=== PATIENT | female | born 1960 | race Caucasian/White ===

== ENCOUNTER 2020-06-23 12:49 | Outpatient (REF) | payer OTHER, SELFPAY ==
--- NOTE | 2020-06-23 12:51 | MR_ITS ---
EXAMINATION: MRI OF THE LEFT ANKLE WITHOUT CONTRAST CLINICAL INFORMATION: Sprain of ligament. COMPARISON: X-rays of the left foot and left ankle March 2020. CT scan of the left foot and left ankle March 2020. TECHNIQUE: MRI of the left ankle was performed without contrast. FINDINGS: Subcutaneous Soft Tissues: Mild generalized edema circumferentially about the ankle and visualized foot. Muscles and Tendons: Normal. Os perineum embedded within the peroneal longus tendon as noted on CT. Plantar Fascia: Normal. Yjjsh-ob-zkzeahzv-sized plantar calcaneal spur. Ligaments: Intact. Neurovascular Structures/Tarsal Tunnel: Normal. Articular Cartilage/Marrow: Slight heterogeneity of the marrow signal in the cuboid. This could reflect residual red marrow or mild bone marrow edema pattern. I do not see a fracture line or discrete bone lesion. The remaining bone and joints are unremarkable. MR/MR ankle LT wo con IMPRESSION: Mild scattered subcutaneous edema. Questionable abnormal marrow in the cuboid. This could reflect normal variation related to residual red marrow versus a mild bone marrow edema pattern which raises the question of a bone contusion or stress reaction.
== END 2020-06-23 12:50 | disposition home or self-care (01) ==
LOC: HO.MRI 12:49
PROVIDERS: PCP Internal Medicine; Visit Provider Physician Assistant
DX: S93.492A Sprain of other ligament of left ankle, initial encounter (principal)
CPT/HCPCS: 73721

== ENCOUNTER 2020-06-27 08:52 | Outpatient (REF) | payer OTHER, SELFPAY ==
[2020-06-27 09:50] LABS: Estimated Average Glucose 103 mg/dL; Hemoglobin A1c % 5.2 %
[2020-06-27 10:11] LABS: Alanine Aminotransferase 12 U/L (0-31); Alkaline Phosphatase 81 U/L (39-117); Anion Gap 12 (12-20); Aspartate Amino Transferase 18 U/L (5-31); Bilirubin Total 0.6 mg/dL (0.0-1.0); Blood Urea Nitrogen 20 mg/dL (9-16); Calcium 8.5 mg/dL (8.4-10.2); Carbon Dioxide 20 mmol/L (22-29); Chloride 110 mmol/L (96-108); Cholesterol 238 mg/dL; Estimated Glomerular Filt Rate > 60; Glucose Fasting 99 mg/dL (60-99); HDL Cholesterol 39 mg/dL; LDL Cholesterol Calculated 150 mg/dl; Potassium 4.4 mmol/l (3.3-5.1); Sodium 138 mmol/L (135-145); Total Protein 6.3 g/dL (6.5-8.0); Triglycerides 246 mg/dL
== END 2020-06-27 08:53 | disposition home or self-care (01) ==
LOC: HO.LAB 08:52
PROVIDERS: PCP Internal Medicine; Visit Provider Internal Medicine
DX: E78.00 Pure hypercholesterolemia, unspecified (principal)
CPT/HCPCS: 80053; 80061; 83036

== ENCOUNTER → 2020-08-23 14:03 | Outpatient (BNVA) | payer OTHER, SELFPAY | PROVIDERS: PCP Internal Medicine; Referring Provider Internal Medicine; Visit Provider Obstetrics & Gynecology | DX: Z76.89 Persons encountering health services in other specified circumstances (principal) ==

== ENCOUNTER 2020-08-30 14:16 | Outpatient (REF) | payer OTHER, SELFPAY ==
--- NOTE | 2020-08-30 14:22 | US_ITS ---
EXAMINATION: PELVIC ULTRASOUND CLINICAL INFORMATION: Ovarian cyst COMPARISON: Previous ultrasound exams most recent April 2019 and pelvic MRI February 2019 TECHNIQUE: Transabdominal and transvaginal pelvic ultrasound was performed. Transvaginal exam was performed for better visualization of the ovaries. FINDINGS: The uterus has been removed. The right ovary measures 3.3 x 2.2 x 1.9 cm. There is a 2.1 x 1.8 x 1.8 cm simple right ovarian cyst. This is increased in size from 1.5 x 1.2 x 1.3 cm on most recent ultrasound April 2019. The left ovary is normal-appearing and measures 2.4 x 1.7 x 1.6 cm. There is no fluid in the pelvis. US/US pelvic complete IMPRESSION: Slight interval increase in size in the simple right ovarian cyst from previous exams.
--- NOTE | 2020-08-30 14:22 | US_ITS ---
EXAMINATION: PELVIC ULTRASOUND CLINICAL INFORMATION: Ovarian cyst COMPARISON: Previous ultrasound exams most recent April 2019 and pelvic MRI February 2019 TECHNIQUE: Transabdominal and transvaginal pelvic ultrasound was performed. Transvaginal exam was performed for better visualization of the ovaries. FINDINGS: The uterus has been removed. The right ovary measures 3.3 x 2.2 x 1.9 cm. There is a 2.1 x 1.8 x 1.8 cm simple right ovarian cyst. This is increased in size from 1.5 x 1.2 x 1.3 cm on most recent ultrasound April 2019. The left ovary is normal-appearing and measures 2.4 x 1.7 x 1.6 cm. There is no fluid in the pelvis. US/US transvaginal IMPRESSION: Slight interval increase in size in the simple right ovarian cyst from previous exams.
== END 2020-08-30 14:17 | disposition home or self-care (01) ==
LOC: HO.US 14:16
PROVIDERS: Visit Provider Obstetrics & Gynecology
DX: N94.9 Unspecified condition associated with female genital organs and menstrual cycle (principal)
CPT/HCPCS: 76830; 76856

== ENCOUNTER → 2020-09-06 12:03 | Outpatient (BNVA) | payer OTHER, SELFPAY | PROVIDERS: Visit Provider Obstetrics & Gynecology | DX: Z13.89 Encounter for screening for other disorder (principal) | CPT/HCPCS: Q3014 ==

== ENCOUNTER 2020-09-25 13:32 | Outpatient (REF) | payer OTHER, SELFPAY ==
--- NOTE | ~2020-09-25 | XR_ITS ---
EXAMINATION: XR LUMBOSACRAL SPINE CLINICAL INFORMATION: Degenerative disc disease COMPARISON: Previous x-ray most recent January 2020 TECHNIQUE: Three views of the lumbosacral spine. FINDINGS: There is mild curvature of the mid lumbar spine to the left. There is grade 1 anterior subluxation of L5 with respect to S1 measuring 8 mm. This is similar to previous exam. There is postsurgical change at L5-S1 with posterior fusion hardware and interpedicular screws and disc interspacer. This is unchanged. No fracture or dislocation is seen. Disc spaces are normal. Paraspinal soft tissues are normal. XR/XR lumbar spine 2-3V IMPRESSION: Stable postsurgical change at L5-S1.
== END 2020-09-25 13:33 | disposition home or self-care (01) ==
LOC: HO.XRAY 13:32
PROVIDERS: Visit Provider Internal Medicine
DX: M51.36 Other intervertebral disc degeneration, lumbar region (principal)
CPT/HCPCS: 72100

== ENCOUNTER → 2020-11-17 10:35 | Outpatient (BNVA) | payer OTHER, SELFPAY | PROVIDERS: PCP Internal Medicine; Visit Provider Student in an Organized Health Care Education/Training Program | DX: M51.36 Other intervertebral disc degeneration, lumbar region (principal); M70.62 Trochanteric bursitis, left hip | CPT/HCPCS: 99212 ==

== ENCOUNTER 2020-11-23 11:22 | Outpatient (REF) | payer OTHER, SELFPAY ==
--- NOTE | ~2020-11-23 | XR_ITS ---
EXAMINATION: XR HIP, LEFT CLINICAL INFORMATION: Left hip pain. COMPARISON: None TECHNIQUE: Two views of the left hip. FINDINGS: There is normal left hip joint alignment. No bony erosive changes, loose bodies or spurring seen. No acute fracture or dislocation seen. The soft tissues are normal. XR/XR hip LT min 2V IMPRESSION: Unremarkable left hip exam.
[2020-11-23 13:48] LABS: Glucose Urine UA NEG (NEG); Leukocyte Esterase Urine 3+ (NEG); Nitrite Urine POS (NEG); PH 7.5 (5.0-8.0); Specific Gravity - Urine 1.015 (1.005-1.025); UACC Culture Trigger YES; Urine Blood TRACE (NEG); Urine Ketones NEG (NEG); Urine Protein NEG (NEG-TRACE)
[2020-11-23 14:00] LABS: Appearance Urine HAZY; Color Urine YELLOW
[2020-11-23 14:19] LABS: Bacteria Urine 1+ /LPF; RBC Urine 0-2 /HPF (0); Squamous Epithelial Cell Urine TRACE /LPF; WBC Urine 30-49 /HPF (0-4)
== END 2020-11-23 11:23 | disposition home or self-care (01) ==
LOC: HO.XRAY 11:22
PROVIDERS: PCP Internal Medicine; Visit Provider Internal Medicine
DX: M70.62 Trochanteric bursitis, left hip (principal)
CPT/HCPCS: 73502; 81001; 81003; 87086

== ENCOUNTER 2020-11-29 06:33 | Outpatient (REF) | payer OTHER, SELFPAY ==
[2020-11-29 08:30] LABS: Alanine Aminotransferase 16 U/L (0-31); Albumin Level 4.3 g/dL (3.5-5.0); Alkaline Phosphatase 94 U/L (39-117); Anion Gap 12 (12-20); Aspartate Amino Transferase 21 U/L (5-31); Bilirubin Total 0.8 mg/dL (0.0-1.0); Blood Urea Nitrogen 20 mg/dL (9-16); Calcium 9.4 mg/dL (8.4-10.2); Carbon Dioxide 24 mmol/L (22-29); Chloride 106 mmol/L (96-108); Cholesterol 213 mg/dL; Estimated Glomerular Filt Rate > 60; Glucose Random 98 mg/dL (60-115); HDL Cholesterol 48 mg/dL; LDL Cholesterol Calculated 96 mg/dl; Potassium 4.2 mmol/L (3.3-5.1); Sodium 138 mmol/L (135-145); Triglycerides 345 mg/dL
== END 2020-11-29 06:34 | disposition home or self-care (01) ==
LOC: HO.LAB 06:33
PROVIDERS: PCP Internal Medicine; Visit Provider Internal Medicine
DX: E78.00 Pure hypercholesterolemia, unspecified (principal)
CPT/HCPCS: 36415; 80053; 80061

== ENCOUNTER 2021-07-11 10:48 | Outpatient (REF) | payer OTHER, SELFPAY ==
[2021-07-11 12:52] LABS: Appearance Urine HAZY; Color Urine YELLOW; Glucose Urine UA 100 MG/DL (NEG); Leukocyte Esterase Urine 3+ (NEG); Nitrite Urine POS (NEG); PH 6.5 (5.0-8.0); Specific Gravity - Urine <= 1.005 (1.005-1.025); UACC Culture Trigger YES; Urine Blood TRACE (NEG); Urine Ketones NEG (NEG); Urine Protein TRACE MG/DL (NEG-TRACE)
[2021-07-11 13:00] LABS: Bacteria Urine 2+ /LPF; Mucus Urine 2+ /LPF; RBC Urine 0-2 /HPF (0)
== END 2021-07-11 10:49 | disposition home or self-care (01) ==
LOC: HO.LAB 10:48
PROVIDERS: PCP Internal Medicine; Visit Provider Internal Medicine
DX: R82.90 Unspecified abnormal findings in urine (principal)
CPT/HCPCS: 36415; 81001; 87086

== ENCOUNTER 2021-08-20 10:25 | Outpatient (REF) | payer OTHER, SELFPAY ==
[2021-08-20 11:33] LABS: Alanine Aminotransferase 17 U/L (0-31); Albumin Level 4.5 g/dL (3.5-5.0); Alkaline Phosphatase 82 U/L (39-117); Anion Gap 8 (12-20); Aspartate Amino Transferase 22 U/L (5-31); Bilirubin Total 1.2 mg/dL (0.0-1.0); Blood Urea Nitrogen 12 mg/dL (9-16); Calcium 9.9 mg/dL (8.4-10.2); Carbon Dioxide 26 mmol/L (22-29); Chloride 108 mmol/L (96-108); Cholesterol 211 mg/dL; Estimated Glomerular Filt Rate > 60; Glucose Random 100 mg/dL (60-115); HDL Cholesterol 35 mg/dL; LDL Cholesterol Calculated 98 mg/dl; Potassium 4.1 mmol/L (3.3-5.1); Sodium 138 mmol/L (135-145); Total Protein 7.3 g/dL (6.5-8.0); Triglycerides 393 mg/dL
== END 2021-08-20 10:26 | disposition home or self-care (01) ==
LOC: HO.LAB 10:25
PROVIDERS: PCP Internal Medicine; Visit Provider Internal Medicine
DX: E78.00 Pure hypercholesterolemia, unspecified (principal)
CPT/HCPCS: 36415; 80053; 80061

== ENCOUNTER 2021-09-26 12:34 | Outpatient (REF) | payer OTHER, SELFPAY ==
--- NOTE | ~2021-09-26 | CT_ITS ---
EXAMINATION: CT CHEST SCREENING CLINICAL INFORMATION: Nicotine dependence. Current smoker with 1 pack per day history for 46 years. COMPARISON: 02/08/2020 and 11/06/2018. TECHNIQUE: Multidetector volumetric CT imaging of the chest was performed without contrast using low-dose technique. Additional 2D coronal and sagittal reformatted images and axial 3D maximum intensity projection (MIP) images were generated on the CT workstation. This CT examination was performed using dose optimization techniques as appropriate, variously including the following: *Automated exposure control *Adjustment of mA and/or kV according to patient size (this includes techniques or standardized protocols for targeted exams where dose is matched to indication/reason for exam; i.e. extremities or head) *Use of iterative reconstruction technique DLP: 57 mGy-cm FINDINGS: LUNGS: Central airways are patent. There is a region of chronic scarring/atelectasis medial aspect of the right middle lobe. No significant bronchial wall thickening is evident. No bronchiectasis is seen. No significant changes of emphysema are appreciated. No confluent pneumonitis. There are a few scattered 1 to 2 mm densities present bilaterally with no nodule 4 mm or greater in size. MEDIASTINUM: Heart normal size. No evidence of pericardial effusion. No thoracic aortic aneurysm. No mediastinal or hilar lymphadenopathy. PLEURA: There is no pleural effusion. No pleural mass or thickening. AXILLAE: No lymphadenopathy. Status post cervical spine surgery. UPPER ABDOMEN: Status post cholecystectomy. No adrenal gland mass. OSSEOUS STRUCTURES: Status post right shoulder surgery. Status post cervical spine surgery. No suspicious destructive bony lesions identified. CT/CT lung screening IMPRESSION: No significant abnormality identified. ASSESSMENT: Lung-RADS category 2: Benign. RECOMMENDATION: Routine annual low-dose CT screening in 12 months.
== END 2021-09-26 12:35 | disposition home or self-care (01) ==
LOC: HO.CT 12:34
PROVIDERS: PCP Internal Medicine; Visit Provider Physician Assistant Medical
DX: Z12.2 Encounter for screening for malignant neoplasm of respiratory organs (principal); Z87.891 Personal history of nicotine dependence
CPT/HCPCS: 71271

== ENCOUNTER → 2022-02-04 11:44 | Outpatient (BNVA) | payer OTHER, SELFPAY | PROVIDERS: PCP Internal Medicine; Referring Provider Internal Medicine; Visit Provider Physician Assistant | DX: Z12.11 Encounter for screening for malignant neoplasm of colon (principal); K21.9 Gastro-esophageal reflux disease without esophagitis | CPT/HCPCS: 99202 ==

== ENCOUNTER 2022-02-05 13:12 | Outpatient (REF) | payer OTHER, SELFPAY ==
[2022-02-06 16:03] LABS: H Pylori Breath Test Negative (Negative)
== END 2022-02-05 13:13 | disposition home or self-care (01) ==
LOC: HO.LNP 13:12
PROVIDERS: Visit Provider Physician Assistant
DX: A04.8 Other specified bacterial intestinal infections (principal)
CPT/HCPCS: 83013

== ENCOUNTER 2022-02-12 08:43 | Day surgery (SDC) | payer OTHER, SELFPAY ==
--- NOTE | 2022-02-08 09:30 | HO.ANESPROP2 ---
Documented by User: Amanda Melara NP 02/08/22 09:32 HPI - Anesthesia Eval Consult details Narrative: 62yo F for Colonoscopy PMFSH Active Problems Active Problems: All Active Problems (Updated 02/04/22 @ 12:13 by Brigitte Weston PA-C) Encounter for screening colonoscopy (Acute) Colonoscopy refused (Acute) Cloudy urine (Acute) Trochanteric bursitis, left hip (Acute) Ovarian cyst (Acute) Ventral hernia (Acute) Obesity (BMI 30-39.9) (Acute) Lumbar degenerative disc disease (Acute) Anxiety and depression (Acute) Hypercholesterolemia (Acute) Osteopenia (Acute) Restless leg syndrome (Acute) Insomnia (Acute) Tobacco abuse (Acute) GERD (gastroesophageal reflux disease) (Acute) Impaired glucose tolerance (Acute) Hypertension (Acute) Past Medical History Medical History Anxiety and depression Cervical radiculopathy due to degenerative joint disease of spine Cholelithiasis Fibromyalgia GERD (gastroesophageal reflux disease) H. pylori duodenitis HLA B27 (HLA B27 positive) Hypercholesterolemia Hypertension Impaired glucose tolerance Insomnia Lumbar degenerative disc disease Obesity (BMI 30-39.9) Osteopenia Restless leg syndrome Tobacco abuse Family History Family History Father Hypertension Past heart attack CVD (cardiovascular disease) Mother Hyperlipidemia Paternal Grandmother Lung cancer Son Substance abuse Brother Bipolar 1 disorder Surgical History Surgical History H/O basal cell carcinoma excision H/O nasal septoplasty H/O right wrist surgery H/O thumb surgery History of cervical discectomy History of cholecystectomy History of hemorrhoidectomy History of hernia repair History of lumbar fusion History of partial hysterectomy History of shoulder surgery History of tonsillectomy Social History Social History Housing: House Alcohol intake: current Alcohol intake frequency: a few times a week Alcohol type: beer Patient Tobacco Use Status: Current everyday Tobacco user Tobacco use type: Cigarette Cigarette Packs Per Day: 0.5 Cigarettes Per Day: 10 e-Cigarette/Vaping Use: Never Used Second Hand Smoke Exposure: Yes Use of substances other than those prescribed or required for medical reasons: No Advance Directives: No Advance Directives Information Provided: Yes Recently lost weight without trying: No Nutrition Risks: No Nutritional Risk service: No Current occupational status: disabled Meds Allergies Allergy/AdvReac Type Severity Reaction Status Date / Time adhesive tape [ADHESIVE TAPE] Allergy Intermediate RASH/BLISTE Verified 02/04/22 11:55 RS Sulfa (Sulfonamide Allergy Intermediate ITCHY RASH Verified 02/04/22 11:55 Antibiotics) [SULFA (SULFONAMIDE ANTIBIOTICS)] bacitracin [From NEOSPORIN] Allergy Mild RASH Verified 02/04/22 11:55 gramicidin D [From NEOSPORIN] Allergy Mild RASH Verified 02/04/22 11:55 polymyxin B [From NEOSPORIN] Allergy Mild RASH Verified 02/04/22 11:55 cefazolin [CEFAZOLIN] AdvReac Intermediate GI UPSET Verified 02/04/22 11:55 Home Medications Medication Instructions Recorded Confirmed Last Taken Type clonazepam 1 mg tablet 1 mg PO TID 08/21/21 08/21/21 Unknown History quetiapine 50 mg tablet 100 mg PO TID 08/21/21 08/21/21 Unknown History sertraline 100 mg tablet 0 mg PO 02/04/22 02/12/22 History 0 mg Exam Exam Date and Time: February 08, 2022 0930 Pertinent Lab Results Pertinent Lab Results: Laboratory Tests 08/20/21 10:49 Sodium 138 Potassium 4.1 Chloride 108 Carbon Dioxide 26 BUN 12 Creatinine 0.93 Narrative Narrative: CT lung screening 09/2021 IMPRESSION: No significant abnormality identified.? Assessment and Plan Assessment Anesthesia Assessment: Chart Reviewed Documented by User: Sky Gil MD 02/12/22 09:19 [facility] Past Medical History Medical History Anxiety and depression Cervical radiculopathy due to degenerative joint disease of spine Cholelithiasis Fibromyalgia GERD (gastroesophageal reflux disease) H. pylori duodenitis HLA B27 (HLA B27 positive) Hypercholesterolemia Hypertension Impaired glucose tolerance Insomnia Lumbar degenerative disc disease Obesity (BMI 30-39.9) Osteopenia Restless leg syndrome Tobacco abuse Patient : No Family History Family History Father Hypertension Past heart attack CVD (cardiovascular disease) Mother Hyperlipidemia Paternal Grandmother Lung cancer Son Substance abuse Brother Bipolar 1 disorder Family history of problems with anesthesia: No Surgical History Surgical History H/O basal cell carcinoma excision H/O nasal septoplasty H/O right wrist surgery H/O thumb surgery History of cervical discectomy History of cholecystectomy History of hemorrhoidectomy History of hernia repair History of lumbar fusion History of partial hysterectomy History of shoulder surgery History of tonsillectomy History of Problems with Anesthesia: No Social History Social History Housing: House Alcohol intake: current Alcohol intake frequency: a few times a week Alcohol type: beer Patient Tobacco Use Status: Current everyday Tobacco user Tobacco use type: Cigarette Cigarette Packs Per Day: 0.5 Cigarettes Per Day: 10 e-Cigarette/Vaping Use: Never Used Second Hand Smoke Exposure: Yes Use of substances other than those prescribed or required for medical reasons: No Advance Directives: No Advance Directives Information Provided: Yes Recently lost weight without trying: No Nutrition Risks: No Nutritional Risk service: No Current occupational status: disabled Meds Allergies Allergy/AdvReac Type Severity Reaction Status Date / Time adhesive tape [ADHESIVE TAPE] Allergy Intermediate RASH/BLISTE Verified 02/04/22 11:55 RS Sulfa (Sulfonamide Allergy Intermediate ITCHY RASH Verified 02/04/22 11:55 Antibiotics) [SULFA (SULFONAMIDE ANTIBIOTICS)] bacitracin [From NEOSPORIN] Allergy Mild RASH Verified 02/04/22 11:55 gramicidin D [From NEOSPORIN] Allergy Mild RASH Verified 02/04/22 11:55 polymyxin B [From NEOSPORIN] Allergy Mild RASH Verified 02/04/22 11:55 cefazolin [CEFAZOLIN] AdvReac Intermediate GI UPSET Verified 02/04/22 11:55 Home Medications Medication Instructions Recorded Confirmed Last Taken Type clonazepam 1 mg tablet 1 mg PO TID 08/21/21 08/21/21 Unknown History quetiapine 50 mg tablet 100 mg PO TID 08/21/21 08/21/21 Unknown History sertraline 100 mg tablet 0 mg PO 02/04/22 02/12/22 History 0 mg Exam Airway Mallampati Class: III TM Dist: >3cm Neck ROM: Full Partial: Lower Loose/Missing/Broken Teeth: Yes Heart: rrr Lungs: clear Assessment and Plan Final Anesthetic Review Family History of Problems with Anesthesia: No History of Problems with Anesthesia: No NPO: Yes ASA Class: III Final Preanesthetic Review: No Changes in Pt Med Stat, Meds/Allgs Chart Reviewed, Consent Obtained/Reviewed and Anes Risks/Benef Reviewed Patient Risk: Intermediate Procedure Risk: Low Anesthetic Plan Disposition: Standard PACU
[2022-02-12 08:53] VITALS: BP 140/93; PULSE 94; RESP 16; TEMP 36.1; O2SAT 95; BMI 34.3
[2022-02-12] MEDS: Lactated Ringers 1,000 ML 100 ML IVCONT (09:10)
--- NOTE | 2022-02-12 09:15 | P.BOP_ITS ---
Brief Operative Note Date of Service: 02/12/22 Pre-op diagnosis: Colon cancer screening Post-op diagnosis: other (Colon polyps, diverticulosis) Procedure: COLONOSCOPY TILL CECUM WITH SNARE POLYPECTOMY Consent: Indications for the procedure and potential complications of bleeding, perforation, reaction to medications and missed diagnosis were discussed with the patient and informed consent was obtained. Instrument: Olympus PCF H 190 L variable stiffness pediatric colonoscope Monitoring: Vital signs and clinical assessment, intermittent blood pressure monitoring, continuous EKG monitoring, Pulse oximetry and Carbon Dioxide monitoring were done throughout the procedure. Colon withdrawl time was 26 minutes. Procedure: The patient was placed in the left lateral decubitis position and pre-procedure medications were administered. After a digital rectal examination of the ano-rectum, the video colonoscope was inserted into the rectum and advanced through the colon to the cecum. The colonoscope was slowly withdrawn in a retrograde panoramic fashion and the colon mucosa was carefully examined including a retroflexed view of the rectum. Findings and interventions are described below. Procedure Difficulty: Without difficulty Findings: Terminal Ileum: Not evaluated Cecum: Normal Ascending Colon: Scattered moderate diverticulosis throughout the colon Transverse Colon: Scattered moderate diverticulosis throughout the colon Descending Colon: Scattered moderate diverticulosis throughout the colon Sigmoid Colon: Two 9-10 mm sessile polyps removed with a cold snare. Severe diverticulosis with luminal narrowing Rectum: Normal Ano-rectum: Tessie-anal skin tags Colon preparation: Excellent Impression and Post Procedure Diagnosis: Colonoscopy Findings: Two medium sized polyps removed Moderate to severe diverticulosis seen in the entire colon Plan: Await pathology results Patient has an appointment on 03/05/22 in the GI Clinic with MOSHE Ghotra. Repeat Colonoscopy interval based on path results - in 3-5 years if polyps are adenomatous and 10 years if polyps are hyperplastic. Above findings were reviewed with the patient and colon polyps and diverticulosis handouts were given in the discharge area Surgeon: Cordell Goldberg MD Anesthesia: MAC (Dr Gil) Was an Physical Aerodynamicist used for this Procedure?: Yes Physical Aerodynamicist: Fior Fnues Estimated blood loss (mL): 0 Pathology: other (A. sigmoid polyps (2)) Condition: stable Disposition: PACU
--- NOTE | 2022-02-12 09:15 | MHC.SHP ---
Pre-Procedural Eval Section A Date of Service: 02/12/22 The patient is an INPATIENT: No Changes since office visit: Yes Patient answered all questions; No Cold of Flu in the past 2 weeks, No New Medical Problems and No Changes in Medication The History & Physical has been completed within 30 days and I have reviewed it.: Yes Section B Chief Complaint: screening Allergies: Allergies Allergy/AdvReac Type Severity Reaction Status Date / Time adhesive tape [ADHESIVE TAPE] Allergy Intermediate RASH/BLISTE Verified 02/04/22 11:55 RS Sulfa (Sulfonamide Allergy Intermediate ITCHY RASH Verified 02/04/22 11:55 Antibiotics) [SULFA (SULFONAMIDE ANTIBIOTICS)] bacitracin [From NEOSPORIN] Allergy Mild RASH Verified 02/04/22 11:55 gramicidin D [From NEOSPORIN] Allergy Mild RASH Verified 02/04/22 11:55 polymyxin B [From NEOSPORIN] Allergy Mild RASH Verified 02/04/22 11:55 cefazolin [CEFAZOLIN] AdvReac Intermediate GI UPSET Verified 02/04/22 11:55 Plan I have reviewed the history and physical and performed a pertinent physical examination on my patient. No changes have occurred unless specified.
--- NOTE | 2022-02-12 09:21 | PC.NURSE ---
Right BBB noted on monitor , Dr Gil notified
--- NOTE | 2022-02-12 09:23 | W.PM.OPN ---
Operative Note Operative Note Date of Service: 02/12/22 Narrative: Pre-op diagnosis: Colon cancer screening Post-op diagnosis:?other (Colon polyps, diverticulosis) Procedure: COLONOSCOPY TILL CECUM WITH SNARE POLYPECTOMY Consent: Indications for the procedure and potential complications of bleeding, perforation, reaction to medications and missed diagnosis were discussed with the patient and informed consent was obtained. Instrument: Olympus PCF H 190 L variable stiffness pediatric colonoscope Monitoring: Vital signs and clinical assessment, intermittent blood pressure monitoring, continuous EKG monitoring, Pulse oximetry and Carbon Dioxide monitoring were done throughout the procedure. Colon withdrawl time was 26 minutes. Procedure: The patient was placed in the left lateral decubitis position and pre-procedure medications were administered. After a digital rectal examination of the ano-rectum, the video colonoscope was inserted into the rectum and advanced through the colon to the cecum. The colonoscope was slowly withdrawn in a retrograde panoramic fashion and the colon mucosa was carefully examined including a retroflexed view of the rectum. Findings and interventions are described below. Procedure Difficulty: Without difficulty Findings: Terminal Ileum: Not evaluated Cecum:? Normal Ascending Colon:? Scattered moderate diverticulosis throughout the colon Transverse Colon:? Scattered moderate diverticulosis throughout the colon Descending Colon:? Scattered moderate diverticulosis throughout the colon Sigmoid Colon:? Two 9-10 mm sessile polyps removed with a cold snare. Severe diverticulosis with luminal narrowing Rectum:? Normal Ano-rectum:? Tessie-anal skin tags Colon preparation: Excellent ? Impression and Post Procedure Diagnosis: Colonoscopy Findings: Two medium sized polyps removed Moderate to severe diverticulosis seen in the entire colon Plan: Await pathology results Patient has an appointment on 03/05/22 in the GI Clinic with MOSHE Ghotra. Repeat Colonoscopy interval based on path results - in 3-5 years if polyps are adenomatous and 10 years if polyps are hyperplastic. Above findings were reviewed with the patient and colon polyps and diverticulosis handouts were given in the discharge area Surgeon: Cordell Goldberg MD Anesthesia:?MAC (Dr Gil) Was an Community Services Officer used for this Procedure?:?Yes Community Services Officer:?Fior Funes Estimated blood loss (mL):?0 Pathology:?other (A. sigmoid polyps (2)) Condition:?stable Disposition:?PACU
[2022-02-12 10:13] VITALS: BP 134/81; PULSE 66; RESP 16; TEMP 36.6; O2SAT 97
[2022-02-12 10:28] VITALS: BP 144/74; PULSE 68; RESP 16; TEMP 36.9; O2SAT 98
== END 2022-02-12 10:51 | disposition home or self-care (01) ==
PROVIDERS: PCP Internal Medicine; Visit Provider Internal Medicine Gastroenterology
PROC: 0DJD8ZZ Inspection of Lower Intestinal Tract, Via Natural or Artificial Opening Endoscopic (ICD-10-PCS; CPT 45378; principal; 2022-02-12 09:50)
DX: Z12.11 Encounter for screening for malignant neoplasm of colon (principal); D12.5 Benign neoplasm of sigmoid colon; K57.30 Diverticulosis of large intestine without perforation or abscess without bleeding; K64.4 Residual hemorrhoidal skin tags; K21.9 Gastro-esophageal reflux disease without esophagitis; I10 Essential (primary) hypertension; M79.7 Fibromyalgia; Z87.19 Personal history of other diseases of the digestive system; A04.8 Other specified bacterial intestinal infections; Z79.899 Other long term (current) drug therapy; Z88.2 Allergy status to sulfonamides; Z88.1 Allergy status to other antibiotic agents; Z90.49 Acquired absence of other specified parts of digestive tract; F17.210 Nicotine dependence, cigarettes, uncomplicated
CPT/HCPCS: 45385; 88305

== ENCOUNTER 2022-02-18 13:24 | Outpatient (REF) | payer OTHER, SELFPAY ==
[2022-02-18 13:40] LABS: MANUAL DIFF FLAG NO
[2022-02-18 14:00] LABS: Basophils Absolute Auto 0.1 X10*3/uL (0.0-0.2); Basophils Percent Auto 0.9 % (0-2); Eosinophils Absolute Auto 0.2 X10*3/uL (0.0-0.4); Eosinophils Percent Auto 2.9 % (0-4); Hematocrit 41.9 % (37.0-47.0); Hemoglobin 14.6 g/dl (12.0-16.0); Imm Gran Abs Auto 0.05 X10*3/uL (0.00-0.03); Imm Gran Pct Auto 0.6 % (0.0-0.4); Lymphocytes Absolute Auto 2.9 X10*3/uL (1.2-4.9); Lymphocytes Percent Auto 35.5 % (20-40); Mean Corpuscular HGB Conc 34.8 g/dl (31.0-35.0); Mean Corpuscular Hemoglobin 31.4 pg (27.0-33.0); Mean Corpuscular Volume 90.1 fL (80.0-98.0); Mean Platelet Volume 9.6 fL (9.4-12.3); Monocytes Absolute Auto 0.6 X10*3/uL (0.1-1.2); Monocytes Percent Auto 7.1 % (2-11); Neutrophils Absolute Auto 4.3 x10*3/uL (2.0-8.3); Platelet Count 389 X10*3/uL (160-400); Red Blood Count 4.65 X10*6/uL (4.20-5.50); Red Cell Distribution Width 12.2 % (11.0-16.0)
[2022-02-18 14:07] LABS: Estimated Average Glucose 105 mg/dL; Hemoglobin A1c % 5.3 %
[2022-02-18 14:33] LABS: Alanine Aminotransferase 32 U/L (0-31); Albumin Level 4.7 g/dL (3.5-5.0); Alkaline Phosphatase 54 U/L (39-117); Anion Gap 13 (12-20); Aspartate Amino Transferase 44 U/L (5-31); Bilirubin Direct 0.2 mg/dL (0.0-0.5); Bilirubin Total 0.5 mg/dL (0.0-1.0); Blood Urea Nitrogen 14 mg/dL (9-16); Calcium 10.1 mg/dL (8.4-10.2); Carbon Dioxide 23 mmol/L (22-29); Chloride 106 mmol/L (96-108); Estimated Glomerular Filt Rate 58; Glucose Random 105 mg/dL (60-115); Potassium 4.4 mmol/L (3.3-5.1); Sodium 138 mmol/L (135-145); Total Protein 7.7 g/dL (6.5-8.0)
[2022-02-18 14:50] LABS: Thyroid Stimulating Hormone 0.98 uIU/mL (0.32-4.0)
[2022-02-18 15:04] LABS: Folate 10.5 ng/mL (> or = 4.0); Vitamin B12 577 pg/mL (200-900)
== END 2022-02-18 13:25 | disposition home or self-care (01) ==
LOC: HO.LAB 13:24
PROVIDERS: Absent Provider Psychiatry & Neurology Psychiatry; PCP Internal Medicine; Visit Provider Internal Medicine
DX: Z01.818 Encounter for other preprocedural examination (principal); E78.00 Pure hypercholesterolemia, unspecified; R79.89 Other specified abnormal findings of blood chemistry; F33.2 Major depressive disorder, recurrent severe without psychotic features
CPT/HCPCS: 36415; 80053; 82248; 82607; 82746; 83036; 84443; 85025

== ENCOUNTER → 2022-02-25 10:51 | Outpatient (REF) | payer OTHER, SELFPAY ==
--- NOTE | 2022-02-25 11:04 | ECG_ITS ---
Test Reason : preop Blood Pressure : / mmHG Vent. Rate : 083 BPM Atrial Rate : 083 BPM P-R Int : 140 ms QRS Dur : 082 ms QT Int : 370 ms P-R-T Axes : 019 058 086 degrees QTc Int : 434 ms Normal sinus rhythm Possible Inferior infarct , age undetermined Abnormal ECG When compared with ECG of 01-APR-2020 21:30, No significant change was found Referred By: Maxi Diaz Electronically Signed By:Anthony Ray
[2022-02-25 13:13] LABS: Appearance Urine CLEAR; Color Urine YELLOW; Glucose Urine UA NEG (NEG); Leukocyte Esterase Urine NEG (NEG); Nitrite Urine NEG (NEG); Urine Blood NEG (NEG); Urine Ketones NEG (NEG); Urine Protein NEG (NEG-TRACE)
== END ==
LOC: HO.CARD 10:51
PROVIDERS: PCP Internal Medicine; Visit Provider Internal Medicine
DX: Z01.818 Encounter for other preprocedural examination (principal); F33.2 Major depressive disorder, recurrent severe without psychotic features; R82.90 Unspecified abnormal findings in urine
CPT/HCPCS: 81003; 93005

== ENCOUNTER → 2022-03-01 13:31 | Outpatient (BNVA) | payer OTHER, SELFPAY | PROVIDERS: PCP Internal Medicine; Visit Provider Nurse Practitioner Family | DX: M51.36 Other intervertebral disc degeneration, lumbar region (principal); M70.62 Trochanteric bursitis, left hip; R79.89 Other specified abnormal findings of blood chemistry | CPT/HCPCS: Q3014 ==

== ENCOUNTER 2022-03-04 05:51 | Day surgery (SDC) | payer OTHER, SELFPAY ==
[2022-03-04] VITALS (7 sets, daily range): BP systolic 145–158; BP diastolic 61–86; PULSE 66–76; RESP 12–20; TEMP 36.3–37; O2SAT 93–98; BMI 34.3
--- NOTE | 2022-03-04 06:37 | HO.ANESPROP2 ---
[facility] Active Problems Active Problems: All Active Problems (Updated 02/26/22 @ 15:00 by Kenya Almaraz MD) LFT elevation (Acute) Abnormal EKG (Acute) Generalized anxiety disorder (Acute) Encounter for screening colonoscopy (Acute) Colonoscopy refused (Acute) Cloudy urine (Acute) Trochanteric bursitis, left hip (Acute) Ovarian cyst (Acute) Ventral hernia (Acute) Obesity (BMI 30-39.9) (Acute) Lumbar degenerative disc disease (Acute) Anxiety and depression (Acute) Hypercholesterolemia (Acute) Osteopenia (Acute) Restless leg syndrome (Acute) Insomnia (Acute) Tobacco abuse (Acute) GERD (gastroesophageal reflux disease) (Acute) Impaired glucose tolerance (Acute) Hypertension (Acute) Past Medical History Medical History Anxiety and depression Cervical radiculopathy due to degenerative joint disease of spine Cholelithiasis Fibromyalgia GERD (gastroesophageal reflux disease) H. pylori duodenitis HLA B27 (HLA B27 positive) Hypercholesterolemia Hypertension Impaired glucose tolerance Insomnia Lumbar degenerative disc disease Obesity (BMI 30-39.9) Osteopenia Restless leg syndrome Tobacco abuse Family History Family History Father Hypertension Past heart attack CVD (cardiovascular disease) Mother Hyperlipidemia Paternal Grandmother Lung cancer Son Substance abuse Brother Bipolar 1 disorder Family history of problems with anesthesia: No Surgical History Surgical History H/O basal cell carcinoma excision H/O nasal septoplasty H/O right wrist surgery H/O thumb surgery History of cervical discectomy History of cholecystectomy History of hemorrhoidectomy History of hernia repair History of lumbar fusion History of partial hysterectomy History of shoulder surgery History of tonsillectomy Hx of colonoscopy History of Problems with Anesthesia: No Social History Social History Housing: House Alcohol intake: current Alcohol intake frequency: a few times a week Alcohol type: beer Patient Tobacco Use Status: Current everyday Tobacco user Tobacco use type: Cigarette Cigarette Packs Per Day: 0.5 Cigarettes Per Day: 10 e-Cigarette/Vaping Use: Never Used Second Hand Smoke Exposure: Yes Advance Directives: No Advance Directives Information Provided: Yes service: No Current occupational status: disabled Cognitive needs: No Hearing needs: No Vision needs: Yes (reading glasses) Meds Allergies Allergy/AdvReac Type Severity Reaction Status Date / Time adhesive tape [ADHESIVE TAPE] Allergy Intermediate RASH/BLISTE Verified 03/01/22 13:35 RS Sulfa (Sulfonamide Allergy Intermediate ITCHY RASH Verified 03/01/22 13:35 Antibiotics) [SULFA (SULFONAMIDE ANTIBIOTICS)] bacitracin [From NEOSPORIN] Allergy Mild RASH Verified 03/01/22 13:35 gramicidin D [From NEOSPORIN] Allergy Mild RASH Verified 03/01/22 13:35 polymyxin B [From NEOSPORIN] Allergy Mild RASH Verified 03/01/22 13:35 cefazolin [CEFAZOLIN] AdvReac Intermediate GI UPSET Verified 03/01/22 13:35 Active Medications: Current Medications Lactated Ringer's (Lr) 1,000 mls @ 50 mls/hr IVCONT .Q20H [facility] Home Medications Medication Instructions Recorded Confirmed Last Taken Type clonazepam 1 mg tablet 1 mg PO TID 08/21/21 03/01/22 Unknown History quetiapine 50 mg tablet 100 mg PO TID 08/21/21 03/01/22 Unknown History sertraline 100 mg tablet 0 mg PO 02/04/22 03/01/22 02/12/22 History 0 mg Exam Exam Date and Time: March 04, 2022 0637 Height,Weight and Vital Signs: Height 4 ft 11 in Weight 77.111 kg Last Vital Signs Temp 97.3 F 03/04/22 06:26 Pulse 67 03/04/22 06:26 Resp 20 03/04/22 06:26 BP 145/86 H 03/04/22 06:26 Pulse Ox 97 03/04/22 06:26 O2 Del Method 03/04/22 06:26 Airway Mallampati Class: II TM Dist: >3cm Neck ROM: Full Partial: Upper (Permanent upper bridge) and Lower Heart: rrr Lungs: cta Assessment and Plan Assessment Anesthesia Assessment: Anesthesia Plan Discussed and Chart Reviewed Final Anesthetic Review Family History of Problems with Anesthesia: No History of Problems with Anesthesia: No NPO: Yes ASA Class: III Final Preanesthetic Review: No Changes in Pt Med Stat, Meds/Allgs Chart Reviewed and Consent Obtained/Reviewed Patient Risk: Intermediate Procedure Risk: Intermediate Anesthetic Plan Anesthetic Plan: GA Disposition: Standard PACU
[2022-03-04 06:38] LABS: COVID-19 Test Negative (Negative); IDNOW Serial# 16C4AD1C
--- NOTE | 2022-03-04 07:04 | P.HPSUR_ITS ---
Pre-Procedural Eval Section A Date of Service: 03/04/22 The patient is an INPATIENT: No Changes since office visit: No Cold of Flu in the past 2 weeks, No New Medical Problems, No Changes in Medication and No Patient answered all questions The History & Physical has been completed within 30 days and I have reviewed it.: Yes Section B Chief Complaint: depression Details of Present Illness: hx of depression, ECT to be started Relevant Family History (Specify if Yes): Yes Relevant Social History: None Present Medications: see Short Stay Collaborative assessment Medical History: No relevant PMH History of Previous Operations: No relevant previous surgery Allergies: Allergies Allergy/AdvReac Type Severity Reaction Status Date / Time adhesive tape [ADHESIVE TAPE] Allergy Intermediate RASH/BLISTE Verified 03/01/22 13:35 RS Sulfa (Sulfonamide Allergy Intermediate ITCHY RASH Verified 03/01/22 13:35 Antibiotics) [SULFA (SULFONAMIDE ANTIBIOTICS)] bacitracin [From NEOSPORIN] Allergy Mild RASH Verified 03/01/22 13:35 gramicidin D [From NEOSPORIN] Allergy Mild RASH Verified 03/01/22 13:35 polymyxin B [From NEOSPORIN] Allergy Mild RASH Verified 03/01/22 13:35 cefazolin [CEFAZOLIN] AdvReac Intermediate GI UPSET Verified 03/01/22 13:35 Review of Systems Sugical H&P ROS: Negative: Constitution, Cardiovascular, Respiratory, Neur ological, Psychiatric, Hem-Onc, Allergic/Immunologic, Gastrointestinal, Genitourinary, Musculoskeletal, Integumentary, Endocrine and Eyes/Ears/Nose/Throat Exam Surgical H&P Exam: Normal: HEENT, Normal: Heart, Normal: Lungs, Normal: Extremities, Normal: Abdomen, Normal: Skin and Normal: Neurological Plan Diagnosis/Plan: Unchanged I have reviewed the history and physical and performed a pertinent physical examination on my patient. No changes have occurred unless specified.
--- NOTE | 2022-03-04 07:07 | HO.ECTPROC ---
ECT Procedure Note Diagnosis/Treatment Date of Service: 03/04/22 Diagnosis: Major Depressive Disorder Current Treatment Number: 1 Treatment: Series Interval Clinical Notes: The patient has never had ECT, doing good but very anxious as soon as Flumazenil was pushed. Dysphoric and she has failed to several courses of medications. ECT Settings Device: THYMATRON DGx Electrode Placement: Right Unilateral Program/Pulse Width: 0.25 Energy Percent: 100 Seizure Duration By EEG (in seconds): 63 By Motor Observation (in seconds): 25 Medications Administration General Anesthetic: Etomidate (14) Muscle Relaxant: Succinylcholine (100) Ancillary Medications Analgesics: Torodol - Pre ECT Anti-emetics: Zofran - Pre ECT Miscillaneous Medications: Flumazenil Airway Management Airway Management: Bag Mask Ventilation Treatment Recommendations Electrode Placement: Right Unilateral Program/Pulse Width: 0.25 Energy Percent: 90 Pt Tolerated Procedure w/o Issue: Yes
[2022-03-04] MEDS: LORazepam 1 MG TABLET PO (07:50)
[2022-03-04] MEDS: Ondansetron ODT 4 MG TAB.RAPDIS TRANSLINGU (08:37)
== END 2022-03-04 08:56 | disposition home or self-care (01) ==
PROVIDERS: PCP Internal Medicine; Visit Provider Psychiatry & Neurology Psychiatry
PROC: (CPT 90870; principal; 2022-03-04 08:00)
DX: F32.9 Major depressive disorder, single episode, unspecified (principal); I10 Essential (primary) hypertension; M79.7 Fibromyalgia; R73.02 Impaired glucose tolerance (oral); Z88.2 Allergy status to sulfonamides; Z88.8 Allergy status to other drugs, medicaments and biological substances; F17.210 Nicotine dependence, cigarettes, uncomplicated; Z20.822 Contact with and (suspected) exposure to COVID-19; Z79.899 Other long term (current) drug therapy
CPT/HCPCS: 87635; 90870; J0330; J1885; J2405

== ENCOUNTER → 2022-03-05 10:14 | Outpatient (BNVA) | payer OTHER, SELFPAY | PROVIDERS: PCP Internal Medicine; Visit Provider Physician Assistant | DX: K57.30 Diverticulosis of large intestine without perforation or abscess without bleeding (principal); D12.6 Benign neoplasm of colon, unspecified | CPT/HCPCS: Q3014 ==

== ENCOUNTER 2022-03-06 06:07 | Day surgery (SDC) | payer OTHER, SELFPAY ==
[2022-03-06] VITALS (8 sets, daily range): BP systolic 115–168; BP diastolic 63–80; PULSE 67–81; RESP 16–18; TEMP 36.6–36.8; O2SAT 93–98; BMI 35.3
--- NOTE | 2022-03-06 06:50 | P.CONAN_ITS ---
[facility] Active Problems Active Problems: All Active Problems (Updated 03/05/22 @ 10:35 by Brigitte Weston PA-C) Tubular adenoma of colon (Acute) Diverticulosis of colon (Acute) LFT elevation (Acute) Abnormal EKG (Acute) Generalized anxiety disorder (Acute) Encounter for screening colonoscopy (Acute) Colonoscopy refused (Acute) Cloudy urine (Acute) Trochanteric bursitis, left hip (Acute) Ovarian cyst (Acute) Ventral hernia (Acute) Obesity (BMI 30-39.9) (Acute) Lumbar degenerative disc disease (Acute) Anxiety and depression (Acute) Hypercholesterolemia (Acute) Osteopenia (Acute) Restless leg syndrome (Acute) Insomnia (Acute) Tobacco abuse (Acute) GERD (gastroesophageal reflux disease) (Acute) Impaired glucose tolerance (Acute) Hypertension (Acute) Past Medical History Medical History Anxiety and depression Cervical radiculopathy due to degenerative joint disease of spine Cholelithiasis Fibromyalgia GERD (gastroesophageal reflux disease) H. pylori duodenitis HLA B27 (HLA B27 positive) Hypercholesterolemia Hypertension Impaired glucose tolerance Insomnia Lumbar degenerative disc disease Obesity (BMI 30-39.9) Osteopenia Restless leg syndrome Tobacco abuse Family History Family History Father Hypertension Past heart attack CVD (cardiovascular disease) Mother Hyperlipidemia Paternal Grandmother Lung cancer Son Substance abuse Brother Bipolar 1 disorder Family history of problems with anesthesia: No Surgical History Surgical History H/O basal cell carcinoma excision H/O nasal septoplasty H/O right wrist surgery H/O thumb surgery History of cervical discectomy History of cholecystectomy History of hemorrhoidectomy History of hernia repair History of lumbar fusion History of partial hysterectomy History of shoulder surgery History of tonsillectomy Hx of colonoscopy History of Problems with Anesthesia: No Social History Social History Housing: House Alcohol intake: current Alcohol intake frequency: a few times a week Alcohol type: beer Patient Tobacco Use Status: Current everyday Tobacco user Tobacco use type: Cigarette Cigarette Packs Per Day: 0.5 Cigarettes Per Day: 10 e-Cigarette/Vaping Use: Never Used Second Hand Smoke Exposure: Yes Advance Directives: No Advance Directives Information Provided: No service: No Current occupational status: disabled Cognitive needs: No Hearing needs: No Vision needs: Yes (reading glasses) Meds Allergies Allergy/AdvReac Type Severity Reaction Status Date / Time adhesive tape [ADHESIVE TAPE] Allergy Intermediate RASH/BLISTE Verified 03/01/22 13:35 RS Sulfa (Sulfonamide Allergy Intermediate ITCHY RASH Verified 03/01/22 13:35 Antibiotics) [SULFA (SULFONAMIDE ANTIBIOTICS)] bacitracin [From NEOSPORIN] Allergy Mild RASH Verified 03/01/22 13:35 gramicidin D [From NEOSPORIN] Allergy Mild RASH Verified 03/01/22 13:35 polymyxin B [From NEOSPORIN] Allergy Mild RASH Verified 03/01/22 13:35 cefazolin [CEFAZOLIN] AdvReac Intermediate GI UPSET Verified 03/01/22 13:35 Active Medications: Current Medications Lactated Ringer's (Lr) 1,000 mls @ 50 mls/hr IVCONT .Q20H [facility] Home Medications Medication Instructions Recorded Confirmed Last Taken Type clonazepam 1 mg tablet 1 mg PO TID 08/21/21 03/01/22 Unknown History quetiapine 50 mg tablet 100 mg PO TID 08/21/21 03/01/22 Unknown History sertraline 100 mg tablet 0 mg PO 02/04/22 03/01/22 02/12/22 History 0 mg Exam Exam Date and Time: March 06, 2022 0650 Airway Mallampati Class: II TM Dist: >3cm Neck ROM: Full Partial: Upper and Lower Heart: rrr Lungs: cta Assessment and Plan Assessment Anesthesia Assessment: Anesthesia Plan Discussed and Chart Reviewed Final Anesthetic Review Family History of Problems with Anesthesia: No History of Problems with Anesthesia: No NPO: Yes ASA Class: III Final Preanesthetic Review: No Changes in Pt Med Stat, Meds/Allgs Chart Reviewed and Consent Obtained/Reviewed Patient Risk: Intermediate Procedure Risk: Intermediate Anesthetic Plan Anesthetic Plan: GA Disposition: Standard PACU
[2022-03-06 07:10] LABS: COVID-19 Test Negative (Negative)
--- NOTE | 2022-03-06 07:28 | MHC.SHP ---
Pre-Procedural Eval Section A Date of Service: 03/06/22 The patient is an INPATIENT: No Changes since office visit: Yes Patient answered all questions; No Cold of Flu in the past 2 weeks, No New Medical Problems and No Changes in Medication The History & Physical has been completed within 30 days and I have reviewed it.: Yes Section B Chief Complaint: depression Allergies: Allergies Allergy/AdvReac Type Severity Reaction Status Date / Time adhesive tape [ADHESIVE TAPE] Allergy Intermediate RASH/BLISTE Verified 03/01/22 13:35 RS Sulfa (Sulfonamide Allergy Intermediate ITCHY RASH Verified 03/01/22 13:35 Antibiotics) [SULFA (SULFONAMIDE ANTIBIOTICS)] bacitracin [From NEOSPORIN] Allergy Mild RASH Verified 03/01/22 13:35 gramicidin D [From NEOSPORIN] Allergy Mild RASH Verified 03/01/22 13:35 polymyxin B [From NEOSPORIN] Allergy Mild RASH Verified 03/01/22 13:35 cefazolin [CEFAZOLIN] AdvReac Intermediate GI UPSET Verified 03/01/22 13:35 Plan I have reviewed the history and physical and performed a pertinent physical examination on my patient. No changes have occurred unless specified.
--- NOTE | 2022-03-06 07:28 | HO.ECTPROC ---
ECT Procedure Note Diagnosis/Treatment Date of Service: 03/06/22 Diagnosis: Major Depressive Disorder Previous ECT Date: 03/04/22 Current Treatment Number: 2 Treatment: Series Interval Clinical Notes: pt had some anxiety with anesthesia last tx felt better mood harrison ECT Settings Device: THYMATRON DGx Electrode Placement: Right Unilateral Program/Pulse Width: 0.25 Energy Percent: 90 Seizure Duration By EEG (in seconds): 56 Medications Administration General Anesthetic: Etomidate (14) Muscle Relaxant: Succinylcholine (100) Ancillary Medications Analgesics: Torodol - Pre ECT Anti-emetics: Zofran - Pre ECT Miscillaneous Medications: Flumazenil (500 then give etom immediately) Airway Management Airway Management: Bag Mask Ventilation Treatment Recommendations No Changes Recommended: No change Notes: continue tx series Pt Tolerated Procedure w/o Issue: Yes
[2022-03-06] MEDS: LORazepam 1 MG TABLET PO (08:07)
[2022-03-06] MEDS: ondansetron HCL 4 MG/2 ML VIAL IVPUSH (08:07)
== END 2022-03-06 08:59 | disposition home or self-care (01) ==
PROVIDERS: PCP Internal Medicine; Visit Provider Psychiatry & Neurology Psychiatry
PROC: (CPT 90870; principal; 2022-03-06 07:30)
DX: F33.3 Major depressive disorder, recurrent, severe with psychotic symptoms (principal); F41.1 Generalized anxiety disorder; I10 Essential (primary) hypertension; E78.00 Pure hypercholesterolemia, unspecified; R73.02 Impaired glucose tolerance (oral); K21.9 Gastro-esophageal reflux disease without esophagitis; M79.7 Fibromyalgia; E66.9 Obesity, unspecified; Z68.36 Body mass index [BMI] 36.0-36.9, adult; R42 Dizziness and giddiness; M85.80 Other specified disorders of bone density and structure, unspecified site; R94.31 Abnormal electrocardiogram [ECG] [EKG]; R79.89 Other specified abnormal findings of blood chemistry; Z79.899 Other long term (current) drug therapy; Z88.2 Allergy status to sulfonamides; Z88.1 Allergy status to other antibiotic agents; F17.210 Nicotine dependence, cigarettes, uncomplicated; Z98.890 Other specified postprocedural states; Z85.828 Personal history of other malignant neoplasm of skin
CPT/HCPCS: 87635; 90870; J0330; J1885; J2405

== ENCOUNTER 2022-03-08 06:02 | Day surgery (SDC) | payer OTHER, SELFPAY ==
[2022-03-08] VITALS (9 sets, daily range): BP systolic 120–154; BP diastolic 64–97; PULSE 58–95; RESP 12–23; TEMP 36.5–36.6; O2SAT 96–99; BMI 35.1
[2022-03-08 06:38] LABS: COVID-19 Test Negative (Negative)
--- NOTE | 2022-03-08 07:06 | MHC.SHP ---
Pre-Procedural Eval Section A Date of Service: 03/08/22 The patient is an INPATIENT: No Changes since office visit: Yes Patient answered all questions; No Cold of Flu in the past 2 weeks, No New Medical Problems and No Changes in Medication The History & Physical has been completed within 30 days and I have reviewed it.: Yes Section B Chief Complaint: depression Allergies: Allergies Allergy/AdvReac Type Severity Reaction Status Date / Time adhesive tape [ADHESIVE TAPE] Allergy Intermediate RASH/BLISTE Verified 03/01/22 13:35 RS Sulfa (Sulfonamide Allergy Intermediate ITCHY RASH Verified 03/01/22 13:35 Antibiotics) [SULFA (SULFONAMIDE ANTIBIOTICS)] bacitracin [From NEOSPORIN] Allergy Mild RASH Verified 03/01/22 13:35 gramicidin D [From NEOSPORIN] Allergy Mild RASH Verified 03/01/22 13:35 polymyxin B [From NEOSPORIN] Allergy Mild RASH Verified 03/01/22 13:35 cefazolin [CEFAZOLIN] AdvReac Intermediate GI UPSET Verified 03/01/22 13:35 Plan I have reviewed the history and physical and performed a pertinent physical examination on my patient. No changes have occurred unless specified.
--- NOTE | 2022-03-08 07:06 | HO.ECTPROC ---
ECT Procedure Note Diagnosis/Treatment Date of Service: 03/08/22 Diagnosis: Major Depressive Disorder Previous ECT Date: 03/04/22 Current Treatment Number: 3 Treatment: Series Interval Clinical Notes: pt feeling better some post op nausea ECT Settings Device: THYMATRON DGx Electrode Placement: Right Unilateral Program/Pulse Width: 0.25 Energy Percent: 100 Seizure Duration By EEG (in seconds): 33 Medications Administration General Anesthetic: Etomidate (14) Muscle Relaxant: Succinylcholine (100) Ancillary Medications Analgesics: Torodol - Pre ECT Anti-emetics: Zofran - Pre ECT Miscillaneous Medications: Flumazenil (500 then give etom immediately) Airway Management Airway Management: Bag Mask Ventilation Treatment Recommendations No Changes Recommended: No change Program/Pulse Width: 0.50 Notes: continue tx series had bradycardia hold b gosia in am of procedure hold jeffry night prior has nausea post op
[2022-03-08] MEDS: Scopolamine 1.5 MG PATCH.TD.3 EAR-BEHIND (07:30)
--- NOTE | 2022-03-08 08:21 | P.CONAN_ITS ---
HPI - Anesthesia Eval Consult details Narrative: 62 yo female patient for ECT PMFSH Active Problems Active Problems: All Active Problems (Updated 03/05/22 @ 10:35 by Brigitte Weston PA-C) Tubular adenoma of colon (Acute) Diverticulosis of colon (Acute) LFT elevation (Acute) Abnormal EKG (Acute) Generalized anxiety disorder (Acute) Encounter for screening colonoscopy (Acute) Colonoscopy refused (Acute) Cloudy urine (Acute) Trochanteric bursitis, left hip (Acute) Ovarian cyst (Acute) Ventral hernia (Acute) Obesity (BMI 30-39.9) (Acute) Lumbar degenerative disc disease (Acute) Anxiety and depression (Acute) Hypercholesterolemia (Acute) Osteopenia (Acute) Restless leg syndrome (Acute) Insomnia (Acute) Tobacco abuse (Acute) GERD (gastroesophageal reflux disease) (Acute) Impaired glucose tolerance (Acute) Hypertension (Acute) Past Medical History Medical History Anxiety and depression Cervical radiculopathy due to degenerative joint disease of spine Cholelithiasis Fibromyalgia GERD (gastroesophageal reflux disease) H. pylori duodenitis HLA B27 (HLA B27 positive) Hypercholesterolemia Hypertension Impaired glucose tolerance Insomnia Lumbar degenerative disc disease Obesity (BMI 30-39.9) Osteopenia Restless leg syndrome Tobacco abuse Family History Family History Father Hypertension Past heart attack CVD (cardiovascular disease) Mother Hyperlipidemia Paternal Grandmother Lung cancer Son Substance abuse Brother Bipolar 1 disorder Family history of problems with anesthesia: No Surgical History Surgical History H/O basal cell carcinoma excision H/O nasal septoplasty H/O right wrist surgery H/O thumb surgery History of cervical discectomy History of cholecystectomy History of hemorrhoidectomy History of hernia repair History of lumbar fusion History of partial hysterectomy History of shoulder surgery History of tonsillectomy Hx of colonoscopy History of Problems with Anesthesia: No Social History Social History Housing: House Alcohol intake: current Alcohol intake frequency: a few times a week Alcohol type: beer Patient Tobacco Use Status: Current everyday Tobacco user Tobacco use type: Cigarette Cigarette Packs Per Day: 0.5 Cigarettes Per Day: 10 e-Cigarette/Vaping Use: Never Used Second Hand Smoke Exposure: Yes Advance Directives: No Advance Directives Information Provided: Yes service: No Current occupational status: disabled Cognitive needs: No Hearing needs: No Vision needs: Yes (reading glasses) Meds Allergies Allergy/AdvReac Type Severity Reaction Status Date / Time adhesive tape [ADHESIVE TAPE] Allergy Intermediate RASH/BLISTE Verified 03/01/22 13:35 RS Sulfa (Sulfonamide Allergy Intermediate ITCHY RASH Verified 03/01/22 13:35 Antibiotics) [SULFA (SULFONAMIDE ANTIBIOTICS)] bacitracin [From NEOSPORIN] Allergy Mild RASH Verified 03/01/22 13:35 gramicidin D [From NEOSPORIN] Allergy Mild RASH Verified 03/01/22 13:35 polymyxin B [From NEOSPORIN] Allergy Mild RASH Verified 03/01/22 13:35 cefazolin [CEFAZOLIN] AdvReac Intermediate GI UPSET Verified 03/01/22 13:35 Active Medications: Current Medications Lactated Ringer's (Lr) 1,000 mls @ 100 mls/hr IVCONT .Q10H [facility] Home Medications Medication Instructions Recorded Confirmed Last Taken Type clonazepam 1 mg tablet 1 mg PO TID 08/21/21 03/01/22 Unknown History quetiapine 50 mg tablet 100 mg PO TID 08/21/21 03/01/22 Unknown History sertraline 100 mg tablet 0 mg PO 02/04/22 03/01/22 02/12/22 History 0 mg Exam Exam Date and Time: March 08, 2022820 Height,Weight and Vital Signs: Height 4 ft 11 in Weight 78.925 kg Vital Signs Temp Pulse Resp BP Pulse Ox O2 Del Method 97.9 F 70 16 149/87 H 96 03/08/22 06:25 03/08/22 06:25 03/08/22 06:25 03/08/22 06:25 03/08/22 06:25 03/08/22 06:25 Last Vital Signs Temp 97.7 F 03/08/22 07:27 Pulse 58 03/08/22 08:12 Resp 12 03/08/22 08:12 BP 143/73 H 03/08/22 08:12 Pulse Ox 97 03/08/22 08:12 O2 Del Method 07/29/22 08:12 O2 Flow Rate 2 03/08/22 08:12 Pertinent Lab Results Pertinent Lab Results: Laboratory Tests 03/08/22 06:13 COVID-19 (EMILY) Negative COVID-19 Clin Com See Note Airway Mallampati Class: I TM Dist: >3cm Neck ROM: Full Partial: Upper and Lower Loose/Missing/Broken Teeth: No (No loose per patient) Heart: RRR Lungs: CTAB Assessment and Plan Assessment Anesthesia Assessment: Anesthesia Plan Discussed and Chart Reviewed Final Anesthetic Review Family History of Problems with Anesthesia: No History of Problems with Anesthesia: No NPO: Yes ASA Class: III Final Preanesthetic Review: No Changes in Pt Med Stat, Meds/Allgs Chart Reviewed, Consent Obtained/Reviewed and Anes Risks/Benef Reviewed Patient Risk: Intermediate Procedure Risk: Intermediate Anesthetic Plan Anesthetic Plan: GA Disposition: Standard PACU
[2022-03-08] MEDS: Acetaminophen 325 MG TABLET 650 MG PO (08:38)
== END 2022-03-08 09:11 | disposition home or self-care (01) ==
PROVIDERS: PCP Internal Medicine; Visit Provider Psychiatry & Neurology Psychiatry
PROC: (CPT 90870; principal; 2022-03-08 07:30)
DX: F33.3 Major depressive disorder, recurrent, severe with psychotic symptoms (principal); T81.89XA Other complications of procedures, not elsewhere classified, initial encounter; R11.0 Nausea; I10 Essential (primary) hypertension; R73.02 Impaired glucose tolerance (oral); Z79.899 Other long term (current) drug therapy; Z88.2 Allergy status to sulfonamides; Z88.1 Allergy status to other antibiotic agents; Z20.822 Contact with and (suspected) exposure to COVID-19; F17.210 Nicotine dependence, cigarettes, uncomplicated
CPT/HCPCS: 87635; 90870; J0330; J0461; J1885; J2405; J2550

== ENCOUNTER 2022-03-11 05:51 | Day surgery (SDC) | payer OTHER, SELFPAY ==
[2022-03-11] VITALS (8 sets, daily range): BP systolic 128–150; BP diastolic 61–83; PULSE 62–75; RESP 12–18; TEMP 36.2–37.1; O2SAT 95–98; BMI 49.4
--- NOTE | 2022-03-11 06:40 | HO.ANESPROP2 ---
[facility] Active Problems Active Problems: All Active Problems (Updated 03/05/22 @ 10:35 by Brigitte Weston PA-C) Tubular adenoma of colon (Acute) Diverticulosis of colon (Acute) LFT elevation (Acute) Abnormal EKG (Acute) Generalized anxiety disorder (Acute) Encounter for screening colonoscopy (Acute) Colonoscopy refused (Acute) Cloudy urine (Acute) Trochanteric bursitis, left hip (Acute) Ovarian cyst (Acute) Ventral hernia (Acute) Obesity (BMI 30-39.9) (Acute) Lumbar degenerative disc disease (Acute) Anxiety and depression (Acute) Hypercholesterolemia (Acute) Osteopenia (Acute) Restless leg syndrome (Acute) Insomnia (Acute) Tobacco abuse (Acute) GERD (gastroesophageal reflux disease) (Acute) Impaired glucose tolerance (Acute) Hypertension (Acute) Past Medical History Medical History Anxiety and depression Cervical radiculopathy due to degenerative joint disease of spine Cholelithiasis Fibromyalgia GERD (gastroesophageal reflux disease) H. pylori duodenitis HLA B27 (HLA B27 positive) Hypercholesterolemia Hypertension Impaired glucose tolerance Insomnia Lumbar degenerative disc disease Obesity (BMI 30-39.9) Osteopenia Restless leg syndrome Tobacco abuse Family History Family History Father Hypertension Past heart attack CVD (cardiovascular disease) Mother Hyperlipidemia Paternal Grandmother Lung cancer Son Substance abuse Brother Bipolar 1 disorder Family history of problems with anesthesia: No Surgical History Surgical History H/O basal cell carcinoma excision H/O nasal septoplasty H/O right wrist surgery H/O thumb surgery History of cervical discectomy History of cholecystectomy History of hemorrhoidectomy History of hernia repair History of lumbar fusion History of partial hysterectomy History of shoulder surgery History of tonsillectomy Hx of colonoscopy History of Problems with Anesthesia: No Social History Social History Housing: House Alcohol intake: current Alcohol intake frequency: a few times a week Alcohol type: beer Patient Tobacco Use Status: Current everyday Tobacco user Tobacco use type: Cigarette Cigarette Packs Per Day: 0.5 Cigarettes Per Day: 10 e-Cigarette/Vaping Use: Never Used Second Hand Smoke Exposure: Yes Advance Directives: No Advance Directives Information Provided: Yes service: No Current occupational status: disabled Cognitive needs: No Hearing needs: No Vision needs: Yes (reading glasses) Meds Allergies Allergy/AdvReac Type Severity Reaction Status Date / Time adhesive tape [ADHESIVE TAPE] Allergy Intermediate RASH/BLISTE Verified 03/01/22 13:35 RS Sulfa (Sulfonamide Allergy Intermediate ITCHY RASH Verified 03/01/22 13:35 Antibiotics) [SULFA (SULFONAMIDE ANTIBIOTICS)] bacitracin [From NEOSPORIN] Allergy Mild RASH Verified 03/01/22 13:35 gramicidin D [From NEOSPORIN] Allergy Mild RASH Verified 03/01/22 13:35 polymyxin B [From NEOSPORIN] Allergy Mild RASH Verified 03/01/22 13:35 cefazolin [CEFAZOLIN] AdvReac Intermediate GI UPSET Verified 03/01/22 13:35 Active Medications: Current Medications Lactated Ringer's (Lr) 1,000 mls @ 50 mls/hr IVCONT .Q20H [facility] Home Medications Medication Instructions Recorded Confirmed Last Taken Type clonazepam 1 mg tablet 1 mg PO TID 08/21/21 03/01/22 Unknown History quetiapine 50 mg tablet 100 mg PO TID 08/21/21 03/01/22 Unknown History sertraline 100 mg tablet 0 mg PO 02/04/22 03/01/22 02/12/22 History 0 mg Exam Exam Date and Time: March 11, 2022 0640 Height,Weight and Vital Signs: Height 4 ft 11 in Weight 111.13 kg Last Vital Signs Temp 97.2 F 03/11/22 06:28 Pulse 73 03/11/22 06:28 Resp 18 03/11/22 06:28 BP 137/71 03/11/22 06:28 Pulse Ox 97 03/11/22 06:28 O2 Del Method 03/11/22 06:28 Airway Mallampati Class: II TM Dist: >3cm Neck ROM: Full Partial: Lower Heart: rrr Lungs: cta Assessment and Plan Assessment Anesthesia Assessment: Anesthesia Plan Discussed and Chart Reviewed Final Anesthetic Review Family History of Problems with Anesthesia: No History of Problems with Anesthesia: No NPO: Yes ASA Class: III Final Preanesthetic Review: No Changes in Pt Med Stat, Meds/Allgs Chart Reviewed and Consent Obtained/Reviewed Patient Risk: Intermediate Procedure Risk: Intermediate Anesthetic Plan Anesthetic Plan: GA Disposition: Standard PACU
[2022-03-11 06:43] LABS: COVID-19 Test Negative (Negative); IDNOW Serial# 9DB6401D
--- NOTE | 2022-03-11 07:07 | MHC.SHP ---
Pre-Procedural Eval Section A Date of Service: 03/11/22 The patient is an INPATIENT: No Changes since office visit: No Cold of Flu in the past 2 weeks, No New Medical Problems, No Changes in Medication and No Patient answered all questions The History & Physical has been completed within 30 days and I have reviewed it.: Yes Section B Chief Complaint: depression Allergies: Allergies Allergy/AdvReac Type Severity Reaction Status Date / Time adhesive tape [ADHESIVE TAPE] Allergy Intermediate RASH/BLISTE Verified 03/01/22 13:35 RS Sulfa (Sulfonamide Allergy Intermediate ITCHY RASH Verified 03/01/22 13:35 Antibiotics) [SULFA (SULFONAMIDE ANTIBIOTICS)] bacitracin [From NEOSPORIN] Allergy Mild RASH Verified 03/01/22 13:35 gramicidin D [From NEOSPORIN] Allergy Mild RASH Verified 03/01/22 13:35 polymyxin B [From NEOSPORIN] Allergy Mild RASH Verified 03/01/22 13:35 cefazolin [CEFAZOLIN] AdvReac Intermediate GI UPSET Verified 03/01/22 13:35 Plan I have reviewed the history and physical and performed a pertinent physical examination on my patient. No changes have occurred unless specified.
--- NOTE | 2022-03-11 07:22 | HO.ECTPROC ---
ECT Procedure Note Diagnosis/Treatment Date of Service: 03/11/22 Diagnosis: Major Depressive Disorder Previous ECT Date: 03/08/22 Current Treatment Number: 4 Interval Clinical Notes: The patient reported some nausea after the procedure. In general, her mood is much better. ECT Settings Device: THYMATRON DGx Electrode Placement: Right Unilateral Program/Pulse Width: 0.50 Energy Percent: 100 Seizure Duration By EEG (in seconds): 21 By Motor Observation (in seconds): 51 Medications Administration General Anesthetic: Etomidate (14) Muscle Relaxant: Succinylcholine (100) Ancillary Medications Analgesics: Torodol - Pre ECT Anti-emetics: Zofran - Pre ECT Cardiovascular Medications: Glycopyrrolate Airway Management Airway Management: Bag Mask Ventilation Treatment Recommendations No Changes Recommended: No change Pt Tolerated Procedure w/o Issue: Yes
[2022-03-11] MEDS: Acetaminophen 325 MG TABLET 650 MG PO (08:26)
== END 2022-03-11 09:05 | disposition home or self-care (01) ==
PROVIDERS: PCP Internal Medicine; Visit Provider Psychiatry & Neurology Psychiatry
PROC: (CPT 90870; principal; 2022-03-11 07:30)
DX: F33.9 Major depressive disorder, recurrent, unspecified (principal); F41.1 Generalized anxiety disorder; I10 Essential (primary) hypertension; E78.00 Pure hypercholesterolemia, unspecified; K21.9 Gastro-esophageal reflux disease without esophagitis; M79.7 Fibromyalgia; R73.02 Impaired glucose tolerance (oral); R42 Dizziness and giddiness; R94.31 Abnormal electrocardiogram [ECG] [EKG]; R79.89 Other specified abnormal findings of blood chemistry; E66.9 Obesity, unspecified; Z68.36 Body mass index [BMI] 36.0-36.9, adult; Z85.828 Personal history of other malignant neoplasm of skin; Z79.899 Other long term (current) drug therapy; Z88.1 Allergy status to other antibiotic agents; Z88.2 Allergy status to sulfonamides; F17.210 Nicotine dependence, cigarettes, uncomplicated; Z20.822 Contact with and (suspected) exposure to COVID-19
CPT/HCPCS: 87635; 90870; J0330; J1885; J2405; J2550

== ENCOUNTER 2022-03-13 06:02 | Day surgery (SDC) | payer OTHER, SELFPAY ==
[2022-03-13] VITALS (7 sets, daily range): BP systolic 126–157; BP diastolic 52–95; PULSE 70–78; RESP 14–19; TEMP 36.2–36.9; O2SAT 95–98; BMI 39.4
[2022-03-13 06:40] LABS: COVID-19 Test Negative (Negative)
--- NOTE | 2022-03-13 06:41 | HO.ANESPROP2 ---
[facility] Active Problems Active Problems: All Active Problems (Updated 03/05/22 @ 10:35 by Brigitte Weston PA-C) Tubular adenoma of colon (Acute) Diverticulosis of colon (Acute) LFT elevation (Acute) Abnormal EKG (Acute) Generalized anxiety disorder (Acute) Encounter for screening colonoscopy (Acute) Colonoscopy refused (Acute) Cloudy urine (Acute) Trochanteric bursitis, left hip (Acute) Ovarian cyst (Acute) Ventral hernia (Acute) Obesity (BMI 30-39.9) (Acute) Lumbar degenerative disc disease (Acute) Anxiety and depression (Acute) Hypercholesterolemia (Acute) Osteopenia (Acute) Restless leg syndrome (Acute) Insomnia (Acute) Tobacco abuse (Acute) GERD (gastroesophageal reflux disease) (Acute) Impaired glucose tolerance (Acute) Hypertension (Acute) Past Medical History Medical History Anxiety and depression Cervical radiculopathy due to degenerative joint disease of spine Cholelithiasis Fibromyalgia GERD (gastroesophageal reflux disease) H. pylori duodenitis HLA B27 (HLA B27 positive) Hypercholesterolemia Hypertension Impaired glucose tolerance Insomnia Lumbar degenerative disc disease Obesity (BMI 30-39.9) Osteopenia Restless leg syndrome Tobacco abuse Family History Family History Father Hypertension Past heart attack CVD (cardiovascular disease) Mother Hyperlipidemia Paternal Grandmother Lung cancer Son Substance abuse Brother Bipolar 1 disorder Family history of problems with anesthesia: No Surgical History Surgical History H/O basal cell carcinoma excision H/O nasal septoplasty H/O right wrist surgery H/O thumb surgery History of cervical discectomy History of cholecystectomy History of hemorrhoidectomy History of hernia repair History of lumbar fusion History of partial hysterectomy History of shoulder surgery History of tonsillectomy Hx of colonoscopy History of Problems with Anesthesia: No Social History Social History Housing: House Alcohol intake: current Alcohol intake frequency: a few times a week Alcohol type: beer Patient Tobacco Use Status: Current everyday Tobacco user Tobacco use type: Cigarette Cigarette Packs Per Day: 0.5 Cigarettes Per Day: 10 e-Cigarette/Vaping Use: Never Used Second Hand Smoke Exposure: Yes Advance Directives: No Advance Directives Information Provided: Yes service: No Current occupational status: disabled Cognitive needs: No Hearing needs: No Vision needs: Yes (reading glasses) Meds Allergies Allergy/AdvReac Type Severity Reaction Status Date / Time adhesive tape [ADHESIVE TAPE] Allergy Intermediate RASH/BLISTE Verified 03/01/22 13:35 RS Sulfa (Sulfonamide Allergy Intermediate ITCHY RASH Verified 03/01/22 13:35 Antibiotics) [SULFA (SULFONAMIDE ANTIBIOTICS)] bacitracin [From NEOSPORIN] Allergy Mild RASH Verified 03/01/22 13:35 gramicidin D [From NEOSPORIN] Allergy Mild RASH Verified 03/01/22 13:35 polymyxin B [From NEOSPORIN] Allergy Mild RASH Verified 03/01/22 13:35 cefazolin [CEFAZOLIN] AdvReac Intermediate GI UPSET Verified 03/01/22 13:35 Active Medications: Current Medications Lactated Ringer's (Lr) 1,000 mls @ 50 mls/hr IVCONT .Q20H [facility] Home Medications Medication Instructions Recorded Confirmed Last Taken Type clonazepam 1 mg tablet 1 mg PO TID 08/21/21 03/01/22 Unknown History quetiapine 50 mg tablet 100 mg PO TID 08/21/21 03/01/22 Unknown History sertraline 100 mg tablet 0 mg PO 02/04/22 03/01/22 02/12/22 History 0 mg Exam Exam Date and Time: March 13, 2022 0641 Height,Weight and Vital Signs: Height 4 ft 11 in Weight 88.451 kg Last Vital Signs Temp 97.2 F 03/13/22 06:39 Pulse 75 03/13/22 06:39 Resp 18 03/13/22 06:39 BP 142/85 H 03/13/22 06:39 Pulse Ox 98 03/13/22 06:39 O2 Del Method 03/13/22 06:39 Pertinent Lab Results Pertinent Lab Results: Laboratory Tests 03/13/22 06:12 COVID-19 (EMILY) Negative COVID-19 Clin Com See Note Airway Mallampati Class: II TM Dist: >3cm Neck ROM: Full Heart: rrr Lungs: cta Assessment and Plan Assessment Anesthesia Assessment: Anesthesia Plan Discussed and Chart Reviewed Final Anesthetic Review Family History of Problems with Anesthesia: No History of Problems with Anesthesia: No NPO: Yes ASA Class: III Final Preanesthetic Review: No Changes in Pt Med Stat, Meds/Allgs Chart Reviewed and Consent Obtained/Reviewed Patient Risk: Intermediate Procedure Risk: Intermediate Anesthetic Plan Anesthetic Plan: GA Disposition: Standard PACU
--- NOTE | 2022-03-13 07:30 | MHC.SHP ---
Pre-Procedural Eval Section A Date of Service: 03/13/22 Changes since office visit: Yes Patient answered all questions; No Cold of Flu in the past 2 weeks, No New Medical Problems and No Changes in Medication The History & Physical has been completed within 30 days and I have reviewed it.: Yes Section B Chief Complaint: depression Allergies: Allergies Allergy/AdvReac Type Severity Reaction Status Date / Time adhesive tape [ADHESIVE TAPE] Allergy Intermediate RASH/BLISTE Verified 03/01/22 13:35 RS Sulfa (Sulfonamide Allergy Intermediate ITCHY RASH Verified 03/01/22 13:35 Antibiotics) [SULFA (SULFONAMIDE ANTIBIOTICS)] bacitracin [From NEOSPORIN] Allergy Mild RASH Verified 03/01/22 13:35 gramicidin D [From NEOSPORIN] Allergy Mild RASH Verified 03/01/22 13:35 polymyxin B [From NEOSPORIN] Allergy Mild RASH Verified 03/01/22 13:35 cefazolin [CEFAZOLIN] AdvReac Intermediate GI UPSET Verified 03/01/22 13:35 Plan I have reviewed the history and physical and performed a pertinent physical examination on my patient. No changes have occurred unless specified.
--- NOTE | 2022-03-13 07:44 | HO.ECTPROC ---
ECT Procedure Note Diagnosis/Treatment Date of Service: 03/13/22 Diagnosis: Major Depressive Disorder Previous ECT Date: 03/11/22 Current Treatment Number: 5 Treatment: Series Interval Clinical Notes: pt feeling better no c/o side effects ECT Settings Device: THYMATRON DGx Electrode Placement: Right Unilateral Program/Pulse Width: 0.50 Energy Percent: 100 Seizure Duration By EEG (in seconds): 36 Medications Administration General Anesthetic: Etomidate Muscle Relaxant: Succinylcholine Ancillary Medications Cardiovascular Medications: Glycopyrrolate (pre tx ) Miscillaneous Medications: Propofol (30 mg post ) and Flumazenil Airway Management Airway Management: Bag Mask Ventilation Treatment Recommendations No Changes Recommended: No change Notes: cont to ect number 6 then try and move toward maintenance Pt Tolerated Procedure w/o Issue: Yes
[2022-03-13] MEDS: LORazepam 1 MG TABLET PO (08:20)
== END 2022-03-13 09:05 | disposition home or self-care (01) ==
PROVIDERS: PCP Internal Medicine; Visit Provider Psychiatry & Neurology Psychiatry
PROC: (CPT 90870; principal; 2022-03-13 07:30)
DX: F33.9 Major depressive disorder, recurrent, unspecified (principal); I10 Essential (primary) hypertension; M79.7 Fibromyalgia; M85.80 Other specified disorders of bone density and structure, unspecified site; R73.02 Impaired glucose tolerance (oral); Z79.899 Other long term (current) drug therapy; Z88.1 Allergy status to other antibiotic agents; Z88.2 Allergy status to sulfonamides; Z20.822 Contact with and (suspected) exposure to COVID-19; F17.210 Nicotine dependence, cigarettes, uncomplicated
CPT/HCPCS: 87635; 90870; J0330; J1885; J2405

== ENCOUNTER 2022-04-05 06:56 | Day surgery (SDC) | payer OTHER, SELFPAY ==
[2022-04-05 06:56] VITALS: BMI 36.1
[2022-04-05 07:12] VITALS: BP 150/78; PULSE 57; RESP 18; TEMP 36.1; O2SAT 98
--- NOTE | 2022-04-05 07:12 | MHC.SHP ---
Pre-Procedural Eval Section A Date of Service: 04/05/22 Changes since office visit: Yes Patient answered all questions; No Cold of Flu in the past 2 weeks, No New Medical Problems and No Changes in Medication The History & Physical has been completed within 30 days and I have reviewed it.: No Section B Chief Complaint: depression Details of Present Illness: recurrent depression Present Medications: see Short Stay Collaborative assessment Medical History: Significant History (diabetes back pain see problem list) History of Previous Operations: Relevant previous surgery/procedure and date(s) (ect) Allergies: Allergies Allergy/AdvReac Type Severity Reaction Status Date / Time adhesive tape [ADHESIVE TAPE] Allergy Intermediate RASH/BLISTE Verified 03/01/22 13:35 RS Sulfa (Sulfonamide Allergy Intermediate ITCHY RASH Verified 03/01/22 13:35 Antibiotics) [SULFA (SULFONAMIDE ANTIBIOTICS)] bacitracin [From NEOSPORIN] Allergy Mild RASH Verified 03/01/22 13:35 gramicidin D [From NEOSPORIN] Allergy Mild RASH Verified 03/01/22 13:35 polymyxin B [From NEOSPORIN] Allergy Mild RASH Verified 03/01/22 13:35 cefazolin [CEFAZOLIN] AdvReac Intermediate GI UPSET Verified 03/01/22 13:35 Review of Systems Sugical H&P ROS: Negative: Cardiovascular and Respiratory and Yes, Specify: Psychiatric (internittant dep sx but imoroved ) Exam Surgical H&P Exam: Normal: Heart and Normal: Lungs Plan Diagnosis/Plan: Unchanged I have reviewed the history and physical and performed a pertinent physical examination on my patient. No changes have occurred unless specified.
[2022-04-05 07:22] LABS: COVID-19 Test Negative (Negative); IDNOW Serial# 16C4AD1C
[2022-04-05 07:55] VITALS: BP 148/71; PULSE 63; RESP 16; TEMP 36.2; O2SAT 98
[2022-04-05 08:00] VITALS: BP 141/80; PULSE 62; RESP 16; O2SAT 97
--- NOTE | 2022-04-05 08:01 | HO.ANESPROP2 ---
HPI - Anesthesia Eval Consult details Narrative: 62 yo female patient for ECT PMFSH Active Problems Active Problems: All Active Problems (Updated 03/05/22 @ 10:35 by Brigitte Weston PA-C) Tubular adenoma of colon (Acute) Diverticulosis of colon (Acute) LFT elevation (Acute) Abnormal EKG (Acute) Generalized anxiety disorder (Acute) Encounter for screening colonoscopy (Acute) Colonoscopy refused (Acute) Cloudy urine (Acute) Trochanteric bursitis, left hip (Acute) Ovarian cyst (Acute) Ventral hernia (Acute) Obesity (BMI 30-39.9) (Acute) Lumbar degenerative disc disease (Acute) Anxiety and depression (Acute) Hypercholesterolemia (Acute) Osteopenia (Acute) Restless leg syndrome (Acute) Insomnia (Acute) Tobacco abuse (Acute) GERD (gastroesophageal reflux disease) (Acute) Impaired glucose tolerance (Acute) Hypertension (Acute) Past Medical History Medical History Anxiety and depression Cervical radiculopathy due to degenerative joint disease of spine Cholelithiasis Fibromyalgia GERD (gastroesophageal reflux disease) H. pylori duodenitis HLA B27 (HLA B27 positive) Hypercholesterolemia Hypertension Impaired glucose tolerance Insomnia Lumbar degenerative disc disease Obesity (BMI 30-39.9) Osteopenia Restless leg syndrome Tobacco abuse Family History Family History Father Hypertension Past heart attack CVD (cardiovascular disease) Mother Hyperlipidemia Paternal Grandmother Lung cancer Son Substance abuse Brother Bipolar 1 disorder Family history of problems with anesthesia: No Surgical History Surgical History H/O basal cell carcinoma excision H/O nasal septoplasty H/O right wrist surgery H/O thumb surgery History of cervical discectomy History of cholecystectomy History of hemorrhoidectomy History of hernia repair History of lumbar fusion History of partial hysterectomy History of shoulder surgery History of tonsillectomy Hx of colonoscopy History of Problems with Anesthesia: No Social History Social History Housing: House Alcohol intake: current Alcohol intake frequency: a few times a week Alcohol type: beer Patient Tobacco Use Status: Current everyday Tobacco user Tobacco use type: Cigarette Cigarette Packs Per Day: 0.5 Cigarettes Per Day: 10 e-Cigarette/Vaping Use: Never Used Second Hand Smoke Exposure: Yes Advance Directives: No Advance Directives Information Provided: Yes service: No Current occupational status: disabled Cognitive needs: No Hearing needs: No Vision needs: Yes (reading glasses) Meds Allergies Allergy/AdvReac Type Severity Reaction Status Date / Time adhesive tape [ADHESIVE TAPE] Allergy Intermediate RASH/BLISTE Verified 03/01/22 13:35 RS Sulfa (Sulfonamide Allergy Intermediate ITCHY RASH Verified 03/01/22 13:35 Antibiotics) [SULFA (SULFONAMIDE ANTIBIOTICS)] bacitracin [From NEOSPORIN] Allergy Mild RASH Verified 03/01/22 13:35 gramicidin D [From NEOSPORIN] Allergy Mild RASH Verified 03/01/22 13:35 polymyxin B [From NEOSPORIN] Allergy Mild RASH Verified 03/01/22 13:35 cefazolin [CEFAZOLIN] AdvReac Intermediate GI UPSET Verified 03/01/22 13:35 Active Medications: Current Medications Acetaminophen (Acetaminophen 325 Mg Tablet) 650 mg PO ONCE PRN PRN Reason: Pain, Mild (Pain Scale 1-3) Lactated Ringer's (Lr) 1,000 mls @ 50 mls/hr IVCONT .Q20H SHANA Ondansetron HCl (Ondansetron Hcl 4 Mg/2 Ml Vial) 4 mg IVPUSH ONCE PRN PRN Reason: Nausea and Vomiting Home Medications Medication Instructions Recorded Confirmed Last Taken Type clonazepam 1 mg tablet 1 mg PO TID 08/21/21 03/01/22 Unknown History quetiapine 50 mg tablet 100 mg PO TID 08/21/21 03/01/22 Unknown History sertraline 100 mg tablet 0 mg PO 02/04/22 03/01/22 02/12/22 History 0 mg Exam Exam Date and Time: April 05, 2022 08 Height,Weight and Vital Signs: Height 4 ft 11 in Weight 81.193 kg Last Vital Signs Temp 97 F 04/05/22 07:12 Pulse 57 04/05/22 07:12 Resp 18 04/05/22 07:12 BP 150/78 H 04/05/22 07:12 Pulse Ox 98 04/05/22 07:12 O2 Del Method 04/05/22 07:12 Pertinent Lab Results Pertinent Lab Results: Laboratory Tests 04/05/22 07:01 COVID-19 (EMILY) Negative COVID-19 Clin Com See Note Airway Mallampati Class: II TM Dist: >3cm Neck ROM: Full Partial: Upper and Lower Loose/Missing/Broken Teeth: No (No looseor broken per patient) Heart: RRR Lungs: CTAB Assessment and Plan Assessment Anesthesia Assessment: Anesthesia Plan Discussed and Chart Reviewed Final Anesthetic Review Family History of Problems with Anesthesia: No History of Problems with Anesthesia: No NPO: Yes ASA Class: III Final Preanesthetic Review: No Changes in Pt Med Stat, Meds/Allgs Chart Reviewed, Consent Obtained/Reviewed and Anes Risks/Benef Reviewed Patient Risk: Intermediate Procedure Risk: Intermediate Assessment/Block/Sedation in SS: Assess/Block/Sedation-SS Anesthetic Plan Anesthetic Plan: GA Disposition: Standard PACU
[2022-04-05 08:05] VITALS: BP 146/82; PULSE 64; RESP 18; O2SAT 98
[2022-04-05 08:10] VITALS: BP 153/83; PULSE 63; RESP 17; TEMP 36.4; O2SAT 98
--- NOTE | 2022-04-05 08:16 | HO.ECTPROC ---
ECT Procedure Note Diagnosis/Treatment Date of Service: 04/05/22 Diagnosis: Major Depressive Disorder Previous ECT Date: 03/11/22 Current Treatment Number: 6 Treatment: Series Interval Clinical Notes: pt feeling better ANXIETY REGARDING ECT ECT Settings Device: THYMATRON DGx Electrode Placement: Right Unilateral Program/Pulse Width: 0.25 Energy Percent: 100 Seizure Duration By EEG (in seconds): 41 Medications Administration General Anesthetic: Etomidate Muscle Relaxant: Succinylcholine Ancillary Medications Cardiovascular Medications: Glycopyrrolate (pre tx ) Miscillaneous Medications: Propofol (30 mg post ) and Flumazenil Airway Management Airway Management: Bag Mask Ventilation Treatment Recommendations No Changes Recommended: No change Notes: ENCOURAGE MAINTENANCE [place] Pt Tolerated Procedure w/o Issue: Yes
[2022-04-05 08:25] VITALS: BP 161/86; PULSE 57; RESP 20; TEMP 36.1; O2SAT 97
== END 2022-04-05 08:45 | disposition home or self-care (01) ==
PROVIDERS: PCP Psychiatry & Neurology Psychiatry; Visit Provider Psychiatry & Neurology Psychiatry
PROC: (CPT 90870; principal; 2022-04-05 07:30)
DX: F33.9 Major depressive disorder, recurrent, unspecified (principal); F41.1 Generalized anxiety disorder; I10 Essential (primary) hypertension; E78.00 Pure hypercholesterolemia, unspecified; R73.02 Impaired glucose tolerance (oral); M79.7 Fibromyalgia; R79.89 Other specified abnormal findings of blood chemistry; R94.31 Abnormal electrocardiogram [ECG] [EKG]; E66.9 Obesity, unspecified; Z68.36 Body mass index [BMI] 36.0-36.9, adult; K21.9 Gastro-esophageal reflux disease without esophagitis; Z20.822 Contact with and (suspected) exposure to COVID-19; Z79.899 Other long term (current) drug therapy; Z88.1 Allergy status to other antibiotic agents; Z88.2 Allergy status to sulfonamides; Z88.8 Allergy status to other drugs, medicaments and biological substances; F17.210 Nicotine dependence, cigarettes, uncomplicated
CPT/HCPCS: 87635; 90870; J0330; J1885; J2405

== ENCOUNTER 2022-04-19 05:56 | Day surgery (SDC) | payer OTHER, SELFPAY ==
[2022-04-19 06:49] LABS: COVID-19 Test Negative (Negative)
[2022-04-19 06:50] VITALS: BP 131/80; PULSE 78; RESP 18; TEMP 36.2; O2SAT 96; BMI 34.3
--- NOTE | 2022-04-19 07:47 | MHC.SHP ---
Pre-Procedural Eval Section A Date of Service: 04/19/22 Changes since office visit: Yes Patient answered all questions; No Cold of Flu in the past 2 weeks, No New Medical Problems and No Changes in Medication The History & Physical has been completed within 30 days and I have reviewed it.: No Section B Chief Complaint: depression Details of Present Illness: recurrent depression Present Medications: see Short Stay Collaborative assessment Medical History: Significant History (diabetes back pain see problem list) History of Previous Operations: Relevant previous surgery/procedure and date(s) (ect) Allergies: Allergies Allergy/AdvReac Type Severity Reaction Status Date / Time adhesive tape [ADHESIVE TAPE] Allergy Intermediate RASH/BLISTE Verified 03/01/22 13:35 RS Sulfa (Sulfonamide Allergy Intermediate ITCHY RASH Verified 03/01/22 13:35 Antibiotics) [SULFA (SULFONAMIDE ANTIBIOTICS)] bacitracin [From NEOSPORIN] Allergy Mild RASH Verified 03/01/22 13:35 gramicidin D [From NEOSPORIN] Allergy Mild RASH Verified 03/01/22 13:35 polymyxin B [From NEOSPORIN] Allergy Mild RASH Verified 03/01/22 13:35 cefazolin [CEFAZOLIN] AdvReac Intermediate GI UPSET Verified 03/01/22 13:35 Review of Systems Sugical H&P ROS: Negative: Cardiovascular and Respiratory and Yes, Specify: Psychiatric (internittant dep sx but imoroved ) and Musculoskeletal (back pain) Exam Surgical H&P Exam: Normal: Heart, Normal: Lungs and Normal: Neurological Plan Diagnosis/Plan: Unchanged I have reviewed the history and physical and performed a pertinent physical examination on my patient. No changes have occurred unless specified.
--- NOTE | 2022-04-19 07:48 | HO.ECTPROC ---
ECT Procedure Note Diagnosis/Treatment Date of Service: 04/19/22 Diagnosis: Major Depressive Disorder Previous ECT Date: 04/05/22 Current Treatment Number: 7 Treatment: Maintenance Interval Clinical Notes: Patient has had some depressive periods feels ECT has been helpful ECT Settings Device: THYMATRON DGx Electrode Placement: Right Unilateral Program/Pulse Width: 0.50 Energy Percent: 100 Seizure Duration By EEG (in seconds): 42 Medications Administration General Anesthetic: Etomidate Muscle Relaxant: Succinylcholine Ancillary Medications Cardiovascular Medications: Glycopyrrolate (pre tx ) Miscillaneous Medications: Propofol (30 mg post ) and Flumazenil Airway Management Airway Management: Bag Mask Ventilation Treatment Recommendations No Changes Recommended: No change Notes: ENCOURAGE ONGOING MAINTENANCE [place] FOLLOW-UP TREATMENT SCHEDULED FOR Pt Tolerated Procedure w/o Issue: Yes
[2022-04-19 08:05] VITALS: BP 140/70; PULSE 73; RESP 10; TEMP 36.6; O2SAT 95
[2022-04-19 08:10] VITALS: BP 132/75; PULSE 76; RESP 20; O2SAT 95
[2022-04-19 08:15] VITALS: BP 139/80; PULSE 79; RESP 20; O2SAT 94
[2022-04-19 08:30] VITALS: BP 143/97; PULSE 77; RESP 20; O2SAT 95
[2022-04-19 08:45] VITALS: BP 142/93; PULSE 75; RESP 18; TEMP 36.6; O2SAT 95
== END 2022-04-19 09:10 | disposition home or self-care (01) ==
PROVIDERS: PCP Internal Medicine; Visit Provider Psychiatry & Neurology Psychiatry
PROC: (CPT 90870; principal; 2022-04-19 07:30)
DX: F33.3 Major depressive disorder, recurrent, severe with psychotic symptoms (principal); F41.1 Generalized anxiety disorder; I10 Essential (primary) hypertension; E78.00 Pure hypercholesterolemia, unspecified; R73.02 Impaired glucose tolerance (oral); M79.7 Fibromyalgia; M50.30 Other cervical disc degeneration, unspecified cervical region; K21.9 Gastro-esophageal reflux disease without esophagitis; E66.9 Obesity, unspecified; Z68.36 Body mass index [BMI] 36.0-36.9, adult; R94.31 Abnormal electrocardiogram [ECG] [EKG]; R79.89 Other specified abnormal findings of blood chemistry; Z79.899 Other long term (current) drug therapy; Z88.1 Allergy status to other antibiotic agents; Z88.2 Allergy status to sulfonamides; F17.210 Nicotine dependence, cigarettes, uncomplicated; Z98.890 Other specified postprocedural states; Z20.822 Contact with and (suspected) exposure to COVID-19
CPT/HCPCS: 87635; 90870; J0330; J1885; J2405

== ENCOUNTER 2022-05-30 14:09 | Outpatient (REF) | payer OTHER, SELFPAY ==
--- NOTE | ~2022-05-30 | XR_ITS ---
EXAMINATION: XR SHOULDER, LEFT CLINICAL INFORMATION: Left shoulder pain. COMPARISON: None TECHNIQUE: Three views of the left shoulder. FINDINGS: The bones and soft tissues are normal. No fracture. Glenohumeral and acromioclavicular alignment is anatomic with normal joint space. No abnormal soft tissue calcifications. XR/XR shoulder LT min 2V IMPRESSION: Unremarkable left shoulder.
== END 2022-05-30 14:10 | disposition home or self-care (01) ==
LOC: HO.HMGCX 14:09
PROVIDERS: PCP Internal Medicine
DX: M25.512 Pain in left shoulder (principal)
CPT/HCPCS: 73030

== ENCOUNTER 2022-06-15 14:50 | Emergency (ER) | payer OTHER, SELFPAY ==
[2022-06-15 15:12] VITALS: BP 151/84; PULSE 86; RESP 18; TEMP 36.1; O2SAT 97; BMI 32.9
--- NOTE | 2022-06-15 15:24 | ED_ITS ---
HPI - Medical Clearance General Chief complaint: Body Fluid Exposure Stated complaint: stuck by used needle Time Seen by Provider: 06/15/22 15:24 History of Present Illness HPI Narrative: Patient complains of a needlestick sustained today when she was lifting something from a shelf in her shed and was stuck by a needle Her son is an IV drug user of the unknown HIV status who periodically goes into the shed she is not sure how old the needle could be She does know her son does have hepatitis C and is immunized to hepatitis-B She believes the last time her son was in that she had was 3 days ago, but is not certain Related Information Home Medications Medication Instructions Recorded Confirmed clonazepam 1 mg tablet 1 mg PO TID 08/21/21 05/30/22 quetiapine 50 mg tablet 100 mg PO TID 08/21/21 05/30/22 sertraline 100 mg tablet 0 mg PO 02/04/22 05/30/22 emtricitabine 100 mg-tenofovir tab PO 06/17/22 disoproxil fumarate 150 mg tablet (Truvada) raltegravir 400 mg tablet 400 mg PO BID 06/17/22 (Isentre) meloxicam 7.5 mg tablet 7.5 mg PO DAILY 06/18/22 Previous Rx's Medication Instructions Recorded pravastatin 40 mg tablet 40 mg PO DAILY #90 tabs 09/27/21 metoprolol succinate 50 mg 50 mg PO DAILY #90 tabs 01/17/22 tablet,extended release 24 hr omeprazole 20 mg capsule,delayed 20 mg PO DAILY #30 caps 02/04/22 release tizanidine 4 mg tablet 4 mg PO TID PRN muscle spasticity 04/09/22 #270 tabs fenofibrate 160 mg tablet 160 mg PO DAILY 90 days #90 tabs 06/07/22 acetaminophen 650 mg 650 mg PO Q8H #90 tabs 06/14/22 tablet,extended release (Mapap Arthritis Pain) Allergies Allergy/AdvReac Type Severity Reaction Status Date / Time adhesive tape [ADHESIVE TAPE] Allergy Intermediate RASH/BLISTE Verified 06/18/22 14:05 RS Sulfa (Sulfonamide Allergy Intermediate ITCHY RASH Verified 06/18/22 14:05 Antibiotics) [SULFA (SULFONAMIDE ANTIBIOTICS)] bacitracin [From NEOSPORIN] Allergy Mild RASH Verified 06/18/22 14:05 gramicidin D [From NEOSPORIN] Allergy Mild RASH Verified 06/18/22 14:05 polymyxin B [From NEOSPORIN] Allergy Mild RASH Verified 06/18/22 14:05 cefazolin [CEFAZOLIN] AdvReac Intermediate GI UPSET Verified 06/18/22 14:05 Review of Systems Review of Systems: Positive for needlestick Negatives are no dizziness no fainting no feeling faint no laceration no numbness weakness or tingling no extremity swelling or pain Yes all other systems are reviewed and are negative [facility] Past Medical History Source: nursing notes reviewed Medical History Anxiety and depression Cervical radiculopathy due to degenerative joint disease of spine Cholelithiasis Fatigue Fibromyalgia GERD (gastroesophageal reflux disease) H. pylori duodenitis HLA B27 (HLA B27 positive) Hypercholesterolemia Hypertension Impaired glucose tolerance Insomnia Left shoulder pain Lumbar degenerative disc disease Obesity (BMI 30-39.9) Osteopenia Restless leg syndrome Tobacco abuse Surgical History H/O basal cell carcinoma excision H/O nasal septoplasty H/O right wrist surgery H/O thumb surgery History of cervical discectomy History of cholecystectomy History of hemorrhoidectomy History of hernia repair History of lumbar fusion History of partial hysterectomy History of shoulder surgery History of tonsillectomy Hx of colonoscopy Family History Family History Father Hypertension Past heart attack CVD (cardiovascular disease) Mother Hyperlipidemia Paternal Grandmother Lung cancer Son Substance abuse Brother Bipolar 1 disorder Social History Social History Housing: House Alcohol intake: current Alcohol intake frequency: a few times a week Alcohol type: beer Patient Tobacco Use Status: Current everyday Tobacco user Tobacco use type: Cigarette Cigarette Packs Per Day: 0.5 Cigarettes Per Day: 10 e-Cigarette/Vaping Use: Never Used Second Hand Smoke Exposure: Yes service: No Current occupational status: disabled Cognitive needs: No Hearing needs: No Vision needs: Yes (reading glasses) Physical Exam Vital Signs: Vital Signs: Last Vital Signs Temp 97.0 F 06/15/22 15:12 Pulse 86 06/15/22 15:12 Resp 18 06/15/22 15:12 BP 151/84 H 06/15/22 15:12 Pulse Ox 97 06/15/22 15:12 O2 Del Method 06/15/22 15:12 BMI result Body Mass Index 32.9 General appearance comfortable cooperative no acute distress Head normocephalic atraumatic Neck is supple Respiratory no distress Extremities for range of motion x4 Neuro gait and balance are normal and interaction both expression and comprehension are normal Course Course Course Narrative: No visible wound on the hand, patient did wash it herself at home, she is up-to-date on her tetanus shot Prophylaxis was discussed with the patient for HIV and she wanted to take it as her son is now living on the streets and is an IV drug user She believes she could contact her son and was told that if she could bring him in for testing to our facility or any facility that she can stop taking the medicine if he is still HIV negative, he could also be tested for hepatitis-B as well but she believes he is immunized Discharge Plan Discharge Clinical Impression: Needlestick injury accident Patient Disposition: Home, Self-Care Additional Instructions: We started HIV prophylaxis as the risk is low but because it is not clear when this needle was used and your family member is a frequent IV drug user we cannot be sure if there is some risk of HIV If her family member is tested and is negative for HIV you can stop the medica tion If your family member cannot be contacted for HIV testing and hepatitis B testing then you need to see your doctor on Friday or Friday for prescription for the rest of the medication for 30 days and any necessary repeat blood testing IF YOU CAN GET YOUR SON TO COME INTO THE ER TOMORROW FOR HIV AND HEPATITIS B TESTING AND IF BOTH TESTS ARE NEGATIVE YOU WILL NOT NEED TO TAKE THE HIV PROPHYL AXIS IF YOUR SON COMES IN TOMORROW MAKE SURE THAT HE GIVES APPROVAL FOR YOU COULD TO GET THE TEST RESULTS AND MAKE SURE THAT IS WRITTEN ON HER DISCHARGE PAPER AND CLEARLY DOCUMENTED IN HER PAPERWORK THAT YOUR SON JAD ZARATE APPROVES YOU RECEIVING ANY HIV OR HEPATITIS TEST RESULTS WITH OUT CLEAR DOCUMENTATION OF HIS APPROVAL THERE MAY BE PROBLEMS WITH PRIVACY FOR YOUR RECEIVING HIS RESULTS Prescriptions: No Action pravastatin 40 mg tablet 40 mg PO DAILY Qty: 90 2RF metoprolol succinate 50 mg tablet extended release 24 hr 50 mg PO DAILY Qty: 90 2RF tizanidine 4 mg tablet 4 mg PO TID PRN (Reason: muscle spasticity) Qty: 270 1RF fenofibrate 160 mg tablet 160 mg PO DAILY 90 Days Qty: 90 1RF acetaminophen [Mapap Arthritis Pain] 650 mg tablet extended release 650 mg PO Q8H Qty: 90 2RF quetiapine 50 mg tablet 100 mg PO TID Rx Instructions: 25 mg in the AM and 50 mg in the PM clonazepam 1 mg tablet 1 mg PO TID sertraline 100 mg tablet 0 mg PO omeprazole 20 mg capsule,delayed release(DR/EC) 20 mg PO DAILY Qty: 30 5RF emtricitabine-tenofovir (TDF) [Truvada] 100-150 mg tablet PO Isentress 400 mg tablet 400 mg PO BID meloxicam 7.5 mg tablet 7.5 mg PO DAILY Interventions: ED Discharge Assessment Last Done: 06/15/22 16:34 Discharge Date/Time: 06/15/22 16:35
[2022-06-15] MEDS: Post Exposure Medication Kit 1 KIT PO (16:03)
== END 2022-06-15 16:35 | disposition home or self-care (01) ==
PROVIDERS: Emergency Provider Emergency Medicine; PCP Internal Medicine
DX: Z77.21 Contact with and (suspected) exposure to potentially hazardous body fluids (principal); F17.210 Nicotine dependence, cigarettes, uncomplicated
CPT/HCPCS: 99283

== ENCOUNTER → 2022-06-17 11:12 | Outpatient (BNVA) | payer OTHER, SELFPAY | PROVIDERS: PCP Internal Medicine; Visit Provider Physician Assistant | DX: M75.82 Other shoulder lesions, left shoulder (principal) | CPT/HCPCS: 99202 ==

== ENCOUNTER 2022-06-18 10:16 | Outpatient (REF) | payer OTHER, SELFPAY ==
[2022-06-18 12:00] LABS: HBS Num1 2.21 mIU/mL (0-7.99); HBc Num1 0.07 S/CO (0.00-0.79); HBsAGNum1 0.21 S/CO (0.00-0.99); HIV AB/AG Nonreactive (Nonreactive); HIV Num 1 0.07 S/CO (0.00-0.99); Hepatitis B Core Antibody Nonreactive (Nonreactive); Hepatitis B Surface Antigen Negative (Negative); ~HepC Num1 0.03 S/CO (0.00-0.79); ~Hepatitis B Surface Antibody NONREACTIVE (Nonreactive); ~Hepatitis C Antibody Nonreactive (Nonreactive)
== END 2022-06-18 10:17 | disposition home or self-care (01) ==
LOC: HO.LAB 10:16
PROVIDERS: PCP Internal Medicine; Visit Provider Internal Medicine
DX: Z11.4 Encounter for screening for human immunodeficiency virus [HIV] (principal); R79.89 Other specified abnormal findings of blood chemistry; R53.83 Other fatigue; T14.8XXD Other injury of unspecified body region, subsequent encounter
CPT/HCPCS: 36415; 86704; 86706; 86803; 87340; 87389; 99202; 99212

== ENCOUNTER → 2022-08-26 13:04 | Outpatient (BNVA) | payer OTHER, SELFPAY | PROVIDERS: PCP Internal Medicine; Visit Provider Nurse Practitioner Family | DX: M51.36 Other intervertebral disc degeneration, lumbar region (principal); M70.62 Trochanteric bursitis, left hip; M79.7 Fibromyalgia; R53.83 Other fatigue; R79.89 Other specified abnormal findings of blood chemistry; F41.8 Other specified anxiety disorders; F17.210 Nicotine dependence, cigarettes, uncomplicated | CPT/HCPCS: 99212 ==

== ENCOUNTER 2022-08-27 09:13 | Outpatient (REF) | payer OTHER, MEDICAID, SELFPAY ==
[2022-08-27 09:30] LABS: MANUAL DIFF FLAG NO
[2022-08-27 09:40] LABS: Basophils Absolute Auto 0.1 X10*3/uL (0.0-0.2); Eosinophils Absolute Auto 0.2 X10*3/uL (0.0-0.4); Eosinophils Percent Auto 2.8 % (0-4); Hematocrit 41.8 % (37.0-47.0); Hemoglobin 14.4 g/dl (12.0-16.0); Imm Gran Abs Auto 0.02 X10*3/uL (0.00-0.03); Imm Gran Pct Auto 0.3 % (0.0-0.4); Lymphocytes Absolute Auto 2.8 X10*3/uL (1.2-4.9); Lymphocytes Percent Auto 46.2 % (20-40); Mean Corpuscular HGB Conc 34.4 g/dl (31.0-35.0); Mean Corpuscular Hemoglobin 31.6 pg (27.0-33.0); Mean Corpuscular Volume 91.9 fL (80.0-98.0); Mean Platelet Volume 9.5 fL (9.4-12.3); Monocytes Absolute Auto 0.5 X10*3/uL (0.1-1.2); Monocytes Percent Auto 7.4 % (2-11); Neutrophils Absolute Auto 2.6 x10*3/uL (2.0-8.3); Neutrophils Percent Auto 42.3 % (45-73); Platelet Count 453 X10*3/uL (160-400); Red Blood Count 4.55 X10*6/uL (4.20-5.50); Red Cell Distribution Width 12.3 % (11.0-16.0); White Blood Count 6.1 X10*3/uL (4.8-10.8)
[2022-08-27 10:33] LABS: Erythrocyte Sedimentation Rate 7 MM/HR (0-20)
[2022-08-27 10:54] LABS: Alanine Aminotransferase 19 U/L (0-31); Albumin Level 4.6 g/dL (3.5-5.0); Alkaline Phosphatase 41 U/L (39-117); Anion Gap 11 (12-20); Aspartate Amino Transferase 37 U/L (5-31); Bilirubin Total 0.5 mg/dL (0.0-1.0); Blood Urea Nitrogen 14 mg/dL (9-16); Calcium 9.9 mg/dL (8.4-10.2); Carbon Dioxide 25 mmol/L (22-29); Chloride 108 mmol/L (96-108); Cholesterol 219 mg/dL; Estimated Glomerular Filt Rate 48; Glucose Random 103 mg/dL (60-115); HDL Cholesterol 38 mg/dL; LDL Cholesterol Calculated 145 mg/dl; Sodium 140 mmol/L (135-145); Total Protein 7.3 g/dL (6.5-8.0); Triglycerides 181 mg/dL
[2022-08-27 11:11] LABS: Vitamin D 25-OH Total 9.4 ng/mL (>30)
[2022-08-27 11:32] LABS: Reflex LDLD? No
[2022-08-28 05:08] LABS: ~Hepatitis C Antibody Nonreactive (Nonreactive)
== END 2022-08-27 09:14 | disposition home or self-care (01) ==
LOC: HO.LAB 09:13
PROVIDERS: Internal Medicine; Absent Provider Internal Medicine; PCP Internal Medicine; Visit Provider Nurse Practitioner Family
DX: R53.83 Other fatigue (principal); R79.89 Other specified abnormal findings of blood chemistry; M25.50 Pain in unspecified joint
CPT/HCPCS: 36415; 80053; 80061; 82306; 85025; 85652; 86140; 86803

== ENCOUNTER → 2022-08-28 09:54 | Outpatient (BNVA) | payer OTHER, SELFPAY | PROVIDERS: PCP Internal Medicine; Visit Provider Urology | DX: N39.490 Overflow incontinence (principal); N95.2 Postmenopausal atrophic vaginitis; N39.8 Other specified disorders of urinary system | CPT/HCPCS: 51798; 99202 ==

== ENCOUNTER 2022-09-03 19:31 | Emergency (ER) | payer OTHER, SELFPAY ==
--- NOTE | ~2022-09-03 | CT_ITS ---
EXAMINATION: CT HEAD WITHOUT CONTRAST CT CERVICAL SPINE WITHOUT CONTRAST CLINICAL INFORMATION: Dizziness. Neck pain. COMPARISON: CT head 07/01/2016 TECHNIQUE: Imaging was performed from the skull base to vertex without intravenous administration of contrast. In addition, helical noncontrast CT imaging was acquired through the cervical spine and source images were reviewed along with axial reconstructions and sagittal and coronal MPRs. [This CT examination was performed using dose optimization techniques as appropriate, variously including the following: *Automated exposure control *Adjustment of mA and/or kV according to patient size (this includes techniques or standardized protocols for targeted exams where dose is matched to indication/reason for exam; i.e. extremities or head) *Use of iterative reconstruction technique] DLP: 938 mGy-cm FINDINGS: HEAD: No intracranial mass, hemorrhage, or midline shift is visualized. The ventricles and sulci are proportional. No extra-axial collections are identified. The paranasal sinuses and mastoid air cells are well aerated. CERVICAL SPINE: There is no evidence of acute cervical spine fracture. Vertebral bodies remain normal in height. Cervical vertebrae have normal alignment. Status post fusion the CORD, C5-C7. Moderate cervical disc height narrowing at C2-C3, C3-C4 and C4-C5. Anterior vertebral endplate spurs most pronounced at C4-C5. Mild bilateral facet joint arthrosis. No pre- or paravertebral soft tissue abnormality is identified. Limited assessment of the lung apices is unremarkable. CT/CT head/brain wo IV con IMPRESSION: 1. No acute intracranial pathology. 2. No CT evidence of acute cervical spine fracture or traumatic subluxation
--- NOTE | ~2022-09-03 | CT_ITS ---
EXAMINATION: CT HEAD WITHOUT CONTRAST CT CERVICAL SPINE WITHOUT CONTRAST CLINICAL INFORMATION: Dizziness. Neck pain. COMPARISON: CT head 07/01/2016 TECHNIQUE: Imaging was performed from the skull base to vertex without intravenous administration of contrast. In addition, helical noncontrast CT imaging was acquired through the cervical spine and source images were reviewed along with axial reconstructions and sagittal and coronal MPRs. [This CT examination was performed using dose optimization techniques as appropriate, variously including the following: *Automated exposure control *Adjustment of mA and/or kV according to patient size (this includes techniques or standardized protocols for targeted exams where dose is matched to indication/reason for exam; i.e. extremities or head) *Use of iterative reconstruction technique] DLP: 938 mGy-cm FINDINGS: HEAD: No intracranial mass, hemorrhage, or midline shift is visualized. The ventricles and sulci are proportional. No extra-axial collections are identified. The paranasal sinuses and mastoid air cells are well aerated. CERVICAL SPINE: There is no evidence of acute cervical spine fracture. Vertebral bodies remain normal in height. Cervical vertebrae have normal alignment. Status post fusion the CORD, C5-C7. Moderate cervical disc height narrowing at C2-C3, C3-C4 and C4-C5. Anterior vertebral endplate spurs most pronounced at C4-C5. Mild bilateral facet joint arthrosis. No pre- or paravertebral soft tissue abnormality is identified. Limited assessment of the lung apices is unremarkable. CT/CT cervical spine wo IV con IMPRESSION: 1. No acute intracranial pathology. 2. No CT evidence of acute cervical spine fracture or traumatic subluxation
--- NOTE | 2022-09-03 20:01 | ED.DIZZY ---
HPI - Dizziness General Chief Complaint: Back Pain/Injury <MOSHE Fields - Last Filed: 09/03/22 20:09> Stated Complaint: Dizziness/Neck and back pain <MOSHE Fields - Last Filed: 09/03/22 20:09> Time Seen by Provider: 09/04/22 01:49 <MOSHE Fields - Last Filed: 09/03/22 20:09> Source: patient <Sanju Soares MD - Last Filed: 09/04/22 02:35> Mode of arrival: ambulatory <Sanju Soares MD - Last Filed: 09/04/22 02:35> Limitations: no limitations <Sanju Soares MD - Last Filed: 09/04/22 02:35> History of Present Illness HPI Narrative: Patient with chronic neck and back pain been followed by pain clinic had fusion surgery comes with dizziness similar to the past she had the pain in the past nonspecific dizziness stress slightly of balance no nausea no vomiting nor ringing in the ear no focal deficit patient had labs done prior to my evaluation which were stable already had CT head and C-spine which was also negative for acute no fever no chills no nausea no vomiting <Sanju Soares MD - Last Filed: 09/04/22 02:35> Related Data Home Medications: Home Medications Medication Instructions Recorded Confirmed clonazepam 1 mg tablet 1 mg PO TID 08/21/21 08/26/22 quetiapine 50 mg tablet See Rx Instructions PO TID 08/26/22 08/26/22 sertraline 100 mg tablet 100 mg PO DAILY 08/26/22 08/26/22 Previous Rx's Medication Instructions Recorded metoprolol succinate 50 mg 50 mg PO DAILY #90 tabs 01/17/22 tablet,extended release 24 hr tizanidine 4 mg tablet 4 mg PO TID PRN muscle spasticity 04/09/22 #270 tabs fenofibrate 160 mg tablet 160 mg PO DAILY 90 days #90 tabs 06/07/22 acetaminophen 650 mg 650 mg PO Q8H #90 tabs 06/14/22 tablet,extended release (Mapap Arthritis Pain) pravastatin 40 mg tablet 40 mg PO DAILY #90 tabs 06/26/22 ergocalciferol (vitamin D2) 1,250 1,250 mcg PO QWEEK #8 caps 08/27/22 mcg (50,000 unit) capsule estradiol 10 mcg vaginal tablet 10 mcg vaginal 2XW #24 tabs 08/28/22 (Vagifem) tamsulosin 0.4 mg capsule (Flomax) 0.4 mg PO BID #60 caps 08/28/22 lidocaine 5 % topical patch 1 patch topical DAILY #30 ea 08/30/22 (Lidoderm) lidocaine 4 % topical patch 1 patch topical DAILY PRN pain #30 09/04/22 ea oxycodone 5 mg tablet 5 mg PO Q6H PRN pain #20 tabs 09/04/22 <MOSHE Fields - Last Filed: 09/03/22 20:09> Allergies/Adverse Reactions: Allergies Allergy/AdvReac Type Severity Reaction Status Date / Time adhesive tape [ADHESIVE TAPE] Allergy Intermediate RASH/BLISTE Verified 08/28/22 10:12 RS Sulfa (Sulfonamide Allergy Intermediate ITCHY RASH Verified 08/28/22 10:12 Antibiotics) [SULFA (SULFONAMIDE ANTIBIOTICS)] bacitracin [From NEOSPORIN] Allergy Mild RASH Verified 08/28/22 10:12 gramicidin D [From NEOSPORIN] Allergy Mild RASH Verified 08/28/22 10:12 polymyxin B [From NEOSPORIN] Allergy Mild RASH Verified 08/28/22 10:12 cefazolin [CEFAZOLIN] AdvReac Intermediate GI UPSET Verified 08/28/22 10:12 <MOSHE Fields - Last Filed: 09/03/22 20:09> Review of Systems Review of Systems: Yes all other systems are reviewed and are negative <Sanju Soares MD - Last Filed: 09/04/22 02:35> [facility] Past Medical History Medical History: Medical History Anxiety and depression Cervical radiculopathy due to degenerative joint disease of spine Cholelithiasis Fatigue Fibromyalgia GERD (gastroesophageal reflux disease) H. pylori duodenitis HLA B27 (HLA B27 positive) Hypercholesterolemia Hypertension Impaired glucose tolerance Insomnia Left shoulder pain Lumbar degenerative disc disease Obesity (BMI 30-39.9) Osteopenia Restless leg syndrome Tobacco abuse Vitamin D deficiency <MOSHE Fields - Last Filed: 09/03/22 20:09> Surgical History: Surgical History H/O basal cell carcinoma excision H/O nasal septoplasty H/O right wrist surgery H/O thumb surgery History of cervical discectomy History of cholecystectomy History of hemorrhoidectomy History of hernia repair History of lumbar fusion History of partial hysterectomy History of shoulder surgery History of tonsillectomy Hx of colonoscopy <MOSHE Fields - Last Filed: 09/03/22 20:09> Family History Family History: Family History Father Hypertension Past heart attack CVD (cardiovascular disease) Mother Hyperlipidemia Paternal Grandmother Lung cancer Son Substance abuse Brother Bipolar 1 disorder <MOSHE Fields - Last Filed: 09/03/22 20:09> Social History Social History: Social History Housing: House Alcohol intake: current Alcohol intake frequency: a few times a week Alcohol type: beer Patient Tobacco Use Status: Current everyday Tobacco user Tobacco use type: Cigarette Cigarette Packs Per Day: 0.5 Cigarettes Per Day: 10 e-Cigarette/Vaping Use: Never Used Second Hand Smoke Exposure: Yes Advance Directives: No Advance Directives Information Provided: Yes service: No Current occupational status: disabled Cognitive needs: No Hearing needs: No Vision needs: Yes (reading glasses) <MOSHE Fields - Last Filed: 09/03/22 20:09> Physical Exam Vital Signs: Vital Signs: Last Vital Signs Temp 97.4 F 09/04/22 02:11 Pulse 55 09/04/22 02:11 Resp 16 09/04/22 02:11 BP 177/77 H 09/04/22 02:11 Pulse Ox 97 09/04/22 02:11 O2 Del Method 09/04/22 02:11 BMI result Body Mass Index 32.3 <MOSHE Fields - Last Filed: 09/03/22 20:09> Vital Signs: Last Vital Signs Temp 97.4 F 09/04/22 02:11 Pulse 55 09/04/22 02:11 Resp 16 09/04/22 02:11 BP 177/77 H 09/04/22 02:11 Pulse Ox 97 09/04/22 02:11 O2 Del Method 09/04/22 02:11 BMI result Body Mass Index 32.3 <Sanju Soares MD - Last Filed: 09/04/22 02:35> Appearance: Alert. Oriented X3. No acute distress. Eyes: PERRLA, No Nystagmus ENT: Pharynx normal. Oral Mucosa moist Neck: Normal inspection. Neck supple. Diffuse tenderness cervical spine no focal tenderness CVS: Normal heart rate and rhythm. Pulses normal. Respiratory: No respiratory distress. Equal air entry bilateral, no wheezing/rales/rhonchi Abdomen: Soft and nontender. Bowel sounds are present, no mass palpable, no CVA tenderness Skin: Skin warm and dry. Normal skin color. Normal skin turgor. Extremities: No lower extremity edema. No calf tenderness Neuro: Oriented X 3. No motor deficit. No sensory deficit.No cerebellar signs , cranial nerves II-XII intact normal gait <Sanju Soares MD - Last Filed: 09/04/22 02:35> Course Course Course Narrative: RME - 62 yo female with history of fibromyalgia, history of cervical fusion, lumbar fusion, chronic back pain, obesity, depression who presents to the ER with dizziness when she moves her head and neck that started 4 or 5 days ago. Wants a MRI of her entire spine from neck, thoracic spine and lumbar spine today. She was seen in the Rheum office and reported I have pain everywhere. Will get CT head/cervical spine, labs and EKG. <MOSHE Fields - Last Filed: 09/03/22 20:09> Medications Administered Discontinued Medications Generic Name Dose Route Start Last Admin Trade Name Freq PRN Reason Stop Dose Admin Lidocaine 1 patch 09/04/22 02:23 09/04/22 02:31 Lidocaine 4 % Patch Adh..Patch TRANSDERMA 09/04/22 02:24 1 patch ONCE ONE Administration Protocol Oxycodone HCl 5 mg 09/04/22 02:23 09/04/22 02:30 Oxycodone Hcl Immed Release 5 Mg Tablet PO 09/04/22 02:24 5 mg ONCE ONE Administration <MOSHE Fields - Last Filed: 09/03/22 20:09> Medications Administered Discontinued Medications Generic Name Dose Route Start Last Admin Trade Name Chloe PRN Reason Stop Dose Admin Lidocaine 1 patch 09/04/22 02:23 09/04/22 02:31 Lidocaine 4 % Patch Adh..Patch TRANSDERMA 09/04/22 02:24 1 patch ONCE ONE Administration Protocol Oxycodone HCl 5 mg 09/04/22 02:23 09/04/22 02:30 Oxycodone Hcl Immed Release 5 Mg Tablet PO 09/04/22 02:24 5 mg ONCE ONE Administration <Sanju Soares MD - Last Filed: 09/04/22 02:35> Medical Decision Making Medical Decision Making [facility] Narrative: Patient's CT cervical spine, CT scan of the head negative for acute pathology labs are stable patient ambulate in the ER will discharge patient home on oxycodone and lidocaine patch. <Sanju Soares MD - Last Filed: 09/04/22 02:35> Lab Data [facility] Lab Attestation statement: I reviewed the patient's lab results. <Sanju Soares MD - Last Filed: 09/04/22 02:35> Result Diagrams: 09/03/22 21:28 09/03/22 21:28 <MOSHE Fields - Last Filed: 09/03/22 20:09> Labs: Lab Results 09/03/22 09/03/22 09/03/22 Range/Units 21:28 21:28 21:28 WBC 7.8 (4.8-10.8) X10*3/uL RBC 4.25 (4.20-5.50) X10*6/uL Hgb 13.4 (12.0-16.0) g/dl Hct 38.3 (37.0-47.0) % MCV 90.1 (80.0-98.0) fL MCH 31.5 (27.0-33.0) pg MCHC 35.0 (31.0-35.0) g/dl RDW 12.1 (11.0-16.0) % Plt Count 393 (160-400) X10*3/uL MPV 9.7 (9.4-12.3) fL Immature Gran % (Auto) 0.4 (0.0-0.4) % Neut % (Auto) 41.9 L (45-73) % Lymph % (Auto) 47.2 H (20-40) % [place] % (Auto) 8.4 (2-11) % Eos % (Auto) 1.5 (0-4) % Baso % (Auto) 0.6 (0-2) % Lymph # (Auto) 3.7 (1.2-4.9) X10*3/uL [place] # (Auto) 0.7 (0.1-1.2) X10*3/uL Eos # (Auto) 0.1 (0.0-0.4) X10*3/uL Baso # (Auto) 0.1 (0.0-0.2) X10*3/uL Abs Immat Gran (auto) 0.03 (0.00-0.03) X10*3/uL Absolute Neuts (auto) 3.3 (2.0-8.3) x10*3/uL Absolute Nucleated RBC 0.000 (0.0-0.012) X10*3/uL Nucleated RBC % (auto) 0.0 (0.0-0.2) /100WBC Sodium 140 (135-145) mmol/L Potassium 4.1 (3.3-5.1) mmol/L Chloride 104 (96-108) mmol/L Carbon Dioxide 26 (22-29) mmol/L Anion Gap 14 (12-20) BUN 13 (9-16) mg/dL Creatinine 0.99 (0.5-1.4) mg/dL Estim Creat Clear Calc 51.8 Estimated GFR 57 Random Glucose 90 (60-115) mg/dL Calcium 9.9 (8.4-10.2) mg/dL Magnesium 2.3 (1.6-2.6) mg/dL Total Bilirubin 0.5 (0.0-1.0) mg/dL Direct Bilirubin 0.2 (0.0-0.5) mg/dL AST 29 (5-31) U/L ALT 21 (0-31) U/L Alkaline Phosphatase 41 (39-117) U/L Total Protein 7.1 (6.5-8.0) g/dL Albumin 4.6 (3.5-5.0) g/dL Ethyl Alcohol < 10 mg/dL <MOSHE Fields - Last Filed: 09/03/22 20:09> Lab Results 09/03/22 09/03/22 09/03/22 Range/Units 21:28 21:28 21:28 WBC 7.8 (4.8-10.8) X10*3/uL RBC 4.25 (4.20-5.50) X10*6/uL Hgb 13.4 (12.0-16.0) g/dl Hct 38.3 (37.0-47.0) % MCV 90.1 (80.0-98.0) fL MCH 31.5 (27.0-33.0) pg MCHC 35.0 (31.0-35.0) g/dl RDW 12.1 (11.0-16.0) % Plt Count 393 (160-400) X10*3/uL MPV 9.7 (9.4-12.3) fL Immature Gran % (Auto) 0.4 (0.0-0.4) % Neut % (Auto) 41.9 L (45-73) % Lymph % (Auto) 47.2 H (20-40) % [place] % (Auto) 8.4 (2-11) % Eos % (Auto) 1.5 (0-4) % Baso % (Auto) 0.6 (0-2) % Lymph # (Auto) 3.7 (1.2-4.9) X10*3/uL [place] # (Auto) 0.7 (0.1-1.2) X10*3/uL Eos # (Auto) 0.1 (0.0-0.4) X10*3/uL Baso # (Auto) 0.1 (0.0-0.2) X10*3/uL Abs Immat Gran (auto) 0.03 (0.00-0.03) X10*3/uL Absolute Neuts (auto) 3.3 (2.0-8.3) x10*3/uL Absolute Nucleated RBC 0.000 (0.0-0.012) X10*3/uL Nucleated RBC % (auto) 0.0 (0.0-0.2) /100WBC Sodium 140 (135-145) mmol/L Potassium 4.1 (3.3-5.1) mmol/L Chloride 104 (96-108) mmol/L Carbon Dioxide 26 (22-29) mmol/L Anion Gap 14 (12-20) BUN 13 (9-16) mg/dL Creatinine 0.99 (0.5-1.4) mg/dL Estim Creat Clear Calc 51.8 Estimated GFR 57 Random Glucose 90 (60-115) mg/dL Calcium 9.9 (8.4-10.2) mg/dL Magnesium 2.3 (1.6-2.6) mg/dL Total Bilirubin 0.5 (0.0-1.0) mg/dL Direct Bilirubin 0.2 (0.0-0.5) mg/dL AST 29 (5-31) U/L ALT 21 (0-31) U/L Alkaline Phosphatase 41 (39-117) U/L Total Protein 7.1 (6.5-8.0) g/dL Albumin 4.6 (3.5-5.0) g/dL Ethyl Alcohol < 10 mg/dL <Sanju Soares MD - Last Filed: 09/04/22 02:35> Discharge Plan Discharge Clinical Impression: Chronic pain disorder <MOSHE Fields - Last Filed: 09/03/22 20:09> Patient Disposition: Home, Self-Care <MOSHE Fields - Last Filed: 09/03/22 20:09> Instructions: Chronic Neck Pain (DC) <MOSHE Fields - Last Filed: 09/03/22 20:09> Additional Instructions: Take pain medication as prescribed Lidoderm patch on painful area daily Follow with pain clinic <MOSHE Fields - Last Filed: 09/03/22 20:09> Prescriptions: New oxycodone 5 mg tablet 5 mg PO Q6H PRN (Reason: pain) Qty: 20 0RF Rx Instructions: Partial Fill upon patient request. lidocaine 4 % adhesive patch,medicated 1 patch topical DAILY PRN (Reason: pain) Qty: 30 0RF No Action metoprolol succinate 50 mg tablet extended release 24 hr 50 mg PO DAILY Qty: 90 2RF tizanidine 4 mg tablet 4 mg PO TID PRN (Reason: muscle spasticity) Qty: 270 1RF fenofibrate 160 mg tablet 160 mg PO DAILY 90 Days Qty: 90 1RF acetaminophen [Mapap Arthritis Pain] 650 mg tablet extended release 650 mg PO Q8H Qty: 90 2RF pravastatin 40 mg tablet 40 mg PO DAILY Qty: 90 2RF ergocalciferol (vitamin D2) 1,250 mcg (50,000 unit) capsule 1,250 mcg PO QWEEK Qty: 8 0RF lidocaine [Lidoderm] 5 % adhesive patch,medicated 1 patch topical DAILY Qty: 30 5RF Rx Instructions: leave on most painful area for up to 12 hrs quetiapine 50 mg tablet See Rx Instructions PO TID Rx Instructions: 100mg bid, 200mg qpm orally 3 times a day; 25 mg in the AM and 50 mg in the PM clonazepam 1 mg tablet 1 mg PO TID sertraline 100 mg tablet 100 mg PO DAILY tamsulosin [Flomax] 0.4 mg capsule 0.4 mg PO BID Qty: 60 2RF estradiol [Vagifem] 10 mcg tablet 10 mcg vaginal 2XW Qty: 24 1RF Rx Instructions: Use vaginally 2 times a week: Fri/ at bedtime <MOSHE Fields - Last Filed: 09/03/22 20:09>
[2022-09-03 20:03] VITALS: BP 138/77; PULSE 68; RESP 16; TEMP 36.3; O2SAT 96; BMI 32.3
--- NOTE | 2022-09-03 20:06 | ECG_ITS ---
Test Reason : DIZZINESS Blood Pressure : / mmHG Vent. Rate : 057 BPM Atrial Rate : 057 BPM P-R Int : 162 ms QRS Dur : 084 ms QT Int : 430 ms P-R-T Axes : 022 044 057 degrees QTc Int : 418 ms Sinus bradycardia Cannot rule out Inferior infarct , age undetermined T wave abnormality, consider anterior ischemia Abnormal ECG When compared to the previous EKG of 25 february 2022, anterior T inversions more prominent Referred By: Fior Mitchell Electronically Signed By:LYNNE PRATT
[2022-09-03 21:43] LABS: MANUAL DIFF FLAG NO
[2022-09-03 21:44] LABS: Basophils Absolute Auto 0.1 X10*3/uL (0.0-0.2); Basophils Percent Auto 0.6 % (0-2); Eosinophils Absolute Auto 0.1 X10*3/uL (0.0-0.4); Eosinophils Percent Auto 1.5 % (0-4); Hematocrit 38.3 % (37.0-47.0); Hemoglobin 13.4 g/dl (12.0-16.0); Imm Gran Abs Auto 0.03 X10*3/uL (0.00-0.03); Imm Gran Pct Auto 0.4 % (0.0-0.4); Lymphocytes Absolute Auto 3.7 X10*3/uL (1.2-4.9); Lymphocytes Percent Auto 47.2 % (20-40); Mean Corpuscular Hemoglobin 31.5 pg (27.0-33.0); Mean Corpuscular Volume 90.1 fL (80.0-98.0); Mean Platelet Volume 9.7 fL (9.4-12.3); Monocytes Absolute Auto 0.7 X10*3/uL (0.1-1.2); Monocytes Percent Auto 8.4 % (2-11); Neutrophils Absolute Auto 3.3 x10*3/uL (2.0-8.3); Neutrophils Percent Auto 41.9 % (45-73); Platelet Count 393 X10*3/uL (160-400); Red Blood Count 4.25 X10*6/uL (4.20-5.50); Red Cell Distribution Width 12.1 % (11.0-16.0); White Blood Count 7.8 X10*3/uL (4.8-10.8)
[2022-09-03 22:00] LABS: Alanine Aminotransferase 21 U/L (0-31); Albumin Level 4.6 g/dL (3.5-5.0); Alkaline Phosphatase 41 U/L (39-117); Anion Gap 14 (12-20); Aspartate Amino Transferase 29 U/L (5-31); Bilirubin Direct 0.2 mg/dL (0.0-0.5); Bilirubin Total 0.5 mg/dL (0.0-1.0); Blood Urea Nitrogen 13 mg/dL (9-16); Calcium 9.9 mg/dL (8.4-10.2); Carbon Dioxide 26 mmol/L (22-29); Chloride 104 mmol/L (96-108); Creatinine Clr Calc Pharmacy 51.8; Estimated Glomerular Filt Rate 57; Glucose Random 90 mg/dL (60-115); Magnesium 2.3 mg/dL (1.6-2.6); Potassium 4.1 mmol/L (3.3-5.1); Sodium 140 mmol/L (135-145); Total Protein 7.1 g/dL (6.5-8.0)
[2022-09-03 22:02] LABS: Ethanol < 10 mg/dL
[2022-09-04 02:11] VITALS: BP 177/77; PULSE 55; RESP 16; TEMP 36.3; O2SAT 97
[2022-09-04] MEDS: oxyCODONE HCl Immed Release 5 MG TABLET PO (02:30)
[2022-09-04] MEDS: Lidocaine 4 % Patch ADH..PATCH 1 PATCH TRANSDERMA (02:31)
== END 2022-09-04 02:41 | disposition home or self-care (01) ==
PROVIDERS: Physician Assistant; Emergency Provider Internal Medicine; PCP Internal Medicine
DX: M54.50 Low back pain, unspecified (principal); G89.29 Other chronic pain; R42 Dizziness and giddiness; M54.2 Cervicalgia; R51.9 Headache, unspecified; F17.210 Nicotine dependence, cigarettes, uncomplicated; Z71.6 Tobacco abuse counseling; Z79.899 Other long term (current) drug therapy
CPT/HCPCS: 36415; 70450; 72125; 80048; 80076; 82077; 83735; 85025; 93005; 99284

== ENCOUNTER 2022-09-05 14:07 | Emergency (ER) | payer OTHER, SELFPAY ==
--- NOTE | 2022-09-05 | ECG_ITS ---
Test Reason : Dizziness Blood Pressure : / mmHG Vent. Rate : 073 BPM Atrial Rate : 073 BPM P-R Int : 144 ms QRS Dur : 086 ms QT Int : 394 ms P-R-T Axes : 015 028 047 degrees QTc Int : 434 ms Normal sinus rhythm Possible Inferior infarct (cited on or before 25-FEB-2022) Nonspecific ST and T wave abnormality Abnormal ECG When compared with ECG of 03-SEP-2022 21:34, No significant change was found Referred By: Generic ED Physician Electronically Signed By:LYNNE PRATT
[2022-09-05 14:31] LABS: MANUAL DIFF FLAG NO
[2022-09-05 14:32] VITALS: BP 170/110; PULSE 70; PULSE 76; RESP 18; TEMP 37.1; O2SAT 97; O2SAT 98; BMI 32.3
[2022-09-05 14:33] LABS: Basophils Percent Auto 0.5 % (0-2); Eosinophils Absolute Auto 0.1 X10*3/uL (0.0-0.4); Eosinophils Percent Auto 0.9 % (0-4); Hemoglobin 13.7 g/dl (12.0-16.0); Imm Gran Abs Auto 0.02 X10*3/uL (0.00-0.03); Imm Gran Pct Auto 0.3 % (0.0-0.4); Lymphocytes Absolute Auto 2.5 X10*3/uL (1.2-4.9); Mean Corpuscular HGB Conc 35.1 g/dl (31.0-35.0); Mean Corpuscular Hemoglobin 31.4 pg (27.0-33.0); Mean Corpuscular Volume 89.4 fL (80.0-98.0); Mean Platelet Volume 9.7 fL (9.4-12.3); Monocytes Absolute Auto 0.5 X10*3/uL (0.1-1.2); Monocytes Percent Auto 6.6 % (2-11); Neutrophils Absolute Auto 4.6 x10*3/uL (2.0-8.3); Neutrophils Percent Auto 59.7 % (45-73); Platelet Count 383 X10*3/uL (160-400); Red Blood Count 4.36 X10*6/uL (4.20-5.50); Red Cell Distribution Width 11.9 % (11.0-16.0); White Blood Count 7.8 X10*3/uL (4.8-10.8)
[2022-09-05 14:52] LABS: Alanine Aminotransferase 22 U/L (0-31); Albumin Level 4.6 g/dL (3.5-5.0); Alkaline Phosphatase 41 U/L (39-117); Anion Gap 14 (12-20); Aspartate Amino Transferase 36 U/L (5-31); Bilirubin Total 0.5 mg/dL (0.0-1.0); Blood Urea Nitrogen 14 mg/dL (9-16); Calcium 9.9 mg/dL (8.4-10.2); Carbon Dioxide 23 mmol/L (22-29); Chloride 102 mmol/L (96-108); Creatinine Clr Calc Pharmacy 50.2; Estimated Glomerular Filt Rate 55; Glucose Random 93 mg/dL (60-115); Potassium 4.3 mmol/L (3.3-5.1); Sodium 135 mmol/L (135-145); Total Protein 7.2 g/dL (6.5-8.0)
--- NOTE | 2022-09-05 16:21 | ED.DIZZY ---
HPI - Dizziness General Chief Complaint: Dizziness Stated Complaint: DIZZY Time Seen by Provider: 09/05/22 16:13 Source: patient Mode of arrival: ambulatory Limitations: no limitations History of Present Illness HPI Narrative: This is a 62-year-old female history of depression, anxiety, obesity, GERD, hypertension, fibromyalgia, chronic back pain, remote history of cervical fusion C5/C6 and C6 and C7 by Dr. Fowler and Dr. Serrano in 2014, patient presents to the emergency department with complaints of cervical neck pain and thoracic back pain times months, she tells me she is here today to get an MRI. She reports she was recently seen here and got sent home with pain medicine which she thought would fix this problem however she tells me she continues to have pain. She tells me sometimes her neck pain at times makes her dizzy which she describes as lightheaded. She denies any trauma to her back or neck. Patient denies vision changes, weakness, nausea, vomiting, abdominal pain, chest pain, shortness of breath, fevers, chills, recent illness, upper respiratory symptoms, changes in speech, urinary/bowel incontinence/retention, saddle paresthesias. Related Data Home Medications Medication Instructions Recorded Confirmed clonazepam 1 mg tablet 1 mg PO TID 08/21/21 08/26/22 quetiapine 50 mg tablet See Rx Instructions PO TID 08/26/22 08/26/22 sertraline 100 mg tablet 100 mg PO DAILY 08/26/22 08/26/22 Previous Rx's Medication Instructions Recorded metoprolol succinate 50 mg 50 mg PO DAILY #90 tabs 01/17/22 tablet,extended release 24 hr tizanidine 4 mg tablet 4 mg PO TID PRN muscle spasticity 04/09/22 #270 tabs fenofibrate 160 mg tablet 160 mg PO DAILY 90 days #90 tabs 06/07/22 acetaminophen 650 mg 650 mg PO Q8H #90 tabs 06/14/22 tablet,extended release (Mapap Arthritis Pain) pravastatin 40 mg tablet 40 mg PO DAILY #90 tabs 06/26/22 ergocalciferol (vitamin D2) 1,250 1,250 mcg PO QWEEK #8 caps 08/27/22 mcg (50,000 unit) capsule estradiol 10 mcg vaginal tablet 10 mcg vaginal 2XW #24 tabs 08/28/22 (Vagifem) lidocaine 5 % topical patch 1 patch topical DAILY #30 ea 08/30/22 (Lidoderm) alfuzosin 10 mg tablet,extended 10 mg PO DAILY 30 days #30 tabs 09/04/22 release 24 hr lidocaine 4 % topical patch 1 patch topical DAILY PRN pain #30 09/04/22 ea oxycodone 5 mg tablet 5 mg PO Q6H PRN pain #20 tabs 09/04/22 Allergies Allergy/AdvReac Type Severity Reaction Status Date / Time adhesive tape [ADHESIVE TAPE] Allergy Intermediate RASH/BLISTE Verified 08/28/22 10:12 RS Sulfa (Sulfonamide Allergy Intermediate ITCHY RASH Verified 08/28/22 10:12 Antibiotics) [SULFA (SULFONAMIDE ANTIBIOTICS)] bacitracin [From NEOSPORIN] Allergy Mild RASH Verified 08/28/22 10:12 gramicidin D [From NEOSPORIN] Allergy Mild RASH Verified 08/28/22 10:12 polymyxin B [From NEOSPORIN] Allergy Mild RASH Verified 08/28/22 10:12 cefazolin [CEFAZOLIN] AdvReac Intermediate GI UPSET Verified 08/28/22 10:12 Review of Systems Review of Systems: Constitutional : No Weight loss, No Fever, No Chills, ENT/Mouth : No Hearing loss, No Ear Pain, No Nasal Congestion, No Sinus Pain, No Hoarseness, No sore throat, No Rhinorrhea, No Swallowing Difficulty Cardiovascular : No Chest Pain, No SOB Respiratory : No Cough, No Dyspnea Gastrointestinal : No Nausea, No Vomiting, No Diarrhea, No abdominal Pain, No Hematochezia, No Melena Genitourinary : No Dysuria, No Urinary Frequency, No Hematuria, No Urinary Incontinence, Musculoskeletal : positive back pain, + neck pain Skin : No Skin Lesions, No rash Neuro : No Weakness, No Numbness, No Paresthesias, no loss of bowel or bladder incontinence, no saddle anesthesia Yes all other systems are reviewed and are negative PMFSH Past Medical History Attestation statement: The following information was validated with the patient. Source: old records reviewed and nursing notes reviewed Medical History Anxiety and depression Cervical radiculopathy due to degenerative joint disease of spine Cholelithiasis Fatigue Fibromyalgia GERD (gastroesophageal reflux disease) H. pylori duodenitis HLA B27 (HLA B27 positive) Hypercholesterolemia Hypertension Impaired glucose tolerance Insomnia Left shoulder pain Lumbar degenerative disc disease Obesity (BMI 30-39.9) Osteopenia Restless leg syndrome Tobacco abuse Vitamin D deficiency Surgical History H/O basal cell carcinoma excision H/O nasal septoplasty H/O right wrist surgery H/O thumb surgery History of cervical discectomy History of cholecystectomy History of hemorrhoidectomy History of hernia repair History of lumbar fusion History of partial hysterectomy History of shoulder surgery History of tonsillectomy Hx of colonoscopy Family History Family History Father Hypertension Past heart attack CVD (cardiovascular disease) Mother Hyperlipidemia Paternal Grandmother Lung cancer Son Substance abuse Brother Bipolar 1 disorder Social History Social History Housing: House Alcohol intake: current Alcohol intake frequency: a few times a week Alcohol type: beer Patient Tobacco Use Status: Current everyday Tobacco user Tobacco use type: Cigarette Cigarette Packs Per Day: 0.5 Cigarettes Per Day: 10 Smoked in Last 30 Days: No e-Cigarette/Vaping Use: Never Used Second Hand Smoke Exposure: Yes Advance Directives: No Advance Directives Information Provided: Yes service: No Current occupational status: disabled Cognitive needs: No Hearing needs: No Vision needs: Yes (reading glasses) Physical Exam Vital Signs: Vital Signs: Last Vital Signs Temp 98.7 F 09/05/22 14:32 Pulse 76 09/05/22 14:32 Resp 18 09/05/22 14:32 Pulse Ox 97 09/05/22 14:32 O2 Del Method 09/05/22 14:32 BMI result Body Mass Index 32.3 vss Appearance: Alert.? Oriented X3.? No acute distress.? Normal fluid speech. Head: Normocephalic, atraumatic, no step-offs or deformities. Facial symmetry noted. Eyes: Pupils equal, round and reactive to light.? ENT: Pharynx normal.? Neck: Normal inspection.? Neck supple.? CVS: Normal heart rate and rhythm.? Pulses normal.? Respiratory: No respiratory distress.? Breath sounds normal.? Abdomen: Soft and nontender.? Skin: Skin warm and dry.? Normal skin color.? Normal skin turgor.? Extremities: No lower extremity edema.? No calf ttp. 5/5 strength to bilateral upper and lower extremities. 2+ DTRs equal bilateral. Back: No midline tenderness, no C-spine tenderness, full range of motion, no CVA tenderness bilaterally + midline tenderness from C4-C7. And from T 1 to T4. No step-offs or deformities. Also has associated thoracic and cervical paraspinous tenderness bilaterally in the stated regions. Neuro: Oriented X 3.? No motor deficit.? No sensory deficit. CN 2-12 intact. Normal [id number], [id number], steady tandem gait. No saddle paresthesias NIH stroke scale 0. Course Reevaluation(s) Reevaluation #1: CBC with no acute findings, chemistry with no acute electrolyte abnormalities requiring intervention. CT of the cervical spine and head from September 03 with no acute intracranial pathology, no evidence of acute cervical spine fracture or traumatic subluxations. Patient's neuro remains nonfocal, cerebellar intact. NIH stroke scale 0. At this time patient will be discharged home advised to follow-up with PCP in regards to obtaining an MRI of her asked sick and cervical spine. Will give her follow-up with [facility] Educated patient on diagnosis and treatment plan, answered all question, patient verbalizes understanding. At this time patient will be discharged home, advised to return with new or worsening symptoms. Educated on worrisome signs and symptoms and when to return. At this time I feel comfortable discharge home. I will not send patient home with pain medicine, patient recently had a prescription filled for oxycodone on 09/03/2022 Time: 16:55 Medical Decision Making Medical Decision Making [facility] Narrative: 1622 62-year-old female presents with thoracic and cervical back pain times months. Requesting an MRI. Denies trauma. According to chart review patient was seen here on September 03 for a similar presentation, patient had a CT of the head and cervical spine done as well as labs, EKG, unremarkable workup. Patient has also been seen by Rheumatology were she reports ?I have pain everywhere ?. Physical examination significant for midline tenderness from C4-C7. And from T 1 to T4. No step-offs or deformities. Also has associated thoracic and cervical paraspinous tenderness bilaterally in the stated regions. Likely chronic back pain, osteoarthritis. I do not suspect cauda equina, epidural abscess, cord compression, meningitis, intracranial hemorrhage, stroke, posterior stroke, acute fracture dislocation, BPPV. I do not see a need for further imaging, patient will likely require an outpatient MRI of cervical and thoracic spine however there is no need for an emergent MRI at this time. Differential Diagnosis Differential Diagnoses: The differential diagnosis associated with the presentation includes Likely chronic back pain, osteoarthritis. I do not suspect cauda equina, epidural abscess, cord compression, meningitis, intracranial hemorrhage, stroke, posterior stroke, acute fracture dislocation, BPPV. Admission/Observation Consideration of admission/observation: Escalation of care including admission/observation considered Lab Data MDM Lab Attestation statement: I reviewed the patient's lab results. 09/05/22 14:26 09/05/22 14:26 Labs: Lab Results 09/05/22 09/05/22 Range/Units 14:26 14:26 WBC 7.8 (4.8-10.8) X10*3/uL RBC 4.36 (4.20-5.50) X10*6/uL Hgb 13.7 (12.0-16.0) g/dl Hct 39.0 (37.0-47.0) % MCV 89.4 (80.0-98.0) fL MCH 31.4 (27.0-33.0) pg MCHC 35.1 H (31.0-35.0) g/dl RDW 11.9 (11.0-16.0) % Plt Count 383 (160-400) X10*3/uL MPV 9.7 (9.4-12.3) fL Immature Gran % (Auto) 0.3 (0.0-0.4) % Neut % (Auto) 59.7 (45-73) % Lymph % (Auto) 32.0 (20-40) % [place]orne % (Auto) 6.6 (2-11) % Eos % (Auto) 0.9 (0-4) % Baso % (Auto) 0.5 (0-2) % Lymph # (Auto) 2.5 (1.2-4.9) X10*3/uL [place] # (Auto) 0.5 (0.1-1.2) X10*3/uL Eos # (Auto) 0.1 (0.0-0.4) X10*3/uL Baso # (Auto) 0.0 (0.0-0.2) X10*3/uL Abs Immat Gran (auto) 0.02 (0.00-0.03) X10*3/uL Absolute Neuts (auto) 4.6 (2.0-8.3) x10*3/uL Absolute Nucleated RBC 0.000 (0.0-0.012) X10*3/uL Nucleated RBC % (auto) 0.0 (0.0-0.2) /100WBC Sodium 135 (135-145) mmol/L Potassium 4.3 (3.3-5.1) mmol/L Chloride 102 (96-108) mmol/L Carbon Dioxide 23 (22-29) mmol/L Anion Gap 14 (12-20) BUN 14 (9-16) mg/dL Creatinine 1.02 (0.5-1.4) mg/dL Estim Creat Clear Calc 50.2 Estimated GFR 55 Random Glucose 93 (60-115) mg/dL Calcium 9.9 (8.4-10.2) mg/dL Total Bilirubin 0.5 (0.0-1.0) mg/dL AST 36 H (5-31) U/L ALT 22 (0-31) U/L Alkaline Phosphatase 41 (39-117) U/L Total Protein 7.2 (6.5-8.0) g/dL Albumin 4.6 (3.5-5.0) g/dL Core Measures AMI core measures followed: Yes Measure exclusions: not indicated Critical Care Time Critical Care Time Critical Care Time: No Discharge Plan Discharge Clinical Impression: Chronic pain, Neck pain, Thoracic back pain Patient Disposition: Home, Self-Care Instructions: Chronic Pain (ED), Acute Neck Pain (ED), Thoracic Pain (ED), Neck Pain (ED) Additional Instructions: Take your medications as prescribed. If you were prescribed antibiotics today, it is important that you take your medication to their entirety, do not skip any doses, do not finish them early. Follow-up with your primary care provider this week. Return to the emergency department with new or worsening symptoms. Such as fevers, chills, chest pain, shortness of breath, nausea, vomiting, dizziness, headache, vision changes, lethargy In case of emergency call 911 Your laboratory studies were unremarkable, I do not feel like you need imaging of the head and cervical spine again you just had imaging done a few days ago. You would likely benefit from an MRI of the thoracic and cervical spine, you should reach out to your PCP in regards to this. Will also give you a phone number to [facility]. Prescriptions: No Action metoprolol succinate 50 mg tablet extended release 24 hr 50 mg PO DAILY Qty: 90 2RF tizanidine 4 mg tablet 4 mg PO TID PRN (Reason: muscle spasticity) Qty: 270 1RF fenofibrate 160 mg tablet 160 mg PO DAILY 90 Days Qty: 90 1RF acetaminophen [Mapap Arthritis Pain] 650 mg tablet extended release 650 mg PO Q8H Qty: 90 2RF pravastatin 40 mg tablet 40 mg PO DAILY Qty: 90 2RF ergocalciferol (vitamin D2) 1,250 mcg (50,000 unit) capsule 1,250 mcg PO QWEEK Qty: 8 0RF lidocaine [Lidoderm] 5 % adhesive patch,medicated 1 patch topical DAILY Qty: 30 5RF Rx Instructions: leave on most painful area for up to 12 hrs alfuzosin 10 mg tablet extended release 24 hr 10 mg PO DAILY 30 Days Qty: 30 2RF Rx Instructions: administer after the same meal each day oxycodone 5 mg tablet 5 mg PO Q6H PRN (Reason: pain) Qty: 20 0RF Rx Instructions: Partial Fill upon patient request. lidocaine 4 % adhesive patch,medicated 1 patch topical DAILY PRN (Reason: pain) Qty: 30 0RF quetiapine 50 mg tablet See Rx Instructions PO TID Rx Instructions: 100mg bid, 200mg qpm orally 3 times a day; 25 mg in the AM and 50 mg in the PM clonazepam 1 mg tablet 1 mg PO TID sertraline 100 mg tablet 100 mg PO DAILY estradiol [Vagifem] 10 mcg tablet 10 mcg vaginal 2XW Qty: 24 1RF Rx Instructions: Use vaginally 2 times a week: Mon/thurs at bedtime Referrals: [facility] [Provider Group] - 1 day Po,Kenya Collazo MD [Primary Care Provider] - 1 day
[2022-09-05 17:09] LABS: C Reactive Protein 0.49 mg/dL (< or = 0.50)
[2022-09-05 17:11] VITALS: BP 152/77; PULSE 66; RESP 18; O2SAT 97
[2022-09-05] MEDS: Morphine Sulfate 2 MG/ML CARTRIDGE IVPUSH (17:11)
[2022-09-05 17:47] LABS: Erythrocyte Sedimentation Rate 6 MM/HR (0-20)
== END 2022-09-05 17:17 | disposition home or self-care (01) ==
PROVIDERS: Physician Assistant; Emergency Provider Emergency Medicine; PCP Internal Medicine
DX: R42 Dizziness and giddiness (principal); M54.2 Cervicalgia; M54.6 Pain in thoracic spine; G89.29 Other chronic pain; I10 Essential (primary) hypertension; F17.210 Nicotine dependence, cigarettes, uncomplicated; Z79.899 Other long term (current) drug therapy; Z71.6 Tobacco abuse counseling
CPT/HCPCS: 36415; 80053; 85025; 85652; 86140; 93005; 96374; 99284; J2270

== ENCOUNTER → 2022-09-06 10:00 | Outpatient (BNVA) | payer OTHER, SELFPAY | PROVIDERS: PCP Internal Medicine; Visit Provider Surgery | DX: K42.9 Umbilical hernia without obstruction or gangrene (principal) | CPT/HCPCS: 99202 ==

== ENCOUNTER 2022-09-12 14:03 | Outpatient (REF) | payer OTHER, SELFPAY ==
--- NOTE | ~2022-09-12 | XR_ITS ---
EXAMINATION: XR THORACOLUMBAR SPINE CLINICAL INFORMATION: Thoracic spine pain COMPARISON: 02/05/2020 TECHNIQUE: 2 views, 4 images of the thoracic spine. FINDINGS: Cervical fusion hardware noted. There is no acute fracture or subluxation. Vertebral body height and alignment maintained. Mild disc space narrowing at the upper thoracic spine. Small endplate osteophytes throughout. The paravertebral soft tissues are unremarkable. The visualized lungs are clear. XR/XR thoracic spine 2V IMPRESSION: Mild degenerative changes throughout the thoracic spine.
== END 2022-09-12 14:04 | disposition home or self-care (01) ==
LOC: HO.XRAY 14:03
PROVIDERS: PCP Internal Medicine; Visit Provider Internal Medicine
DX: M54.6 Pain in thoracic spine (principal)
CPT/HCPCS: 72070

== ENCOUNTER 2022-09-17 18:37 | Outpatient (REF) | payer OTHER, SELFPAY ==
--- NOTE | ~2022-09-17 | MR_ITS ---
EXAMINATION: MR LUMBAR SPINE WITHOUT CONTRAST CLINICAL INFORMATION: Overflow continence COMPARISON: MRI lumbar spine 03/09/2019 TECHNIQUE: MRI of the lumbar spine was obtained using routine sequences without contrast. FINDINGS: Postsurgical changes from posterior decompression and instrumented posterior spinal fusion at L5-S1 with interbody device in place. Stable appearance of a diverticulum wide necked dural defect of the dorsal thecal sac at L5-S1. Stable grade 1 anterolisthesis of L5 on S1.. Mild lumbar levocurvature. No suspicious marrow signal or focal osseous lesion. Small T11 vertebral body hemangioma. Small endplate Schmorl's nodes at T10-T11. New endplate marrow edema at L3-L4 The vertebral body heights are maintained. Progressive degenerative disc desiccation and height loss as well as degenerative endplate contour changes at L3-L4. The remaining intervertebral disc spaces are preserved.. The conus medullaris terminates at the level of L1. The distal spinal cord is normal in appearance. The cauda equina nerve roots appear normal. No significant abnormalities of the paraspinal musculature.. Distention of the urinary bladder. The abdominal aorta is of normal contour and caliber. SPINAL LEVELS: T12-L1: No significant spinal canal or neural foraminal narrowing L1-L2: No significant spinal canal or neuroforaminal narrowing. L2-L3: No significant spinal canal or neuroforaminal narrowing. L3-L4: Worsening right eccentric disc bulge and endplate spurring. Mild facet arthropathy. There is new right greater than left subarticular zone narrowing with mass effect on the traversing right L4 nerve root. A new mild left and moderate right neural foraminal narrowing. L4-L5: No significant spinal canal or neuroforaminal narrowing. Facet arthropathy. L5-S1: Postsurgical changes. The neural foramina are suboptimally evaluated due to hardware-related susceptibility artifact without evidence of high-grade or progressive stenosis. No significant neural foraminal narrowing. MR/MR lumbar spine wo con IMPRESSION: 1. Stable postsurgical changes from L5-S1 posterior decompression and instrumented posterior spinal fusion with unchanged grade 1 anterolisthesis of L5 on S1. 2. Compared to MRI from 03/09/2019, there has been progression of degenerative disc disease at L3-L4 with new endplate marrow edema, right greater than left subarticular zone narrowing with mass effect on the traversing right L4 nerve root, and new mild left and moderate right neural foraminal narrowing. 3. Otherwise stable appearance of the lumbar spine. No significant central spinal canal stenosis. 4. Distention of the urinary bladder.
== END 2022-09-17 18:38 | disposition home or self-care (01) ==
LOC: HO.MRI 18:37
PROVIDERS: Visit Provider Internal Medicine
DX: N39.490 Overflow incontinence (principal)
CPT/HCPCS: 72148

== ENCOUNTER 2022-09-25 12:52 | Outpatient (REF) | payer OTHER, SELFPAY ==
--- NOTE | ~2022-09-25 | US_ITS ---
EXAMINATION: US RETROPERITONEAL LIMITED (RENAL ONLY) CLINICAL INFORMATION: Overflow incontinence. COMPARISON: Ultrasound abdomen complete 06/23/2019. TECHNIQUE: Real-time imaging of the kidneys. FINDINGS: RIGHT KIDNEY: 9.5 x 4.5 x 5.8 cm (SAG x AP x TRV). The kidney is normal in size, contour, and echogenicity. Renal cortical thickness is normal. No calculi or focal parenchymal lesions. Mild hydronephrosis. LEFT KIDNEY: 9.3 x 4.8 x 5.0 cm (SAG x AP x TRV). The kidney is normal in size, contour, and echogenicity. Renal cortical thickness is normal. No calculi or focal parenchymal lesions. Mild hydronephrosis. US/US renal BI IMPRESSION: Mild bilateral hydronephrosis which is new when compared to prior ultrasound in 2019.
[2022-09-25 15:14] LABS: Vitamin D 25-OH Total 19.1 ng/mL (>30)
[2022-09-27 08:44] LABS: HIV AB/AG Nonreactive (Nonreactive); HIV Num 1 0.07 S/CO (0.00-0.99); ~HepC Num1 0.15 S/CO (0.00-0.79); ~Hepatitis C Antibody Nonreactive (Nonreactive)
== END 2022-09-25 12:53 | disposition home or self-care (01) ==
LOC: HO.US 12:52
PROVIDERS: Nurse Practitioner Family; Absent Provider Internal Medicine; PCP Internal Medicine; Visit Provider Urology
DX: Z11.4 Encounter for screening for human immunodeficiency virus [HIV] (principal); N39.490 Overflow incontinence; E55.9 Vitamin D deficiency, unspecified; Z77.21 Contact with and (suspected) exposure to potentially hazardous body fluids
CPT/HCPCS: 36415; 76775; 82306; 86803; 87389

== ENCOUNTER 2022-10-02 06:48 | Day surgery (SDC) | payer OTHER, SELFPAY ==
[2022-09-25 12:17] VITALS: BMI 32.3
[2022-10-02] VITALS (8 sets, daily range): BP systolic 121–147; BP diastolic 49–85; PULSE 58–69; RESP 12–17; TEMP 36.1–36.3; O2SAT 93–99
[2022-10-02] MEDS: Lactated Ringers 1,000 ML 100 ML IVCONT (07:36)
[2022-10-02] MEDS: Midazolam HCl/PF 2 MG/2 ML VIAL IVPUSH (07:36)
--- NOTE | 2022-10-02 07:36 | MHC.SHP ---
Pre-Procedural Eval Section A Date of Service: 10/02/22 The patient is an INPATIENT: No Changes since office visit: Yes Patient answered all questions; No Cold of Flu in the past 2 weeks, No New Medical Problems and No Changes in Medication The History & Physical has been completed within 30 days and I have reviewed it.: Yes Section B Chief Complaint: Incisional hernia without obstruction or gangrene Allergies: Allergies Allergy/AdvReac Type Severity Reaction Status Date / Time bacitracin [From NEOSPORIN] Allergy Severe RASH Verified 10/02/22 07:03 gramicidin D [From NEOSPORIN] Allergy Severe RASH Verified 10/02/22 07:03 polymyxin B [From NEOSPORIN] Allergy Severe RASH Verified 10/02/22 07:03 adhesive tape [ADHESIVE TAPE] Allergy Intermediate RASH/BLISTE Verified 10/02/22 07:03 RS polyester fibers Allergy Intermediate Itching Verified 10/02/22 07:03 Sulfa (Sulfonamide Allergy Intermediate ITCHY RASH Verified 10/02/22 07:03 Antibiotics) [SULFA (SULFONAMIDE ANTIBIOTICS)] cefazolin [CEFAZOLIN] AdvReac Intermediate GI UPSET Verified 10/02/22 07:03 Plan Diagnosis/Plan: Unchanged I have reviewed the history and physical and performed a pertinent physical examination on my patient. No changes have occurred unless specified. Time Spent With Patient Time: Total time managing care of this patient today ____ minutes.
[2022-10-02] MEDS: vancomycin HCL 1,000 MG in 0.9 % Sodium Chloride 250 ML 270 MG IV (07:44)
--- NOTE | 2022-10-02 10:02 | P.OP_ITS ---
Operative Note Operative Note Date of Service: 10/02/22 Narrative: Preoperative diagnosis: Incisional hernia Postoperative diagnosis: incisional hernia Procedure: repair of incisional hernia with mesh Surgeon: De Wilhelm MD Outer Diameter Grinder Tool: Blank Taylor PA-C Anesthesia: general LMA Indications for procedure: 62-year-old female patient with a prior surgery adjacent to the umbilicus found to have a palpable lump just above the umbilicus which increases in size with Valsalva but reduces with light pressure. Patient reports pain associated with this hernia. Operative findings: Incisional hernia located above the umbilicus measuring 3.5 cm in diameter, reducible Specimen: none Estimated blood loss: 2 mL Complications: none Procedure details: patient was brought to the OR placed in a supine position. After administering general anesthesia the patient's abdomen was prepped with ChloraPrep and draped in a sterile fashion. A surgical time-out was called the consent confirmed. Patient received preoperative antibiotics and Venodyne boots were in place. Local anesthesia consisting of 0.5% Sensorcaine with epinephrine was then infiltrated in the midline just above the umbilicus. Incision was then made with a scalpel carried out through subcutaneous tissue down to the hernia sac. The hernia sac was then dissected circumferentially a defect measuring 3.5 cm was identified. Preperitoneal space was then created using electrocautery and blunt dissection. A 6.4 cm round Ventralex mesh was then obtained. This was deployed within the preperitoneal space and secured in 4 quadrants using a 1 Tycron suture. The fascia was then closed over the mesh using [id number] 1 Tycron sutures incorporating the mesh in the repair. Wounds were then irrigated with saline solution and suctioned dry. Additional local was placed into the muscle in the surrounding subcutaneous tissue. Deep subcutaneous tissue and dermis were then reapproximated using interrupted 3-0 Polysorb sutures. Skin was closed using a running subcuticular 4-0 Polysorb suture. Steri-Strips, 2 x 2 gauze and Tegaderm were then applied. The patient tolerated the procedure well. Sponge, instrument, and needle counts were reported as correct. She was transferred to PACU in stable condition.
[2022-10-02] MEDS: oxyCODONE HCl Immed Release 5 MG TABLET PO (10:42)
[2022-10-02] MEDS: fentaNYL citrate/PF 100 MCG/2 ML VIAL 50 MCG IVPUSH (10:43)
== END 2022-10-02 12:01 | disposition home or self-care (01) ==
PROVIDERS: PCP Internal Medicine; Visit Provider Surgery
PROC: (CPT 49593; principal; 2022-10-02 08:40)
DX: K43.2 Incisional hernia without obstruction or gangrene (principal); M51.36 Other intervertebral disc degeneration, lumbar region; I10 Essential (primary) hypertension; E78.00 Pure hypercholesterolemia, unspecified; R73.02 Impaired glucose tolerance (oral); M85.80 Other specified disorders of bone density and structure, unspecified site; E55.9 Vitamin D deficiency, unspecified; Z79.899 Other long term (current) drug therapy; Z88.2 Allergy status to sulfonamides; Z88.1 Allergy status to other antibiotic agents; Z90.710 Acquired absence of both cervix and uterus; Z98.890 Other specified postprocedural states; F17.210 Nicotine dependence, cigarettes, uncomplicated
CPT/HCPCS: 49593; C1781; J2250; J2405; J3010; J3370

== ENCOUNTER → 2022-10-08 14:37 | Outpatient (BNVA) | payer OTHER, SELFPAY | PROVIDERS: PCP Internal Medicine; Visit Provider Urology | DX: Q76.0 Spina bifida occulta (principal); R33.9 Retention of urine, unspecified | CPT/HCPCS: 52000; 99212 ==

== ENCOUNTER → 2022-10-10 15:30 | Outpatient (BNVA) | payer OTHER, SELFPAY | PROVIDERS: PCP Internal Medicine; Visit Provider Surgery | DX: Z13.89 Encounter for screening for other disorder (principal) ==

== ENCOUNTER 2022-11-04 12:58 | Outpatient (REF) | payer OTHER, SELFPAY ==
[2022-11-04 15:36] LABS: MANUAL DIFF FLAG NO
[2022-11-04 16:16] LABS: Basophils Absolute Auto 0.1 X10*3/uL (0.0-0.2); Basophils Percent Auto 0.8 % (0-2); Eosinophils Absolute Auto 0.1 X10*3/uL (0.0-0.4); Eosinophils Percent Auto 1.8 % (0-4); Hemoglobin 12.7 g/dl (12.0-16.0); Imm Gran Abs Auto 0.03 X10*3/uL (0.00-0.03); Imm Gran Pct Auto 0.4 % (0.0-0.4); Lymphocytes Absolute Auto 3.3 X10*3/uL (1.2-4.9); Lymphocytes Percent Auto 42.8 % (20-40); Mean Corpuscular HGB Conc 34.3 g/dl (31.0-35.0); Mean Corpuscular Volume 90.2 fL (80.0-98.0); Mean Platelet Volume 9.7 fL (9.4-12.3); Monocytes Absolute Auto 0.5 X10*3/uL (0.1-1.2); Monocytes Percent Auto 6.2 % (2-11); Neutrophils Absolute Auto 3.7 x10*3/uL (2.0-8.3); Platelet Count 437 X10*3/uL (160-400); Red Cell Distribution Width 11.8 % (11.0-16.0); White Blood Count 7.6 X10*3/uL (4.8-10.8)
[2022-11-04 16:49] LABS: Alanine Aminotransferase 12 U/L (0-31); Albumin Level 4.6 g/dL (3.5-5.0); Alkaline Phosphatase 39 U/L (39-117); Anion Gap 14 (12-20); Aspartate Amino Transferase 20 U/L (5-31); Bilirubin Total 0.5 mg/dL (0.0-1.0); Blood Urea Nitrogen 13 mg/dL (9-16); Calcium 10.2 mg/dL (8.4-10.2); Carbon Dioxide 25 mmol/L (22-29); Chloride 102 mmol/L (96-108); Estimated Glomerular Filt Rate 53; Glucose Random 95 mg/dL (60-115); Potassium 4.1 mmol/L (3.3-5.1); Sodium 137 mmol/L (135-145); Total Protein 7.1 g/dL (6.5-8.0)
== END 2022-11-04 12:59 | disposition home or self-care (01) ==
LOC: HO.LAB 12:58
PROVIDERS: Absent Provider Physician Assistant; PCP Internal Medicine; Visit Provider Urology
DX: K52.9 Noninfective gastroenteritis and colitis, unspecified (principal); K21.9 Gastro-esophageal reflux disease without esophagitis; N31.9 Neuromuscular dysfunction of bladder, unspecified; R33.9 Retention of urine, unspecified
CPT/HCPCS: 36415; 51798; 80053; 85025; 99212

== ENCOUNTER 2022-11-05 11:51 | Outpatient (REF) | payer OTHER, SELFPAY | END 2022-11-05 11:52 | disposition home or self-care (01) | LOC: HO.LNP 11:51 | PROVIDERS: Visit Provider Physician Assistant | DX: Z11.0 Encounter for screening for intestinal infectious diseases (principal) | CPT/HCPCS: 87338 ==

== ENCOUNTER → 2022-11-06 13:52 | Outpatient (BNVA) | payer OTHER, SELFPAY | PROVIDERS: PCP Internal Medicine; Visit Provider Internal Medicine | DX: Z77.21 Contact with and (suspected) exposure to potentially hazardous body fluids (principal) | CPT/HCPCS: 99212 ==

== ENCOUNTER 2022-11-06 14:21 | Emergency (ER) | payer OTHER, SELFPAY ==
--- NOTE | ~2022-11-06 | CT_ITS ---
EXAMINATION: CT ABDOMEN AND PELVIS WITHOUT CONTRAST CLINICAL INFORMATION: Lower abdominal pain. Diarrhea. COMPARISON: None available. TECHNIQUE: Multidetector volumetric imaging was performed from the superior aspect of the liver through the pubic symphysis. Sagittal and coronal reformatted images were obtained on the technologist's workstation. This CT examination was performed using dose optimization techniques as appropriate, variously including the following: *Automated exposure control *Adjustment of mA and/or kV according to patient size (this includes techniques or standardized protocols for targeted exams where dose is matched to indication/reason for exam; i.e. extremities or head) *Use of iterative reconstruction technique DLP: 539 mGy-cm FINDINGS: LUNG BASES: The lung bases appear clear, with no evidence of inflammation or nodules. LIVER, GALLBLADDER, AND BILIARY TREE: Suspect mild fatty infiltration of liver. No focal hepatic lesion or biliary ductal dilatation is appreciated. Status post cholecystectomy. PANCREAS: Unremarkable SPLEEN: Unremarkable ADRENAL GLANDS: Unremarkable KIDNEYS AND URETERS: The kidneys appear unremarkable in size, shape, and attenuation. No hydronephrosis, hydroureter, or calculi seen. BLADDER: Distended. GASTROINTESTINAL TRACT: Colonic diverticulosis. Induration of fat surrounding the distal sigmoid diverticula (image 62, series 3). Additional evaluation of fat in the region of a proximal transverse colonic diverticulum (image 34, series 3). Unremarkable appearance of the stomach and small bowel. Normal-appearing distal ileum and vermiform appendix. ABDOMINAL WALL: Induration of periumbilical subcutaneous fat, possibly iatrogenic. No significant hernia is appreciated. LYMPH NODES: No evidence of adenopathy by size criteria. VASCULAR: Unremarkable PELVIC VISCERA: Uterus not clearly visualized, possibly secondary to prior surgical removal. OSSEOUS STRUCTURES: Bilateral transpedicular screws, rods, disc spacing device, and laminectomy at L5-S1, with grade 1 anterolisthesis at this level. Moderate to severe disc degenerative change at L3-L4. CT/CT abdomen pelvis wo IV con IMPRESSION: Colonic diverticulosis. Induration of fat surrounding the distal sigmoid diverticula. Additional evaluation of fat in the region of a proximal transverse colonic diverticulum. These findings are suspicious for acute diverticulitis. Distended urinary bladder. Induration of periumbilical subcutaneous fat, possibly iatrogenic. Additional findings, as above.
[2022-11-06 14:28] VITALS: BP 150/86; PULSE 77; RESP 19; TEMP 36.6; O2SAT 98; BMI 30.9
--- NOTE | 2022-11-06 14:33 | ED.ABDPAIN ---
HPI - Abdominal Pain General Chief Complaint: Abdominal Pain <MOSHE Fields - Last Filed: 11/06/22 14:36> Stated Complaint: GI issues since hernia surgery <MOSHE Fields - Last Filed: 11/06/22 14:36> Time Seen by Provider: 11/06/22 17:40 <MOSHE Fields - Last Filed: 11/06/22 14:36> Source: patient, RN notes reviewed and old records reviewed <Eitan Jennings - Last Filed: 11/06/22 18:53> Mode of arrival: ambulatory <Eitan Jennings - Last Filed: 11/06/22 18:53> Limitations: no limitations <Eitan Michaela - Last Filed: 11/06/22 18:53> History of Present Illness HPI narrative: 62-year-old female past medical history significant for neurogenic bladder, chronic back pain, fibromyalgia, obesity, anxiety and depression, hyperlipidemia, GERD, hypertension, restless leg syndrome presents for evaluation of abdominal pain and diarrhea. Patient reports that she had diarrhea for the last month. She had an umbilical hernia repair on 10/02/[address] Romano. She states that within a couple of days she has abdominal bloating and diarrhea. She reports diarrhea daily ever sense. She also reports that she is currently following with GI and was tested for H pylori a couple of days ago but does not know the results. Patient has some left lower abdominal pain which she rates as mild, 410. Denies any black or bloody stool She states that she has been taking probiotics Patient has not had any recent antibiotics except for prophylactic antibiotics for preop procedure on 10/02/2022 <Eitan Jennings - Last Filed: 11/06/22 18:53> Related Data Home Medications: Home Medications Medication Instructions Recorded Confirmed clonazepam 1 mg tablet 1 mg PO TID 08/21/21 10/08/22 sertraline 100 mg tablet 100 mg PO DAILY 08/26/22 10/08/22 acetaminophen 650 mg 650 mg PO Q8H PRN Pain 09/25/22 10/08/22 tablet,extended release (Mapap Arthritis Pain) Lactobacil rhamnosus GG 10 billion 1 cap PO DAILY 10/08/22 10/08/22 cell-inulin 200 mg sprinkle capsule ([employer]) quetiapine 100 mg tablet 0 mg PO BID 10/08/22 10/08/22 acetaminophen 650 mg 650 mg PO Q8H 10/10/22 tablet,extended release (Tylenol Arthritis Pain) omeprazole 20 mg tablet,delayed 20 mg PO DAILY 11/06/22 release tizanidine 4 mg capsule 4 mg PO BEDTIME PRN 11/06/22 Previous Rx's Medication Instructions Recorded estradiol 10 mcg vaginal tablet 10 mcg vaginal 2XW #24 tabs 08/28/22 (Vagifem) fenofibrate 160 mg tablet 160 mg PO DAILY 90 days #90 tabs 09/06/22 lidocaine 4 % topical patch 1 patch topical BID PRN pain #60 ea 09/09/22 (Salonpas (lidocaine)) cholecalciferol (vitamin D3) 50 50 mcg PO DAILY #30 caps 09/25/22 mcg (2,000 unit) capsule Lactobacillus acidophilus 10 10,000 mmu cells PO DAILY #20 caps 10/02/22 billion cell capsule (Probiotic) bethanechol chloride 50 mg tablet 50 mg PO BID 30 days #60 tabs 10/08/22 metoprolol succinate 50 mg 50 mg PO DAILY #90 tabs 10/09/22 tablet,extended release 24 hr pravastatin 40 mg tablet 40 mg PO DAILY #90 tabs 10/09/22 omeprazole 20 mg capsule,delayed 20 mg PO DAILY #30 caps 11/04/22 release Lactobacillus rhamnosus GG 10 1 cap PO DAILY #14 caps 11/06/22 billion cell-inulin 200 mg capsule ([facility] PROTEGO [facility]) amoxicillin 875 mg-potassium 1 tab PO TID #30 tabs 11/06/22 clavulanate 125 mg tablet <MOSHE Fields - Last Filed: 11/06/22 14:36> Allergies/Adverse Reactions: Allergies Allergy/AdvReac Type Severity Reaction Status Date / Time bacitracin [From NEOSPORIN] Allergy Severe RASH Verified 11/06/22 14:32 gramicidin D [From NEOSPORIN] Allergy Severe RASH Verified 11/06/22 14:32 polymyxin B [From NEOSPORIN] Allergy Severe RASH Verified 11/06/22 14:32 adhesive tape [ADHESIVE TAPE] Allergy Intermediate RASH/BLISTE Verified 11/06/22 14:32 RS polyester fibers Allergy Intermediate Itching Verified 11/06/22 14:32 Sulfa (Sulfonamide Allergy Intermediate ITCHY RASH Verified 11/06/22 14:32 Antibiotics) [SULFA (SULFONAMIDE ANTIBIOTICS)] chlorhexidine Allergy Mild Rash Verified 11/06/22 14:32 [From ChloraPrep Clear] isopropyl alcohol Allergy Mild Rash Verified 11/06/22 14:32 [From ChloraPrep Clear] cefazolin [CEFAZOLIN] AdvReac Intermediate GI UPSET Verified 11/06/22 14:32 <MOSHE Fields - Last Filed: 11/06/22 14:36> Review of Systems Constitutional: Reports as per HPI, Denies chills, Denies fever(s) and Denies headache(s) <Eitan Jennings - Last Filed: 11/06/22 18:53> Denies headache(s) <Eitan Jennings - Last Filed: 11/06/22 18:53> Cardiovascular: Denies chest pain and Denies dyspnea <Eitan Jennings - Last Filed: 11/06/22 18:53> Respiratory: Denies cough and Denies dyspnea <Eitan Jennings - Last Filed: 11/06/22 18:53> Gastrointestinal: Reports abdominal pain, Denies melena, Denies hematochezia, Denies constipation, Reports diarrhea and Denies vomiting <Eitan Jennings - Last Filed: 11/06/22 18:53> Genitourinary: Denies dysuria <Eitan Jennings - Last Filed: 11/06/22 18:53> Denies headache(s) and Denies focal weakness <Eitan Jennings - Last Filed: 11/06/22 18:53> [facility] Past Medical History Medical History: Medical History Anxiety and depression Cervical radiculopathy due to degenerative joint disease of spine Cholelithiasis Exposure to bloodborne pathogen Fatigue Fibromyalgia GERD (gastroesophageal reflux disease) H. pylori duodenitis History of cardiac murmur HLA B27 (HLA B27 positive) Hypercholesterolemia Hypertension Impaired glucose tolerance Incontinence of urine Insomnia Left shoulder pain Lumbar degenerative disc disease Needle stick, hypodermic, accidental Obesity (BMI 30-39.9) Osteopenia Restless leg syndrome S/P ECT (electroconvulsive therapy) Spina bifida occulta Tobacco abuse Tooth missing Vitamin D deficiency <MOSHE Fields - Last Filed: 11/06/22 14:36> Surgical History: Surgical History H/O basal cell carcinoma excision H/O nasal septoplasty H/O right wrist surgery H/O thumb surgery History of cervical discectomy History of cholecystectomy History of hemorrhoidectomy History of hernia repair History of incisional hernia repair (10/02/22) History of lumbar fusion History of partial hysterectomy History of shoulder surgery History of tonsillectomy Hx of colonoscopy <MOSHE Fields - Last Filed: 11/06/22 14:36> Family History Family History: Family History Father Hypertension Past heart attack CVD (cardiovascular disease) Mother Hyperlipidemia Paternal Grandmother Lung cancer Son Substance abuse Brother Bipolar 1 disorder <MOSHE Fields - Last Filed: 11/06/22 14:36> Social History Social History: Social History Housing: House Are you a primary acute care certified nursing assistant to a significant other at home: No Do you presently have visiting nurse or other home services: Yes ([employer] 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) Alcohol intake: current Alcohol intake frequency: holidays/special occasions only Alcohol type: beer Patient Tobacco Use Status: Never used Tobacco Tobacco use type: Cigarette Cigarette Packs Per Day: 0.5 Cigarettes Per Day: 10 Years Smoked: 46 Smoked in Last 30 Days: Yes e-Cigarette/Vaping Use: Never Used Second Hand Smoke Exposure: Yes Use of substances other than those prescribed or required for medical reasons: No Advance Directives: No Advance Directives Information Provided: No Patient : No service: No Current occupational status: disabled Cognitive needs: No Hearing needs: No Vision needs: Yes (reading glasses) <MOSHE Fields - Last Filed: 11/06/22 14:36> Physical Exam ED Vital Signs: Vital Signs - 24 hr 11/06/22 14:28 11/06/22 18:01 Temperature 98 F 98.3 F Pulse Rate 77 62 Respiratory Rate 19 16 Blood Pressure 150/86 H 137/69 Pulse Oximetry 98 99 Oxygen Delivery Method Room Air Room Air BMI result Body Mass Index 30.9 <MOSHE Fields - Last Filed: 11/06/22 14:36> Vital Signs - 24 hr 11/06/22 14:28 11/06/22 18:01 Temperature 98 F 98.3 F Pulse Rate 77 62 Respiratory Rate 19 16 Blood Pressure 150/86 H 137/69 Pulse Oximetry 98 99 Oxygen Delivery Method Room Air Room Air BMI result Body Mass Index 30.9 <Eitan - Last Filed: 11/06/22 18:53> Const General: healthy appearing, comfortable, no acute distress, alert and awake < - Last Filed: 11/06/22 18:53> Nutritional Appearance: well nourished < - Last Filed: 11/06/22 18:53> Orientation/consciousness: patient oriented x3 < - Last Filed: 11/06/22 18:53> HENMT Head: Yes normocephalic and Yes atraumatic < - Last Filed: 11/06/22 18:53> Throat: Yes posterior oropharynx normal < Last Filed: 11/06/22 18:53> Eyes Eyelids: Yes eyelids normal < - Last Filed: 11/06/22 18:53> Conjunctivae: conjunctivae normal < - Last Filed: 11/06/22 18:53> Sclerae: sclerae normal < Last Filed: 11/06/22 18:53> Corneas: corneas normal < Last Filed: 11/06/22 18:53> Pupils: Equal, round and reactive pupils present < Last Filed: 11/06/22 18:53> EOM: EOMs intact bilaterally < Last Filed: 11/06/22 18:53> Neck Neck: Yes full ROM < Last Filed: 11/06/22 18:53> Resp Effort & Inspection: normal respiratory effort, able to speak in complete sentences, no audible wheezes and not labored <Eitan OWoods - Last Filed: 11/06/22 18:53> Auscultation: clear to auscultation bilaterally <Eitan OWoods - Last Filed: 11/06/22 18:53> Cardio Rate: regular rate <Eitan OWoods - Last Filed: 11/06/22 18:53> Rhythm: regular rhythm <Eitan OWoods - Last Filed: 11/06/22 18:53> GI Inspection: No distended <Eitan ZayMello - Last Filed: 11/06/22 18:53> Palpation (GI): Soft to palpation, not firm, Tenderness to palpation present (GI) in the LLQ (Without guarding), no guarding and not rigid <Eitan OWoods - Last Filed: 11/06/22 18:53> Auscultation: normoactive bowel sounds <Eitan OWoods - Last Filed: 11/06/22 18:53> Skin General skin exam: no rashes or lesions noted and elasticity normal <Eitan OWoods - Last Filed: 11/06/22 18:53> Neuro General: patient oriented x3 <Eitan OWoods - Last Filed: 11/06/22 18:53> Cranial nerves: Yes Equal, round and reactive pupils present and Yes Bilaterally intact EOM present <Eitan OMello - Last Filed: 11/06/22 18:53> Cognition (Neuro): normal cognition <Eitan OWoods - Last Filed: 11/06/22 18:53> Extrem Other: Moving all extremities well without any obvious deformities <Eitan OWoods - Last Filed: 11/06/22 18:53> Course Course Course Narrative: RME - 62 yo female with history of H. pyolri & duodenitis, GERD, fibromyalgia, anxiety/depression, s/p incisional hernia repair by Dr. Wilhelm 10/02 who presents to the ER for evaluation of abdominal pains, cramps, distention and diarrhea. Saw GI and had an H. pylori test done yesterday, no results yet. Plan: Labs, stool studies, CT scan <MOSHE Fields - Last Filed: 11/06/22 14:36> Reevaluation(s) Reevaluation #1: Patient has thus far been unable to provide a stool sample. She is requesting discharge at this time. I do feel that C diff is less likely. Will treat her for simple diverticulitis. She was instructed to follow-up with her PCP if her symptoms worsen or do not improve <Eitan Jennings - Last Filed: 11/06/22 18:53> Time: 18:49 <Eitan Jennings - Last Filed: 11/06/22 18:53> Medical Decision Making Medical Decision Making MDM Narrative: 62-year-old female presents for evaluation of abdominal pain, bloating and diarrhea. The patient's laboratory values are without significant abnormality, she has no leukocytosis, electrolytes are within normal limits common kidney function within normal limits. Patient's CT scan does show findings consistent with acute diverticulitis. This is likely cause of patient's abdominal pain and diarrhea. I feel that her symptoms have been present for 1 month this does warrant treatment. However we will attempt to get a stool sample to rule out C diff prior to treating the patient. I feel that C diff is less likely as the CT scan does not show pancolitis <Eitan Jennings - Last Filed: 11/06/22 18:53> Differential Diagnosis Acute diverticulitis Dehydration Electrolyte abnormality Colitis C diff colitis <Eitan Jennings - Last Filed: 11/06/22 18:53> Lab Data Result Diagrams: 11/06/22 14:41 11/06/22 14:41 <MOSHE Fields - Last Filed: 11/06/22 14:36> Labs: Lab Results 11/06/22 11/06/22 Range/Units 14:41 14:41 WBC 10.6 (4.8-10.8) X10*3/uL RBC 4.13 L (4.20-5.50) X10*6/uL Hgb 12.7 (12.0-16.0) g/dl Hct 37.2 (37.0-47.0) % MCV 90.1 (80.0-98.0) fL MCH 30.8 (27.0-33.0) pg MCHC 34.1 (31.0-35.0) g/dl RDW 11.9 (11.0-16.0) % Plt Count 440 H (160-400) X10*3/uL MPV 9.2 L (9.4-12.3) fL Immature Gran % (Auto) 0.4 (0.0-0.4) % Neut % (Auto) 66.1 (45-73) % Lymph % (Auto) 25.4 (20-40) % [place] % (Auto) 6.6 (2-11) % Eos % (Auto) 1.0 (0-4) % Baso % (Auto) 0.5 (0-2) % Lymph # (Auto) 2.7 (1.2-4.9) X10*3/uL [place] # (Auto) 0.7 (0.1-1.2) X10*3/uL Eos # (Auto) 0.1 (0.0-0.4) X10*3/uL Baso # (Auto) 0.1 (0.0-0.2) X10*3/uL Abs Immat Gran (auto) 0.04 H (0.00-0.03) X10*3/uL Absolute Neuts (auto) 7.0 (2.0-8.3) x10*3/uL Absolute Nucleated RBC 0.000 (0.0-0.012) X10*3/uL Nucleated RBC % (auto) 0.0 (0.0-0.2) /100WBC Sodium 139 (135-145) mmol/L Potassium 4.4 (3.3-5.1) mmol/L Chloride 106 (96-108) mmol/L Carbon Dioxide 24 (22-29) mmol/L Anion Gap 13 (12-20) BUN 14 (9-16) mg/dL Creatinine 1.06 (0.5-1.4) mg/dL Estim Creat Clear Calc 47.2 Estimated GFR 53 Random Glucose 98 (60-115) mg/dL Calcium 10.2 (8.4-10.2) mg/dL Magnesium 2.0 (1.6-2.6) mg/dL Total Bilirubin 0.5 (0.0-1.0) mg/dL Direct Bilirubin < 0.2 (0.0-0.5) mg/dL AST 20 (5-31) U/L ALT 11 (0-31) U/L Alkaline Phosphatase 41 (39-117) U/L Total Protein 7.1 (6.5-8.0) g/dL Albumin 4.5 (3.5-5.0) g/dL Lipase 13 (8-78) U/L <MOSHE Fields - Last Filed: 11/06/22 14:36> Lab Results 11/06/22 11/06/22 Range/Units 14:41 14:41 WBC 10.6 (4.8-10.8) X10*3/uL RBC 4.13 L (4.20-5.50) X10*6/uL Hgb 12.7 (12.0-16.0) g/dl Hct 37.2 (37.0-47.0) % MCV 90.1 (80.0-98.0) fL MCH 30.8 (27.0-33.0) pg MCHC 34.1 (31.0-35.0) g/dl RDW 11.9 (11.0-16.0) % Plt Count 440 H (160-400) X10*3/uL MPV 9.2 L (9.4-12.3) fL Immature Gran % (Auto) 0.4 (0.0-0.4) % Neut % (Auto) 66.1 (45-73) % Lymph % (Auto) 25.4 (20-40) % [place] % (Auto) 6.6 (2-11) % Eos % (Auto) 1.0 (0-4) % Baso % (Auto) 0.5 (0-2) % Lymph # (Auto) 2.7 (1.2-4.9) X10*3/uL [place] # (Auto) 0.7 (0.1-1.2) X10*3/uL Eos # (Auto) 0.1 (0.0-0.4) X10*3/uL Baso # (Auto) 0.1 (0.0-0.2) X10*3/uL Abs Immat Gran (auto) 0.04 H (0.00-0.03) X10*3/uL Absolute Neuts (auto) 7.0 (2.0-8.3) x10*3/uL Absolute Nucleated RBC 0.000 (0.0-0.012) X10*3/uL Nucleated RBC % (auto) 0.0 (0.0-0.2) /100WBC Sodium 139 (135-145) mmol/L Potassium 4.4 (3.3-5.1) mmol/L Chloride 106 (96-108) mmol/L Carbon Dioxide 24 (22-29) mmol/L Anion Gap 13 (12-20) BUN 14 (9-16) mg/dL Creatinine 1.06 (0.5-1.4) mg/dL Estim Creat Clear Calc 47.2 Estimated GFR 53 Random Glucose 98 (60-115) mg/dL Calcium 10.2 (8.4-10.2) mg/dL Magnesium 2.0 (1.6-2.6) mg/dL Total Bilirubin 0.5 (0.0-1.0) mg/dL Direct Bilirubin < 0.2 (0.0-0.5) mg/dL AST 20 (5-31) U/L ALT 11 (0-31) U/L Alkaline Phosphatase 41 (39-117) U/L Total Protein 7.1 (6.5-8.0) g/dL Albumin 4.5 (3.5-5.0) g/dL Lipase 13 (8-78) U/L <Eitan Jennings - Last Filed: 11/06/22 18:53> Discharge Plan Discharge Clinical Impression: Acute diverticulitis <MOSHE Fields - Last Filed: 11/06/22 14:36> Patient Disposition: Home, Self-Care <MOSHE Fields - Last Filed: 11/06/22 14:36> Instructions: Diverticulitis (ED) <MOSHE Fields - Last Filed: 11/06/22 14:36> Additional Instructions: Your blood work was reassuring. Your CT scan showed acute diverticulitis Take the Augmentin as directed for 10 days to treat this. Given your persistent diarrhea, I do feel that you should have C diff test via stool sample. If your symptoms do not improve or worsen, you may ask your primary doctor or GI doctor to order a C diff stool sample <MOSHE Fields - Last Filed: 11/06/22 14:36> Prescriptions: [facility] 10 billion cell -200 mg capsule 1 cap PO DAILY Qty: 14 0RF amoxicillin-pot clavulanate 875-125 mg tablet 1 tab PO TID Qty: 30 0RF No Action fenofibrate 160 mg tablet 160 mg PO DAILY 90 Days Qty: 90 1RF lidocaine [Salonpas (lidocaine)] 4 % adhesive patch,medicated 1 patch topical BID PRN (Reason: pain) Qty: 60 3RF cholecalciferol (vitamin D3) 50 mcg (2,000 unit) capsule 50 mcg PO DAILY Qty: 30 3RF metoprolol succinate 50 mg tablet extended release 24 hr 50 mg PO DAILY Qty: 90 2RF pravastatin 40 mg tablet 40 mg PO DAILY Qty: 90 2RF acetaminophen [Mapap Arthritis Pain] 650 mg tablet extended release 650 mg PO Q8H PRN (Reason: Pain) Probiotic 10 billion cell capsule 10,000 mmu cells PO DAILY Qty: 20 0RF clonazepam 1 mg tablet 1 mg PO TID sertraline 100 mg tablet 100 mg PO DAILY tizanidine 4 mg capsule 4 mg PO BEDTIME PRN omeprazole 20 mg tablet,delayed release (DR/EC) 20 mg PO DAILY estradiol [Vagifem] 10 mcg tablet 10 mcg vaginal 2XW Qty: 24 1RF Rx Instructions: Use vaginally 2 times a week: Mon/thurs at bedtime [facility]OTE[facility] 10 billion cell -200 mg capsule, sprinkle 1 cap PO DAILY quetiapine 100 mg tablet 0 mg PO BID bethanechol chloride 50 mg tablet 50 mg PO BID 30 Days Qty: 60 1RF acetaminophen [Tylenol Arthritis Pain] 650 mg tablet extended release 650 mg PO Q8H omeprazole 20 mg capsule,delayed release(DR/EC) 20 mg PO DAILY Qty: 30 5RF <MOSHE Fields - Last Filed: 11/06/22 14:36>
[2022-11-06 14:45] LABS: MANUAL DIFF FLAG NO
[2022-11-06 14:47] LABS: Basophils Absolute Auto 0.1 X10*3/uL (0.0-0.2); Basophils Percent Auto 0.5 % (0-2); Eosinophils Absolute Auto 0.1 X10*3/uL (0.0-0.4); Hematocrit 37.2 % (37.0-47.0); Hemoglobin 12.7 g/dl (12.0-16.0); Imm Gran Abs Auto 0.04 X10*3/uL (0.00-0.03); Imm Gran Pct Auto 0.4 % (0.0-0.4); Lymphocytes Absolute Auto 2.7 X10*3/uL (1.2-4.9); Lymphocytes Percent Auto 25.4 % (20-40); Mean Corpuscular HGB Conc 34.1 g/dl (31.0-35.0); Mean Corpuscular Hemoglobin 30.8 pg (27.0-33.0); Mean Corpuscular Volume 90.1 fL (80.0-98.0); Mean Platelet Volume 9.2 fL (9.4-12.3); Monocytes Absolute Auto 0.7 X10*3/uL (0.1-1.2); Monocytes Percent Auto 6.6 % (2-11); Neutrophils Percent Auto 66.1 % (45-73); Platelet Count 440 X10*3/uL (160-400); Red Blood Count 4.13 X10*6/uL (4.20-5.50); Red Cell Distribution Width 11.9 % (11.0-16.0); White Blood Count 10.6 X10*3/uL (4.8-10.8)
[2022-11-06 15:03] LABS: Alanine Aminotransferase 11 U/L (0-31); Albumin Level 4.5 g/dL (3.5-5.0); Alkaline Phosphatase 41 U/L (39-117); Anion Gap 13 (12-20); Aspartate Amino Transferase 20 U/L (5-31); Bilirubin Direct < 0.2 mg/dL (0.0-0.5); Bilirubin Total 0.5 mg/dL (0.0-1.0); Blood Urea Nitrogen 14 mg/dL (9-16); Calcium 10.2 mg/dL (8.4-10.2); Carbon Dioxide 24 mmol/L (22-29); Chloride 106 mmol/L (96-108); Creatinine Clr Calc Pharmacy 47.2; Estimated Glomerular Filt Rate 53; Glucose Random 98 mg/dL (60-115); Lipase 13 U/L (8-78); Potassium 4.4 mmol/L (3.3-5.1); Sodium 139 mmol/L (135-145); Total Protein 7.1 g/dL (6.5-8.0)
[2022-11-06 18:01] VITALS: BP 137/69; PULSE 62; RESP 16; TEMP 36.8; O2SAT 99
--- NOTE | 2022-11-06 18:11 | PC.NURSE ---
Pt reassessed. a&ox4. Awaiting urine and stool specimen.
== END 2022-11-06 19:02 | disposition home or self-care (01) ==
PROVIDERS: Physician Assistant; Emergency Provider Emergency Medicine Emergency Medical Services; PCP Internal Medicine
DX: K57.32 Diverticulitis of large intestine without perforation or abscess without bleeding (principal); M79.7 Fibromyalgia; F17.210 Nicotine dependence, cigarettes, uncomplicated; Z71.6 Tobacco abuse counseling; Z79.899 Other long term (current) drug therapy
CPT/HCPCS: 36415; 74176; 80048; 80076; 83690; 83735; 85025; 99284

== ENCOUNTER 2022-11-10 14:09 | Emergency (ER) | payer OTHER, SELFPAY ==
[2022-11-10 14:10] VITALS: BP 153/93; PULSE 89; RESP 18; TEMP 36.7; O2SAT 99; BMI 30.2
--- NOTE | 2022-11-10 14:11 | ED_ITS ---
HPI - General Adult General Chief complaint: General Medical <MOSHE Jones - Last Filed: 11/10/22 14:13> Stated complaint: dizziness/ ear problems <MOSHE Jones - Last Filed: 11/10/22 14:13> Time Seen by Provider: 11/10/22 14:27 <MOSHE Jones - Last Filed: 11/10/22 14:13> Source: patient <Nano Torres NP - Last Filed: 11/10/22 17:14> Mode of arrival: ambulatory <Nano Torres NP - Last Filed: 11/10/22 17:14> Limitations: no limitations <Nano Torres NP - Last Filed: 11/10/22 17:14> History of Present Illness HPI narrative: ?62-year-old female past medical history significant for neurogenic bladder, chronic back pain, fibromyalgia, obesity, anxiety and depression, hyperlipidemia, GERD, hypertension, restless leg syndrome presents with complaints of abdominal pain and diarrhea. Patient reports she had umbilical he rnia repair on October [address] Wilhelm. Since then she has had chronic abdominal pain and diarrhea. She was seen our emergency room on November 06 and was diagnosed with diverticulitis. She was started on Augmentin which she has been taking since. Patient reports she is having continued abdominal pain and diarrhea. She states the symptoms are not worsened but are the same. She describes the abdominal pain as lower and crampy. She is having about 8 episodes of diarrhea daily. This is nonbloody. She does not feel this is worsened. No fevers or vomiting. Patient is here because she feels like she should be improved by now. She did speak to her emergency department manager who recommended outpatient stool studies but the patient has not completed these yet. Patient also concerned that she has been feeling dizzy when she walks around and moves her head from side to side. She has felt this way for 3 weeks. She did see a neurologist outpatient DR Dietrich on 10/24 and had an outpatient MRI of the brain ordered. Patient reports she is waiting to be scheduled for this. She reports continued symptoms of feeling dizzy. This is not worsened. <Nano Torres NP - Last Filed: 11/10/22 17:14> Related Data Home medications: Home Medications Medication Instructions Recorded Confirmed clonazepam 1 mg tablet 1 mg PO TID 08/21/21 10/08/22 sertraline 100 mg tablet 100 mg PO DAILY 08/26/22 10/08/22 acetaminophen 650 mg 650 mg PO Q8H PRN Pain 09/25/22 10/08/22 tablet,extended release (Mapap Arthritis Pain) Lactobacil rhamnosus GG 10 billion 1 cap PO DAILY 10/08/22 10/08/22 cell-inulin 200 mg sprinkle capsule ([facility] [employer] [facility]) quetiapine 100 mg tablet 0 mg PO BID 10/08/22 10/08/22 acetaminophen 650 mg 650 mg PO Q8H 10/10/22 tablet,extended release (Tylenol Arthritis Pain) omeprazole 20 mg tablet,delayed 20 mg PO DAILY 11/06/22 release tizanidine 4 mg capsule 4 mg PO BEDTIME PRN 11/06/22 Previous Rx's Medication Instructions Recorded estradiol 10 mcg vaginal tablet 10 mcg vaginal 2XW #24 tabs 08/28/22 (Vagifem) fenofibrate 160 mg tablet 160 mg PO DAILY 90 days #90 tabs 09/06/22 lidocaine 4 % topical patch 1 patch topical BID PRN pain #60 ea 09/09/22 (Salonpas (lidocaine)) cholecalciferol (vitamin D3) 50 50 mcg PO DAILY #30 caps 09/25/22 mcg (2,000 unit) capsule Lactobacillus acidophilus 10 10,000 mmu cells PO DAILY #20 caps 10/02/22 billion cell capsule (Probiotic) bethanechol chloride 50 mg tablet 50 mg PO BID 30 days #60 tabs 10/08/22 metoprolol succinate 50 mg 50 mg PO DAILY #90 tabs 10/09/22 tablet,extended release 24 hr pravastatin 40 mg tablet 40 mg PO DAILY #90 tabs 10/09/22 omeprazole 20 mg capsule,delayed 20 mg PO DAILY #30 caps 11/04/22 release Lactobacillus rhamnosus GG 10 1 cap PO DAILY #14 caps 11/06/22 billion cell-inulin 200 mg capsule ([facility] [employer] [facility]) amoxicillin 875 mg-potassium 1 tab PO TID #30 tabs 11/06/22 clavulanate 125 mg tablet <MOSHE Jones - Last Filed: 11/10/22 14:13> Allergies/adverse reactions: Allergies Allergy/AdvReac Type Severity Reaction Status Date / Time bacitracin [From NEOSPORIN] Allergy Severe RASH Verified 11/06/22 14:32 gramicidin D [From NEOSPORIN] Allergy Severe RASH Verified 11/06/22 14:32 polymyxin B [From NEOSPORIN] Allergy Severe RASH Verified 11/06/22 14:32 adhesive tape [ADHESIVE TAPE] Allergy Intermediate RASH/BLISTE Verified 11/06/22 14:32 RS polyester fibers Allergy Intermediate Itching Verified 11/06/22 14:32 Sulfa (Sulfonamide Allergy Intermediate ITCHY RASH Verified 11/06/22 14:32 Antibiotics) [SULFA (SULFONAMIDE ANTIBIOTICS)] chlorhexidine Allergy Mild Rash Verified 11/06/22 14:32 [From ChloraPrep Clear] isopropyl alcohol Allergy Mild Rash Verified 11/06/22 14:32 [From ChloraPrep Clear] cefazolin [CEFAZOLIN] AdvReac Intermediate GI UPSET Verified 11/06/22 14:32 <MOSHE Jones - Last Filed: 11/10/22 14:13> Review of Systems Review of Systems: Yes all other systems are reviewed and are negative <Nano Torres NP - Last Filed: 11/10/22 17:14> Constitutional: Constitutional: Reports no additional constitutional complaints, Denies body ache(s), Denies chills, Denies fever(s), Denies headache(s) and Denies weakness <Nano Torres NP - Last Filed: 11/10/22 17:14> Eyes: Eyes: Reports no additional eye complaints and Denies change in vision <Nano Torres NP - Last Filed: 11/10/22 17:14> ENT: Reports system reviewed and no additional complaints, except as documented, Reports dizziness, Denies headache(s), Denies nasal congestion, Denies nasal discharge and Denies neck pain <Nano Torres NP - Last Filed: 11/10/22 17:14> Cardiovascular: Cardiovascular: Reports no additional cardiovascular complaints, Denies chest pain, Denies leg edema and Denies dyspnea <Nano Torres NP - Last Filed: 11/10/22 17:14> Respiratory: Respiratory: Reports no additional respiratory complaints, Denies cough and Denies dyspnea <Nano Torres NP - Last Filed: 11/10/22 17:14> Gastrointestinal: Gastrointestinal: Reports no additional gastrointestinal complaints, Denies abdominal pain, Reports diarrhea, Denies nausea and Denies vomiting <Nano Torres NP - Last Filed: 11/10/22 17:14> Genitourinary: Genitourinary: Reports no additional female genitourinary complaints and Denies urinary incontinence <Nano Torres NP - Last Filed: 11/10/22 17:14> Musculoskeletal: Musculoskeletal: Reports no additional musculoskeletal complaints, Denies back pain, Denies arthralgias, Denies joint swelling, Denies neck pain, Denies numbness and Denies tingling <Nano Torres NP - Last Filed: 11/10/22 17:14> Integumentary/Breasts: Skin/Breast: Reports system reviewed and no additional complaints, except as docu and Denies rash <Nano Torres NP - Last Filed: 11/10/22 17:14> Neurologic: Reports system reviewed and no additional complaints, except as d ocumented, Reports dizziness, Denies headache(s), Denies numbness, Denies tingling and Denies weakness <Nano Torres NP - Last Filed: 11/10/22 17:14> PMFSH Past Medical History Attestation statement: The following information was validated with the patient. <Nano Torres NP - Last Filed: 11/10/22 17:14> Source: old records reviewed and nursing notes reviewed <MABRIN Parks Las t Filed: 11/10/22 17:14> Medical History: Medical History Anxiety and depression Cervical radiculopathy due to degenerative joint disease of spine Cholelithiasis Exposure to bloodborne pathogen Fatigue Fibromyalgia GERD (gastroesophageal reflux disease) H. pylori duodenitis History of cardiac murmur HLA B27 (HLA B27 positive) Hypercholesterolemia Hypertension Impaired glucose tolerance Incontinence of urine Insomnia Left shoulder pain Lumbar degenerative disc disease Needle stick, hypodermic, accidental Obesity (BMI 30-39.9) Osteopenia Restless leg syndrome S/P ECT (electroconvulsive therapy) Spina bifida occulta Tobacco abuse Tooth missing Vitamin D deficiency <MOSHE oJnes - Last Filed: 11/10/22 14:13> Surgical History: Surgical History H/O basal cell carcinoma excision H/O nasal septoplasty H/O right wrist surgery H/O thumb surgery History of cervical discectomy History of cholecystectomy History of hemorrhoidectomy History of hernia repair History of incisional hernia repair (10/02/22) History of lumbar fusion History of partial hysterectomy History of shoulder surgery History of tonsillectomy Hx of colonoscopy <MOSHE Jones - Last Filed: 11/10/22 14:13> Family History Family History: Family History Father Hypertension Past heart attack CVD (cardiovascular disease) Mother Hyperlipidemia Paternal Grandmother Lung cancer Son Substance abuse Brother Bipolar 1 disorder <MOSHE Jones - Last Filed: 11/10/22 14:13> Social History Social History: Social History Housing: House Are you a primary healthcare network pricing consultant to a significant other at home: No Do you presently have visiting nurse or other home services: Yes ([employer] 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) Alcohol intake: current Alcohol intake frequency: holidays/special occasions only Alcohol type: beer Patient Tobacco Use Status: Never used Tobacco Tobacco use type: Cigarette Cigarette Packs Per Day: 0.5 Cigarettes Per Day: 10 Years Smoked: 46 Smoked in Last 30 Days: Yes e-Cigarette/Vaping Use: Never Used Second Hand Smoke Exposure: Yes Use of substances other than those prescribed or required for medical reasons: No Advance Directives: No Advance Directives Information Provided: No service: No Current occupational status: disabled Cognitive needs: No Hearing needs: No Vision needs: Yes (reading glasses) <MOSHE Jones - Last Filed: 11/10/22 14:13> Physical Exam ED Vital Signs: Vital Signs - 24 hr 11/10/22 14:10 11/10/22 15:54 11/10/22 15:54 Temperature 98.0 F Pulse Rate 89 61 67 Respiratory Rate 18 Blood Pressure 153/93 H 122/64 99/69 Pulse Oximetry 99 Oxygen Delivery Method Room Air 11/10/22 15:54 11/10/22 15:58 Temperature 98.1 F Pulse Rate 65 61 Respiratory Rate 15 Blood Pressure 122/69 122/69 Pulse Oximetry 98 Oxygen Delivery Method Room Air BMI result Body Mass Index 30.2 <MOSHE Jones - Last Filed: 11/10/22 14:13> Vital Signs - 24 hr 11/10/22 14:10 11/10/22 15:54 11/10/22 15:54 Temperature 98.0 F Pulse Rate 89 61 67 Respiratory Rate 18 Blood Pressure 153/93 H 122/64 99/69 Pulse Oximetry 99 Oxygen Delivery Method Room Air 11/10/22 15:54 11/10/22 15:58 Temperature 98.1 F Pulse Rate 65 61 Respiratory Rate 15 Blood Pressure 122/69 122/69 Pulse Oximetry 98 Oxygen Delivery Method Room Air BMI result Body Mass Index 30.2 <Nano Torres NP - Last Filed: 11/10/22 17:14> Const General: cooperative, healthy appearing, comfortable and no acute distress <Nano Torres NP - Last Filed: 11/10/22 17:14> Orientation/consciousness: patient oriented x3 <Nano Torres NP - Last Filed: 11/10/22 17:14> Limitations: no limitations <Nano Torres NP - Last Filed: 11/10/22 17:14> HENMT Head: Yes normal to inspection <Nano Torres NP - Last Filed: 11/10/22 17:14> Ears: hearing grossly normal bilaterally <Nano Torres NP - Last Filed: 11/10/22 17:14> Eyes General: appearance normal, both eyes and all related structures <Nano Torres NP - Last Filed: 11/10/22 17:14> Pupils: Equal, round and reactive pupils present <Nano Torres NP - Last Filed: 11/10/22 17:14> Neck Neck: Yes normal visual inspection, Yes full ROM, Yes no lymphadenopathy and Yes no meningeal signs <Nano Torres MENTAL HEALTH TECH - Last Filed: 11/10/22 17:14> Chest Chest palpation & inspection: normal inspection of the chest <Nano Torres MENTAL HEALTH TECH - Last Filed: 11/10/22 17:14> Resp Effort & Inspection: normal respiratory effort <Nano Torres MENTAL HEALTH TECH - Last Filed: 11/10/22 17:14> Auscultation: clear to auscultation bilaterally <Nano Torres MENTAL HEALTH TECH - Last Filed: 11/10/22 17:14> Cardio Rate: regular rate <Nano Torrse MENTAL HEALTH TECH - Last Filed: 11/10/22 17:14> Rhythm: regular rhythm <Nano Torres MENTAL HEALTH TECH - Last Filed: 11/10/22 17:14> Peripheral pulses: Peripheral pulses 2+ throughout <Nnao Torres MENTAL HEALTH TECH - Last Filed: 11/10/22 17:14> GI Inspection: Yes normal to inspection <Nano Torres MENTAL HEALTH TECH - Last Filed: 11/10/22 17:14> Palpation (GI): Soft to palpation and Tenderness to palpation present (GI) in the LLQ; with no rebound tenderness <Nano Torres MENTAL HEALTH TECH - Last Filed: 11/10/22 17:14> Auscultation: normal bowel sounds <Nano Torres MENTAL HEALTH TECH - Last Filed: 11/10/22 17:14> General: Yes no CVA tenderness <Nano Torres MENTAL HEALTH TECH - Last Filed: 11/10/22 17:14> Back/Spine/Pelvis Back: no CVA tenderness <Nano Torres MENTAL HEALTH TECH - Last Filed: 11/10/22 17:14> Thoracic/Lumbar Spine: thoracic and lumbar spine normal to inspection <Nano Torres MENTAL HEALTH TECH - Last Filed: 11/10/22 17:14> Skin General skin exam: no rashes or lesions noted <Nano Torres MENTAL HEALTH TECH - Last Filed: 11/10/22 17:14> Neuro General: patient oriented x3, moves all extremities and no meningeal signs <Nano Torres MENTAL HEALTH TECH - Last Filed: 11/10/22 17:14> Cranial nerves: Yes CN's II-XII intact bilaterally, Yes Equal, round and reactive pupils present, Yes Bilaterally intact EOM present, Yes Nystagmus not present, Yes Normal facial strength present and Yes Midline tongue present <Nano Torres MENTAL HEALTH TECH - Last Filed: 11/10/22 17:14> Cognition (Neuro): normal cognition <Nano Torres MENTAL HEALTH TECH - Last Filed: 11/10/22 17:14> Gait exam (Neuro): Normal gait present <Nano Torres MENTAL HEALTH TECH - Last Filed: 11/10/22 17:14> Motor exam (neuro): 5/5 motor strength present throughout <Nano Trores MENTAL HEALTH TECH - Last Filed: 11/10/22 17:14> Sensory Exam: Normal double simultaneous stimulation for sensation <Nano Torres MENTAL HEALTH TECH - Last Filed: 11/10/22 17:14> Coordination: [id number] test normal, bymz-[id number] test normal and tandem gait normal <Nano Torres MENTAL HEALTH TECH - Last Filed: 11/10/22 17:14> Extrem General: Yes normal to inspection, Yes no pedal edema and Yes no calf tenderness <Nano Torres MENTAL HEALTH TECH - Last Filed: 11/10/22 17:14> NIH Stroke Scale Internal: Initial- Upon Arrival <Nano Torres NP - Last Filed: 11/10/22 17:14> Level of Consciousness: Alert <Nano Torres MENTAL HEALTH TECH - Last Filed: 11/10/22 17:14> Level of Consciousness Questions: Answers both questions correctly <Nano Torres NP - Last Filed: 11/10/22 17:14> Level of Consciousness Commands: Performs both tasks correctly <Nano Torres NP - Last Filed: 11/10/22 17:14> Best Gaze: Normal <Nano Torres NP - Last Filed: 11/10/22 17:14> Visual: No visual loss <Nano Pascucci, MENTAL HEALTH TECH - Last Filed: 11/10/22 17:14> Facial Palsy: Normal <Nano Pascucci, MENTAL HEALTH TECH - Last Filed: 11/10/22 17:14> Motor Arm (Right): No drift <Nano Pascucci, MENTAL HEALTH TECH - Last Filed: 11/10/22 17:14> Motor Arm (Left): No drift <Nano Pascucci, MENTAL HEALTH TECH - Last Filed: 11/10/22 17:14> Motor Leg (Right): No drift <Nano Pascucci, MENTAL HEALTH TECH - Last Filed: 11/10/22 17:14> Motor Leg (Left): No drift <Nano Pascucci, MENTAL HEALTH TECH - Last Filed: 11/10/22 17:14> Limb Ataxia: Absent <Nano Pascucci, MENTAL HEALTH TECH - Last Filed: 11/10/22 17:14> Sensory: Normal <Nano Pascucci, MENTAL HEALTH TECH - Last Filed: 11/10/22 17:14> Best Language: No aphasia <Nano Pascucci, MENTAL HEALTH TECH - Last Filed: 11/10/22 17:14> Dysarthia: Normal <Nano Pascucci, MENTAL HEALTH TECH - Last Filed: 11/10/22 17:14> Extinction and Inattention: No abnormality <Nano Pascucci, MENTAL HEALTH TECH - Last Filed: 11/10/22 17:14> Score: 0 <Nano Pascucci, MENTAL HEALTH TECH - Last Filed: 11/10/22 17:14> Course Course Course Narrative: This is an RME: Additional HPI, ROS, PE not included below will be deferred to primary provider.62-year-old female history of depression, anxiety, obesity, GERD, hypertension, fibromyalgia, chronic back pain, remote history of cervical fusion C5/C6 and C6 and C7 by Dr. Fowler and Dr. Serrano in 2014, presents to the ED w/ fatigue, malaise, diarrhea, patient was told she had diverticulitis on 11/06/2022 and since then has been feeling awful symptoms are not improving. Saw GI PA and was advised to come in for further evaluation treatment. Patient reports she now feels lightheaded and she thinks that is from the diarrhea. Patient has been tolerating p.o. Physical exam benign. Plan basic labs, UA, covid <MOSHE Jones - Last Filed: 11/10/22 14:13> Reevaluation(s) Reevaluation #1: Labs are unremarkable. Orthostatics negative. Patient was in the ER for 3 hours and was unable to provide stool studies. These were ordered outpatient by her GI provider already. Patient can follow up outpatient to have her stool studies done. Her abdomen is soft with some mild tenderness. She does have diverticulitis currently and is taking an antibiotic. She has no worsening pain, vomiting, fever or leukocytosis to suggest worsening diverticulitis, perforation or abscess. I would continue with her current medication treatment. Patient is tolerating p.o. in the ER. Patient also complaining of some dizziness which she has had for many weeks and has been seen by neurologist will plan for an outpatient brain MRI. Patient has no focal neurological deficits in the ER. She has normal cerebellar function and is walking with a steady gait. Patient is quite insistent that she have a brain MRI today while she is in the emergency room. I explained to her that she has no focal deficits, acute onset of symptoms to suggest need for emergent MRI today. She should follow-up with her scheduled outpatient MRI. This was also discussed my attending physician Dr. Cobian who agrees with plan of care and no need for MRI today <Nano Torres NP - Last Filed: 11/10/22 17:14> Medications Administered Discontinued Medications Generic Name Dose Route Start Last Admin Trade Name Freq PRN Reason Stop Dose Admin Amoxicillin/Clavulanate Potassium 875 mg 11/10/22 14:56 11/10/22 15:47 Amoxicillin/Potassium Clav 875 Mg Tablet PO 11/10/22 14:57 875 mg ONCE ONE Administration Ibuprofen 600 mg 11/10/22 16:33 11/10/22 16:38 Ibuprofen 600 Mg Tablet PO 11/10/22 16:34 600 mg ONCE ONE Administration <MOSHE Jones - Last Filed: 11/10/22 14:13> Medications Administered Discontinued Medications Generic Name Dose Route Start Last Admin Trade Name Freq PRN Reason Stop Dose Admin Amoxicillin/Clavulanate Potassium 875 mg 11/10/22 14:56 11/10/22 15:47 Amoxicillin/Potassium Clav 875 Mg Tablet PO 11/10/22 14:57 875 mg ONCE ONE Administration Ibuprofen 600 mg 11/10/22 16:33 11/10/22 16:38 Ibuprofen 600 Mg Tablet PO 11/10/22 16:34 600 mg ONCE ONE Administration <Nano Torres NP - Last Filed: 11/10/22 17:14> Medical Decision Making Medical Decision Making [facility] Narrative: 62 yo female currently being treated for diverticulitis on Augmentin here with continued abdominal pain and diarrhea. Patient states symptoms of the same but are not worsened. She has no associated fever or vomiting. She has spoken to her GI doctor with plans for outpatient stool studies but she has not completed this yet. On exam patient was some mild tenderness of the lower quadrants with no rebound or guarding. Patient is afebrile. Overall nontoxic appearing. Will check GI panel, C diff, labs. Patient also complaining of feeling dizzy for the last 3 weeks, seen outpatient by Neurology with plans for outpatient MRI brain. Patient feels that she needs an MRI brain today. She is waiting to be called to schedule the MRI. Patient has a normal neurological exam and no cerebellar findings. She is walking with a steady gait. I do not feel that she needs an emergent MRI today. She has a NIH score of 0 and is not a tPA candidate. This was discussed with the patient. She was not happy with this. Will check orthostatics <Nano Torres NP - Last Filed: 11/10/22 17:14> Differential Diagnosis Differential Diagnoses: The differential diagnosis associated with the presentation includes <Nano Torres NP - Last Filed: 11/10/22 17:14> low concern for diverticular perf, abscess, infectious diarrhea/cdiff doubt acute stroke or ICH <Nano Torres NP - Last Filed: 11/10/22 17:14> Lab Data [facility] Lab Attestation statement: I reviewed the patient's lab results. <Nano Torres NP - Last Filed: 11/10/22 17:14> Result Diagrams: 11/10/22 14:29 11/10/22 14:29 <MOSHE Jones - Last Filed: 11/10/22 14:13> Labs: Lab Results 11/10/22 11/10/2223 Range/Units 14:29 14:29 14:29 WBC 8.0 (4.8-10.8) X10*3/uL RBC 4.16 L (4.20-5.50) X10*6/uL Hgb 12.9 (12.0-16.0) g/dl Hct 37.0 (37.0-47.0) % MCV 88.9 (80.0-98.0) fL MCH 31.0 (27.0-33.0) pg MCHC 34.9 (31.0-35.0) g/dl RDW 11.9 (11.0-16.0) % Plt Count 470 H (160-400) X10*3/uL MPV 9.1 L (9.4-12.3) fL Immature Gran % (Auto) 0.4 (0.0-0.4) % Neut % (Auto) 54.4 (45-73) % Lymph % (Auto) 36.6 (20-40) % [place] % (Auto) 6.3 (2-11) % Eos % (Auto) 1.5 (0-4) % Baso % (Auto) 0.8 (0-2) % Lymph # (Auto) 2.9 (1.2-4.9) X10*3/uL [place] # (Auto) 0.5 (0.1-1.2) X10*3/uL Eos # (Auto) 0.1 (0.0-0.4) X10*3/uL Baso # (Auto) 0.1 (0.0-0.2) X10*3/uL Abs Immat Gran (auto) 0.03 (0.00-0.03) X10*3/uL Absolute Neuts (auto) 4.3 (2.0-8.3) x10*3/uL Absolute Nucleated RBC 0.000 (0.0-0.012) X10*3/uL Nucleated RBC % (auto) 0.0 (0.0-0.2) /100WBC Sodium 138 (135-145) mmol/L Potassium 4.1 (3.3-5.1) mmol/L Chloride 106 (96-108) mmol/L Carbon Dioxide 23 (22-29) mmol/L Anion Gap 13 (12-20) BUN 13 (9-16) mg/dL Creatinine 1.03 (0.5-1.4) mg/dL Estim Creat Clear Calc 48.1 Estimated GFR 54 Random Glucose 106 (60-115) mg/dL Calcium 10.0 (8.4-10.2) mg/dL Magnesium 2.1 (1.6-2.6) mg/dL Total Bilirubin 0.3 (0.0-1.0) mg/dL AST 21 (5-31) U/L ALT 12 (0-31) U/L Alkaline Phosphatase 45 (39-117) U/L Total Protein 7.1 (6.5-8.0) g/dL Albumin 4.6 (3.5-5.0) g/dL Urine Color Urine Appearance Urine pH (5.0-9.0) Ur Specific [place] (1.005-1.025) Urine Protein (Neg-Trace) mg/dL Urine Glucose (UA) (Negative) mg/dL Urine Ketones (Negative) mg/dL Urine Blood (Negative) Urine Nitrite (Negative) Ur Leukocyte Esterase (Negative) COVID-19 (EMILY) Negative (Negative) COVID-19 Clin Com See Note 11/10/22 Range/Units 14:29 WBC (4.8-10.8) X10*3/uL RBC (4.20-5.50) X10*6/uL Hgb (12.0-16.0) g/dl Hct (37.0-47.0) % MCV (80.0-98.0) fL MCH (27.0-33.0) pg MCHC (31.0-35.0) g/dl RDW (11.0-16.0) % Plt Count (160-400) X10*3/uL MPV (9.4-12.3) fL Immature Gran % (Auto) (0.0-0.4) % Neut % (Auto) (45-73) % Lymph % (Auto) (20-40) % [place] % (Auto) (2-11) % Eos % (Auto) (0-4) % Baso % (Auto) (0-2) % Lymph # (Auto) (1.2-4.9) X10*3/uL [place] # (Auto) (0.1-1.2) X10*3/uL Eos # (Auto) (0.0-0.4) X10*3/uL Baso # (Auto) (0.0-0.2) X10*3/uL Abs Immat Gran (auto) (0.00-0.03) X10*3/uL Absolute Neuts (auto) (2.0-8.3) x10*3/uL Absolute Nucleated RBC (0.0-0.012) X10*3/uL Nucleated RBC % (auto) (0.0-0.2) /100WBC Sodium (135-145) mmol/L Potassium (3.3-5.1) mmol/L Chloride (96-108) mmol/L Carbon Dioxide (22-29) mmol/L Anion Gap (12-20) BUN (9-16) mg/dL Creatinine (0.5-1.4) mg/dL Estim Creat Clear Calc Estimated GFR Random Glucose (60-115) mg/dL Calcium (8.4-10.2) mg/dL Magnesium (1.6-2.6) mg/dL Total Bilirubin (0.0-1.0) mg/dL AST (5-31) U/L ALT (0-31) U/L Alkaline Phosphatase (39-117) U/L Total Protein (6.5-8.0) g/dL Albumin (3.5-5.0) g/dL Urine Color Yellow Urine Appearance Clear Urine pH 6.5 (5.0-9.0) Ur Specific [place] <= 1.005 (1.005-1.025) Urine Protein Negative (Neg-Trace) mg/dL Urine Glucose (UA) Negative (Negative) mg/dL Urine Ketones Negative (Negative) mg/dL Urine Blood Negative (Negative) Urine Nitrite Negative (Negative) Ur Leukocyte Esterase Negative (Negative) COVID-19 (EMILY) (Negative) COVID-19 Clin Com <MOSHE Jones - Last Filed: 11/10/22 14:13> Lab Results 11/10/22 11/10/22 11/10/22 Range/Units 14:29 14:29 14:29 WBC 8.0 (4.8-10.8) X10*3/uL RBC 4.16 L (4.20-5.50) X10*6/uL Hgb 12.9 (12.0-16.0) g/dl Hct 37.0 (37.0-47.0) % MCV 88.9 (80.0-98.0) fL MCH 31.0 (27.0-33.0) pg MCHC 34.9 (31.0-35.0) g/dl RDW 11.9 (11.0-16.0) % Plt Count 470 H (160-400) X10*3/uL MPV 9.1 L (9.4-12.3) fL Immature Gran % (Auto) 0.4 (0.0-0.4) % Neut % (Auto) 54.4 (45-73) % Lymph % (Auto) 36.6 (20-40) % [place] % (Auto) 6.3 (2-11) % Eos % (Auto) 1.5 (0-4) % Baso % (Auto) 0.8 (0-2) % Lymph # (Auto) 2.9 (1.2-4.9) X10*3/uL [place] # (Auto) 0.5 (0.1-1.2) X10*3/uL Eos # (Auto) 0.1 (0.0-0.4) X10*3/uL Baso # (Auto) 0.1 (0.0-0.2) X10*3/uL Abs Immat Gran (auto) 0.03 (0.00-0.03) X10*3/uL Absolute Neuts (auto) 4.3 (2.0-8.3) x10*3/uL Absolute Nucleated RBC 0.000 (0.0-0.012) X10*3/uL Nucleated RBC % (auto) 0.0 (0.0-0.2) /100WBC Sodium 138 (135-145) mmol/L Potassium 4.1 (3.3-5.1) mmol/L Chloride 106 (96-108) mmol/L Carbon Dioxide 23 (22-29) mmol/L Anion Gap 13 (12-20) BUN 13 (9-16) mg/dL Creatinine 1.03 (0.5-1.4) mg/dL Estim Creat Clear Calc 48.1 Estimated GFR 54 Random Glucose 106 (60-115) mg/dL Calcium 10.0 (8.4-10.2) mg/dL Magnesium 2.1 (1.6-2.6) mg/dL Total Bilirubin 0.3 (0.0-1.0) mg/dL AST 21 (5-31) U/L ALT 12 (0-31) U/L Alkaline Phosphatase 45 (39-117) U/L Total Protein 7.1 (6.5-8.0) g/dL Albumin 4.6 (3.5-5.0) g/dL Urine Color Urine Appearance Urine pH (5.0-9.0) Ur Specific [place] (1.005-1.025) Urine Protein (Neg-Trace) mg/dL Urine Glucose (UA) (Negative) mg/dL Urine Ketones (Negative) mg/dL Urine Blood (Negative) Urine Nitrite (Negative) Ur Leukocyte Esterase (Negative) COVID-19 (EMILY) Negative (Negative) COVID-19 Clin Com See Note 11/10/22 Range/Units 14:29 WBC (4.8-10.8) X10*3/uL RBC (4.20-5.50) X10*6/uL Hgb (12.0-16.0) g/dl Hct (37.0-47.0) % MCV (80.0-98.0) fL MCH (27.0-33.0) pg MCHC (31.0-35.0) g/dl RDW (11.0-16.0) % Plt Count (160-400) X10*3/uL MPV (9.4-12.3) fL Immature Gran % (Auto) (0.0-0.4) % Neut % (Auto) (45-73) % Lymph % (Auto) (20-40) % [place] % (Auto) (2-11) % Eos % (Auto) (0-4) % Baso % (Auto) (0-2) % Lymph # (Auto) (1.2-4.9) X10*3/uL [place] # (Auto) (0.1-1.2) X10*3/uL Eos # (Auto) (0.0-0.4) X10*3/uL Baso # (Auto) (0.0-0.2) X10*3/uL Abs Immat Gran (auto) (0.00-0.03) X10*3/uL Absolute Neuts (auto) (2.0-8.3) x10*3/uL Absolute Nucleated RBC (0.0-0.012) X10*3/uL Nucleated RBC % (auto) (0.0-0.2) /100WBC Sodium (135-145) mmol/L Potassium (3.3-5.1) mmol/L Chloride (96-108) mmol/L Carbon Dioxide (22-29) mmol/L Anion Gap (12-20) BUN (9-16) mg/dL Creatinine (0.5-1.4) mg/dL Estim Creat Clear Calc Estimated GFR Random Glucose (60-115) mg/dL Calcium (8.4-10.2) mg/dL Magnesium (1.6-2.6) mg/dL Total Bilirubin (0.0-1.0) mg/dL AST (5-31) U/L ALT (0-31) U/L Alkaline Phosphatase (39-117) U/L Total Protein (6.5-8.0) g/dL Albumin (3.5-5.0) g/dL Urine Color Yellow Urine Appearance Clear Urine pH 6.5 (5.0-9.0) Ur Specific [place] <= 1.005 (1.005-1.025) Urine Protein Negative (Neg-Trace) mg/dL Urine Glucose (UA) Negative (Negative) mg/dL Urine Ketones Negative (Negative) mg/dL Urine Blood Negative (Negative) Urine Nitrite Negative (Negative) Ur Leukocyte Esterase Negative (Negative) COVID-19 (EMILY) (Negative) COVID-19 Clin Com <Nano Torres NP - Last Filed: 11/10/22 17:14> Discharge Plan Discharge Clinical Impression: Diverticulitis, Dizziness <MOSHE Jones - Last Filed: 11/10/22 14:13> Patient Disposition: Home, Self-Care <MOSHE Jones - Last Filed: 11/10/22 14:13> Instructions: Diverticulitis (ED), Dizziness (ED) <MOSHE Jones - Last Filed: 11/10/22 14:13> Additional Instructions: Please continue your antibiotics Please follow-up with the lab to have your outpatient stool studies completed Please follow-up with gastroenterology Please follow-up with your neurologist and for your outpatient MRI Please return for any worsening abdominal pain, fever, vomiting <MOSHE Jones - Last Filed: 11/10/22 14:13> Prescriptions: No Action fenofibrate 160 mg tablet 160 mg PO DAILY 90 Days Qty: 90 1RF lidocaine [Salonpas (lidocaine)] 4 % adhesive patch,medicated 1 patch topical BID PRN (Reason: pain) Qty: 60 3RF cholecalciferol (vitamin D3) 50 mcg (2,000 unit) capsule 50 mcg PO DAILY Qty: 30 3RF metoprolol succinate 50 mg tablet extended release 24 hr 50 mg PO DAILY Qty: 90 2RF pravastatin 40 mg tablet 40 mg PO DAILY Qty: 90 2RF acetaminophen [Mapap Arthritis Pain] 650 mg tablet extended release 650 mg PO Q8H PRN (Reason: Pain) Probiotic 10 billion cell capsule 10,000 mmu cells PO DAILY Qty: 20 0RF [employer] [facility] 10 billion cell -200 mg capsule 1 cap PO DAILY Qty: 14 0RF amoxicillin-pot clavulanate 875-125 mg tablet 1 tab PO TID Qty: 30 0RF clonazepam 1 mg tablet 1 mg PO TID sertraline 100 mg tablet 100 mg PO DAILY tizanidine 4 mg capsule 4 mg PO BEDTIME PRN omeprazole 20 mg tablet,delayed release (DR/EC) 20 mg PO DAILY estradiol [Vagifem] 10 mcg tablet 10 mcg vaginal 2XW Qty: 24 1RF Rx Instructions: Use vaginally 2 times a week: Mon/thurs at bedtime [facility] 10 billion cell -200 mg capsule, sprinkle 1 cap PO DAILY quetiapine 100 mg tablet 0 mg PO BID bethanechol chloride 50 mg tablet 50 mg PO BID 30 Days Qty: 60 1RF acetaminophen [Tylenol Arthritis Pain] 650 mg tablet extended release 650 mg PO Q8H omeprazole 20 mg capsule,delayed release(DR/EC) 20 mg PO DAILY Qty: 30 5RF <MOSHE Jones - Last Filed: 11/10/22 14:13> Referrals: Senthil Dietrich MD [Physician] - 1 week Brigitte Weston PA-C [Physician Senior Professional Services Consultant] - 1 week <MOSHE Jones - Last Filed: 11/10/22 14:13>
[2022-11-10 14:34] LABS: Basophils Absolute Auto 0.1 X10*3/uL (0.0-0.2); Basophils Percent Auto 0.8 % (0-2); Eosinophils Absolute Auto 0.1 X10*3/uL (0.0-0.4); Eosinophils Percent Auto 1.5 % (0-4); Hemoglobin 12.9 g/dl (12.0-16.0); Imm Gran Abs Auto 0.03 X10*3/uL (0.00-0.03); Imm Gran Pct Auto 0.4 % (0.0-0.4); Lymphocytes Absolute Auto 2.9 X10*3/uL (1.2-4.9); Lymphocytes Percent Auto 36.6 % (20-40); MANUAL DIFF FLAG NO; Mean Corpuscular HGB Conc 34.9 g/dl (31.0-35.0); Mean Corpuscular Volume 88.9 fL (80.0-98.0); Mean Platelet Volume 9.1 fL (9.4-12.3); Monocytes Absolute Auto 0.5 X10*3/uL (0.1-1.2); Monocytes Percent Auto 6.3 % (2-11); Neutrophils Absolute Auto 4.3 x10*3/uL (2.0-8.3); Neutrophils Percent Auto 54.4 % (45-73); Platelet Count 470 X10*3/uL (160-400); Red Blood Count 4.16 X10*6/uL (4.20-5.50); Red Cell Distribution Width 11.9 % (11.0-16.0)
[2022-11-10 14:36] LABS: Appearance Urine Clear; Color Urine Yellow; Glucose Urine UA Negative (Negative); Leukocyte Esterase Urine Negative (Negative); Nitrite Urine Negative (Negative); PH 6.5 (5.0-9.0); Specific Gravity - Urine <= 1.005 (1.005-1.025); Urine Blood Negative (Negative); Urine Ketones Negative (Negative); Urine Protein Negative (Neg-Trace)
[2022-11-10 14:50] LABS: Alanine Aminotransferase 12 U/L (0-31); Albumin Level 4.6 g/dL (3.5-5.0); Alkaline Phosphatase 45 U/L (39-117); Anion Gap 13 (12-20); Aspartate Amino Transferase 21 U/L (5-31); Bilirubin Total 0.3 mg/dL (0.0-1.0); Blood Urea Nitrogen 13 mg/dL (9-16); Carbon Dioxide 23 mmol/L (22-29); Chloride 106 mmol/L (96-108); Creatinine Clr Calc Pharmacy 48.1; Estimated Glomerular Filt Rate 54; Glucose Random 106 mg/dL (60-115); Magnesium 2.1 mg/dL (1.6-2.6); Potassium 4.1 mmol/L (3.3-5.1); Sodium 138 mmol/L (135-145); Total Protein 7.1 g/dL (6.5-8.0)
[2022-11-10 14:51] LABS: COVID-19 Test Negative (Negative); IDNOW Serial# BCCEAD1C
[2022-11-10] MEDS: Amoxicillin/Potassium Clav 875 MG TABLET PO (15:47)
[2022-11-10 15:54] VITALS: BP 122/64; BP 122/69; BP 99/69; PULSE 61; PULSE 65; PULSE 67
[2022-11-10 15:58] VITALS: BP 122/69; PULSE 61; RESP 15; TEMP 36.7; O2SAT 98
[2022-11-10] MEDS: Ibuprofen 600 MG TABLET PO (16:38)
== END 2022-11-10 17:18 | disposition home or self-care (01) ==
PROVIDERS: Physician Assistant; Emergency Provider Emergency Medicine; PCP Internal Medicine
DX: K57.32 Diverticulitis of large intestine without perforation or abscess without bleeding (principal); R42 Dizziness and giddiness; M54.50 Low back pain, unspecified; Z20.822 Contact with and (suspected) exposure to COVID-19; Z20.828 Contact with and (suspected) exposure to other viral communicable diseases; Z79.899 Other long term (current) drug therapy
CPT/HCPCS: 36415; 80053; 81003; 83735; 85025; 87635; 99283; 99284

== ENCOUNTER 2022-11-11 12:17 | Outpatient (REF) | payer OTHER, SELFPAY ==
[2022-11-11 13:17] LABS: CDiff Gene PCR NEGATIVE (Negative)
== END 2022-11-11 12:18 | disposition home or self-care (01) ==
LOC: HO.LNP 12:17
PROVIDERS: Visit Provider Physician Assistant
DX: K52.9 Noninfective gastroenteritis and colitis, unspecified (principal); A04.8 Other specified bacterial intestinal infections
CPT/HCPCS: 87338; 87493

== ENCOUNTER → 2022-11-12 13:52 | Outpatient (BNVA) | payer OTHER, SELFPAY | PROVIDERS: PCP Internal Medicine; Visit Provider Surgery ==

== ENCOUNTER 2022-11-20 10:26 | Outpatient (REF) | payer OTHER, SELFPAY ==
--- NOTE | ~2022-11-20 | MR_ITS ---
EXAMINATION: MR THORACIC SPINE WITHOUT CONTRAST CLINICAL INFORMATION: Mid back pain. COMPARISON: Thoracic spine radiographs from 09/12/2021. Thoracic spine MRI from 01/13/2015. TECHNIQUE: MRI of the thoracic spine was obtained using routine sequences without contrast. FINDINGS: Mild left convex curvature of the midthoracic spine. Mild right convex curvature of the thoracolumbar junction. Moderate left convex curvature of the lumbar spine. Partially visualized instrumented anterior fusion of the lower cervical spine. Otherwise, normal anatomic alignment. Moderate degenerative disc disease from T7-T11. Mild degenerative disc disease at all additional thoracic levels. Associated mixed Modic type discogenic endplate changes including minimal Modic type I discogenic edema from T7-T10. No additional suspicious marrow edema. Small Schmorl's nodes at T10-T11. Otherwise, the vertebral body heights are largely maintained. No demonstrated spinal cord signal abnormalities. Perineural cysts at T9-T10 and T10-T11. No significant abnormalities of the paraspinal musculature. Limited evaluation of the intrathoracic structures without significant abnormalities. The descending thoracic aorta is of normal contour and caliber. AXIAL SPINAL LEVELS: Multilevel small posterior disc herniations, most notably at T4-T5, T7-T8, and T9-T10. There is mild to moderate multilevel facet joint arthropathy, most notably in the lower thoracic spine. There is no neural foraminal stenosis. There is no spinal canal stenosis. MR/MR thoracic spine wo con IMPRESSION: 1. 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 No overt spinal canal stenosis or nerve root compression. 2. Scoliotic curvature of the thoracolumbar spine.
== END 2022-11-20 10:27 | disposition home or self-care (01) ==
LOC: HO.MRI 10:26
PROVIDERS: PCP Internal Medicine; Visit Provider Neurological Surgery
DX: M51.27 Other intervertebral disc displacement, lumbosacral region (principal)
CPT/HCPCS: 72146

== ENCOUNTER 2022-11-25 07:54 | Outpatient (REF) | payer OTHER, SELFPAY ==
[2022-11-25 08:23] LABS: Estimated Average Glucose 105 mg/dL; Hemoglobin A1c % 5.3 %
[2022-11-25 08:49] LABS: Alanine Aminotransferase 19 U/L (0-31); Albumin Level 4.7 g/dL (3.5-5.0); Alkaline Phosphatase 42 U/L (39-117); Anion Gap 13 (12-20); Aspartate Amino Transferase 28 U/L (5-31); Bilirubin Total 0.7 mg/dL (0.0-1.0); Blood Urea Nitrogen 15 mg/dL (9-16); Calcium 9.6 mg/dL (8.4-10.2); Carbon Dioxide 24 mmol/L (22-29); Chloride 108 mmol/L (96-108); Cholesterol 204 mg/dL; Estimated Glomerular Filt Rate 52; Glucose Random 113 mg/dL (60-115); HDL Cholesterol 38 mg/dL; LDL Cholesterol Calculated 132 mg/dl; Potassium 4.2 mmol/L (3.3-5.1); Sodium 141 mmol/L (135-145); Total Protein 7.1 g/dL (6.5-8.0); Triglycerides 170 mg/dL
== END 2022-11-25 07:55 | disposition home or self-care (01) ==
LOC: HO.LAB 07:54
PROVIDERS: PCP Internal Medicine; Visit Provider Internal Medicine
DX: E78.00 Pure hypercholesterolemia, unspecified (principal); R73.02 Impaired glucose tolerance (oral)
CPT/HCPCS: 36415; 80053; 80061; 83036

== ENCOUNTER → 2022-12-02 14:59 | Outpatient (BNVA) | payer OTHER, SELFPAY | PROVIDERS: PCP Internal Medicine; Visit Provider Urology | DX: R33.9 Retention of urine, unspecified (principal); N31.9 Neuromuscular dysfunction of bladder, unspecified | CPT/HCPCS: 51798; 99212 ==

== ENCOUNTER 2022-12-03 10:29 | Outpatient (REF) | payer OTHER, SELFPAY ==
--- NOTE | ~2022-12-03 | MR_ITS ---
EXAMINATION: MRI OF THE SACRUM WITHOUT CONTRAST CLINICAL INDICATION: Spina bifida occulta. Incomplete bladder emptying. COMPARISON: MRI lumbar spine dated 09/17/2022. TECHNIQUE: Multiplanar MR imaging was obtained through the pelvis/sacrum without contrast material on a 1.5 Portia magnet. FINDINGS: LOWER LUMBAR SPINE: Again seen are postsurgical changes of prior posterior decompression and instrumented fusion at the L5-S1 level. There is osseous bridging at the interbody space with chronic grade 1 anterolisthesis of L5 on S1. No acute osseous findings. There is [id number] degenerative disc disease at L3-L4 with a generalized disc osteophytic bulge in this region. Central canal stenosis at L3-L4 and the potential for neural foraminal impingement at the L4-L5 and L5-S1 levels are better assessed on the prior lumbar spine MRI. Again seen is a dorsal defect in the dural sac at the posterior aspect of the L5 level. This defect measures approximately 1.5 x 1.8 cm in area. The cauda equina are shifted posteriorly in this region (better seen on the prior MRI of the lumbar spine) without clear distortion/clumping or other findings of arachnoiditis. SACRAL CANAL: Cauda equina is normal in appearance in the sacral canal with normal appearance of the sacral nerve roots. No sites of nerve impingement or stenoses are identified. PERIPHERAL NERVES IN THE PELVIS: No appreciable abnormalities are identified at the lumbosacral trunk, sacral plexus, sciatic nerves, obturator nerves, and femoral nerve. OSSEOUS PELVIS: SI joints appear relatively well preserved. No sacroiliitis. Pubic symphysis is unremarkable. Minimal osteoarthritis in the hips. No acute osseous abnormalities. No hip joint effusions. MUSCULATURE: No atrophy or edema signal. Tendons appear intact without tears or significant tendinosis. Piriformis muscles are symmetric. INTRAPELVIC SOFT TISSUES: Moderate colonic diverticulosis. The bladder is distended with a trabeculated wall. There is a 3.8 x 1.5 x 1.5 cm unilocular cyst in the right adnexal region. No left adnexal cyst. No suspicious features. Uterus appears either atrophic or surgically absent. No adenopathy. MR/MR sacrum wo con IMPRESSION: 1. Normal appearance of the sacral plexus. No sites of nerve impingement or stenoses are identified. 2. Postsurgical changes of prior L5-S1 posterior decompression and instrumented fusion. A dorsal defect in the dural sac at the L5 level is unchanged from the prior MRI. 3. A 3.8 cm unilocular right adnexal cyst. No suspicious features. Simple-appearing cyst. No follow-up imaging recommended. Note: This recommendation does not apply to patient's increased risk (genetic, family history, elevated tumor markers or other high-risk factors) of ovarian cancer. Reference: JACR 2019; 17(2):248-254 4. Bladder is distended with a trabeculated wall, unchanged.
== END 2022-12-03 10:30 | disposition home or self-care (01) ==
LOC: HO.MRI 10:29
PROVIDERS: PCP Internal Medicine; Visit Provider Urology
DX: Q76.0 Spina bifida occulta (principal)
CPT/HCPCS: 72195

== ENCOUNTER 2022-12-11 11:18 | Outpatient (REF) | payer OTHER, SELFPAY ==
--- NOTE | ~2022-12-11 | MR_ITS ---
MRI OF THE BRAIN WITHOUT IV CONTRAST INDICATION: Dizziness. Cerebral microvascular disease. Rule out stroke. COMPARISON: None available. TECHNIQUE: Multiplanar multisequence MR imaging of the brain was obtained without IV contrast. FINDINGS: There is no hydrocephalus, extra-axial surface collection, or herniation. Mild chronic microangiopathy. The major flow voids at the skull base are preserved. There is no acute infarct on diffusion-weighted imaging. There is no intracranial hemorrhage on the gradient recalled echo acquisition. The midline structures are normal. The cerebellar tonsils are normally positioned. The cerebellum and brainstem are normal. The craniocervical junction is normal. Osseous marrow signal intensity is homogenous. The visualized soft tissues are unremarkable. ACDF changes at C5-C6. Small bilateral mastoid effusions. MR/MR head/brain wo con IMPRESSION: No acute intracranial findings. No acute infarcts. There is mild chronic microangiopathy. Small bilateral mastoid effusions.
== END 2022-12-11 11:19 | disposition home or self-care (01) ==
LOC: HO.MRI 11:18
PROVIDERS: PCP Internal Medicine; Visit Provider Psychiatry & Neurology Neurology
DX: R42 Dizziness and giddiness (principal); I67.9 Cerebrovascular disease, unspecified
CPT/HCPCS: 70551

== ENCOUNTER 2022-12-18 13:00 | Outpatient (REF) | payer OTHER, SELFPAY ==
--- NOTE | ~2022-12-18 | CT_ITS ---
EXAMINATION: CT CHEST SCREENING CLINICAL INFORMATION: Nicotine dependence. COMPARISON: CT lung screening 09/26/2021. CT chest 11/06/2022 TECHNIQUE: Multidetector volumetric CT imaging of the chest is performed without contrast using low dose technique. Additional 2D coronal and sagittal reformatted images and axial 3D maximum intensity projection (MIP) images are generated on the CT workstation. This CT examination was performed using dose optimization techniques as appropriate, variously including the following: *Automated exposure control *Adjustment of mA and/or kV according to patient size (this includes techniques or standardized protocols for targeted exams where dose is matched to indication/reason for exam; i.e. extremities or head) *Use of iterative reconstruction technique DLP: 57 mGy-cm FINDINGS: LUNGS: The lungs are well-expanded and clear of acute process. Nonspecific, punctate densities seen in both lungs similar to previous study No pulmonary nodule, mass or consolidation seen. MEDIASTINUM: The thyroid lobes are symmetrical. The central trachea and bronchi are widely patent. Heart size and the great vessels are normal caliber. No abnormal size mediastinal or hilar lymph nodes seen. No pericardial effusion seen. CORONARY ARTERY CALCIFICATION: None visualized on this study. PLEURA: There is no pleural effusion. No pleural mass or thickening. AXILLA: Small shotty lymph nodes are seen in bilateral axilla. UPPER ABDOMEN: Visualized liver, spleen, pancreas and bilateral adrenal glands are unremarkable. The gallbladder has been surgically removed. OSSEOUS STRUCTURES: No aggressive lytic or sclerotic process seen. There is minimal ventral spondylosis mid and lower dorsal spine. CT/CT lung screening IMPRESSION: Nonspecific punctate densities less than 2 mm. No true pulmonary nodules visualized. ASSESSMENT: Lung-RADS category 2: Benign RECOMMENDATION: Low-dose annual CT chest
== END 2022-12-18 13:01 | disposition home or self-care (01) ==
LOC: HO.CT 13:00
PROVIDERS: PCP Internal Medicine; Visit Provider Physician Assistant Medical
DX: Z12.2 Encounter for screening for malignant neoplasm of respiratory organs (principal); F17.210 Nicotine dependence, cigarettes, uncomplicated
CPT/HCPCS: 71271

== ENCOUNTER → 2023-01-03 13:20 | Outpatient (BNVA) | payer OTHER, SELFPAY | PROVIDERS: PCP Internal Medicine; Visit Provider Physician Assistant | DX: M75.82 Other shoulder lesions, left shoulder (principal); M75.81 Other shoulder lesions, right shoulder | CPT/HCPCS: 20610; 99212; J1020 ==

== ENCOUNTER 2023-01-18 13:59 | Outpatient (REF) | payer OTHER, SELFPAY ==
--- NOTE | ~2023-01-18 | XR_ITS ---
EXAMINATION: Bilateral knee x-ray CLINICAL INFORMATION: Pain COMPARISON: Right knee x-ray from 2019 and left knee x-ray from 2012 TECHNIQUE: 4 views of each knee FINDINGS: Right: Bone alignment is normal. No fracture or dislocation. Normal femoral tibial joint. Mild degenerative changes at the patellofemoral joint. Small joint effusion. Left: On alignment is normal. No fracture or dislocation. Normal femoral tibial joints. Mild degenerative changes at the patellofemoral joint. Small osteophyte at the quadriceps tendon insertion to the patella. No joint effusion. XR/XR knee LT 3V IMPRESSION: Mild degenerative changes at the patellofemoral joints, right greater than left, and small right knee joint effusion.
--- NOTE | ~2023-01-18 | XR_ITS ---
EXAMINATION: Bilateral knee x-ray CLINICAL INFORMATION: Pain COMPARISON: Right knee x-ray from 2019 and left knee x-ray from 2012 TECHNIQUE: 4 views of each knee FINDINGS: Right: Bone alignment is normal. No fracture or dislocation. Normal femoral tibial joint. Mild degenerative changes at the patellofemoral joint. Small joint effusion. Left: On alignment is normal. No fracture or dislocation. Normal femoral tibial joints. Mild degenerative changes at the patellofemoral joint. Small osteophyte at the quadriceps tendon insertion to the patella. No joint effusion. XR/XR knee RT 3V IMPRESSION: Mild degenerative changes at the patellofemoral joints, right greater than left, and small right knee joint effusion.
== END 2023-01-18 14:00 | disposition home or self-care (01) ==
LOC: HO.HMGCX 13:59
PROVIDERS: Visit Provider Nurse Practitioner Acute Care
DX: M25.561 Pain in right knee (principal); M25.562 Pain in left knee
CPT/HCPCS: 73562

== ENCOUNTER 2023-01-23 12:22 | Outpatient (REF) | payer OTHER, SELFPAY ==
--- NOTE | ~2023-01-23 | MM_ITS ---
EXAMINATION: MM SCREENING DIGITAL BREAST TOMOSYNTHESIS, BILATERAL CLINICAL INFORMATION: Screening. Asymptomatic. The lifetime risk of breast cancer based on the Tyrer-Cuzick Model is 5%. COMPARISON: None (current study represents new baseline exam). TECHNIQUE: Digital breast tomosynthesis is performed in both the craniocaudal and mediolateral oblique views along with computer-aided detection (CAD). Synthesized 2D images are generated from the tomosynthesis. FINDINGS: There are scattered areas of fibroglandular density (ACR BI-RADS breast composition Category b). There is a fibronodular parenchymal pattern. Right breast shows no significant mass. Neither breast shows architectural abnormality or abnormal calcifications. The skin contours are unremarkable. Left breast has oval focal asymmetric density mid 3:00 position approximately 0.8 x 1.3 cm. There is a probable left axillary node extending beyond field of view 14 cm from nipple on MLO view. As this represents new baseline exam, patient will be recalled for additional imaging to fully characterize. MM/MM tomosynthesis screening BI IMPRESSION: Left: -Oval focal asymmetric density 3:00 left breast. -Probable incidental node near posterior film margin low left axillary tail on MLO view. Right: -No mammographic evidence of malignancy. ASSESSMENT: BI-RADS 0: Incomplete - Need Additional Imaging Evaluation RECOMMENDATION: 1. Additional views left breast: Spot CC, spot ML for asymmetric density and MLO axilla for probable node. 2. Targeted ultrasound if warranted after review of the additional views. 3. Radiology department staff will contact the patient for additional imaging. This patient's information was entered into a reminder system with a target due date for their next mammogram.
== END 2023-01-23 12:23 | disposition home or self-care (01) ==
LOC: HO.MAMMO 12:22
PROVIDERS: PCP Internal Medicine; Visit Provider Internal Medicine
DX: Z12.31 Encounter for screening mammogram for malignant neoplasm of breast (principal)
CPT/HCPCS: 77063; 77067

== ENCOUNTER 2023-01-30 12:17 | Outpatient (REF) | payer OTHER, MEDICAID, SELFPAY ==
[2023-01-31 05:23] LABS: HBc Num1 0.09 S/CO (0.00-0.79); HBsAGNum1 0.45 S/CO (0.00-0.99); HIV AB/AG Nonreactive (Nonreactive); HIV Num 1 0.06 S/CO (0.00-0.99); Hepatitis B Core Antibody Nonreactive (Nonreactive); Hepatitis B Surface Antigen Negative (Negative); ~HepC Num1 0.16 S/CO (0.00-0.79); ~Hepatitis B Surface Antibody NONREACTIVE (Nonreactive); ~Hepatitis C Antibody Nonreactive (Nonreactive)
== END 2023-01-30 12:18 | disposition home or self-care (01) ==
LOC: HO.LAB 12:17
PROVIDERS: Absent Provider Internal Medicine; PCP Internal Medicine; Visit Provider Orthopaedic Surgery
DX: Z11.4 Encounter for screening for human immunodeficiency virus [HIV] (principal); R79.89 Other specified abnormal findings of blood chemistry; M70.71 Other bursitis of hip, right hip; M70.72 Other bursitis of hip, left hip; M76.891 Other specified enthesopathies of right lower limb, excluding foot; M76.892 Other specified enthesopathies of left lower limb, excluding foot
CPT/HCPCS: 36415; 86704; 86706; 86803; 87340; 87389; 99212

== ENCOUNTER 2023-02-12 17:12 | Emergency (ER) | payer OTHER, MEDICAID, SELFPAY ==
[2023-02-12 17:16] VITALS: BP 144/79; PULSE 79; RESP 18; TEMP 37.3; O2SAT 98; BMI 28.3
--- NOTE | 2023-02-12 17:16 | ED_ITS ---
HPI - General Adult General Chief complaint: Extremity Injury, Lower Stated complaint: left thigh pain Time Seen by Provider: 02/12/23 18:05 Source: patient Mode of arrival: ambulatory Limitations: no limitations History of Present Illness HPI narrative: Patient is a 63-year-old female who presents emergency department from urgent care for evaluation of left thigh pain. She reports 4 days with intermittent severe left medial thigh pain described as spasming typically lasting about 20 minutes and then does improve over time. She is prescribed tizanidine which she has been taking in addition to ibuprofen which does help the pain, however continue to return. She states she was advised emergent care that she needs an ultrasound to evaluate for DVT. She denies any lower extremity swelling, redness, numbness or tingling, chest pain, shortness of breath, difficulty breathing, history of DVT/PE. She has an extensive history of chronic back pain in addition to arthritis and fibromyalgia. Related Data Home Medications Medication Instructions Recorded Confirmed clonazepam 1 mg tablet 1 mg PO TID 08/21/21 12/02/22 sertraline 100 mg tablet 100 mg PO DAILY 08/26/22 12/02/22 omeprazole 20 mg tablet,delayed 20 mg PO DAILY 11/06/22 12/02/22 release quetiapine 100 mg tablet 100 mg PO BID 11/27/22 12/02/22 Previous Rx's Medication Instructions Recorded fenofibrate 160 mg tablet 160 mg PO DAILY 90 days #90 tabs 09/06/22 lidocaine 4 % topical patch 1 patch topical BID PRN pain #60 ea 09/09/22 (Salonpas (lidocaine)) metoprolol succinate 50 mg 50 mg PO DAILY #90 tabs 10/09/22 tablet,extended release 24 hr pravastatin 40 mg tablet 40 mg PO DAILY #90 tabs 10/09/22 hydrocortisone-pramoxine 1 %-1 % 1 appl UT QID PRN itching #30 grams 11/12/22 rectal cream witch lorraine 50 % topical pads 1 pad topical BID-QID PRN skin 11/12/22 (Tucks (witch lorraine)) irritation #100 ea tizanidine 4 mg capsule 8 mg PO Q8H PRN muscle spasticity 11/27/22 30 days #120 caps acetaminophen 650 mg 650 mg PO Q8H #90 tabs 12/17/22 tablet,extended release (Mapap Arthritis Pain) bethanechol chloride 50 mg tablet 50 mg PO BID 90 days #180 tabs 12/27/22 ibuprofen 800 mg tablet 800 mg PO Q8H PRN pain #21 tabs 01/18/23 estradiol 10 mcg vaginal tablet 10 mcg vaginal 2XW #24 tabs 01/21/23 (Vagifem) cholecalciferol (vitamin D3) 50 50 mcg PO DAILY #30 caps 01/22/23 mcg (2,000 unit) capsule ibuprofen 800 mg tablet 800 mg PO Q8H PRN pain #90 tabs 01/30/23 lidocaine 5 % topical ointment 1 appl topical TID PRN pain #30 02/12/23 grams Allergies Allergy/AdvReac Type Severity Reaction Status Date / Time bacitracin [From NEOSPORIN] Allergy Severe RASH Verified 01/30/23 12:25 gramicidin D [From NEOSPORIN] Allergy Severe RASH Verified 01/30/23 12:25 polymyxin B [From NEOSPORIN] Allergy Severe RASH Verified 01/30/23 12:25 adhesive tape [ADHESIVE TAPE] Allergy Intermediate RASH/BLISTE Verified 01/30/23 12:25 RS polyester fibers Allergy Intermediate Itching Verified 01/30/23 12:25 Sulfa (Sulfonamide Allergy Intermediate ITCHY RASH Verified 01/30/23 12:25 Antibiotics) [SULFA (SULFONAMIDE ANTIBIOTICS)] chlorhexidine Allergy Mild Rash Verified 01/30/23 12:25 [From ChloraPrep Clear] cefazolin [CEFAZOLIN] AdvReac Intermediate GI UPSET Verified 01/30/23 12:25 Review of Systems Review of Systems: Constitutional: No weight loss. No fever. No chills. No weakness. No fatigue. Cardiovascular: No chest pain. No chest pressure. No palpitations. No pedal edema. Respiratory: No shortness of breath. No cough. No sputum production. Gastrointestinal: No anorexia. No nausea. No vomiting. No diarrhea. No abdominal pain. No blood in stool. Genitourinary: No burning micturition. No urinary frequency. No incontinence. Neurologic: No headache. No dizziness. No numbness. No tingling. No change in b owel or bladder control. Musculoskeletal: Positive muscle pain. Positive back pain. Positive joint pain. No stiffness. Hematologic: No bleeding. No bruising. Psychiatric:No depression. No anxiety. Yes all other systems are reviewed and are negative [facility] Past Medical History Attestation statement: The following information was validated with the patient. Source: old records reviewed Medical History (Reviewed 01/30/23 @ 12:25 by Hazel Mcdonnell [facility] [address]) Anxiety and depression Cervical radiculopathy due to degenerative joint disease of spine Cholelithiasis Exposure to bloodborne pathogen Fatigue Fibromyalgia GERD (gastroesophageal reflux disease) H. pylori duodenitis History of cardiac murmur HLA B27 (HLA B27 positive) Hypercholesterolemia Hypertension Impaired glucose tolerance Incontinence of urine Insomnia Left shoulder pain Lumbar degenerative disc disease Needle stick, hypodermic, accidental Obesity (BMI 30-39.9) Osteopenia Restless leg syndrome S/P ECT (electroconvulsive therapy) Spina bifida occulta Tobacco abuse Tooth missing Vitamin D deficiency Surgical History H/O basal cell carcinoma excision H/O nasal septoplasty H/O right wrist surgery H/O thumb surgery History of cervical discectomy History of cholecystectomy History of hemorrhoidectomy History of hernia repair History of incisional hernia repair (10/02/22) History of lumbar fusion History of partial hysterectomy History of shoulder surgery History of tonsillectomy Hx of colonoscopy Family History Family History Father Hypertension Past heart attack CVD (cardiovascular disease) Mother Hyperlipidemia Paternal Grandmother Lung cancer Son Substance abuse Brother Bipolar 1 disorder Other Mental health disorder Social History Social History (Reviewed 01/30/23 @ 12:25 by Hazel Mcdonnell [facility] [address]) Housing: House Are you a primary adult caregiver to a significant other at home: No Do you presently have visiting nurse or other home services: Yes ([employer] 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) Alcohol intake: never Patient Tobacco Use Status: Never used Tobacco Tobacco use type: Cigarette Cigarette Packs Per Day: 0.5 Cigarettes Per Day: 10 Years Smoked: 46 Smoked in Last 30 Days: No e-Cigarette/Vaping Use: Never Used Second Hand Smoke Exposure: Yes Use of substances other than those prescribed or required for medical reasons: No Advance Directives: No Advance Directives Information Provided: Yes service: No Current occupational status: disabled Cognitive needs: No Hearing needs: No Vision needs: Yes (reading glasses) Physical Exam ED Vital Signs: Vital Signs - 24 hr 02/12/23 17:16 Temperature 99.2 F Pulse Rate 79 Respiratory Rate 18 Blood Pressure 144/79 H Pulse Oximetry 98 Oxygen Delivery Method Room Air BMI result Body Mass Index 28.3 Appearance: Alert.?Oriented to person, place and time. No acute distress.?Normal affect. Eyes: Pupils equal, round and reactive to light.? ENT: Pharynx normal.?? Neck: Normal inspection.? Neck supple.?? CVS: Heart sounds normal. Normal heart rate and rhythm.? Pulses normal.?? Respiratory: No respiratory distress.? Lung sounds clear to auscultation bilaterally?? Abdomen: Soft and non-tender. Normoactive bowel sounds. Skin: Skin warm and dry.? Normal skin color.? Extremities: No lower extremity edema.? No calf ttp?. Mild tenderness upon palpation to the left medial thigh Neuro: Moves all extremities spontaneously. Sensation intact bilaterally. No focal neuro deficits. Ambulates with normal steady gait. Course Course Course Narrative: RME- 63-year-old female presents for evaluation of left thigh pain. Reports atraumatic. She went to urgent care and was told to come in for an ultrasound of the leg Medical Decision Making Medical Decision Making MDM Narrative: Patient is a 63-year-old female past medical history of anxiety, depression, cervical radiculopathy, fibromyalgia, GERD, hyperlipidemia, hypertension, lumbar degenerative disc disease, obesity, restless legs syndrome presenting to emergency department for evaluation of atraumatic left thigh pain as per HPI. At the time my examination she is overall well-appearing. No respiratory distress. Ambulatory with a steady gait. Does not appear consistent with fracture dislocation. At this time pain is 1/10, mild tenderness upon palpation of the medial aspect of the left thigh without any signs of deformity or cellulitis. Extremities neurovascularly intact distally. Reviewed labs obtained from initial rapid medical examination, CBC revealing a mild normocytic anemia and thrombocytosis which is baseline, no leukocytosis is present. BMP is unremarkable. Venous duplex of the left lower extremity does not reveal evidence of DVT. At this time pain seems most consistent with muscle spasming, she is already prescribed tizanidine. She is concerned about the mild aching/tenderness that is present persistently, requesting a prescription for Lidoderm cream which I feel is appropriate. Advised outpatient follow-up with primary care provider, discussed worrisome signs and symptoms that would warrant re-evaluation in the emergency department. All questions answered. Stable for discharge.. Differential Diagnosis Differential Diagnoses: The differential diagnosis associated with the presentation includes (Fracture, dislocation, cellulitis, myositis, DVT, musculoskeletal pain) Admission/Observation Consideration of admission/observation: Escalation of care including admission/observation considered (Considered admission for unilateral lower extremity pain, please see narrative above for further detail) Lab Data MDM Lab Attestation statement: I reviewed the patient's lab results. (Please see narrative above) 02/12/23 17:26 02/12/23 17:26 Labs: Lab Results 02/12/23 02/12/23 02/12/23 Range/Units 17:26 17:26 17:26 WBC 7.0 (4.8-10.8) X10*3/uL RBC 3.81 L (4.20-5.50) X10*6/uL Hgb 11.9 L (12.0-16.0) g/dl Hct 34.3 L (37.0-47.0) % MCV 90.0 (80.0-98.0) fL MCH 31.2 (27.0-33.0) pg MCHC 34.7 (31.0-35.0) g/dl RDW 12.3 (11.0-16.0) % Plt Count 408 H (160-400) X10*3/uL MPV 9.5 (9.4-12.3) fL Immature Gran % (Auto) 0.3 (0.0-0.4) % Neut % (Auto) 47.0 (45-73) % Lymph % (Auto) 43.1 H (20-40) % Trinity % (Auto) 7.3 (2-11) % Eos % (Auto) 1.7 (0-4) % Baso % (Auto) 0.6 (0-2) % Lymph # (Auto) 3.0 (1.2-4.9) X10*3/uL Trinity # (Auto) 0.5 (0.1-1.2) X10*3/uL Eos # (Auto) 0.1 (0.0-0.4) X10*3/uL Baso # (Auto) 0.0 (0.0-0.2) X10*3/uL Abs Immat Gran (auto) 0.02 (0.00-0.03) X10*3/uL Absolute Neuts (auto) 3.3 (2.0-8.3) x10*3/uL Absolute Nucleated RBC 0.000 (0.0-0.012) X10*3/uL Nucleated RBC % (auto) 0.0 (0.0-0.2) /100WBC PT 10.2 (10.0-13.1) SEC INR 0.9 (0.9-1.1) APTT 30.4 (26.0-36.4) SEC Sodium 140 (135-145) mmol/L Potassium 3.5 (3.3-5.1) mmol/L Chloride 107 (96-108) mmol/L Carbon Dioxide 23 (22-29) mmol/L Anion Gap 14 (12-20) BUN 16 (9-16) mg/dL Creatinine 0.94 (0.5-1.4) mg/dL Estim Creat Clear Calc 50.2 Estimated GFR > 60 Random Glucose 117 H (60-115) mg/dL Calcium 10.0 (8.4-10.2) mg/dL Radiology Impression Discussion of test interpretation with radiology: I have reviewed the radiologist's reading. Radiologist Impression: US/US venous duplex LE LT IMPRESSION: No DVT demonstrated in the left lower extremity. External Record Review External record reviewed: Outpatient record and Prior outpatient labs Tests considered The following testing was considered but not selected: I considered XR imaging of the left hip/femur, however atraumatic in nature, low suspicion for fracture dislocation, XR imaging deferred. Prescription Management I considered prescription management with: Pain Medication (Topical lidocaine) Discharge Plan Discharge Clinical Impression: Muscle spasm of left lower extremity Patient Disposition: Home, Self-Care Instructions: Muscle Spasm (ED) Additional Instructions: As discussed, the ultrasound today does not show any evidence of blood clot in the left leg which is very reassuring. I sent a prescription for the lidocaine ointment to your pharmacy. Please use this as prescribed. Please contact your primary care provider to arrange for a follow-up visit within 1-3 days. You may return back to emergency department any new or worsening symptoms or concerns. Prescriptions: New lidocaine 5 % ointment 1 appl topical TID PRN (Reason: pain) Qty: 30 0RF No Action fenofibrate 160 mg tablet 160 mg PO DAILY 90 Days Qty: 90 1RF lidocaine [Salonpas (lidocaine)] 4 % adhesive patch,medicated 1 patch topical BID PRN (Reason: pain) Qty: 60 3RF metoprolol succinate 50 mg tablet extended release 24 hr 50 mg PO DAILY Qty: 90 2RF pravastatin 40 mg tablet 40 mg PO DAILY Qty: 90 2RF acetaminophen [Mapap Arthritis Pain] 650 mg tablet extended release 650 mg PO Q8H Qty: 90 5RF bethanechol chloride 50 mg tablet 50 mg PO BID 90 Days Qty: 180 1RF estradiol [Vagifem] 10 mcg tablet 10 mcg vaginal 2XW Qty: 24 1RF Rx Instructions: Use vaginally 2 times a week: Mon/thurs at bedtime cholecalciferol (vitamin D3) 50 mcg (2,000 unit) capsule 50 mcg PO DAILY Qty: 30 5RF tizanidine 4 mg capsule 8 mg PO Q8H PRN (Reason: muscle spasticity) 30 Days Qty: 120 1RF ibuprofen 800 mg tablet 800 mg PO Q8H PRN (Reason: pain) Qty: 21 0RF clonazepam 1 mg tablet 1 mg PO TID sertraline 100 mg tablet 100 mg PO DAILY omeprazole 20 mg tablet,delayed release (DR/EC) 20 mg PO DAILY quetiapine 100 mg tablet 100 mg PO BID hydrocortisone-pramoxine 1-1 % cream 1 appl UT QID PRN (Reason: itching) Qty: 30 0RF Tucks (witch lorraine) 50 % pads, medicated 1 pad topical BID-QID PRN (Reason: skin irritation) Qty: 100 0RF ibuprofen 800 mg tablet 800 mg PO Q8H PRN (Reason: pain) Qty: 90 0RF Referrals: Po,Kenya Collazo MD [Primary Care Provider] - Interventions: ED Discharge Assessment Last Done: 02/12/23 18:45 Discharge Date/Time: 02/12/23 18:46
[2023-02-12 17:30] LABS: MANUAL DIFF FLAG NO
[2023-02-12 17:34] LABS: Basophils Percent Auto 0.6 % (0-2); Eosinophils Absolute Auto 0.1 X10*3/uL (0.0-0.4); Eosinophils Percent Auto 1.7 % (0-4); Hematocrit 34.3 % (37.0-47.0); Hemoglobin 11.9 g/dl (12.0-16.0); Imm Gran Abs Auto 0.02 X10*3/uL (0.00-0.03); Imm Gran Pct Auto 0.3 % (0.0-0.4); Lymphocytes Percent Auto 43.1 % (20-40); Mean Corpuscular HGB Conc 34.7 g/dl (31.0-35.0); Mean Corpuscular Hemoglobin 31.2 pg (27.0-33.0); Mean Platelet Volume 9.5 fL (9.4-12.3); Monocytes Absolute Auto 0.5 X10*3/uL (0.1-1.2); Monocytes Percent Auto 7.3 % (2-11); Neutrophils Absolute Auto 3.3 x10*3/uL (2.0-8.3); Platelet Count 408 X10*3/uL (160-400); Red Blood Count 3.81 X10*6/uL (4.20-5.50); Red Cell Distribution Width 12.3 % (11.0-16.0)
[2023-02-12 18:00] LABS: Anion Gap 14 (12-20); Blood Urea Nitrogen 16 mg/dL (9-16); Carbon Dioxide 23 mmol/L (22-29); Chloride 107 mmol/L (96-108); Creatinine Clr Calc Pharmacy 50.2; Estimated Glomerular Filt Rate > 60; Glucose Random 117 mg/dL (60-115); Potassium 3.5 mmol/L (3.3-5.1); Sodium 140 mmol/L (135-145)
== END 2023-02-12 18:46 | disposition home or self-care (01) ==
PROVIDERS: Physician Assistant; Emergency Provider Emergency Medicine Emergency Medical Services; PCP Internal Medicine
DX: M62.838 Other muscle spasm (principal); M79.605 Pain in left leg; I10 Essential (primary) hypertension; E78.00 Pure hypercholesterolemia, unspecified; F17.210 Nicotine dependence, cigarettes, uncomplicated; Z79.899 Other long term (current) drug therapy
CPT/HCPCS: 36415; 80048; 85025; 85610; 85730; 93971; 99283; 99284

== ENCOUNTER 2023-02-20 14:37 | Outpatient (AMB) | payer OTHER, SELFPAY ==
--- NOTE | 2023-02-20 13:33 | A.OFFVIS_ITS ---
Intake Intake Visit Reasons: 6w/PVR Intake Note: * Patient presents today for a 6 week and PVR follow-up. * Meds- Estradiol * Allergies to Antibiotic- Bacitracin, Cefazolin & Sulfa * Blood Thinner- None * PVR- 853 ml Passenger Flagman Required: No Accompanied by: Self / Same As Patient Allergies bacitracin [From NEOSPORIN] Allergy (Severe, Verified 04/17/23 11:51) RASH gramicidin D [From NEOSPORIN] Allergy (Severe, Verified 04/17/23 11:51) RASH polymyxin B [From NEOSPORIN] Allergy (Severe, Verified 04/17/23 11:51) RASH adhesive tape [ADHESIVE TAPE] Allergy (Intermediate, Verified 04/17/23 11:51) RASH/BLISTERS polyester fibers Allergy (Intermediate, Verified 04/17/23 11:51) Itching Sulfa (Sulfonamide Antibiotics) [SULFA (SULFONAMIDE ANTIBIOTICS)] Allergy (Intermediate, Verified 04/17/23 11:51) ITCHY RASH chlorhexidine [From ChloraPrep Clear] Allergy (Mild, Verified 04/17/23 11:51) Rash cefazolin [CEFAZOLIN] Adverse Reaction (Intermediate, Verified 04/17/23 11:51) GI UPSET HPI HPI Comments History of Present Illness Details María is a 63-year-old female who presents to the office for 6-weeks follow-up. 02/20/23-- The patient is been followed for neurogenic bladder/ urinary retention with incomplete bladder emptying. She has a history of fibromyalgia. She has been prescribed with bethanechol 50 mg BID, which she felt is helping her. However, she continues to have an elevated PVR on bladder scans in office I previously discussed alternative therapies include neuromodulation Interstim therapy and clean catheterization which the patient declines. She was treated with Alfuzosin which was discontinued due to complaints of lightheadedness. I discussed to increase the dose of bethanechol 3 times a day. The patient is afraid that she might have urianry leakage at night which makes her hesistant in trying the medication for three times a day. She has been having pain down her inner thigh bilaterally and she has an appoitment with neurology Dr. Hendrix who will also review the MRI film. I have discussed concern regarding urinary retention is still signficant. I am happy that she has not had UTI symptoms and will monitor kidneys. Evaluation 11/04/22-- Bladder scan PVR: 750 mL. The patient voided 100 mL. Bladder was drained using a catheter and 700 mL urine was drained. Renal US results reviewed?09/25/2022-- Mild bilateral hydronephrosis. Kidneys: WNL, no renal calculi visualized. CTAP results reviewed--11/06/22-- No hydronephrosis noted. The bladder is distended. Sacrum MRI results reviewed-- 12/03/22--normal appearance of sacral plexus. No sites of nerve impingement or stenoses. A dorsal defect in the dural sac at the L5 level is unchanged. An incidental 3.8 cm unilocular right adnexal cyst. No suspicious features is noted. bladder is distended with a trabeculated wall and that is unchanged. Evaluation today UA: blood: negative, leukocytes: negative. Bladder scan PVR: 853 mL. Plan: Follow-up in 3 months. Renal US prior. Discussed with the patient the concern is that if she continues to retain large amounts of urine in the bladder it can cause pressure on the kidneys. [facility] Medical History Anxiety and depression Cervical radiculopathy due to degenerative joint disease of spine Cholelithiasis Exposure to bloodborne pathogen Fatigue Fibromyalgia GERD (gastroesophageal reflux disease) H. pylori duodenitis History of cardiac murmur HLA B27 (HLA B27 positive) Hypercholesterolemia Hypertension Impaired glucose tolerance Incontinence of urine Insomnia Left shoulder pain Lumbar degenerative disc disease Needle stick, hypodermic, accidental Obesity (BMI 30-39.9) Osteopenia Restless leg syndrome S/P ECT (electroconvulsive therapy) Spina bifida occulta Tobacco abuse Tooth missing Vitamin D deficiency Surgical History H/O basal cell carcinoma excision H/O nasal septoplasty H/O right wrist surgery H/O thumb surgery History of cervical discectomy History of cholecystectomy History of hemorrhoidectomy History of hernia repair History of incisional hernia repair (10/02/22) History of lumbar fusion History of partial hysterectomy History of shoulder surgery History of tonsillectomy Hx of colonoscopy Family History Father Hypertension Past heart attack CVD (cardiovascular disease) Mother Hyperlipidemia Paternal Grandmother Lung cancer Son Substance abuse Brother Bipolar 1 disorder Other Mental health disorder Social History Housing: House Are you a primary health care facility administrator to a significant other at home: No Do you presently have visiting nurse or other home services: Yes (RN PRIOR AUTHORIZATION 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) Alcohol intake: never Patient Tobacco Use Status: Current everyday Tobacco user Tobacco use type: Cigarette Cigarette Packs Per Day: 0.5 Cigarettes Per Day: 10 Years Smoked: 46 e-Cigarette/Vaping Use: Never Used Second Hand Smoke Exposure: Yes service: No Current occupational status: disabled Cognitive needs: No Hearing needs: No Vision needs: Yes (reading glasses) Review of Systems Const All systems reviewed & are unremarkable except as noted in HPI and below Reports no additional complaints Eyes Reports no additional complaints ENT Reports no additional complaints Card Denies dyspnea Resp Denies cough and Denies dyspnea GI Reports no additional complaints Reports no additional complaints Musc Reports no additional complaints Skin/Breast Denies rash and Denies unusual bruising Neuro Reports no additional complaints Psych Reports no additional complaints Endo Reports no additional complaints Adam/Lymph Reports no additional complaints Aller/Immun Reports no additional complaints Physical Exam Const General: cooperative and no acute distress Orientation/consciousness: patient oriented x3 HEENT Head: Yes normal to inspection, Yes normocephalic and Yes atraumatic Eyes Conjunctivae: conjunctivae normal Neck Neck: Yes normal visual inspection and Yes trachea midline Chest Chest palpation & inspection: normal inspection of the chest Resp Effort & Inspection: normal respiratory effort Cardio Rate: regular rate GI Inspection: Yes normal to inspection Skin General skin exam: no rashes or lesions noted Neuro General: patient oriented x3 Psych Appearance: grossly normal Office Procedures Post Void Residual Post Residual Void Post Void Residual (PVR): [id number] Void Residual by ultrasound Results AMB Urinalysis, Automated UA Leukoctes 0 Walter/uL Last Edit by Susan Nilay, A on 02/20/23 15:01 UA Nitrite Negative Last Edit by Susan Pemberton, A on 02/20/23 15:01 UA Urobilinogen 0.2 mg/dL Last Edit by Tiffrennyedgar Maxirez, A on 02/20/23 15:0 1 UA Protein 0 mg/dL Last Edit by Susan Pemberton, A on 02/20/23 15:01 UA pH 6.0 Last Edit by Susan Pemberton, A on 02/20/23 15:01 UA Blood 0 Dennis/uL Last Edit by Susan Pemberton, [facility] on 02/20/23 15:01 UA Specific [place] 1.010 Last Edit by Susan Nilay, [facility] on 02/20/23 15: 01 UA Ketone Negative Last Edit by Vibhaedgar Nilay, [facility] on 02/20/23 15:01 UA Bilirubin 0 mg/dL Last Edit by Susan Pemberton, [facility] on 02/20/23 15:01 UA Glucose 0 mg/dL Last Edit by Susan Pemberton, A on 02/20/23 15:01 Results Reviewed Results Reviewed: Laboratory Last Values Urine pH (Auto) 6.0 02/20/23 14:43 Specific [place] (Auto) 1.010 02/20/23 14:43 Urine Protein (Auto) 0 mg/dL 02/20/23 14:43 Glucose (UA)(Auto) 0 mg/dL 02/20/23 14:43 Urine Ketones (Auto) Negative 02/20/23 14:43 Urine Blood (Auto) 0 Dennis/uL 02/20/23 14:43 Urine Nitrite (Auto) Negative 02/20/23 14:43 Urine Bilirubin (Auto) 0 mg/dL 02/20/23 14:43 Urine Urobilinogen (Auto) 0.2 mg/dL 02/20/23 14:43 Leukocyte Esterase (Auto) 0 Walter/uL 02/20/23 14:43 Date of Service: 12/03/22 Procedure(s): MR sacrum wo con Accession Number(s): [id number] cc: Karthik ePdraza MD~ EXAMINATION:? MRI OF THE SACRUM WITHOUT CONTRAST CLINICAL INDICATION: Spina bifida occulta. Incomplete bladder emptying. COMPARISON: MRI lumbar spine dated 09/17/2022. TECHNIQUE: Multiplanar MR imaging was obtained through the pelvis/sacrum without contrast material on a 1.5 Portia magnet. FINDINGS: LOWER LUMBAR SPINE: Again seen are postsurgical changes of prior posterior decompression and instrumented fusion at the L5-S1 level. There is osseous bridging at the interbody space with chronic grade 1 anterolisthesis of L5 on S1. No acute osseous findings. There is [id number] degenerative disc disease at L3-L4 with a generalized disc osteophytic bulge in this region. Central canal stenosis at L3-L4 and the potential for neural foraminal impingement at the L4-L5 and L5-S1 levels are better assessed on the prior lumbar spine MRI. Again seen is a dorsal defect in the dural sac at the posterior aspect of the L5 level. This defect measures approximately 1.5 x 1.8 cm in area. The cauda equina are shifted posteriorly in this region (better seen on the prior MRI of the lumbar spine) without clear distortion/clumping or other findings of arachnoiditis. SACRAL CANAL: Cauda equina is normal in appearance in the sacral canal with normal appearance of the sacral nerve roots. No sites of nerve impingement or stenoses are identified. PERIPHERAL NERVES IN THE PELVIS: No appreciable abnormalities are identified at the lumbosacral trunk, sacral plexus, sciatic nerves, obturator nerves, and femoral nerve. OSSEOUS PELVIS: SI joints appear relatively well preserved. No sacroiliitis. Pubic symphysis is unremarkable. Minimal osteoarthritis in the hips. No acute osseous abnormalities. No hip joint effusions. MUSCULATURE: No atrophy or edema signal. Tendons appear intact without tears or significant tendinosis. Piriformis muscles are symmetric. INTRAPELVIC SOFT TISSUES: Moderate colonic diverticulosis. The bladder is distended with a trabeculated wall. There is a 3.8 x 1.5 x 1.5 cm unilocular cyst in the right adnexal region. No left adnexal cyst. No suspicious features. Uterus appears either atrophic or surgically absent. No adenopathy. MR/MR sacrum wo con IMPRESSION: 1. Normal appearance of the sacral plexus. No sites of nerve impingement or stenoses are identified. ? 2. Postsurgical changes of prior L5-S1 posterior decompression and instrumented fusion. A dorsal defect in the dural sac at the L5 level is unchanged from the prior MRI. ? 3. A 3.8 cm unilocular right adnexal cyst. No suspicious features. Simple-appearing cyst. No follow-up imaging recommended. Note: This recommendation does not apply to patient's increased risk (genetic, family history, elevated tumor markers or other high-risk factors) of ovarian cancer. Reference: JACR 2019; 17(2):248-254 ? 4. Bladder is distended with a trabeculated wall, unchanged. Assessment & Plan Assessment & Plan (1) Neurogenic bladder: Code(s): N31.9 - Neuromuscular dysfunction of bladder, unspecified (2) Urinary retention with incomplete bladder emptying: Code(s): R33.9 - Retention of urine, unspecified Plan Follow-up in 3 months. Renal US prior. Discussed with the patient the concern is that if she continues to retain large amounts of urine in the bladder it can cause pressure on the kidneys. Orders: Orders AMB Post Void Residual by ultrasound 02/20/23 N39.8 - Other specified disorders of urinary system AMB Urinalysis Automated 02/20/23 Z13.9 - Encounter for screening, unspecified US retroperitoneal comp 2 Months R33.9 - Retention of urine, unspecified, N31.9 - Neuromuscular dysfunction of bladder, unspecified Patient Instructions: The patient had an opportunity to ask questions regarding treatment plan. All questions were answered. Imaging, Laboratory studies and physical exam results were discussed and reviewed in detail. No major barriers to understanding were identified. The patient expressed understanding and agreement with the above treatment plan. The patient is aware they should contact our office by phone for worsening of their current condition or the appearance of new symptoms. Compliance is encouraged with any medications and followup testing that is ordered. It is a privilege to be allowed the opportunity to participate in the urologic care of your patient. If you have any questions or concerns regarding treatment for the above conditions please do not hesitate to contact me. The office telephone contact is [phone]. This note is constructed in part using voice recognition software. While every effort has been made to ensure accuracy tissue specialist errors may have been included. Yours sincerely, Mike Raphael MD Coding Level of Care Code Est Pt Level 4 (17502) Diagnoses Neurogenic bladder N31.9 Urinary retention with incomplete bladder emptying R33.9 CPT Codes Post Residual Void - PVR CPT Code: 22865-Wwgq Void Residual by ultrasound ([id number]) Time Spent (min) 34
== END 2023-02-20 15:32 | disposition home or self-care (01) ==
PROVIDERS: PCP Internal Medicine; Visit Provider Urology
DX: N31.9 Neuromuscular dysfunction of bladder, unspecified (principal); R33.9 Retention of urine, unspecified
CPT/HCPCS: 99214

== ENCOUNTER → 2023-02-20 14:37 | Outpatient (BNVA) | payer OTHER, SELFPAY | PROVIDERS: PCP Internal Medicine; Visit Provider Urology | DX: N31.9 Neuromuscular dysfunction of bladder, unspecified (principal); R33.9 Retention of urine, unspecified | CPT/HCPCS: 51798; 99212 ==

== ENCOUNTER 2023-02-20 15:55 | Outpatient (AMB) | payer OTHER, SELFPAY ==
--- NOTE | 2023-02-20 15:58 | AM.OFFVISNUR ---
Intake Intake Visit Reasons: Tetanus Allergies bacitracin [From NEOSPORIN] Allergy (Severe, Verified 02/20/23 14:41) RASH gramicidin D [From NEOSPORIN] Allergy (Severe, Verified 02/20/23 14:41) RASH polymyxin B [From NEOSPORIN] Allergy (Severe, Verified 02/20/23 14:41) RASH adhesive tape [ADHESIVE TAPE] Allergy (Intermediate, Verified 02/20/23 14:41) RASH/BLISTERS polyester fibers Allergy (Intermediate, Verified 02/20/23 14:41) Itching Sulfa (Sulfonamide Antibiotics) [SULFA (SULFONAMIDE ANTIBIOTICS)] Allergy (Intermediate, Verified 02/20/23 14:41) ITCHY RASH chlorhexidine [From ChloraPrep Clear] Allergy (Mild, Verified 02/20/23 14:41) Rash cefazolin [CEFAZOLIN] Adverse Reaction (Intermediate, Verified 02/20/23 14:41) GI UPSET Results AMB Urinalysis, Automated UA Leukoctes 0 Walter/uL Last Edit by Susan Pemberton [facility] on 02/20/23 15:01 UA Nitrite Negative Last Edit by Susan Pemberton [facility] on 02/20/23 15:01 UA Urobilinogen 0.2 mg/dL Last Edit by Susan Pemberton [facility] on 02/20/23 15:01 UA Protein 0 mg/dL Last Edit by Susan Pemberton [facility] on 02/20/23 15:01 UA pH 6.0 Last Edit by Susan Pemberton [facility] on 02/20/23 15:01 UA Blood 0 Dennis/uL Last Edit by Susan Pemberton [facility] on 02/20/23 15:01 UA Specific [place] 1.010 Last Edit by Susan Pemberton [facility] on 02/20/23 15:01 UA Ketone Negative Last Edit by Susan Pemberton [facility] on 02/20/23 15:01 UA Bilirubin 0 mg/dL Last Edit by Susan Pemberton [facility] on 02/20/23 15:01 UA Glucose 0 mg/dL Last Edit by Susan Pemberton [facility] on 02/20/23 15:01 Immunizations tetanus-diphtheria toxoids-Td Performing Provider: Kenya Almaraz MD Administered by: Marisol Hull RN on 02/20/23 16:18 Dose Route Admin Location Lot Number Expiration Date NDC Software Test Automation Engineer 0.5 mL IM Left Deltoid [id number] 12/15/23 [address]-3 [employer] VIS Given Date VIS Provided VIS Publication Date 02/20/23 Single Vaccine 21 Eligibility Eligibility Date Funding Source Not [facility] Eligible 02/20/23 State funds Coding Diagnoses Assessment & Plan Assessment & Plan Orders: Orders Td State Immunization Today Z23 - Encounter for immunization
== END 2023-02-20 16:25 | disposition home or self-care (01) ==
PROVIDERS: PCP Internal Medicine; Visit Provider Internal Medicine
DX: Z23 Encounter for immunization (principal)
CPT/HCPCS: 90471; 90714

== ENCOUNTER 2023-03-19 13:18 | Outpatient (RCR) | payer OTHER, SELFPAY ==
--- NOTE | 2023-05-20 12:50 | MHC.PT.DC ---
[facility] [place] [facility] [place] [facility] [place] [facility] [address] Shanti Fuentes [address] [phone] F: [phone] F: [phone] F: [phone] F: [phone] Physical Therapy Discharge Report Diagnosis: bilateral hip bursitis (MD Dx) Lumbar spine radiculopathy (PT Dx) Hx lumbar fusion L4-L5 with grade 1 anterolisthesis of L5 on S1 DDD L3-L4 with new endplate marrow edema, right greater than left subarticular zone narrowing with mass effect on the traversing right L4 nerve root Date of Surgery: Date of Evaluation: 03/19/23 Date of Discharge: 05/20/23 Treatments to Date: 1 Cancellations to Date: 0 No Shows to Date: 2 Discharge Status: Patient Elected to Stop Discharge Summary: Patient did not show to any FUP visits after PT evaluation. She called to discontinue PT as she had more pain after her initial PT visit and is having FUP visits with spine surgeon, would like to not continue with PT at this time. She is discharged from PT. Electronically signed by: Isaiah Cardenas, PT, DPT Please sign and return to therapist. Thank you for your referral.
== END 2023-05-20 12:50 | disposition home or self-care (01) ==
LOC: HO.PT 13:18
PROVIDERS: PCP Internal Medicine; Visit Provider Orthopaedic Surgery
DX: M70.71 Other bursitis of hip, right hip (principal); M70.72 Other bursitis of hip, left hip; M76.891 Other specified enthesopathies of right lower limb, excluding foot
CPT/HCPCS: 97110; 97163

== ENCOUNTER 2023-03-26 13:34 | Outpatient (AMB) | payer OTHER, MEDICAID, SELFPAY ==
--- NOTE | 2023-03-26 14:18 | HO.SPINEOV ---
Intake Intake Visit Reasons: Left leg spasms inner thigh Intake Note: Ms. Eastman is here today c/o low back pain w/left leg spasms. MRI done @ [facility] [place] Homeopathic Doctor Required: No Allergies bacitracin [From NEOSPORIN] Allergy (Severe, Verified 02/20/23 14:41) RASH gramicidin D [From NEOSPORIN] Allergy (Severe, Verified 02/20/23 14:41) RASH polymyxin B [From NEOSPORIN] Allergy (Severe, Verified 02/20/23 14:41) RASH adhesive tape [ADHESIVE TAPE] Allergy (Intermediate, Verified 02/20/23 14:41) RASH/BLISTERS polyester fibers Allergy (Intermediate, Verified 02/20/23 14:41) Itching Sulfa (Sulfonamide Antibiotics) [SULFA (SULFONAMIDE ANTIBIOTICS)] Allergy (Intermediate, Verified 02/20/23 14:41) ITCHY RASH chlorhexidine [From ChloraPrep Clear] Allergy (Mild, Verified 02/20/23 14:41) Rash cefazolin [CEFAZOLIN] Adverse Reaction (Intermediate, Verified 02/20/23 14:41) GI UPSET Assessment & Plan Assessment & Plan (1) Thoracic spine pain: Code(s): M54.6 - Pain in thoracic spine (2) Bilateral thigh pain: Code(s): M79.651 - Pain in right thigh; M79.652 - Pain in left thigh Plan Dear colleague Thank you for referring María Eastman to the office today with a chief complaint of thoracic pain and bilateral thigh spasms. HPI: This 63-year-old female with a history of chronic pain in the neck and thoracic spine comes to visit me for chief complaint of bilateral inner thigh cramps. She describes it as somebody pulling out her muscles without Novocain. These episodes last approximately 20 minutes and can occur daily without provocation. She was seen by Dr. Peterson at [facility]. She went to physical therapy that only aggravate her symptoms. She denies weakness or numbness in her legs. An MRI of the lumbar spine shows severe degenerative disc disease L3-4 without significant central canal stenosis or foraminal stenosis. A 2nd complaint is posterior thoracic pain around the bra line . An MRI of the thoracic spine shows a mild thoracic curve and thoracic spondylosis without nerve compression. The following conservative treatment options were tried without success antiinflammatories, tylenol, physician guided home exercise plan, cortisone shots On exam, there are no objective findings. Neurological exam is intact for motor, sensation and reflexes. Gait is undisturbed Impression/Plan: I do not see spinal pathology explaining the intermittent pain in the obturator muscles. I also do not kno can offer her a solution for the symptoms. Will refer her to Pain Management, Dr. Betancourt, to see if she is a candidate for thoracic facet injections to treat the thoracic pain. I discharged her from further follow-up Thank you for allowing me to participate in your patients care. total time spent was 45 minutes in counseling ,coordination of plan, personal review of imaging, and subsequent plan Vinh Bustamante MD, PhD Spine Fellowship Trained Neurosurgeon Director, [facility] Orders: Referrals Pain Management Referral M54.6 - Pain in thoracic spine Coding Level of Care Code New Pt Level 4 (24439) Diagnoses Thoracic spine pain M54.6 Bilateral thigh pain M79.651; M79.652
== END 2023-03-26 14:58 | disposition home or self-care (01) ==
PROVIDERS: PCP Internal Medicine; Visit Provider Neurological Surgery
DX: M54.6 Pain in thoracic spine (principal); M79.651 Pain in right thigh; M79.652 Pain in left thigh
CPT/HCPCS: 99204

== ENCOUNTER → 2023-03-26 13:34 | Outpatient (BNVA) | payer OTHER, MEDICAID, SELFPAY | PROVIDERS: PCP Internal Medicine; Visit Provider Neurological Surgery | DX: M54.6 Pain in thoracic spine (principal); M79.652 Pain in left thigh; M79.651 Pain in right thigh | CPT/HCPCS: 99202 ==

== ENCOUNTER 2023-04-13 11:19 | Emergency (ER) | payer OTHER, MEDICAID, SELFPAY ==
--- NOTE | 2023-04-13 11:31 | ED_ITS ---
HPI - Wound/Laceration General Chief Complaint: Wound/Laceration Stated Complaint: cut finger Time Seen by Provider: 04/13/23 11:43 Source: patient Mode of arrival: ambulatory Limitations: no limitations History of Present Illness HPI narrative: 63 yo female with history of neurogenic bladder, chronic back pain, fibromyalgia, obesity, anxiety and depression, hyperlipidemia, GERD, hypertension, restless leg syndrome, right hand dominant here with complaints of left hand 4th digit skin avulsion after injury which occurred from a crush injury. Concerned because bleeding has continued. No weakness, numbness or t ingling of the extremity. Tetanus is up-to-date. No AC therapy Related Data Home Medications Medication Instructions Recorded Confirmed clonazepam 1 mg tablet 1 mg PO TID 08/21/21 12/02/22 sertraline 100 mg tablet 100 mg PO DAILY 08/26/22 12/02/22 omeprazole 20 mg tablet,delayed 20 mg PO DAILY 11/06/22 12/02/22 release quetiapine 100 mg tablet 100 mg PO BID 11/27/22 12/02/22 cannabidiol 100 mg/mL oral solution See Rx Instructions PO .COMPLEX 02/20/23 Previous Rx's Medication Instructions Recorded fenofibrate 160 mg tablet 160 mg PO DAILY 90 days #90 tabs 09/06/22 lidocaine 4 % topical patch 1 patch topical BID PRN pain #60 ea 09/09/22 (Salonpas (lidocaine)) metoprolol succinate 50 mg 50 mg PO DAILY #90 tabs 10/09/22 tablet,extended release 24 hr pravastatin 40 mg tablet 40 mg PO DAILY #90 tabs 10/09/22 hydrocortisone-pramoxine 1 %-1 % 1 appl [place] QID PRN itching #30 grams 11/12/22 rectal cream witch lorraine 50 % topical pads 1 pad topical BID-QID PRN skin 11/12/22 (Tucks (witch lorraine)) irritation #100 ea tizanidine 4 mg capsule 8 mg PO Q8H PRN muscle spasticity 11/27/22 30 days #120 caps acetaminophen 650 mg 650 mg PO Q8H #90 tabs 12/17/22 tablet,extended release (Mapap Arthritis Pain) bethanechol chloride 50 mg tablet 50 mg PO BID 90 days #180 tabs 12/27/22 ibuprofen 800 mg tablet 800 mg PO Q8H PRN pain #21 tabs 01/18/23 estradiol 10 mcg vaginal tablet 10 mcg vaginal 2XW #24 tabs 01/21/23 (Vagifem) cholecalciferol (vitamin D3) 50 50 mcg PO DAILY #30 caps 01/22/23 mcg (2,000 unit) capsule lidocaine 5 % topical ointment 1 appl topical TID PRN pain #30 02/12/23 grams epinephrine 0.3 mg/0.3 mL 0.3 mg (0.3 mL) IM Q4H PRN 02/20/23 injection, auto-injector (EpiPen anaphylaxis #2 ea 2-Hamilton) gabapentin 100 mg capsule 100 mg PO BEDTIME #30 caps 03/24/23 sanitary pads #40 ea 03/27/23 ibuprofen 800 mg tablet 800 mg PO Q8H PRN for pain #90 tabs 04/04/23 Allergies Allergy/AdvReac Type Severity Reaction Status Date / Time bacitracin [From NEOSPORIN] Allergy Severe RASH Verified 02/20/23 14:41 gramicidin D [From NEOSPORIN] Allergy Severe RASH Verified 02/20/23 14:41 polymyxin B [From NEOSPORIN] Allergy Severe RASH Verified 02/20/23 14:41 adhesive tape [ADHESIVE TAPE] Allergy Intermediate RASH/BLISTE Verified 02/20/23 14:41 RS polyester fibers Allergy Intermediate Itching Verified 02/20/23 14:41 Sulfa (Sulfonamide Allergy Intermediate ITCHY RASH Verified 02/20/23 14:41 Antibiotics) [SULFA (SULFONAMIDE ANTIBIOTICS)] chlorhexidine Allergy Mild Rash Verified 02/20/23 14:41 [From ChloraPrep Clear] cefazolin [CEFAZOLIN] AdvReac Intermediate GI UPSET Verified 02/20/23 14:41 Review of Systems Review of Systems: Yes all other systems are reviewed and are negative Constitutional: Constitutional: Reports no additional constitutional complaints, Denies body ache(s), Denies chills, Denies fever(s), Denies headache(s) and Denies weakness Eyes: Eyes: Reports no additional eye complaints and Denies change in vision ENT: Reports system reviewed and no additional complaints, except as documented, Denies dizziness, Denies headache(s), Denies nasal congestion, Denies nasal discharge and Denies neck pain Cardiovascular: Cardiovascular: Reports no additional cardiovascular complaints, Denies chest pain, Denies leg edema and Denies dyspnea Respiratory: Respiratory: Reports no additional respiratory complaints, Denies cough and Denies dyspnea Gastrointestinal: Gastrointestinal: Reports no additional gastrointestinal complaints, Denies abdominal pain, Denies diarrhea, Denies nausea and Denies vomiting Genitourinary: Genitourinary: Reports no additional female genitourinary complaints and Denies urinary incontinence Musculoskeletal: Musculoskeletal: Reports no additional musculoskeletal complaints, Denies back pain, Denies arthralgias, Denies joint swelling, Denies neck pain, Denies numbness and Denies tingling Integumentary/Breasts: Skin/Breast: Reports system reviewed and no additional complaints, except as docu, Denies rash and Reports wounds Neurologic: Reports system reviewed and no additional complaints, except as documented, Denies dizziness, Denies headache(s), Denies numbness, Denies tingling and Denies weakness PMFSH Past Medical History Attestation statement: The following information was validated with the patient. Source: old records reviewed and nursing notes reviewed Medical History Anxiety and depression Cervical radiculopathy due to degenerative joint disease of spine Cholelithiasis Exposure to bloodborne pathogen Fatigue Fibromyalgia GERD (gastroesophageal reflux disease) H. pylori duodenitis History of cardiac murmur HLA B27 (HLA B27 positive) Hypercholesterolemia Hypertension Impaired glucose tolerance Incontinence of urine Insomnia Left shoulder pain Lumbar degenerative disc disease Needle stick, hypodermic, accidental Obesity (BMI 30-39.9) Osteopenia Restless leg syndrome S/P ECT (electroconvulsive therapy) Spina bifida occulta Tobacco abuse Tooth missing Vitamin D deficiency Surgical History H/O basal cell carcinoma excision H/O nasal septoplasty H/O right wrist surgery H/O thumb surgery History of cervical discectomy History of cholecystectomy History of hemorrhoidectomy History of hernia repair History of incisional hernia repair (10/02/22) History of lumbar fusion History of partial hysterectomy History of shoulder surgery History of tonsillectomy Hx of colonoscopy Family History Family History Father Hypertension Past heart attack CVD (cardiovascular disease) Mother Hyperlipidemia Paternal Grandmother Lung cancer Son Substance abuse Brother Bipolar 1 disorder Other Mental health disorder Social History Social History Housing: House Are you a primary specialist wound care to a significant other at home: No Do you presently have visiting nurse or other home services: Yes ([employer] 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) Alcohol intake: never Patient Tobacco Use Status: Never used Tobacco Tobacco use type: Cigarette Cigarette Packs Per Day: 0.5 Cigarettes Per Day: 10 Years Smoked: 46 e-Cigarette/Vaping Use: Never Used Second Hand Smoke Exposure: Yes Advance Directives: No Advance Directives Information Provided: Yes service: No Current occupational status: disabled Cognitive needs: No Hearing needs: No Vision needs: Yes (reading glasses) Physical Exam Vital Signs: Vital Signs: Last Vital Signs Temp 98.0 F 04/13/23 11:32 Pulse 76 04/13/23 11:32 Resp 18 04/13/23 11:32 BP 140/70 H 04/13/23 11:32 Pulse Ox 98 04/13/23 11:32 O2 Del Method Room Air 04/13/23 11:32 BMI result Body Mass Index 27.3 Course Course Course Narrative: This is a rapid medical exam. deferred additional HPI, ROS, PE to primary provider. 63 female with history of neurogenic bladder, chronic back pain, fibromyalgia, obesity, anxiety and depression, hyperlipidemia, GERD, hypertension, restless leg syndrome, right hand dominant here with complaints of left hand 4th digit skin avulsion after injury which occurred from a crush injur y. Concerned because bleeding has continued. To the area there slight bleeding noted. Will need the area cleansed and dressing applied with ?surgicell. FROM of the digit. Tetanus UTD VSS Medical Decision Making Medical Decision Making MDM Narrative: 63 female with history of neurogenic bladder, chronic back pain, fibromyalgia, obesity, anxiety and depression, hyperlipidemia, GERD, hypertension, restless leg syndrome, right hand dominant here with complaints of left hand 4th digit skin avulsion after injury which occurred from a crush injury. Concerned because bleeding has continued. To the area there slight bleeding noted. Will need the area cleansed and dressing applied. FROM of the digit. Tetanus UTD No AC therapy This site will be cleansed by nursing and a topical dressing will be applied. Differential Diagnosis Differential Diagnoses: The differential diagnosis associated with the presentation includes Skin avulsion Laceration Tests considered The following testing was considered but not selected: Full range of motion of the finger with no bony tenderness, no need for x-ray Prescription Management I considered prescription management with: Antibiotic The area is cleansed, no signs of an effect, it seems like it was a clean cut, no need for antibiotic Discharge Plan Discharge Clinical Impression: Avulsion of skin Patient Disposition: Home, Self-Care Instructions: Skin Avulsion (ED) Additional Instructions: Leave the dressing in place today You may remove it tomorrow and wash the area with soap and water Take Motrin or Tylenol for pain as needed if able Prescriptions: No Action fenofibrate 160 mg tablet 160 mg PO DAILY 90 Days Qty: 90 1RF lidocaine [Salonpas (lidocaine)] 4 % adhesive patch,medicated 1 patch topical BID PRN (Reason: pain) Qty: 60 3RF metoprolol succinate 50 mg tablet extended release 24 hr 50 mg PO DAILY Qty: 90 2RF pravastatin 40 mg tablet 40 mg PO DAILY Qty: 90 2RF acetaminophen [Mapap Arthritis Pain] 650 mg tablet extended release 650 mg PO Q8H Qty: 90 5RF bethanechol chloride 50 mg tablet 50 mg PO BID 90 Days Qty: 180 1RF estradiol [Vagifem] 10 mcg tablet 10 mcg vaginal 2XW Qty: 24 1RF Rx Instructions: Use vaginally 2 times a week: Mon/thurs at bedtime cholecalciferol (vitamin D3) 50 mcg (2,000 unit) capsule 50 mcg PO DAILY Qty: 30 5RF epinephrine [EpiPen 2-Hamilton] 0.3 mg/0.3 mL auto-injector 0.3 mg IM Q4H PRN (Reason: anaphylaxis) Qty: 2 0RF gabapentin 100 mg capsule 100 mg PO BEDTIME Qty: 30 0RF (DME) sanitary pads long pad See Rx Instructions .Route .MEDSUPPLY Qty: 40 11RF Rx Instructions: long, thin sanitary pads (without wings) ibuprofen 800 mg tablet 800 mg PO Q8H PRN (Reason: for pain) Qty: 90 0RF lidocaine 5 % ointment 1 appl topical TID PRN (Reason: pain) Qty: 30 0RF tizanidine 4 mg capsule 8 mg PO Q8H PRN (Reason: muscle spasticity) 30 Days Qty: 120 1RF ibuprofen 800 mg tablet 800 mg PO Q8H PRN (Reason: pain) Qty: 21 0RF clonazepam 1 mg tablet 1 mg PO TID sertraline 100 mg tablet 100 mg PO DAILY omeprazole 20 mg tablet,delayed release (DR/EC) 20 mg PO DAILY quetiapine 100 mg tablet 100 mg PO BID hydrocortisone-pramoxine 1-1 % cream 1 appl [place] QID PRN (Reason: itching) Qty: 30 0RF Tucks (witch lorraine) 50 % pads, medicated 1 pad topical BID-QID PRN (Reason: skin irritation) Qty: 100 0RF cannabidiol 100 mg/mL solution See Rx Instructions PO .COMPLEX Patient Comments: with no thc in it Rx Instructions: with no thc in it orally; Referrals: Kenya Almaraz MD [Primary Care Provider] - 1 week Interventions: ED Discharge Assessment Last Done: 04/13/23 12:26 Discharge Date/Time: 04/13/23 12:26
[2023-04-13 11:32] VITALS: BP 140/70; PULSE 76; RESP 18; TEMP 36.7; O2SAT 98; BMI 27.3
== END 2023-04-13 12:26 | disposition home or self-care (01) ==
LOC: HO.ED 12:02
PROVIDERS: Emergency Provider Emergency Medicine; PCP Internal Medicine
DX: S61.215A Laceration without foreign body of left ring finger without damage to nail, initial encounter (principal); W26.9XXA Contact with unspecified sharp object(s), initial encounter; Y93.9 Activity, unspecified; Y92.9 Unspecified place or not applicable; Y99.9 Unspecified external cause status; Z79.899 Other long term (current) drug therapy
CPT/HCPCS: 99282

== ENCOUNTER 2023-04-16 13:29 | Outpatient (REF) | payer OTHER, SELFPAY ==
--- NOTE | ~2023-04-16 | US_ITS ---
EXAMINATION: US RETROPERITONEAL COMPLETE (RENAL) CLINICAL INFORMATION: Retention of urine, unspecified. COMPARISON: Renal ultrasound 09/25/2022. TECHNIQUE: Real-time imaging of the kidneys and bladder. FINDINGS: RIGHT KIDNEY: 9.7 x 3.8 x 5.4 cm (SAG x AP x TRV). The kidney is normal in size, contour, and echogenicity. Renal cortical thickness is normal. No calculi or focal parenchymal lesions. Pelviectasis without leslie hydronephrosis decreased from prior. LEFT KIDNEY: 8.8 x 4.3 x 4.6 cm (SAG x AP x TRV). The kidney is normal in size, contour, and echogenicity. Renal cortical thickness is normal. No calculi or focal parenchymal lesions. No hydronephrosis. BLADDER: Well distended and normal. Bilateral ureteral jets are demonstrated. Prevoid bladder volume is 657 mL. Postvoid bladder volume is 325 mL. US/US retroperitoneal comp IMPRESSION: 1. Large postvoid bladder residual of 325 mL. 2. Right renal pelviectasis without leslie hydronephrosis decreased from prior.
== END 2023-04-16 13:30 | disposition home or self-care (01) ==
LOC: HO.US 13:29
PROVIDERS: PCP Internal Medicine; Visit Provider Urology
DX: R33.9 Retention of urine, unspecified (principal); N31.9 Neuromuscular dysfunction of bladder, unspecified
CPT/HCPCS: 76770

== ENCOUNTER 2023-04-17 11:06 | Outpatient (AMB) | payer OTHER, SELFPAY ==
--- NOTE | 2023-04-17 11:50 | A.OFFPC_ITS ---
Vital Signs 04/17/23 11:51 Height 4 ft 11 in Weight 140 lb BMI 28.3 BP 130/86 Blood Pressure Location Lt brachial Position Sitting Pulse 76 Pulse Source Pulse Oximeter Pulse Oximetry (%) 99 Oxygen Delivery Method Room Air Intake Visit Reasons: discuss med management Supervisor Wet Room Required: No Allergies bacitracin [From NEOSPORIN] Allergy (Severe, Verified 04/17/23 11:51) RASH gramicidin D [From NEOSPORIN] Allergy (Severe, Verified 04/17/23 11:51) RASH polymyxin B [From NEOSPORIN] Allergy (Severe, Verified 04/17/23 11:51) RASH adhesive tape [ADHESIVE TAPE] Allergy (Intermediate, Verified 04/17/23 11:51) RASH/BLISTERS polyester fibers Allergy (Intermediate, Verified 04/17/23 11:51) Itching Sulfa (Sulfonamide Antibiotics) [SULFA (SULFONAMIDE ANTIBIOTICS)] Allergy (Intermediate, Verified 04/17/23 11:51) ITCHY RASH chlorhexidine [From ChloraPrep Clear] Allergy (Mild, Verified 04/17/23 11:51) Rash cefazolin [CEFAZOLIN] Adverse Reaction (Intermediate, Verified 04/17/23 11:51) GI UPSET Medication List - Last Reconciled 04/17/23 by Kenya Almaraz MD acetaminophen ER (Mapap Arthritis Pain) 650 mg PO Q8H bethanechol chloride 50 mg PO BID 90 days cannabidiol 5,000 mg PO TID cholecalciferol (vitamin D3) 50 mcg PO DAILY clonazepam 1 mg PO DAILY epinephrine (EpiPen 2-Hamilton) 0.3 mg (0.3 mL) IM Q4H PRN estradiol (Vagifem) 10 mcg vaginal 2XW gabapentin 100 mg PO BEDTIME lidocaine 5% 1 appl topical TID PRN quetiapine 100 mg PO BEDTIME [sanitary pads long, thin sanitary pads (without wings)] sertraline 100 mg PO DAILY witch lorraine 50% (Tucks (witch lorraine)) 1 pad topical BID-QID PRN Tobacco use date assessed: 09/11/22 Dental Screening Dental Screen Date: 04/17/23 Did you have a dental visit in the last 12 months?: Yes Did you have a dental problem in the last 6 months where you did not have access to dental care?: No Was dental information given to patient?: Patient has dentist HPI discuss med management HPI Details 63-year-old overweight female smoker wit h neurogenic bladder followed up by Urology on bethanechol ventral hernia status post repair September 2022 anxiety disorder lumbar degenerative disc disease hypercholesterolemia, GERD impaired glucose tolerance and hypertension last seen in November 2022 colono scopy is up-to-date mammogram is up-to-date review of the notes. Just had an ultrasound of the abdomen/kidneys results pending. Patient had an ER visit for left hand 4th digit avulsion after injury/crush injury dressing placed. Patient complains of back pain thoracic spine and radiating to the right thigh has seen neurosurgeon no spinal pathology and has been advised pain management for thoracic facet injections.. Patient also follows up in Urology has urinary retention/neurogenic bladder but is declining any additional/increase in medication. Ultrasound requested. Patient has seen Ortho in January also for tendinitis of both quadriceps tendon advised physical therapy and said knee sleeve. With her history of smoking patient had a CT scan done December 2022 low- dose annual CT scan the chest. PAtient has a list of med that shows recall metoprolol and the cholesterol med and so stopped . [facility] Medical History Anxiety and depression Cervical radiculopathy due to degenerative joint disease of spine Cholelithiasis Exposure to bloodborne pathogen Fatigue Fibromyalgia GERD (gastroesophageal reflux disease) H. pylori duodenitis History of cardiac murmur HLA B27 (HLA B27 positive) Hypercholesterolemia Hypertension Impaired glucose tolerance Incontinence of urine Insomnia Left shoulder pain Lumbar degenerative disc disease Needle stick, hypodermic, accidental Obesity (BMI 30-39.9) Osteopenia Restless leg syndrome S/P ECT (electroconvulsive therapy) Spina bifida occulta Tobacco abuse Tooth missing Vitamin D deficiency Surgical History H/O basal cell carcinoma excision H/O nasal septoplasty H/O right wrist surgery H/O thumb surgery History of cervical discectomy History of cholecystectomy History of hemorrhoidectomy History of hernia repair History of incisional hernia repair (10/02/22) History of lumbar fusion History of partial hysterectomy History of shoulder surgery History of tonsillectomy Hx of colonoscopy Family History Father Hypertension Past heart attack CVD (cardiovascular disease) Mother Hyperlipidemia Paternal Grandmother Lung cancer Son Substance abuse Brother Bipolar 1 disorder Other Mental health disorder Social History Housing: House Are you a primary pediatric critical care nurse to a significant other at home: No Do you presently have visiting nurse or other home services: Yes ([employer]ICAL OFFICE COORDINATOR 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) Alcohol intake: never Patient Tobacco Use Status: Current everyday Tobacco user Tobacco use type: Cigarette Cigarette Packs Per Day: 0.5 Cigarettes Per Day: 10 Years Smoked: 46 e-Cigarette/Vaping Use: Never Used Second Hand Smoke Exposure: Yes service: No Current occupational status: disabled Cognitive needs: No Hearing needs: No Vision needs: Yes (reading glasses) Questionnaire Thrive Questionnaire Date Thrive assessed: 11/27/22 AUDIT C Alcohol Use Questionnaire (AUDIT-C) 1. How often do you have a drink containing alcohol?: 2-3 times a week 2. How many drinks containing alcohol do you have on a typical day when you are drinking?: 1 or 2 3. How often do you have six or more drinks on one occasion?: Never Total Score: 3 CARYN-7 AMB Questionnaire CARYN-7 Date CARYN - 7 assessed: 08/29/22 Source: Developed by Drs. Sai Monte, Vero Wolf, Ishan Amezcua and colleagues, with an educational swati from [employer]. Physical exam (Primary Care) Vital Signs: Last Vital Signs Pulse 76 04/17/23 11:51 BP 130/86 04/17/23 11:51 Pulse Ox 99 04/17/23 11:51 Oxygen Delivery Method Room Air 04/17/23 11:51 BMI result Body Mass Index 28.3 Tobacco/Smoking Status: Tobacco use Status Tobacco use date assessed 09/11/22 04/17/23 12:01 Patient Tobacco Use Status Current everyday Tobacco 04/17/23 12:01 Tobacco use type Cigarette 04/17/23 12:01 e-Cigarette/Vaping Use Never Used 04/17/23 12:01 Thrive Assessment: Date of Thrive Assessment Date Thrive assessed 11/27/22 04/17/23 12:01 Const General: alert; No acute distress Eyes Conjunctivae: conjunctivae normal Resp Auscultation: clear to auscultation bilaterally Cardio Rate: regular rate Rhythm: regular rhythm GI Inspection: Yes normal to inspection Extrem General: Yes normal to inspection and No edema Assessment and Plan Assessment & Plan (1) Tobacco abuse: Comment: CT chest done September 2021, December 2022 Code(s): Z72.0 - Tobacco use Plan: Patient is strongly advised to stop smoking! Patient has been enrolled in the lung cancer screening program. (2) GERD (gastroesophageal reflux disease): Comment: poor historian- fleeting- non specific - vague- Code(s): K21.9 - Gastro-esophageal reflux disease without esophagitis Qualifiers: Esophagitis presence: without esophagitis Qualified Code(s): K21.9 - Gastro-esophageal reflux disease without esophagitis Plan: Avoid the foods that causes that usually spicy foods, tomato products, juices, coffee, soda and foods that your sensitive to. After eating do not lie down, allow 3-4 hours before in lie down. And keep the head of bed above 30 degrees to avoid the acid from going up. (3) Impaired glucose tolerance: Code(s): R73.02 - Impaired glucose tolerance (oral) Plan: Decrease the amount of carbohydrate intake, pasta, bread, rice and potatoes are all sugar and that is aside from all the sweet stuff, remember that fruits are good but they are Sweet also. (4) Hypertension: Code(s): I10 - Essential (primary) hypertension Qualifiers: Hypertension type: essential hypertension Qualified Code(s): I10 - Essential (primary) hypertension Plan: Continue with blood pressure medication. Decrease salt intake and exercise patient is on metoprolol 50 mg once a day (5) Hypercholesterolemia: Code(s): E78.00 - Pure hypercholesterolemia, unspecified Plan: Avoid fried foods, chicken skin, eggs, butter margarine, pastries and meat. Be it pork or beef they have a lot of cholesterol LDL goal of less than 130 and triglyceride of less than 150 patient is taking fenofibrate 160 mg once a day and pravastatin 40 mg once a day (6) Lumbar degenerative disc disease: Code(s): M51.36 - Other intervertebral disc degeneration, lumbar region Plan: Patient has seen neurosurgeon nonsurgical has been advised to see pain management (7) Major depressive disorder: Comment: Torrie ojeda Code(s): F32.9 - Major depressive disorder, single episode, unspecified Plan: Continue to follow-up with psychiatry and counseling patient is on sertraline 100 mg once a day can not tie open 100 mg twice a day clonazepam 1 mg 3 times a day (8) Neurogenic bladder: Code(s): N31.9 - Neuromuscular dysfunction of bladder, unspecified Plan: Patient is being followed up by Urology and on bethanechol 50 mg twice a day ultrasound requested results pending Orders: Orders Complete Blood Count Auto Diff Today R73.02 - Impaired glucose tolerance (oral) Thyroid Stimulating Hormone Today R73.02 - Impaired glucose tolerance (oral) Lipid Panel Today E78.00 - Pure hypercholesterolemia, unspecified, R73.02 - Impaired glucose tolerance (oral) Magnesium Today R73.02 - Impaired glucose tolerance (oral) XR DEXA axial skeleton Today M51.36 - Other intervertebral disc degeneration, lumbar region, M81.0 - Age-related osteoporosis without current pathological fracture Hemoglobin A1c Today R73.02 - Impaired glucose tolerance (oral) Comprehensive Met. Panel Today R73.02 - Impaired glucose tolerance (oral) Free T4 (Free Thyroxine) Today R73.02 - Impaired glucose tolerance (oral) Vitamin B12 and Folate Today R73.02 - Impaired glucose tolerance (oral) Phosphorus Today R73.02 - Impaired glucose tolerance (oral) Medications: Discontinued metoprolol succinate ER Discontinued Reason: Patient Refused 50 mg PO DAILY 90 tabs 2RF fenofibrate Discontinued Reason: Patient Refused 160 mg PO DAILY 90 days 90 tabs 1RF E78.00 - Pure hypercholesterolemia, unspecified pravastatin Discontinued Reason: Patient Refused 40 mg PO DAILY 90 tabs 2RF tizanidine Discontinued Reason: Patient Refused 8 mg (2 x 4 mg) PO Q8H 30 days PRN 120 caps 1RF muscle spasticity M51.36 - Other intervertebral disc degeneration, lumbar region hydrocortisone-pramoxine 1-1 % Discontinued Reason: Doctor's Order 1 appl [place] QID PRN 30 grams 0RF itching K64.8 - Other hemorrhoids ibuprofen Discontinued Reason: Doctor's Order 800 mg PO Q8H PRN 90 tabs 0RF for pain Coding Level of Care Code Est Pt Level 4 (95203) Diagnoses Tobacco abuse Z72.0 Gastroesophageal reflux disease without esophagitis K21.9 Esophagitis presence: without esophagitis Impaired glucose tolerance R73.02 Essential hypertension I10 Hypertension type: essential hypertension Hypercholesterolemia E78.00 Lumbar degenerative disc disease M51.36 Major depressive disorder F32.9 Neurogenic bladder N31.9
[2023-04-17 11:51] VITALS: BP 130/86; PULSE 76; O2SAT 99; BMI 28.3
== END 2023-04-17 12:42 | disposition home or self-care (01) ==
PROVIDERS: PCP Internal Medicine; Visit Provider Internal Medicine
DX: K21.9 Gastro-esophageal reflux disease without esophagitis (principal); I10 Essential (primary) hypertension; F32.9 Major depressive disorder, single episode, unspecified; Z72.0 Tobacco use; R73.02 Impaired glucose tolerance (oral); E78.00 Pure hypercholesterolemia, unspecified; M51.36 Other intervertebral disc degeneration, lumbar region; N31.9 Neuromuscular dysfunction of bladder, unspecified
CPT/HCPCS: 99214

== ENCOUNTER 2023-04-21 11:23 | Outpatient (AMB) | payer OTHER, MEDICAID, SELFPAY ==
--- NOTE | 2023-04-21 11:33 | MHC.OFFVIS ---
Intake Vital Signs 04/21/23 11:36 Height 4 ft 11 in Weight 136 lb BMI 27.5 BP 124/80 Blood Pressure Location Rt brachial Position Sitting Respiration 14 Pulse 76 Pulse Source Pulse Oximeter Pulse Oximetry (%) 98 Oxygen Delivery Method Room Air Intake Visit Reasons: Pain in Thoracic Spine Allergies bacitracin [From NEOSPORIN] Allergy (Severe, Verified 04/17/23 11:51) RASH gramicidin D [From NEOSPORIN] Allergy (Severe, Verified 04/17/23 11:51) RASH polymyxin B [From NEOSPORIN] Allergy (Severe, Verified 04/17/23 11:51) RASH adhesive tape [ADHESIVE TAPE] Allergy (Intermediate, Verified 04/17/23 11:51) RASH/BLISTERS polyester fibers Allergy (Intermediate, Verified 04/17/23 11:51) Itching Sulfa (Sulfonamide Antibiotics) [SULFA (SULFONAMIDE ANTIBIOTICS)] Allergy (Intermediate, Verified 04/17/23 11:51) ITCHY RASH chlorhexidine [From ChloraPrep Clear] Allergy (Mild, Verified 04/17/23 11:51) Rash cefazolin [CEFAZOLIN] Adverse Reaction (Intermediate, Verified 04/17/23 11:51) GI UPSET HPI Pain in Thoracic Spine HPI Details 63-year-old female who presents today to the office for a new patient evaluation of pain in thoracic spine. She has a history of neurogenic bladder, chronic back pain, fibromyalgia, obesity, anxiety, and depression, hyperlipidemia, GERD, hypertension, restless leg syndrome, and is right-handed dominant here with complaints of left-hand 4th digit skin avulsion after an injury that occurred from a crush injury. The patient has a history of DDD. She reports posterior thoracic pain around the bra line. She states that a 12x12 pop-up canopy with [place] metal frame in her backyard that collapsed on her back while she was shifting it. She visited Dr. Bustamante, and according to him, she was recommended thoracic facet joint injections. She went to physical therapy, which only aggravated her symptoms. She reports neck pain and pain in her shoulder blades. She has had cervical surgery in the past. She is not taking any pain medication. She has been using cannabinoid oil 5000 mcg for pain management. She has been on disability since 2013. She has been using lidocaine patches, which are provided by the [facility]. An MRI of the thoracic spine shows a mild thoracic curve and thoracic spondylosis without nerve compression. An MRI of the lumbar spine shows severe degenerative disc disease in L3?4 without significant central canal stenosis or foraminal stenosis. She has tried anti-inflammatories, Tylenol, a physician-guided home exercise plan, and cortisone shots. She denies weakness or numbness in her legs. [facility] Medical History Anxiety and depression Cervical radiculopathy due to degenerative joint disease of spine Cholelithiasis Exposure to bloodborne pathogen Fatigue Fibromyalgia GERD (gastroesophageal reflux disease) H. pylori duodenitis History of cardiac murmur HLA B27 (HLA B27 positive) Hypercholesterolemia Hypertension Impaired glucose tolerance Incontinence of urine Insomnia Left shoulder pain Lumbar degenerative disc disease Needle stick, hypodermic, accidental Obesity (BMI 30-39.9) Osteopenia Restless leg syndrome S/P ECT (electroconvulsive therapy) Spina bifida occulta Tobacco abuse Tooth missing Vitamin D deficiency Surgical History H/O basal cell carcinoma excision H/O nasal septoplasty H/O right wrist surgery H/O thumb surgery History of cervical discectomy History of cholecystectomy History of hemorrhoidectomy History of hernia repair History of incisional hernia repair (10/02/22) History of lumbar fusion History of partial hysterectomy History of shoulder surgery History of tonsillectomy Hx of colonoscopy Family History Father Hypertension Past heart attack CVD (cardiovascular disease) Mother Hyperlipidemia Paternal Grandmother Lung cancer Son Substance abuse Brother Bipolar 1 disorder Other Mental health disorder Social History Housing: House Are you a primary daycare director to a significant other at home: No Do you presently have visiting nurse or other home services: Yes (MARKETING CONTENT COORDINATOR 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) Alcohol intake: never Patient Tobacco Use Status: Current everyday Tobacco user Tobacco use type: Cigarette Cigarette Packs Per Day: 0.5 Cigarettes Per Day: 10 Years Smoked: 46 e-Cigarette/Vaping Use: Never Used Second Hand Smoke Exposure: Yes service: No Current occupational status: disabled Cognitive needs: No Hearing needs: No Vision needs: Yes (reading glasses) Review of Systems Const All systems reviewed & are unremarkable except as noted in HPI and below Physical Exam Vital Signs: Last Vital Signs Pulse 76 04/21/23 11:36 Resp 14 04/21/23 11:36 BP 124/80 04/21/23 11:36 Pulse Ox 98 04/21/23 11:36 Oxygen Delivery Method Room Air 04/21/23 11:36 BMI result Body Mass Index 27.5 General: Appears afebrile. Alert and oriented. Mood and affect appropriate. Follows and participates in conversation appropriately. Respiratory effort is unlabored. Able to transition from sit to stand unassisted. Ambulates with bilaterally normal heel strike and toe off. Results Reviewed Results Reviewed: 01/18/23: Bilateral knee x-ray FINDINGS: Right: Bone alignment is normal. No fracture or dislocation. Normal femoral tibial joint. Mild degenerative changes at the patellofemoral joint. Small joint effusion. Left: On alignment is normal. No fracture or dislocation. Normal femoral tibial joints. Mild degenerative changes at the patellofemoral joint. Small osteophyte at the quadriceps tendon insertion to the patella. No joint effusion. IMPRESSION: Mild degenerative changes at the patellofemoral joints, right greater than left, and small right knee joint effusion. 11/20/22: MR THORACIC SPINE WITHOUT CONTRAST FINDINGS: Mild left convex curvature of the midthoracic spine. Mild right convex curvature of the thoracolumbar junction. Moderate left convex curvature of the lumbar spine. Partially visualized instrumented anterior fusion of the lower cervical spine. Otherwise, normal anatomic alignment. Moderate degenerative disc disease from T7-T11. Mild degenerative disc disease at all additional thoracic levels. Associated mixed Modic type discogenic endplate changes including minimal Modic type I discogenic edema from T7-T10. No additional suspicious marrow edema. Small Schmorl's nodes at T10-T11. Otherwise, the vertebral body heights are largely maintained. No demonstrated spinal cord signal abnormalities. Perineural cysts at T9-T10 and T10-T11. No significant abnormalities of the paraspinal musculature. Limited evaluation of the intrathoracic structures without significant abnormalities. The descending thoracic aorta is of normal contour and caliber. AXIAL SPINAL LEVELS: Multilevel small posterior disc herniations, most notably at T4-T5, T7-T8, and T9-T10. There is mild to moderate multilevel facet joint arthropathy, most notably in the lower thoracic spine. There is no neural foraminal stenosis. There is no spinal canal stenosis. IMPRESSION: 1. 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 No overt spinal canal stenosis or nerve root compression. 2. Scoliotic curvature of the thoracolumbar spine. Assessment & Plan Assessment & Plan (1) Thoracic spine pain: Code(s): M54.6 - Pain in thoracic spine (2) Thoracic spondylosis: Code(s): M47.814 - Spondylosis without myelopathy or radiculopathy, thoracic region Plan Discussed facet block injections as a possible treatment option at this point for vertebral endplate degeneration with Modic changes in T9-T10-T11 level. Will schedule her for bilateral T9-T10-T11 facet injections. Discussed the risks and benefits of the procedure with the patient in detail. All questions were answered. The patient is on board with the plan. Justification for interventional therapy: ? Patient with average pain > 6/10. ? Patient has exhausted conservative therapy including surgery, anti-inflammatories, Tylenol, a physician-guided home exercise plan, and cortisone shots. ? Patient unable to tolerate physical therapy due to pain. Scribed for Dr. Betancourt by Hussain Fonseca, medical support assistant, on 04/21/2023. I, Dr. Betancourt, have personally reviewed and agree with the information entered by the scribe. Medications: New menthol 10% (Biofreeze (menthol)) 1 appl topical DAILY 85 grams 3RF Coding Level of Care Code New Pt Level 4 (43634) Diagnoses Thoracic spine pain M54.6 Thoracic spondylosis M47.814
[2023-04-21 11:36] VITALS: BP 124/80; PULSE 76; RESP 14; O2SAT 98; BMI 27.5
== END 2023-04-21 12:01 | disposition home or self-care (01) ==
PROVIDERS: PCP Internal Medicine; Visit Provider Internal Medicine
DX: M47.814 Spondylosis without myelopathy or radiculopathy, thoracic region (principal)
CPT/HCPCS: 99204

== ENCOUNTER → 2023-04-21 11:23 | Outpatient (BNVA) | payer OTHER, MEDICAID, SELFPAY | PROVIDERS: PCP Internal Medicine; Visit Provider Internal Medicine ==

== ENCOUNTER 2023-05-28 13:28 | Outpatient (REF) | payer OTHER, SELFPAY ==
--- NOTE | ~2023-05-28 | MM_ITS ---
EXAMINATION: BONE DENSITOMETRY CLINICAL INDICATION: Age-related osteoporosis without current pathological fracture. COMPARISON: Previous BD dated 04/23/2018 and baseline BD dated 09/19/2009. TECHNIQUE: Using a [employer]asc[employer] DXA System (software version: 13.1) manufactured by [employer], dual-energy x-ray absorptiometry was performed of the lumbar spine and left hip. The images are of good technical quality. Summary results are attached. FINDINGS: AP SPINE L1-L2 (excluding L3 and L4): The data of L1-L4 has been changed to exclude the L3 and L4 vertebral bodies, because metallic artifact and degenerative sclerosis at these levels may cause overestimation of lumbar spine density. Current: BMD 0.920 g/cm2, Z-score -0.5, T-score -2.0, osteopenia, 16.0% decrease from previous, 23.0% decrease from baseline (<5% change is not significant). Prior: BMD 1.095 g/cm2. Baseline: BMD 1.195 g/cm2. LEFT FEMUR, NECK: Current: BMD 0.784 g/cm2, Z-score -0.4, T-score -1.8, osteopenia. Prior: BMD 0.796 g/cm2. Baseline: BMD 0.867 g/cm2. LEFT FEMUR, TOTAL: Current: BMD 0.883 g/cm2, Z-score 0.1, T-score -1.0, normal, 1.0% increase from previous, 3.7% decrease from baseline (<5% change is not significant). Prior: BMD 0.874 g/cm2. Baseline: BMD 0.917 g/cm2. IDENTIFIED RISK FACTORS: Current smoker. Secondary osteoporosis (intestinal bowel disease). Early menopause, secondary osteoporosis. Menopause. Hysterectomy. HISTORY OF FRACTURE: None listed. MEDICATIONS: Vitamin D. MM/XR DEXA axial skeleton IMPRESSION: 1. DIAGNOSIS: Osteopenia based on the lowest T-score value of -2.0 in the lumbar spine applying World Health Organization criteria. 2. 10-YEAR FRACTURE RISK PREDICTION, FRAX: Major osteoporotic fracture (clinical spine, forearm, hip or shoulder) 9.8%. Hip fracture 1.9%. 3. Treatment Recommendations: NOF guidelines recommend consideration for treatment in postmenopausal women and men age 50 and older presenting with the following: -A hip or vertebral (clinical or morphometric) fracture. -T-score less than or equal to -2.5 at the femoral neck or spine after appropriate evaluation to exclude secondary causes. -Low bone mass at the hip or spine and a 10-year fracture probability by FRAX of greater than or equal to 3% for hip fracture or greater than or equal to 20% for major osteoporotic fracture based on the [place] adapted WHO algorithm. 4. Other Recommendations: All treatment decisions require clinical judgment and consideration of individual patient factors, including patient preferences, comorbidities, previous drug use, risk factors not captured in the FRAX model (e.g. frailty, falls, vitamin D deficiency, increased bone turnover, interval significant decline in bone density) and possible under or overestimation of fracture risk by FRAX. Additional medical evaluation for secondary cause of low bone mineral density may be appropriate. FUTURE SCAN RECOMMENDATION: People with diagnosed cases of osteoporosis or at high risk for fracture should have regular bone mineral density tests. For patients eligible for Medicare, routine testing is allowed once every 2 years. The testing frequency can be increased to one year for patients who have rapidly progressing disease, those who are receiving or discontinuing medical therapy to restore bone mass, or have additional risk factors.
== END 2023-05-28 13:29 | disposition home or self-care (01) ==
LOC: HO.MAMMO 13:28
PROVIDERS: PCP Internal Medicine; Visit Provider Internal Medicine
DX: Z13.820 Encounter for screening for osteoporosis (principal); Z78.0 Asymptomatic menopausal state; M81.0 Age-related osteoporosis without current pathological fracture; M51.36 Other intervertebral disc degeneration, lumbar region
CPT/HCPCS: 77080

== ENCOUNTER 2023-06-04 06:10 | Outpatient (REF) | payer OTHER, SELFPAY ==
--- NOTE | ~2023-06-04 | FL_ITS ---
EXAMINATION: XR FLUOROSCOPY WITH IMAGES CLINICAL INFORMATION: Spondylosis without myelopathy or radiculopathy, thoracic region. COMPARISON: None available. TECHNIQUE: Fluoroscopy Supervised By: Dr. Valerio Betancourt. Fluoroscopy Time: 8.7 seconds. Cumulative Dose: 0.9416 mGy. DAP: 0.1459 Gycm2. Images: 1. FINDINGS: Images demonstrate needle placement and contrast injection adjacent to 2 consecutive right lower thoracic vertebrae FL/FL guidance in treatment room IMPRESSION: Fluoroscopy guidance for pain management procedure
== END 2023-06-04 06:11 | disposition home or self-care (01) ==
LOC: CF 06:10
PROVIDERS: Visit Provider Internal Medicine
DX: M47.814 Spondylosis without myelopathy or radiculopathy, thoracic region (principal)
CPT/HCPCS: 64490; 64491; J2795; Q9967

== ENCOUNTER 2023-06-04 10:24 | Outpatient (AMB) | payer OTHER, SELFPAY ==
[2023-06-04 10:39] VITALS: BP 120/76; PULSE 76; RESP 14; O2SAT 98
--- NOTE | 2023-06-04 10:39 | MHC.OFFVIS ---
Intake Vital Signs 06/04/23 10:39 06/04/23 11:19 BP 120/76 120/68 Blood Pressure Location Lt brachial Rt brachial Position Sitting Sitting Respiration 14 12 Pulse 76 80 Pulse Source Pulse Oximeter Pulse Oximeter Pulse Oximetry (%) 98 98 Oxygen Delivery Method Room Air Room Air Intake Visit Reasons: jamie Dx T9-T10-T11 facet inj Allergies bacitracin [From NEOSPORIN] Allergy (Severe, Verified 06/04/23 10:40) RASH gramicidin D [From NEOSPORIN] Allergy (Severe, Verified 06/04/23 10:40) RASH polymyxin B [From NEOSPORIN] Allergy (Severe, Verified 06/04/23 10:40) RASH adhesive tape [ADHESIVE TAPE] Allergy (Intermediate, Verified 06/04/23 10:40) RASH/BLISTERS polyester fibers Allergy (Intermediate, Verified 06/04/23 10:40) Itching Sulfa (Sulfonamide Antibiotics) [SULFA (SULFONAMIDE ANTIBIOTICS)] Allergy (Intermediate, Verified 06/04/23 10:40) ITCHY RASH chlorhexidine [From ChloraPrep Clear] Allergy (Mild, Verified 06/04/23 10:40) Rash cefazolin [CEFAZOLIN] Adverse Reaction (Intermediate, Verified 06/04/23 10:40) GI UPSET HPI jamie Dx T9-T10-T11 facet inj HPI Details Patient presents for scheduled procedure. Denies any recent cough, cold, infection, fever or other significant changes in medical history since last office visit. [facility] Medical History Anxiety and depression Cervical radiculopathy due to degenerative joint disease of spine Cholelithiasis Exposure to bloodborne pathogen Fatigue Fibromyalgia GERD (gastroesophageal reflux disease) H. pylori duodenitis History of cardiac murmur HLA B27 (HLA B27 positive) Hypercholesterolemia Hypertension Impaired glucose tolerance Incontinence of urine Insomnia Left shoulder pain Lumbar degenerative disc disease Needle stick, hypodermic, accidental Obesity (BMI 30-39.9) Osteopenia Restless leg syndrome S/P ECT (electroconvulsive therapy) Spina bifida occulta Tobacco abuse Tooth missing Vitamin D deficiency Surgical History H/O basal cell carcinoma excision H/O nasal septoplasty H/O right wrist surgery H/O thumb surgery History of cervical discectomy History of cholecystectomy History of hemorrhoidectomy History of hernia repair History of incisional hernia repair (10/02/22) History of lumbar fusion History of partial hysterectomy History of shoulder surgery History of tonsillectomy Hx of colonoscopy Family History Father Hypertension Past heart attack CVD (cardiovascular disease) Mother Hyperlipidemia Paternal Grandmother Lung cancer Son Substance abuse Brother Bipolar 1 disorder Other Mental health disorder Social History Housing: House Are you a primary critical care nurse practitioner to a significant other at home: No Do you presently have visiting nurse or other home services: Yes (KNITTING MACHINE TENDER 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) Alcohol intake: never Patient Tobacco Use Status: Current everyday Tobacco user Tobacco use type: Cigarette Cigarette Packs Per Day: 0.5 Cigarettes Per Day: 10 Years Smoked: 46 e-Cigarette/Vaping Use: Never Used Second Hand Smoke Exposure: Yes service: No Current occupational status: disabled Cognitive needs: No Hearing needs: No Vision needs: Yes (reading glasses) Physical Exam Vital Signs: Last Vital Signs Pulse 80 06/04/23 11:19 Resp 12 06/04/23 11:19 BP 120/68 06/04/23 11:19 Pulse Ox 98 06/04/23 11:19 Oxygen Delivery Method Room Air 06/04/23 11:19 Office Procedures Cervical/Thoracic Facet Inj Details: Thoracic Medial Branch Block, Right, T9, T10 medial branches After obtaining written consent, pre-procedure blood pressure and pulse were recorded and are in the nursing record for review. The patient was placed in a prone position. The respective thoracic area was prepped with iodine and draped in sterile fashion. A 25 gauge 1.5 inch needle was inserted into the target medial branch nerve under fluoroscopic guidance. No paresthesias were elicited with needle placement and aspiration was negative for blood and CSF. Next, 0.2cc of omnipaque 180 was injected to verify positioning. Next 0.5 ml 0.5% ropivicaine was injected (0.5cc total per level). The procedure was aborted on patient request after two sites. The skin was cleansed and a sterile bandage was applied. Following the procedure the patient's vital signs were stable. No complications were encountered. Following the procedure the patient's vital signs were stable. The patient was discharged home in good condition with post-procedural instructions. Time Out: Immediately prior to the procedure, the following was verbally confirmed that there is a signed consent form and that the correct patient, planned procedure, site and side are consistent with documentation and that necessary equipment and/or blood products are available prior to the start of the case. Complications: none EBL: <5 cc 19208 - with Fluoroscopy 68707 - second level, with Fluoroscopy Procedure code (CPT) selection complete Results Reviewed Results Reviewed: 06/04/23 10:26 LORazepam [Ativan] 1 mg .ROUTE .ST-MED ONE 06/04/23 10:30 LORazepam [Ativan] 1 mg PO CONT. PER PROTOCOL ONE Assessment & Plan Assessment & Plan (1) Thoracic spondylosis: Code(s): M47.814 - Spondylosis without myelopathy or radiculopathy, thoracic region Plan Patient is status post right T9 and T10 medial branch blocks, with the procedure being aborted early due to inability to tolerate procedure related pain. Patient was discharged home in stable condition with discharge instructions. All questions were answered. We will assess response to today's intervention and consider bringing her back for a re-attempt potentially under sedation. Orders: Orders FL guidance in treatment room Today M47.814 - Spondylosis without myelopathy or radiculopathy, thoracic region Coding Level of Care Code Procedure Only Diagnoses Thoracic spondylosis M47.814 CPT Codes Facet Injection Cervical/Thoracic - CPT: 65048 - with Fluoroscopy ([id number]) Facet Injection Cervical/Thoracic - CPT: 44319 - second level, with Fluoroscopy ([id number])
[2023-06-04 11:19] VITALS: BP 120/68; PULSE 80; RESP 12; O2SAT 98
== END 2023-06-04 11:09 | disposition home or self-care (01) ==
LOC: HO.PMCPRC 10:24
PROVIDERS: PCP Internal Medicine; Visit Provider Internal Medicine
DX: M47.814 Spondylosis without myelopathy or radiculopathy, thoracic region (principal)
CPT/HCPCS: 64490; 64491

== ENCOUNTER 2023-06-09 13:21 | Outpatient (AMB) | payer OTHER, MEDICAID, SELFPAY ==
--- NOTE | 2023-06-09 13:25 | AM.OFFVISNUR ---
Intake Vital Signs 06/09/23 13:26 Height 4 ft 11 in Weight 139 lb BMI 28.1 Blood Pressure Location Rt brachial Position Sitting Respiration 12 Pulse Source Pulse Oximeter Intake Visit Reasons: s/p jamie T9-T10-T11 facet inj /confirmed Allergies bacitracin [From NEOSPORIN] Allergy (Severe, Verified 06/09/23 13:27) RASH gramicidin D [From NEOSPORIN] Allergy (Severe, Verified 06/09/23 13:27) RASH polymyxin B [From NEOSPORIN] Allergy (Severe, Verified 06/09/23 13:27) RASH adhesive tape [ADHESIVE TAPE] Allergy (Intermediate, Verified 06/09/23 13:27) RASH/BLISTERS polyester fibers Allergy (Intermediate, Verified 06/09/23 13:27) Itching Sulfa (Sulfonamide Antibiotics) [SULFA (SULFONAMIDE ANTIBIOTICS)] Allergy (Intermediate, Verified 06/09/23 13:27) ITCHY RASH chlorhexidine [From ChloraPrep Clear] Allergy (Mild, Verified 06/09/23 13:27) Rash cefazolin [CEFAZOLIN] Adverse Reaction (Intermediate, Verified 06/09/23 13:27) GI UPSET Medication List - Last Reconciled 06/09/23 by Madison Burt LPN acetaminophen ER (Mapap Arthritis Pain) 650 mg PO Q8H cannabidiol 5,000 mg PO TID cholecalciferol (vitamin D3) 50 mcg PO DAILY cyclobenzaprine 5 mg PO BID PRN epinephrine (EpiPen 2-[place]) 0.3 mg (0.3 mL) IM Q4H PRN menthol 10% (Biofreeze (menthol)) 1 appl topical DAILY quetiapine 100 mg PO BEDTIME [sanitary pads long, thin sanitary pads (without wings)] sertraline 100 mg PO DAILY witch lorraine 50% (Tucks (witch lorraine)) 1 pad topical BID-QID PRN Coding
[2023-06-09 13:26] VITALS: RESP 12; BMI 28.1
[2023-06-09 13:42] VITALS: BMI 28.1
--- NOTE | 2023-06-09 13:42 | A.OFFVIS_ITS ---
Intake Vital Signs 06/09/23 13:26 06/09/23 13:42 Height 4 ft 11 in Weight 139 lb BMI 28.1 28.1 Blood Pressure Location Rt brachial Position Sitting Respiration 12 Pulse Source Pulse Oximeter Intake Visit Reasons: s/p jamie T9-T10-T11 facet inj /confirmed Allergies bacitracin [From NEOSPORIN] Allergy (Severe, Verified 06/09/23 13:27) RASH gramicidin D [From NEOSPORIN] Allergy (Severe, Verified 06/09/23 13:27) RASH polymyxin B [From NEOSPORIN] Allergy (Severe, Verified 06/09/23 13:27) RASH adhesive tape [ADHESIVE TAPE] Allergy (Intermediate, Verified 06/09/23 13:27) RASH/BLISTERS polyester fibers Allergy (Intermediate, Verified 06/09/23 13:27) Itching Sulfa (Sulfonamide Antibiotics) [SULFA (SULFONAMIDE ANTIBIOTICS)] Allergy (Intermediate, Verified 06/09/23 13:27) ITCHY RASH chlorhexidine [From ChloraPrep Clear] Allergy (Mild, Verified 06/09/23 13:27) Rash cefazolin [CEFAZOLIN] Adverse Reaction (Intermediate, Verified 06/09/23 13:27) GI UPSET Medication List - Last Reconciled 06/09/23 by Madison Burt LPN acetaminophen ER (Mapap Arthritis Pain) 650 mg PO Q8H cannabidiol 5,000 mg PO TID cholecalciferol (vitamin D3) 50 mcg PO DAILY cyclobenzaprine 5 mg PO BID PRN epinephrine (EpiPen 2-Hamilton) 0.3 mg (0.3 mL) IM Q4H PRN menthol 10% (Biofreeze (menthol)) 1 appl topical DAILY quetiapine 100 mg PO BEDTIME [sanitary pads long, thin sanitary pads (without wings)] sertraline 100 mg PO DAILY witch lorraine 50% (Tucks (witch lorraine)) 1 pad topical BID-QID PRN HPI s/p jamie T9-T10-T11 facet inj /confirmed HPI Details 63-year-old female who presents today to the office for a status post bilateral T9-T10-T11 facet injection. Unfortunately we had to abort the procedure early due to patient's poor tolerance with procedure related pain. The patient reports 80% relief following the procedure that was partially completed. She has a history of osteoporosis and fibromyalgia. She is currently taking vitamin D supplement 2000 mg. Past procedure: 06/04/23: Thoracic Medial Branch Block, Right, T9, T10 medial branches: 80% relief. [facility] Medical History Anxiety and depression Cervical radiculopathy due to degenerative joint disease of spine Cholelithiasis Exposure to bloodborne pathogen Fatigue Fibromyalgia GERD (gastroesophageal reflux disease) H. pylori duodenitis History of cardiac murmur HLA B27 (HLA B27 positive) Hypercholesterolemia Hypertension Impaired glucose tolerance Incontinence of urine Insomnia Left shoulder pain Lumbar degenerative disc disease Needle stick, hypodermic, accidental Obesity (BMI 30-39.9) Osteopenia Restless leg syndrome S/P ECT (electroconvulsive therapy) Spina bifida occulta Tobacco abuse Tooth missing Vitamin D deficiency Surgical History H/O basal cell carcinoma excision H/O nasal septoplasty H/O right wrist surgery H/O thumb surgery History of cervical discectomy History of cholecystectomy History of hemorrhoidectomy History of hernia repair History of incisional hernia repair (10/02/22) History of lumbar fusion History of partial hysterectomy History of shoulder surgery History of tonsillectomy Hx of colonoscopy Family History Father Hypertension Past heart attack CVD (cardiovascular disease) Mother Hyperlipidemia Paternal Grandmother Lung cancer Son Substance abuse Brother Bipolar 1 disorder Other Mental health disorder Social History Housing: House Are you a primary small animal caretaker to a significant other at home: No Do you presently have visiting nurse or other home services: Yes ([employer] 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) Alcohol intake: never Patient Tobacco Use Status: Current everyday Tobacco user Tobacco use type: Cigarette Cigarette Packs Per Day: 0.5 Cigarettes Per Day: 10 Years Smoked: 46 e-Cigarette/Vaping Use: Never Used Second Hand Smoke Exposure: Yes service: No Current occupational status: disabled Cognitive needs: No Hearing needs: No Vision needs: Yes (reading glasses) Review of Systems Const All systems reviewed & are unremarkable except as noted in HPI and below Physical Exam Vital Signs: Last Vital Signs Resp 12 06/09/23 13:26 BMI result Body Mass Index 28.1 General: Appears afebrile. Alert and oriented. Mood and affect appropriate. Follows and participates in conversation appropriately. Respiratory effort is unlabored. Able to transition from sit to stand unassisted. Ambulates with bilaterally normal heel strike and toe off. Results Reviewed Results Reviewed: No imaging is available for review. Assessment & Plan Assessment & Plan (1) Thoracic spondylosis: Code(s): M47.814 - Spondylosis without myelopathy or radiculopathy, thoracic region (2) Bilateral hand pain: Code(s): M79.641 - Pain in right hand; M79.642 - Pain in left hand Plan Will start with trial of topical diclofenac for osteoarthritis related pain in her hand. Will schedule her for a bilateral T9-T10-T11 facet block injection under sedation. Discussed the risks and benefits of the procedure with the patient in detail. All questions were answered. The patient is on board with the plan. Justification for interventional therapy: ? Patient with average pain > 6/10 ? Patient has exhausted conservative therapy Scribed for Dr. Betancourt by Hussain Fonseca, medical assembler, on 06/09/2023. I, Dr. Betancourt, have personally reviewed and agree with the information entered by the scribe. Medications: New diclofenac sodium 1% (Arthritis Pain (diclofenac)) apply to single elbow, wrist or hand; for hand includes palm/fingers/back of hand 2 grams topical QID 100 grams 12RF Coding Level of Care Code Est Pt Level 3 (70380) Diagnoses Thoracic spondylosis M47.814 Bilateral hand pain M79.641; M79.642
== END 2023-06-09 13:52 | disposition home or self-care (01) ==
PROVIDERS: PCP Internal Medicine; Visit Provider Internal Medicine
DX: M47.814 Spondylosis without myelopathy or radiculopathy, thoracic region (principal); M79.641 Pain in right hand; M79.642 Pain in left hand
CPT/HCPCS: 99213

== ENCOUNTER → 2023-06-09 13:21 | Outpatient (BNVA) | payer OTHER, MEDICAID, SELFPAY | PROVIDERS: PCP Internal Medicine; Visit Provider Internal Medicine | DX: M47.814 Spondylosis without myelopathy or radiculopathy, thoracic region (principal); M79.641 Pain in right hand; M79.642 Pain in left hand | CPT/HCPCS: 99212 ==

== ENCOUNTER 2023-06-16 13:19 | Outpatient (AMB) | payer OTHER, SELFPAY ==
--- NOTE | 2023-06-16 13:23 | A.OFFVIS_ITS ---
Intake Intake Visit Reasons: 3m/Neurogenic bladder/US Intake Note: Patient presents today for a follow-up on 3m/Neurogenic bladder/US, Completed on 04/16/2023: Meds- BETHANECHOL Patient stated that it not treat her condition therefore she stoped it. Allergies to Antibiotic- Bacitracin, Gramicidin, Cefazolin & Sulfa Blood Thinner- None Car Painter Required: No Allergies bacitracin [From NEOSPORIN] Allergy (Severe, Verified 06/09/23 13:27) RASH gramicidin D [From NEOSPORIN] Allergy (Severe, Verified 06/09/23 13:27) RASH polymyxin B [From NEOSPORIN] Allergy (Severe, Verified 06/09/23 13:27) RASH adhesive tape [ADHESIVE TAPE] Allergy (Intermediate, Verified 06/09/23 13:27) RASH/BLISTERS polyester fibers Allergy (Intermediate, Verified 06/09/23 13:27) Itching Sulfa (Sulfonamide Antibiotics) [SULFA (SULFONAMIDE ANTIBIOTICS)] Allergy (Intermediate, Verified 06/09/23 13:27) ITCHY RASH chlorhexidine [From ChloraPrep Clear] Allergy (Mild, Verified 06/09/23 13:27) Rash cefazolin [CEFAZOLIN] Adverse Reaction (Intermediate, Verified 06/09/23 13:27) GI UPSET Medication List - Last Reconciled 06/16/23 by Mike Raphael MD acetaminophen ER (Mapap Arthritis Pain) 650 mg PO Q8H bethanechol chloride 50 mg PO BID cannabidiol 5,000 mg PO TID cholecalciferol (vitamin D3) 50 mcg PO DAILY cyclobenzaprine 5 mg PO BID PRN diclofenac sodium 1% (Arthritis Pain (diclofenac)) 2 grams topical QID epinephrine (EpiPen 2-Hamilton) 0.3 mg (0.3 mL) IM Q4H PRN menthol 10% (Biofreeze (menthol)) 1 appl topical DAILY quetiapine 100 mg PO BEDTIME [sanitary pads long, thin sanitary pads (without wings)] sertraline 100 mg PO DAILY witch lorraine 50% (Tucks (witch lorraine)) 1 pad topical BID-QID PRN HPI HPI Comments History of Present Illness Details María is a 63-year-old female who presents today to the office for a follow-up. 06/16/23-- María is followed due to neurogenic and incomplete bladder emptying. She is followed today for US results. Discussed with the patient the concern that if she continues to retain large amounts of urine in the bladder it can cause pressure on the kidneys. She was last me on 02/20/2023 and had been compliant on bethanochol 50 mg bid. She states stopped taking blood pressure and cholesterol medications. She also stopped taking the bethanochol. She states that she has been eating a healthier diet include fruits, vegetables and herbal supplements. She does have a BP cuff that she monitors and states that is been 120/80. She has informed her PCP that she has stopped taking these meds. I have reviewed with the patient the renal US results which indicate some resolution of the hydronephrosis. 04/16/23-- Renal US--Right renal pelviecta sis without leslie hydronephrosis decreased from prior. Review of charts: She has a history of fibromyalgia. I previously discussed alternative therapies include neuromodulation Interstim therapy and clean catheterization which the patient declines. Trial of Alfuzosin was discontinued due to complaints of lightheadedness. Pt Refused recommendation to trial increase in the dose of bethanechol 3 times a day. Imaging: Renal US results reviewed?09/25/2022-- Mild bilateral hydronephrosis. Kidneys: WNL, no renal calculi visualized. CTAP results reviewed--11/06/22-- No hydronephrosis noted. The bladder is distended. Sacrum MRI results reviewed-- 12/03/22--normal appearance of sacral plexus. No sites of nerve impingement or stenoses. A dorsal defect in the dural sac at the L5 level is unchanged. An incidental 3.8 cm unilocular right adnexal cyst. No suspicious features is noted. bladder is distended with a trabeculated wall and that is unchanged. 06/16/2023: Plan: Cont to Monitor PVR and Kidneys. US retroperitoneum in 3 - 4 months. The patient agrees to resume bethanochol. 50 mg bid PFSH Medical History Spina bifida occulta S/P ECT (electroconvulsive therapy) History of cardiac murmur Incontinence of urine Tooth missing Needle stick, hypodermic, accidental Exposure to bloodborne pathogen Vitamin D deficiency Fatigue Left shoulder pain Fibromyalgia H. pylori duodenitis Obesity (BMI 30-39.9) Cholelithiasis Lumbar degenerative disc disease Anxiety and depression Hypercholesterolemia Osteopenia Restless leg syndrome Insomnia Tobacco abuse GERD (gastroesophageal reflux disease) Impaired glucose tolerance Hypertension Cervical radiculopathy due to degenerative joint disease of spine HLA B27 (HLA B27 positive) Surgical History History of incisional hernia repair (10/02/22) Hx of colonoscopy History of cervical discectomy H/O basal cell carcinoma excision History of shoulder surgery History of lumbar fusion H/O thumb surgery H/O right wrist surgery History of partial hysterectomy History of hernia repair H/O nasal septoplasty History of hemorrhoidectomy History of cholecystectomy History of tonsillectomy Family History Father Hypertension Past heart attack CVD (cardiovascular disease) Mother Hyperlipidemia Paternal Grandmother Lung cancer Son Substance abuse Brother Bipolar 1 disorder Other Mental health disorder Social History Housing: House Are you a primary intensive care unit registered nurse to a significant other at home: No Do you presently have visiting nurse or other home services: Yes ([employer] 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) Alcohol intake: never Patient Tobacco Use Status: Current everyday Tobacco user Tobacco use type: Cigarette Cigarette Packs Per Day: 0.5 Cigarettes Per Day: 10 Years Smoked: 46 e-Cigarette/Vaping Use: Never Used Second Hand Smoke Exposure: Yes service: No Current occupational status: disabled Cognitive needs: No Hearing needs: No Vision needs: Yes (reading glasses) Review of Systems Const All systems reviewed & are unremarkable except as noted in HPI and below Reports no additional complaints ENT Reports no additional complaints Card Denies dyspnea Resp Denies cough and Denies dyspnea GI Reports no additional complaints Reports no additional complaints Musc Reports no additional complaints Skin/Breast Denies rash and Denies unusual bruising Neuro Reports no additional complaints Psych Reports no additional complaints Endo Reports no additional complaints Adam/Lymph Reports no additional complaints Aller/Immun Reports no additional complaints Results Reviewed Results Reviewed: Date of Service: 04/16/23 EXAMINATION:? US RETROPERITONEAL COMPLETE (RENAL) CLINICAL INFORMATION: Retention of urine, unspecified. COMPARISON:? ?Renal ultrasound 09/25/2022.?? FINDINGS: RIGHT KIDNEY: 9.7 x 3.8 x 5.4 cm (SAG x AP x TRV). The kidney is normal in size, contour, and echogenicity. Renal cortical thickness is normal. No calculi or focal parenchymal lesions. Pelviectasis without leslie hydronephrosis decreased from prior.? LEFT KIDNEY: 8.8 x 4.3 x 4.6 cm (SAG x AP x TRV). The kidney is normal in size, contour, and echogenicity. Renal cortical thickness is normal. No calculi or focal parenchymal lesions. No hydronephrosis. BLADDER: Well distended and normal. Bilateral ureteral jets are demonstrated. Prevoid bladder volume is 657 mL. Postvoid bladder volume is 325 mL. IMPRESSION:? 1.? Large postvoid bladder residual of 325 mL. 2.? Right renal pelviectasis without leslie hydronephrosis decreased from prior. Assessment & Plan Assessment & Plan (1) Neurogenic bladder: Code(s): N31.9 - Neuromuscular dysfunction of bladder, unspecified (2) Urinary retention with incomplete bladder emptying: Code(s): R33.9 - Retention of urine, unspecified (3) Hydronephrosis: Code(s): N13.30 - Unspecified hydronephrosis Plan Ordered US retroperitoneum. Orders: Orders US retroperitoneal comp 09/22/23 N31.9 - Neuromuscular dysfunction of bladder, unspecified, R33.9 - Retention of urine, unspecified Medications: New bethanechol chloride 50 mg PO BID 60 tabs 5RF Patient Instructions: The patient had an opportunity to ask questions regarding treatment plan. All questions were answered. Imaging, Laboratory studies and physical exam results were discussed and reviewed in detail. No major barriers to understanding were identified. The patient expressed understanding and agreement with the above treatment plan. The patient is aware they should contact our office by phone for worsening of their current condition or the appearance of new symptoms. Compliance is encouraged with any medications and followup testing that is ordered. It is a privilege to be allowed the opportunity to participate in the urologic care of your patient. If you have any questions or concerns regarding treatment for the above conditions please do not hesitate to contact me. The office telephone contact is [phone]. This note is constructed in part using voice recognition software. While every effort has been made to ensure accuracy funeral service apprentice errors may have been included. Yours sincerely, Mike Raphael MD Coding Level of Care Code Est Pt Level 4 (98875) Diagnoses Neurogenic bladder N31.9 Urinary retention with incomplete bladder emptying R33.9 Hydronephrosis N13.30
== END 2023-06-16 14:29 | disposition home or self-care (01) ==
PROVIDERS: PCP Internal Medicine; Visit Provider Urology
DX: N31.9 Neuromuscular dysfunction of bladder, unspecified (principal); R33.9 Retention of urine, unspecified; N13.30 Unspecified hydronephrosis
CPT/HCPCS: 99214

== ENCOUNTER → 2023-06-16 13:19 | Outpatient (BNVA) | payer OTHER, SELFPAY | PROVIDERS: PCP Internal Medicine; Visit Provider Urology | DX: N31.9 Neuromuscular dysfunction of bladder, unspecified (principal); R33.9 Retention of urine, unspecified; N13.30 Unspecified hydronephrosis | CPT/HCPCS: 99212 ==

== ENCOUNTER 2023-07-30 11:28 | Day surgery (SDC) | payer OTHER, SELFPAY ==
[2023-07-28 09:43] VITALS: BMI 28.1
--- NOTE | 2023-07-29 11:02 | HO.ANESPROP2 ---
Documented by User: Amanda Melara NP 07/29/23 11:04 HPI - Anesthesia Eval Consult details Narrative: 63yo F for Bilateral T9-T10-T 11 Facet Block Joint Injection s/p incisional hernia repair 09/2022 with GA-LMA 3 PMFSH Active Problems Active Problems: All Active Problems (Updated 07/28/23 @ 09:43 by Deepa Vázquez RN) Hydronephrosis (Acute) Bilateral hand pain (Acute) Thoracic spondylosis (Acute) Bilateral thigh pain (Acute) Thoracic spine pain (Acute) Allergic reaction (Acute) Bilateral hip bursitis (Acute) Tendinitis of both quadricep tendons (Acute) Effusion of right knee joint (Acute) Degenerative arthritis of knee, bilateral (Acute) Bilateral anterior knee pain (Acute) Bilateral knee pain (Acute) Tendinitis of right rotator cuff (Acute) COVID-19 virus infection (Acute) Oral candidiasis (Acute) Hemorrhoid prolapse (Acute) Chronic diarrhea (Acute) Neurogenic bladder (Acute) Urinary retention with incomplete bladder emptying (Acute) Voiding dysfunction (Acute) Thoracic back pain (Acute) Dizziness (Acute) Incisional hernia (Acute) Major depressive disorder (Acute) Vaginal atrophy (Acute) Overflow incontinence (Acute) Needle stick injury (Acute) Tendinitis of left rotator cuff (Acute) Tubular adenoma of colon (Acute) Diverticulosis of colon (Acute) LFT elevation (Acute) Abnormal EKG (Acute) Generalized anxiety disorder (Acute) Encounter for screening colonoscopy (Acute) Colonoscopy refused (Acute) Cloudy urine (Acute) Trochanteric bursitis, left hip (Acute) Ovarian cyst (Acute) Ventral hernia (Acute) Exposure to bloodborne pathogen (Acute) History of cervical discectomy (Acute) History of lumbar fusion (Acute) Vitamin D deficiency (Acute) Fibromyalgia (Acute) Fatigue (Acute) Left shoulder pain (Acute) Obesity (BMI 30-39.9) (Acute) Lumbar degenerative disc disease (Acute) Hypercholesterolemia (Acute) Osteopenia (Acute) Restless leg syndrome (Acute) Insomnia (Acute) Tobacco abuse (Acute) GERD (gastroesophageal reflux disease) (Acute) Impaired glucose tolerance (Acute) Hypertension (Acute) Past Medical History Medical History History of electroconvulsive therapy Spina bifida occulta S/P ECT (electroconvulsive therapy) History of cardiac murmur Incontinence of urine Tooth missing Needle stick, hypodermic, accidental Exposure to bloodborne pathogen Vitamin D deficiency Fatigue Left shoulder pain Fibromyalgia H. pylori duodenitis Obesity (BMI 30-39.9) Cholelithiasis Lumbar degenerative disc disease Anxiety and depression Hypercholesterolemia Osteopenia Restless leg syndrome Insomnia Tobacco abuse GERD (gastroesophageal reflux disease) Impaired glucose tolerance Hypertension Cervical radiculopathy due to degenerative joint disease of spine HLA B27 (HLA B27 positive) Family History Family History Father Hypertension Past heart attack CVD (cardiovascular disease) Mother Hyperlipidemia Paternal Grandmother Lung cancer Son Substance abuse Brother Bipolar 1 disorder Other Mental health disorder Family history of problems with anesthesia: No Surgical History Surgical History History of incisional hernia repair (10/02/22) Hx of colonoscopy History of cervical discectomy H/O basal cell carcinoma excision History of shoulder surgery History of lumbar fusion H/O thumb surgery H/O right wrist surgery History of partial hysterectomy History of hernia repair H/O nasal septoplasty History of hemorrhoidectomy History of cholecystectomy History of tonsillectomy History of Problems with Anesthesia: No Social History Social History Housing: House Are you a primary lawn care worker to a significant other at home: No Do you presently have visiting nurse or other home services: Yes (TURNING SANDER TENDER 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) Alcohol intake: never Patient Tobacco Use Status: Current everyday Tobacco user Tobacco use type: Cigarette Cigarette Packs Per Day: 0.5 Cigarettes Per Day: 10 Years Smoked: 46 Smoked in Last 30 Days: Yes e-Cigarette/Vaping Use: Never Used Patient Interested in Nicotine Replacement: No Second Hand Smoke Exposure: Yes Are you DNR?: No Advance Directives: No Advance Directives Information Provided: Yes Nutrition Risks: No Nutritional Risk service: No Current occupational status: disabled Cognitive needs: No Hearing needs: No Vision needs: Yes (reading glasses) Meds Allergies Allergy/AdvReac Type Severity Reaction Status Date / Time bacitracin [From NEOSPORIN] Allergy Severe RASH Verified 07/30/23 13:32 gramicidin D [From NEOSPORIN] Allergy Severe RASH Verified 07/30/23 13:32 polymyxin B [From NEOSPORIN] Allergy Severe RASH Verified 07/30/23 13:32 adhesive tape [ADHESIVE TAPE] Allergy Intermediate RASH/BLISTE Verified 07/30/23 13:32 RS polyester fibers Allergy Intermediate Itching Verified 07/30/23 13:32 Sulfa (Sulfonamide Allergy Intermediate ITCHY RASH Verified 07/30/23 13:32 Antibiotics) [SULFA (SULFONAMIDE ANTIBIOTICS)] chlorhexidine Allergy Mild Rash Verified 07/30/23 13:32 [From ChloraPrep Clear] cefazolin [CEFAZOLIN] AdvReac Intermediate GI UPSET Verified 07/30/23 13:32 Home Medications Medication Instructions Recorded Confirmed Last Taken Type sertraline 100 mg tablet 100 mg PO DAILY 08/26/22 07/28/23 07/30/23 History cannabidiol 100 mg/mL oral solution 5,000 mg PO TID 04/17/23 07/28/23 Unknown History quetiapine 100 mg tablet 100 mg PO BEDTIME 04/17/23 07/28/23 Unknown History Exam Height,Weight and Vital Signs: Height 4 ft 11 in Weight 63.049 kg Assessment and Plan Assessment Anesthesia Assessment: Chart Reviewed Final Anesthetic Review Family History of Problems with Anesthesia: No History of Problems with Anesthesia: No Documented by User: Leatha Valdez MD 07/30/23 14:34 [facility] [place] Past Medical History Medical History History of electroconvulsive therapy Spina bifida occulta S/P ECT (electroconvulsive therapy) History of cardiac murmur Incontinence of urine Tooth missing Needle stick, hypodermic, accidental Exposure to bloodborne pathogen Vitamin D deficiency Fatigue Left shoulder pain Fibromyalgia H. pylori duodenitis Obesity (BMI 30-39.9) Cholelithiasis Lumbar degenerative disc disease Anxiety and depression Hypercholesterolemia Osteopenia Restless leg syndrome Insomnia Tobacco abuse GERD (gastroesophageal reflux disease) Impaired glucose tolerance Hypertension Cervical radiculopathy due to degenerative joint disease of spine HLA B27 (HLA B27 positive) Family History Family History Father Hypertension Past heart attack CVD (cardiovascular disease) Mother Hyperlipidemia Paternal Grandmother Lung cancer Son Substance abuse Brother Bipolar 1 disorder Other Mental health disorder Surgical History Surgical History History of incisional hernia repair (10/02/22) Hx of colonoscopy History of cervical discectomy H/O basal cell carcinoma excision History of shoulder surgery History of lumbar fusion H/O thumb surgery H/O right wrist surgery History of partial hysterectomy History of hernia repair H/O nasal septoplasty History of hemorrhoidectomy History of cholecystectomy History of tonsillectomy Social History Social History Housing: House Are you a primary lawn care worker to a significant other at home: No Do you presently have visiting nurse or other home services: Yes (TURNING SANDER TENDER 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) Alcohol intake: never Patient Tobacco Use Status: Current everyday Tobacco user Tobacco use type: Cigarette Cigarette Packs Per Day: 0.5 Cigarettes Per Day: 10 Years Smoked: 46 Smoked in Last 30 Days: Yes e-Cigarette/Vaping Use: Never Used Patient Interested in Nicotine Replacement: No Second Hand Smoke Exposure: Yes Are you DNR?: No Advance Directives: No Advance Directives Information Provided: Yes Nutrition Risks: No Nutritional Risk service: No Current occupational status: disabled Cognitive needs: No Hearing needs: No Vision needs: Yes (reading glasses) Meds Allergies Allergy/AdvReac Type Severity Reaction Status Date / Time bacitracin [From NEOSPORIN] Allergy Severe RASH Verified 07/30/23 13:32 gramicidin D [From NEOSPORIN] Allergy Severe RASH Verified 07/30/23 13:32 polymyxin B [From NEOSPORIN] Allergy Severe RASH Verified 07/30/23 13:32 adhesive tape [ADHESIVE TAPE] Allergy Intermediate RASH/BLISTE Verified 07/30/23 13:32 RS polyester fibers Allergy Intermediate Itching Verified 07/30/23 13:32 Sulfa (Sulfonamide Allergy Intermediate ITCHY RASH Verified 07/30/23 13:32 Antibiotics) [SULFA (SULFONAMIDE ANTIBIOTICS)] chlorhexidine Allergy Mild Rash Verified 07/30/23 13:32 [From ChloraPrep Clear] cefazolin [CEFAZOLIN] AdvReac Intermediate GI UPSET Verified 07/30/23 13:32 Home Medications Medication Instructions Recorded Confirmed Last Taken Type sertraline 100 mg tablet 100 mg PO DAILY 08/26/22 07/28/23 07/30/23 History cannabidiol 100 mg/mL oral solution 5,000 mg PO TID 04/17/23 07/28/23 Unknown History quetiapine 100 mg tablet 100 mg PO BEDTIME 04/17/23 07/28/23 Unknown History Exam Airway Mallampati Class: II (top upper bridge perm) TM Dist: >3cm Neck ROM: Full Heart: rrr Lungs: cta Assessment and Plan Assessment Anesthesia Assessment: Anesthesia Plan Discussed Final Anesthetic Review NPO: Yes ASA Class: III Final Preanesthetic Review: No Changes in Pt Med Stat, Meds/Allgs Chart Reviewed and Consent Obtained/Reviewed Patient Risk: Intermediate Procedure Risk: Low Anesthetic Plan Anesthetic Plan: MAC: Disposition: Standard PACU
--- NOTE | ~2023-07-30 | FL_ITS ---
EXAMINATION: XR FLUOROSCOPY WITH IMAGES CLINICAL INFORMATION: T9-T11 facet block injection, bilateral. COMPARISON: None available. TECHNIQUE: Fluoroscopy Supervised By: Dr. Valerio Betancourt. Fluoroscopy Time: 0.1 minute. Cumulative Dose: 2.16 mGy. DAP: 0.268 Gycm2. Images: 3. FINDINGS: Images demonstrate needle placement and contrast injections adjacent to bilateral lateral T9, T10 and T11 vertebrae FL/FL guidance in OR IMPRESSION: Fluoroscopy guidance for pain management
[2023-07-30 12:12] VITALS: BMI 29.2
[2023-07-30] MEDS: Lactated Ringers 1,000 ML 100 ML IVCONT (12:44)
[2023-07-30 13:00] VITALS: BP 155/72; PULSE 72; RESP 18; TEMP 36.7; O2SAT 96
--- NOTE | 2023-07-30 14:19 | PC.NURSE ---
report given to Tete lamp wirer at this time.
[2023-07-30 15:20] VITALS: BP 151/80; PULSE 71; RESP 16; TEMP 36.8; O2SAT 98
--- NOTE | 2023-07-30 15:28 | MHC.SHP ---
Pre-Procedural Eval Section A Date of Service: 07/30/23 The patient is an INPATIENT: No Changes since office visit: Yes Patient answered all questions The History & Physical has been completed within 30 days and I have reviewed it.: No Section B Chief Complaint: Spondylosis without myelopathy or radiculopathy, t Relevant Family History (Specify if Yes): No Relevant Social History: None Present Medications: see Short Stay Collaborative assessment Medical History: No relevant PMH History of Previous Operations: No relevant previous surgery Allergies: Allergies Allergy/AdvReac Type Severity Reaction Status Date / Time bacitracin [From NEOSPORIN] Allergy Severe RASH Verified 07/30/23 13:32 gramicidin D [From NEOSPORIN] Allergy Severe RASH Verified 07/30/23 13:32 polymyxin B [From NEOSPORIN] Allergy Severe RASH Verified 07/30/23 13:32 adhesive tape [ADHESIVE TAPE] Allergy Intermediate RASH/BLISTE Verified 07/30/23 13:32 RS polyester fibers Allergy Intermediate Itching Verified 07/30/23 13:32 Sulfa (Sulfonamide Allergy Intermediate ITCHY RASH Verified 07/30/23 13:32 Antibiotics) [SULFA (SULFONAMIDE ANTIBIOTICS)] chlorhexidine Allergy Mild Rash Verified 07/30/23 13:32 [From ChloraPrep Clear] cefazolin [CEFAZOLIN] AdvReac Intermediate GI UPSET Verified 07/30/23 13:32 Review of Systems Sugical H&P ROS: Negative: Constitution, Cardiovascular and Respiratory Exam Surgical H&P Exam: Normal: HEENT, Normal: Heart and Normal: Lungs Plan Diagnosis/Plan: Unchanged I have reviewed the history and physical and performed a pertinent physical examination on my patient. No changes have occurred unless specified. Time Spent With Patient Time: Total time managing care of this patient today ____ minutes.
--- NOTE | 2023-07-30 15:28 | PM.OP ---
Brief Operative Note Date of Service: 07/30/23 Pre-op diagnosis: Thoracic spondylosis Post-op diagnosis: same Procedure: Thoracic therapeutic facet injections, T4, T5, T6 Implants: None Surgeon: Valerio Betancourt MD Anesthesia: MAC Was an Programmer Numerical Control used for this Procedure?: No Estimated blood loss (mL): 0 Pathology: none sent Condition: stable Disposition: PACU
--- NOTE | 2023-07-30 15:30 | P.OP_ITS ---
Operative Note Operative Note Date of Service: 07/30/23 Narrative: Therapeutic thoracic facet injections, T4-5, T5-6, bilateral After obtaining written consent, pre-procedure blood pressure and pulse were recorded and are in the nursing record for review. The patient was placed in a prone position. Prior to sedation, the respective thoracic area was palpated, marked and prepped with iodine and draped in sterile fashion. With the patient sedated, 25 gauge 1.5 inch needles were inserted into the target medial branch nerves under fluoroscopic guidance. No paresthesias were elicited with needle placement and aspiration was negative for blood and CSF. Next, 0.2cc of omnip aque 180 was injected to verify positioning at each level. Next 0.5 ml 0.5% bupivacaine mixed with 13 mg of Depo-Medrol was injected (0.5cc total per level). The needles were then removed. The skin was cleansed and a sterile bandage was applied. Following the procedure the patient's vital signs were stable. No complications were encountered. Following the procedure the patient's vital signs were stable. The patient was discharged home in good condition with post- procedural instructions. Time Out: Immediately prior to the procedure, the following was verbally confirmed that there is a signed consent form and that the correct patient, planned procedure, site and side are consistent with documentation and that necessary equipment and/or blood products are available prior to the start of th e case. Complications: none EBL: <5 cc
== END 2023-07-30 15:52 | disposition home or self-care (01) ==
PROVIDERS: PCP Internal Medicine; Visit Provider Internal Medicine
PROC: (CPT 64490; principal; 2023-07-30 14:40)
DX: M47.814 Spondylosis without myelopathy or radiculopathy, thoracic region (principal); M79.641 Pain in right hand; M79.642 Pain in left hand; M79.7 Fibromyalgia; M81.0 Age-related osteoporosis without current pathological fracture; Q76.0 Spina bifida occulta; I10 Essential (primary) hypertension; E55.9 Vitamin D deficiency, unspecified; F41.8 Other specified anxiety disorders; Z88.1 Allergy status to other antibiotic agents; Z79.899 Other long term (current) drug therapy; Z88.2 Allergy status to sulfonamides; L23.1 Allergic contact dermatitis due to adhesives; F17.210 Nicotine dependence, cigarettes, uncomplicated; Z90.49 Acquired absence of other specified parts of digestive tract
CPT/HCPCS: 64490; 64491; J0665; J1040; J2250; J2704

== ENCOUNTER → 2023-07-30 11:28 | Outpatient (BNV) | payer OTHER, SELFPAY | PROVIDERS: PCP Internal Medicine; Visit Provider Internal Medicine | DX: M47.814 Spondylosis without myelopathy or radiculopathy, thoracic region (principal) | CPT/HCPCS: 64490; 64491 ==

== ENCOUNTER 2023-08-25 13:57 | Outpatient (AMB) | payer OTHER, SELFPAY ==
--- NOTE | 2023-08-25 14:03 | A.OFFVIS_ITS ---
Intake Vital Signs 08/25/23 14:04 Height 4 ft 11 in Weight 150 lb BMI 30.3 BP 155/87 H Blood Pressure Location Lt brachial Position Sitting Respiration 12 Pulse 86 Pulse Source Pulse Oximeter Pulse Oximetry (%) 97 Oxygen Delivery Method Room Air Intake Visit Reasons: S/p B/l T9-T10-T11 Facet Joint Inj 07/30/23 Allergies bacitracin [From NEOSPORIN] Allergy (Severe, Verified 08/25/23 14:05) RASH gramicidin D [From NEOSPORIN] Allergy (Severe, Verified 08/25/23 14:05) RASH polymyxin B [From NEOSPORIN] Allergy (Severe, Verified 08/25/23 14:05) RASH adhesive tape [ADHESIVE TAPE] Allergy (Intermediate, Verified 08/25/23 14:05) RASH/BLISTERS polyester fibers Allergy (Intermediate, Verified 08/25/23 14:05) Itching Sulfa (Sulfonamide Antibiotics) [SULFA (SULFONAMIDE ANTIBIOTICS)] Allergy (Intermediate, Verified 08/25/23 14:05) ITCHY RASH chlorhexidine [From ChloraPrep Clear] Allergy (Mild, Verified 08/25/23 14:05) Rash cefazolin [CEFAZOLIN] Adverse Reaction (Intermediate, Verified 08/25/23 14:05) GI UPSET HPI S/p B/l T9-T10-T11 Facet Joint Inj 07/30/23 HPI Details 63-year-old female who presents today to the office for a status post bilateral T4/T5/T6 facet joint injections. The patient reports short-lived relief following the procedure. She has a sharp pain that started two days after the procedure. She states that her pain has returned to baseline. She described her pain as aggravating, constant pain. She had pain under her shoulder blade and in the past she had a cervical TFESI by Dr. Pierre, and her pain resolved. She subsequently had a cervical fusion at C4?5 levels. She had lumbar fusion surgery in 2010. She declined taking oral pain medications because of her longstanding history of depression. She has also tried Percocet and flexeril in the past, which were ordered by Dr. Ward, with no relief. She is taking flexeril 5 mg in the morning and 10 mg at night. She is interested in more long-term modalities for her various pain symptoms across the length of her spine. Her most bothersome symptom however continues to be in her thoracic spine. Past procedure: 07/30/23: Therapeutic thoracic facet inj ections, T4-5, T5-6, bilateral: 80% relief for 2 days. 06/04/23: Thoracic Medial Branch Block, Right, T9, T10 medial branches: 80% relief. [facility] Medical History (Updated 08/28/23 @ 15:26 by Valerio Betancourt MD) History of electroconvulsive therapy Spina bifida occulta S/P ECT (electroconvulsive therapy) History of cardiac murmur Incontinence of urine Tooth missing Needle stick, hypodermic, accidental Exposure to bloodborne pathogen Vitamin D deficiency Fatigue Left shoulder pain Fibromyalgia H. pylori duodenitis Obesity (BMI 30-39.9) Cholelithiasis Lumbar degenerative disc disease Anxiety and depression Hypercholesterolemia Osteopenia Restless leg syndrome Insomnia Tobacco abuse GERD (gastroesophageal reflux disease) Impaired glucose tolerance Hypertension Cervical radiculopathy due to degenerative joint disease of spine HLA B27 (HLA B27 positive) Surgical History History of incisional hernia repair (10/02/22) Hx of colonoscopy History of cervical discectomy H/O basal cell carcinoma excision History of shoulder surgery History of lumbar fusion H/O thumb surgery H/O right wrist surgery History of partial hysterectomy History of hernia repair H/O nasal septoplasty History of hemorrhoidectomy History of cholecystectomy History of tonsillectomy Family History Father Hypertension Past heart attack CVD (cardiovascular disease) Mother Hyperlipidemia Paternal Grandmother Lung cancer Son Substance abuse Brother Bipolar 1 disorder Other Mental health disorder Social History Housing: House Are you a primary client care coordinator to a significant other at home: No Do you presently have visiting nurse or other home services: Yes (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) Alcohol intake: never Patient Tobacco Use Status: Current everyday Tobacco user Tobacco use type: Cigarette Cigarette Packs Per Day: 0.5 Cigarettes Per Day: 10 Years Smoked: 46 e-Cigarette/Vaping Use: Never Used Second Hand Smoke Exposure: Yes service: No Current occupational status: disabled Cognitive needs: No Hearing needs: No Vision needs: Yes (reading glasses) Review of Systems Const All systems reviewed & are unremarkable except as noted in HPI and below Physical Exam Vital Signs: Last Vital Signs Pulse 86 08/25/23 14:04 Resp 12 08/25/23 14:04 BP 155/87 H 08/25/23 14:04 Pulse Ox 97 08/25/23 14:04 Oxygen Delivery Method Room Air 08/25/23 14:04 BMI result Body Mass Index 30.3 General: Appears afebrile. Alert and oriented. Mood and affect appropriate. Follows and participates in conversation appropriately. Respiratory effort is unlabored. Able to transition from sit to stand unassisted. Ambulates with bilaterally normal heel strike and toe off. Results Reviewed Results Reviewed: No imaging is available for review. Assessment & Plan Assessment & Plan (1) Chronic intractable pain: Code(s): G89.29 - Other chronic pain (2) Lumbar post-laminectomy syndrome: Code(s): M96.1 - Postlaminectomy syndrome, not elsewhere classified (3) History of cervical discectomy: Comment: 10/2015 anterior cervical discectomy with decompression and interbody fusion of C5-6 and C6-7 (Dr. James Webb) Code(s): Z98.890 - Other specified postprocedural states Plan I had an extensive discussion with the patient regarding options including intrathecal pain pump as well as spinal cord stimulation for pain. Her pain is relatively scattered throughout her cervical, thoracic and lumbar spine region. The patient wants to proceed with intrathecal pain pump. Will place a referral for psychology clearance. Once we have received psychology clearance, we will plan for ITDD trial with hydromorphone. The patient will receive a call from [facility] for the psychology assessment. Renewed tizanidine script per patient request since reportedly she tolerated that better than cyclobenzaprine that she is currently taking. Scribed for Dr. Betancourt by Hussain Fonseca, medical staff manager, on 08/25/2023. I, Dr. Betancourt, have personally reviewed and agree with the information entered by the scribe. Medications: New tizanidine 4 mg AM, 8 mg QHS 90 caps 0RF muscle spasticity Coding Level of Care Code Est Pt Level 4 (42769) Diagnoses Chronic intractable pain G89.29 Lumbar post-laminectomy syndrome M96.1 History of cervical discectomy Z98.890
[2023-08-25 14:04] VITALS: BP 155/87; PULSE 86; RESP 12; O2SAT 97; BMI 30.3
== END 2023-08-25 14:40 | disposition home or self-care (01) ==
PROVIDERS: PCP Internal Medicine; Visit Provider Internal Medicine
DX: G89.29 Other chronic pain (principal); M96.1 Postlaminectomy syndrome, not elsewhere classified; Z98.890 Other specified postprocedural states
CPT/HCPCS: 99214

== ENCOUNTER → 2023-08-25 13:57 | Outpatient (BNVA) | payer OTHER, SELFPAY | PROVIDERS: PCP Internal Medicine; Visit Provider Internal Medicine | DX: M96.1 Postlaminectomy syndrome, not elsewhere classified (principal); G89.29 Other chronic pain; Z98.890 Other specified postprocedural states | CPT/HCPCS: 99212 ==

== ENCOUNTER → 2023-09-05 11:44 | Outpatient (REF) | payer OTHER, SELFPAY ==
--- NOTE | 2023-09-05 11:56 | ECG_ITS ---
Test Reason : F33.2 Blood Pressure : / mmHG Vent. Rate : 084 BPM Atrial Rate : 084 BPM P-R Int : 134 ms QRS Dur : 078 ms QT Int : 354 ms P-R-T Axes : 017 031 051 degrees QTc Int : 418 ms Normal sinus rhythm Normal ECG When compared with ECG of 05-SEP-2022 14:35, T wave inversion no longer evident in Anterior leads Referred By: Torrie Porter Electronically Signed By:Anthony Ray
== END ==
LOC: HO.CARD 11:44
PROVIDERS: PCP Internal Medicine; Visit Provider Psychiatry & Neurology Psychiatry
DX: F33.2 Major depressive disorder, recurrent severe without psychotic features (principal)
CPT/HCPCS: 93005

== ENCOUNTER → 2023-09-05 11:56 | Outpatient (BNV) | payer OTHER, SELFPAY | PROVIDERS: PCP Internal Medicine; Visit Provider Internal Medicine Cardiovascular Disease | DX: F33.2 Major depressive disorder, recurrent severe without psychotic features (principal) | CPT/HCPCS: 93010 ==

== ENCOUNTER 2023-09-11 12:43 | Outpatient (REF) | payer OTHER, SELFPAY ==
--- NOTE | ~2023-09-11 | XR_ITS ---
EXAMINATION: XR hand LT min 3V, XR hand RT min 3V CLINICAL INFORMATION: Reason for Exam M79.641 - Pain in right hand COMPARISON: 04/17/2018 TECHNIQUE: AP, lateral, and oblique views of the bilateral hands FINDINGS: * No acute fracture or dislocation. * Mild to moderate left greater than right degenerative changes of the first CMC joints. * No soft tissue abnormality. XR/XR hand RT min 3V IMPRESSION: Mild to moderate left greater than right degenerative changes of the first CMC joints.
--- NOTE | ~2023-09-11 | XR_ITS ---
EXAMINATION: XR hand LT min 3V, XR hand RT min 3V CLINICAL INFORMATION: Reason for Exam M79.641 - Pain in right hand COMPARISON: 04/17/2018 TECHNIQUE: AP, lateral, and oblique views of the bilateral hands FINDINGS: * No acute fracture or dislocation. * Mild to moderate left greater than right degenerative changes of the first CMC joints. * No soft tissue abnormality. XR/XR hand LT min 3V IMPRESSION: Mild to moderate left greater than right degenerative changes of the first CMC joints.
[2023-09-11 14:19] LABS: MANUAL DIFF FLAG NO
[2023-09-11 14:35] LABS: Basophils Absolute Auto 0.1 X10*3/uL (0.0-0.2); Basophils Percent Auto 0.9 % (0-2); Eosinophils Absolute Auto 0.2 X10*3/uL (0.0-0.4); Eosinophils Percent Auto 1.9 % (0-4); Hematocrit 39.7 % (37.0-47.0); Hemoglobin 13.8 g/dl (12.0-16.0); Imm Gran Abs Auto 0.04 X10*3/uL (0.00-0.03); Imm Gran Pct Auto 0.5 % (0.0-0.4); Lymphocytes Absolute Auto 3.1 X10*3/uL (1.2-4.9); Lymphocytes Percent Auto 40.2 % (20-40); Mean Corpuscular HGB Conc 34.8 g/dl (31.0-35.0); Mean Corpuscular Hemoglobin 31.2 pg (27.0-33.0); Mean Corpuscular Volume 89.8 fL (80.0-98.0); Monocytes Absolute Auto 0.6 X10*3/uL (0.1-1.2); Monocytes Percent Auto 7.7 % (2-11); Neutrophils Absolute Auto 3.8 x10*3/uL (2.0-8.3); Neutrophils Percent Auto 48.8 % (45-73); Platelet Count 424 X10*3/uL (160-400); Red Blood Count 4.42 X10*6/uL (4.20-5.50); Red Cell Distribution Width 12.3 % (11.0-16.0); White Blood Count 7.8 X10*3/uL (4.8-10.8)
[2023-09-11 15:48] LABS: Rheumatoid Factor < 13.0 IU/mL (<15.0)
[2023-09-11 15:49] LABS: Alanine Aminotransferase 11 U/L (0-31); Albumin Level 4.5 g/dL (3.5-5.0); Alkaline Phosphatase 78 U/L (39-117); Anion Gap 13 (12-20); Aspartate Amino Transferase 18 U/L (5-31); Bilirubin Total 0.6 mg/dL (0.0-1.0); Blood Urea Nitrogen 14 mg/dL (9-16); C Reactive Protein 0.18 mg/dL (< or = 0.50); Calcium 9.9 mg/dL (8.4-10.2); Carbon Dioxide 26 mmol/L (22-29); Chloride 105 mmol/L (96-108); Estimated Glomerular Filt Rate > 60; Glucose Random 88 mg/dL (60-115); Potassium 4.2 mmol/L (3.3-5.1); Sodium 140 mmol/L (135-145); Total Protein 7.6 g/dL (6.5-8.0)
[2023-09-11 15:56] LABS: Erythrocyte Sedimentation Rate 7 MM/HR (0-20)
[2023-09-15 18:04] LABS: Cyclic Citrullinated Peptide <16 UNITS
[2023-09-17 22:13] LABS: HLA B27 Positive (Negative)
== END 2023-09-11 12:44 | disposition home or self-care (01) ==
LOC: HO.XRAY 12:43
PROVIDERS: PCP Internal Medicine; Visit Provider Nurse Practitioner Family
DX: M70.61 Trochanteric bursitis, right hip (principal); M70.62 Trochanteric bursitis, left hip; M79.641 Pain in right hand; M79.642 Pain in left hand; M54.50 Low back pain, unspecified; Z79.899 Other long term (current) drug therapy; M51.36 Other intervertebral disc degeneration, lumbar region; M79.7 Fibromyalgia
CPT/HCPCS: 20610; 36415; 73130; 80053; 85025; 85652; 86140; 86200; 86431; 86812; 99212

== ENCOUNTER 2023-09-11 12:43 | Outpatient (AMB) | payer OTHER, SELFPAY ==
[2023-09-11 12:44] VITALS: BP 140/90; PULSE 79; TEMP 36.3; O2SAT 96; BMI 31.4
--- NOTE | 2023-09-11 12:44 | MHC.OFFVIS ---
Intake Vital Signs 09/11/23 12:44 Height 4 ft 11 in Weight 155 lb 6.814 oz BMI 31.4 BP 140/90 H Blood Pressure Location Rt brachial Position Sitting Pulse 79 Pulse Source Pulse Oximeter Temp 97.4 F Temp Source Skin Pulse Oximetry (%) 96 Oxygen Delivery Method Room Air Intake Visit Reasons: Back pain Intake Note: Patient last seen 08/26/22 by Carole, presents today for low back pain. Reports dx fibromyalgia. Has pain in multiple joints. Reports jamie thumb pain have worsened since last visit. Seeing pain management. 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: No Accompanied by: Self / Same As Patient Allergies bacitracin [From NEOSPORIN] Allergy (Severe, Verified 09/11/23 12:47) RASH gramicidin D [From NEOSPORIN] Allergy (Severe, Verified 09/11/23 12:47) RASH polymyxin B [From NEOSPORIN] Allergy (Severe, Verified 09/11/23 12:47) RASH adhesive tape [ADHESIVE TAPE] Allergy (Intermediate, Verified 09/11/23 12:47) RASH/BLISTERS polyester fibers Allergy (Intermediate, Verified 09/11/23 12:47) Itching Sulfa (Sulfonamide Antibiotics) [SULFA (SULFONAMIDE ANTIBIOTICS)] Allergy (Intermediate, Verified 09/11/23 12:47) ITCHY RASH chlorhexidine [From ChloraPrep Clear] Allergy (Mild, Verified 09/11/23 12:47) Rash cefazolin [CEFAZOLIN] Adverse Reaction (Intermediate, Verified 09/11/23 12:47) GI UPSET HPI HPI Comments History of Present Illness Details 63yoF presents for follow-up of joint pain. Last seen in Aug 2022. 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 Patient reports head to to joint pain and she states that nothing makes her pain feel better. She reports she was diagnosed with fibromyaliga many years ago but is not too keen on taking pharmaceuticals. She has chronic back pain that started in her 30s. Pain is throughout her spine that is managed with rest, arthritis strength Tyelnol and tizanidine. She denies numbness or bladder involvement. She has a history of cervical and lumbar spine surgery. She states her left hip pain is stable and has received steroid injection for hip and back with [facility] under mild sedation. She is s/p bilateral rotator cuff surgery with metal hardware on the right. She follows with a psychiatrist and tried intranasal ketamine which she states was not helpful. Currently taking sertraline for depression. She also uses diclofenac 1% gel for joint pain. She reports bilateral hip pain that interupts sleep. She reports intermittent pain in the left great toe, previously fractured this site. Denies any joint swelling. Denies symmetric swelling and pain in her small joints. She states that overall her pain is greatly improved when she is exercising or keeps active. [facility] Medical History (Updated 09/11/23 @ 15:23 by [facility] Bilateral thumb pain Lumbar back pain History of electroconvulsive therapy Spina bifida occulta S/P ECT (electroconvulsive therapy) History of cardiac murmur Incontinence of urine Tooth missing Needle stick, hypodermic, accidental Exposure to bloodborne pathogen Vitamin D deficiency Fatigue Left shoulder pain Fibromyalgia H. pylori duodenitis Obesity (BMI 30-39.9) Cholelithiasis Lumbar degenerative disc disease Anxiety and depression Hypercholesterolemia Osteopenia Restless leg syndrome Insomnia Tobacco abuse GERD (gastroesophageal reflux disease) Impaired glucose tolerance Hypertension Cervical radiculopathy due to degenerative joint disease of spine HLA B27 (HLA B27 positive) Surgical History History of incisional hernia repair (10/02/22) Hx of colonoscopy History of cervical discectomy H/O basal cell carcinoma excision History of shoulder surgery History of lumbar fusion H/O thumb surgery H/O right wrist surgery History of partial hysterectomy History of hernia repair H/O nasal septoplasty History of hemorrhoidectomy History of cholecystectomy History of tonsillectomy Family History Father Hypertension Past heart attack CVD (cardiovascular disease) Mother Hyperlipidemia Paternal Grandmother Lung cancer Son Substance abuse Brother Bipolar 1 disorder Other Mental health disorder Social History (Updated 09/11/23 @ 12:48 by DAVID Rucker) Housing: House Are you a primary manager home healthcare to a significant other at home: No Do you presently have visiting nurse or other home services: Yes (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) Alcohol intake: never Patient Tobacco Use Status: Current everyday Tobacco user Tobacco use type: Cigarette Cigarette Packs Per Day: 0.5 Cigarettes Per Day: 15 Years Smoked: 46 e-Cigarette/Vaping Use: Never Used Second Hand Smoke Exposure: Yes service: No Current occupational status: disabled Cognitive needs: No Hearing needs: No Vision needs: Yes (reading glasses) Review of Systems Const All systems reviewed & are unremarkable except as noted in HPI and below Physical Exam Vital Signs: Last Vital Signs Temp 97.4 F 09/11/23 12:44 Pulse 79 09/11/23 12:44 BP 140/90 H 09/11/23 12:44 Pulse Ox 96 09/11/23 12:44 Oxygen Delivery Method Room Air 09/11/23 12:44 BMI result Body Mass Index 31.4 APPEARANCE: Patient in no acute distress EYES: no redness, pupils equal and reactive to light, eyelids normal EARS: External ear normal, canal clear and tympanic membrane normal. NOSE/SINUS: Airflow through both nares, no nasal discharge, no bleeding THROAT: Oral mucosa moist, no ulcerations NECK: No thyromegaly or masses, no adenopathy, trachea midline. HEART: Regular rhythm, S1-S2 heard, no murmurs, rubs or gallops. LUNG: Clear to auscultation, respiratory rate regular nonlabored. ABD: Normal bowel sounds, no tenderness. EXTREMITIES: No edema, no calf tenderness, normal peripheral pulses. NEURO: Oriented and alert x3. No focal weakness. Gait normal. SKIN: No inflammatory or neoplastic lesions. Normal color and turgor JOINT EXAM:.?? Cervical Spine: Full range of motion without pain; no tenderness over the cervical spine. Tenderness to palpation of the cervical spinal muscles. Thoracic Spine: No tenderness on palpation. Lumbar Spine:? Alignment normal.? Full range of motion, tenderness to palpation over the lumbar spine. Healed scar noted. Negative Jose Cruz test. Normal occiput to wall test. Hands:? Normal pain-free range of motion without tenderness, swelling, increased warmth or erythema. 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 Tenderness to bilateral thumb/CMC Joint Wrists:? Normal pain-free range of motion without tenderness, swelling, increased warmth or erythema. Elbows: Normal pain-free range of motion without tenderness, swelling, increased warmth or erythema. Shoulders:? Full range of motion without pain. No tenderness, weakness, swelling, increased warmth or erythema. Healed scar noted bilaterally. Hips: Full range of motion without pain. Hip bursa:? Marked bilateral tenderness. Knees:?? Normal pain-free range of motion without tenderness, swelling, increased warmth or erythema.? There is no effusion or crepitation Ankles:? Normal pain-free range of motion without tenderness, swelling, increased warmth or erythema. Feet:? LEFT:Normal pain-free range of motion. Slight tenderness to palpation of the 1st MTP. No swelling, increased warmth or erythema. RIGHT: Normal pain-free range of motion without tenderness, swelling, increased warmth or erythema. Tender points: Tenderness to digital palpation at the occiput, trapezius, second rib. No tenderness to palpation of the lateral epicondyle, knees, greater trochanter and gluteal area bilaterally. Office Procedures Joint Injection/Drain Joint Injection/Drain Details: Bilateral Trochanteric Bursitis Primary Site: other Secondary Site: other Prep: site was prepped using aseptic technique Injected: 60 mg of, with 1 mL of and 1% plain lidocaine Approach Used: anterolateral Procedure: The patient tolerated the procedure well Coding Details: Each side received stated medication - Glenohumeral/Tronchanteric Bursa/Intraarticular Procedure code (CPT) selection complete Assessment & Plan Assessment & Plan (1) Lumbar degenerative disc disease: Code(s): M51.36 - Other intervertebral disc degeneration, lumbar region Plan: Pain is stable at this time. Continue arthritis strength tylenol and tizanidine. Continue follow-up with [facility]. (2) Trochanteric bursitis, left hip: Code(s): M70.62 - Trochanteric bursitis, left hip (3) Fibromyalgia: Code(s): M79.7 - Fibromyalgia Plan: Discussed management of fibromyalgia with patient. Is a noninflammatory, non-autoimmune central afferent processing disorder leading to a diffuse pain syndrome. Patient would benefit from increased physical activity, either through formal physical therapy or by joining a gym. Advised patient that she should start activity slowly and increase as tolerated. Continue sertraline and tizanidine. Continue follow-up with mental health. (4) Bilateral hand pain: Code(s): M79.641 - Pain in right hand; M79.642 - Pain in left hand (5) Bilateral hip bursitis: Code(s): M70.71 - Other bursitis of hip, right hip; M70.72 - Other bursitis of hip, left hip Qualifiers: Hip bursitis location: trochanteric bursitis Qualified Code(s): M70.61 - Trochanteric bursitis, right hip; M70.62 - Trochanteric bursitis, left hip Plan 62-year-old female patient with history of chronic back pain and fibromyalgia. Her workup for back pain in 2019 was positive for HLA B27, inflammatory markers were normal and have remained normal, no evidence of sacroiliitis on MRI of the pelvis. She is aware that HLA B27 can be positive in the absence of inflammatory back pain. On exam today her joint pain appears well controlled. She continues to follow with [facility] for her neck and low back pain and recently received lower back injection with good effect. No evidence of synovitis on exam. No evidence of joint dysfunction on exam today. Patient reports head to toe joint pain, fibromyalgia is likely contributing to this. She has a few fibromyalgia tender points on exam. Discussed referral to pain management which she declines. Patient feels a great improvement in her symptoms when she exercises. Recommend patient incorporate light daily activity as tolerated and continue her current medications. Recently received steroid injection with good effect. Continue arthritis strength tylenol and tizanidine. Continue follow-up with mental health team. She has marked tenderness to bilateral hip bursa so I will geriatric nurse practitioner her two corticosteroid injections today. Will check labs again for HLAB27 and CRP and sed rate and hand xray for further evaluation, although it seems at this time patient's pain is a combination of mechanical back pain, back and neck pain related to OA and fibromyalgia. Patient has tenderness to palpation in the left great MTP, previously fractured this site, she will be following with Podiatry for nail care. Follow-up 1 year sooner if needed. 40 minutes spent reviewing the chart, evaluating patient, and documenting. Orders: Orders XR hand LT min 3V Today M79.641 - Pain in right hand, M79.642 - Pain in left hand XR hand RT min 3V Today M79.641 - Pain in right hand, M79.642 - Pain in left hand HLA B27 Today M54.50 - Low back pain, unspecified, M79.641 - Pain in right hand, M79.642 - Pain in left hand C Reactive Protein Today M54.50 - Low back pain, unspecified, M79.641 - Pain in right hand, M79.642 - Pain in left hand Cyclic Citrullinated Peptide Today M54.50 - Low back pain, unspecified, M79.641 - Pain in right hand, M79.642 - Pain in left hand AMB Joint Injection/Aspiration Today M70.71 - Other bursitis of hip, right hip, M70.72 - Other bursitis of hip, left hip Erythrocyte Sedimentation Rate Today M54.50 - Low back pain, unspecified, M79.641 - Pain in right hand, M79.642 - Pain in left hand Complete Blood Count Auto Diff Today M54.50 - Low back pain, unspecified, M79.641 - Pain in right hand, M79.642 - Pain in left hand, Z79.899 - Other oysterman (current) drug therapy Comprehensive Met. Panel Today M54.50 - Low back pain, unspecified, M79.641 - Pain in right hand, M79.642 - Pain in left hand Rheumatoid Factor Today M54.50 - Low back pain, unspecified, M79.641 - Pain in right hand, M79.642 - Pain in left hand Medications: New Brace,wrist As directed 1 ea 0RF To stabilize the Thumb. M79.644 - Pain in right finger(s), M79.645 - Pain in left finger(s) Coding Level of Care Code Est Pt Level 4 (21532) Diagnoses Lumbar degenerative disc disease M51.36 Trochanteric bursitis, left hip M70.62 Fibromyalgia M79.7 Bilateral hand pain M79.641; M79.642 Trochanteric bursitis of both hips M70.61; M70.62 Hip bursitis location: trochanteric bursitis CPT Codes Coding - Joint 7: 89697 - Glenohumeral/Tronchanteric Bursa/Intraarticular ([id number])
== END 2023-09-11 13:43 | disposition home or self-care (01) ==
PROVIDERS: PCP Internal Medicine; Visit Provider Nurse Practitioner Family
DX: M51.36 Other intervertebral disc degeneration, lumbar region (principal); M79.7 Fibromyalgia; M70.62 Trochanteric bursitis, left hip; M79.641 Pain in right hand; M79.642 Pain in left hand; M70.61 Trochanteric bursitis, right hip
CPT/HCPCS: 20610; 99214

== ENCOUNTER 2023-09-12 13:26 | Emergency (ER) | payer OTHER, SELFPAY ==
[2023-09-12 13:46] VITALS: BP 186/90; PULSE 67; RESP 18; TEMP 37; O2SAT 97; BMI 30.9
--- NOTE | 2023-09-12 13:46 | ED.GENADULT ---
HPI - General Adult General Chief complaint: Eye Problems Stated complaint: watering eyes? Time Seen by Provider: 09/12/23 13:53 Source: patient Mode of arrival: ambulatory Limitations: no limitations History of Present Illness HPI narrative: Patient is a 63 year old assigned female at with a history of HTN presenting to the emergency department today with bilateral watery eyes. Patient states that over the last 2 months she has had red, itchy, and watery eyes. Patient denies any dizziness, lightheadedness, abdominal pain, nausea, vomiting, fever, chills, blurry vision, double vision, loss of vision, chest pain, difficulty breathing, shortness of breath, back pain, night sweats, pain with urination, increased urinary frequency, increased urinary urgency, blood in her urine or stool, syncope or a near syncopal episode, recent trauma or falls, bowel incontinence, bladder incontinence, bowel retention, bladder retention, or any other complaints at this time. Onset (ago): month(s) (2) Severity: mild Relieving factors: none Exacerbating factors: none Associated symptoms: denies other symptoms Treatments prior to arrival: none Related Data Home Medications Medication Instructions Recorded Confirmed sertraline 100 mg tablet 100 mg PO DAILY 08/26/22 07/28/23 cannabidiol 100 mg/mL oral solution 5,000 mg PO TID 04/17/23 07/28/23 Previous Rx's Medication Instructions Recorded witch lorraine 50 % topical pads 1 pad topical BID-QID PRN skin 11/12/22 (Tucks (witch lorraine)) irritation #100 ea epinephrine 0.3 mg/0.3 mL 0.3 mg (0.3 mL) IM Q4H PRN 02/20/23 injection, auto-injector (EpiPen anaphylaxis #2 ea 2-Hamilton) sanitary pads #40 ea 03/27/23 diclofenac sodium 1 % topical gel 2 g topical QID #100 grams 06/09/23 (Arthritis Pain (diclofenac)) bethanechol chloride 50 mg tablet 50 mg PO BID #60 tabs 06/16/23 cholecalciferol (vitamin D3) 50 50 mcg PO DAILY #90 caps 07/07/23 mcg (2,000 unit) capsule acetaminophen 650 mg 650 mg PO Q8H #30 tabs 08/05/23 tablet,extended release tizanidine 4 mg capsule 4 mg PO .COMPLEX PRN muscle 08/25/23 spasticity #90 caps Brace,wrist #1 ea 09/11/23 loratadine 10 mg tablet (Allergy 10 mg PO DAILY #60 tabs 09/12/23 Relief (loratadine)) Allergies Allergy/AdvReac Type Severity Reaction Status Date / Time bacitracin [From NEOSPORIN] Allergy Severe RASH Verified 09/12/23 13:49 gramicidin D [From NEOSPORIN] Allergy Severe RASH Verified 09/12/23 13:49 polymyxin B [From NEOSPORIN] Allergy Severe RASH Verified 09/12/23 13:49 adhesive tape [ADHESIVE TAPE] Allergy Intermediate RASH/BLISTE Verified 09/12/23 13:49 RS polyester fibers Allergy Intermediate Itching Verified 09/12/23 13:49 Sulfa (Sulfonamide Allergy Intermediate ITCHY RASH Verified 09/12/23 13:49 Antibiotics) [SULFA (SULFONAMIDE ANTIBIOTICS)] chlorhexidine Allergy Mild Rash Verified 09/12/23 13:49 [From ChloraPrep Clear] cefazolin [CEFAZOLIN] AdvReac Intermediate GI UPSET Verified 09/12/23 13:49 Review of Systems Constitutional: Constitutional: Reports no additional constitutional complaints, Denies chills, Denies fever(s) and Denies night sweats Eyes: Eyes: Reports no additional eye complaints, Denies blurry vision, Denies change in vision, Denies diplopia, Reports itchy eyes and Denies loss of vision Comments: bilateral watery eyes ENT: Denies dizziness Cardiovascular: Cardiovascular: Reports no additional cardiovascular complaints, Denies chest pain, Denies lightheadedness, Denies Loss of Consciousness and Denies dyspnea Respiratory: Respiratory: Reports no additional respiratory complaints and Denies dyspnea Gastrointestinal: Gastrointestinal: Reports no additional gastrointestinal complaints, Denies abdominal pain, Denies melena, Denies hematochezia, Denies change in bowel habits and Denies change in stool character Genitourinary: Genitourinary: Denies hematuria, Denies urinary frequency, Denies dysuria, Denies urinary incontinence, Denies urinary hesitancy and Denies urinary urgency Musculoskeletal: Musculoskeletal: Reports no additional musculoskeletal complaints, Denies numbness and Denies tingling Neurologic: Denies dizziness, Denies loss of vision, Denies numbness and Denies tingling Psychiatric: Psychiatric: Reports no additional psychiatric complaints Endocrine: Endocrine: Reports no additional endocrine complaints Hematologic/Lymphatic: Hematologic/Lymphatic: Reports no additional hematologic/lymphatic complaints Allergic/Immunologic: Allergic/Immunologic: Reports no additional allergic/immunologic complaints and Reports itchy eyes PMFSH Past Medical History Attestation statement: The following information was validated with the patient. Source: old records reviewed and nursing notes reviewed Medical History Bilateral thumb pain Lumbar back pain History of electroconvulsive therapy Spina bifida occulta S/P ECT (electroconvulsive therapy) History of cardiac murmur Incontinence of urine Tooth missing Needle stick, hypodermic, accidental Exposure to bloodborne pathogen Vitamin D deficiency Fatigue Left shoulder pain Fibromyalgia H. pylori duodenitis Obesity (BMI 30-39.9) Cholelithiasis Lumbar degenerative disc disease Anxiety and depression Hypercholesterolemia Osteopenia Restless leg syndrome Insomnia Tobacco abuse GERD (gastroesophageal reflux disease) Impaired glucose tolerance Hypertension Cervical radiculopathy due to degenerative joint disease of spine HLA B27 (HLA B27 positive) Surgical History History of incisional hernia repair (10/02/22) Hx of colonoscopy History of cervical discectomy H/O basal cell carcinoma excision History of shoulder surgery History of lumbar fusion H/O thumb surgery H/O right wrist surgery History of partial hysterectomy History of hernia repair H/O nasal septoplasty History of hemorrhoidectomy History of cholecystectomy History of tonsillectomy Family History Family History Father Hypertension Past heart attack CVD (cardiovascular disease) Mother Hyperlipidemia Paternal Grandmother Lung cancer Son Substance abuse Brother Bipolar 1 disorder Other Mental health disorder Social History Social History Housing: House Are you a primary healthcare receptionist to a significant other at home: No Do you presently have visiting nurse or other home services: Yes (PRACTICE SUPPORT SPECIALIST 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) Alcohol intake: never Patient Tobacco Use Status: Current everyday Tobacco user Tobacco use type: Cigarette Cigarette Packs Per Day: 0.5 Cigarettes Per Day: 15 Years Smoked: 46 e-Cigarette/Vaping Use: Never Used Second Hand Smoke Exposure: Yes service: No Current occupational status: disabled Cognitive needs: No Hearing needs: No Vision needs: Yes (reading glasses) Physical Exam ED Vital Signs: Vital Signs - 24 hr 09/12/23 13:46 Temperature 98.6 F Pulse Rate 67 Respiratory Rate 18 Blood Pressure 186/90 H Pulse Oximetry 97 Oxygen Delivery Method Room Air BMI result Body Mass Index 30.9 Const General: cooperative, no acute distress, alert and awake Nutritional Appearance: well nourished Orientation/consciousness: patient oriented x3 Limitations: no limitations HENMT Head: Yes normal to inspection and Yes atraumatic Ears: hearing grossly normal bilaterally and external ears normal General nose exam: Normal external nose present, no nasal discharge noted and no epistaxis Face and sinus: Yes normal facial exam, No abrasion and No laceration Mouth: Normal oral and palatal mucosa present, no drooling and no muffled voice Eyes Periorbital: periorbital findings normal Eyelids: Yes eyelids normal Conjunctivae: conjunctivae normal Sclerae: scleral abnormal bilateral scleral injection (very mild) diffuse Corneas: corneas normal Pupils: Equal, round and reactive pupils present EOM: EOMs intact bilaterally Neck Neck: Yes normal visual inspection, Yes full ROM and Yes no lymphadenopathy Chest Chest palpation & inspection: normal inspection of the chest Resp Effort & Inspection: normal respiratory effort and able to speak in complete sentences GI Inspection: Yes normal to inspection Neuro General: patient oriented x3 and moves all extremities Cranial nerves: Yes Equal, round and reactive pupils present Cognition (Neuro): normal cognition Motor exam (neuro): 5/5 motor strength present throughout Sensory Exam: Normal double simultaneous stimulation for sensation Coordination: [id number] test normal Extrem General: Yes normal to inspection, Yes full ROM and Yes capillary refill normal Psych Appearance: grossly normal Mental Status: mental status grossly normal Affect: normal affect Attitude: cooperative Thought process: Normal thought process present Thought content: Normal thought content present Insight: Good insight present (Psych) Medical Decision Making Medical Decision Making MDM Narrative: Patient is a 63 year old assigned female at with a history of HTN presenting to the emergency department today with bilateral eye irritation and watering. Patient's physical exam was as noted in the physical exam portion of this note. I explained my physical exam findings to the patient. I answered all questions asked by the patient. I stressed the importance of the patient taking her medication as prescribed. I stressed the importance of the patient following up with her primary care provider and an water rights specialist. I stressed the importance of the patient returning to the emergency department immediately if her symptoms were to worsen or if she were to develop any dizziness, shortness of breath, difficulty breathing, chest pain, blurry vision, loss of vision, nausea, vomiting, abdominal pain, fever, chills, back pain, or any other complaints. Patient verbalized agreement and understanding with this treatment plan and discharge. Differential Diagnosis Differential Diagnoses: The differential diagnosis associated with the presentation includes Allergic conjunctivitis Seasonal allergies Admission/Observation Consideration of admission/observation: Escalation of care including admission/observation considered Patient would have been admitted to the hospital had her clinical presentation warranted hospital admission. Discharge Plan Discharge Clinical Impression: Watery eyes Patient Disposition: Home, Self-Care Additional Instructions: Follow up with your primary care provider and an water rights specialist. Return to the emergency department immediately if your symptoms worsen or if you develop any dizziness, shortness of breath, difficulty breathing, chest pain, blurry vision, loss of vision, nausea, vomiting, abdominal pain, fever, chills, back pain, or any other complaints. Prescriptions: New loratadine [Allergy Relief (loratadine)] 10 mg tablet 10 mg PO DAILY Qty: 60 0RF No Action epinephrine [EpiPen 2-Hamilton] 0.3 mg/0.3 mL auto-injector 0.3 mg IM Q4H PRN (Reason: anaphylaxis) Qty: 2 0RF (DME) sanitary pads long pad See Rx Instructions .Route .MEDSUPPLY Qty: 40 11RF Rx Instructions: long, thin sanitary pads (without wings) cholecalciferol (vitamin D3) 50 mcg (2,000 unit) capsule 50 mcg PO DAILY Qty: 90 1RF acetaminophen 650 mg tablet extended release 650 mg PO Q8H Qty: 30 0RF cannabidiol 100 mg/mL solution 5,000 mg PO TID Patient Comments: with no thc in it Rx Instructions: hemp oil sertraline 100 mg tablet 100 mg PO DAILY (DME) Brace,wrist Misc See Rx Instructions .Route Qty: 1 0RF Rx Instructions: As directed Tucks (witch lorraine) 50 % pads, medicated 1 pad topical BID-QID PRN (Reason: skin irritation) Qty: 100 0RF bethanechol chloride 50 mg tablet 50 mg PO BID Qty: 60 5RF diclofenac sodium [Arthritis Pain (diclofenac)] 1 % gel 2 g topical QID Qty: 100 12RF Rx Instructions: apply to single elbow, wrist or hand; for hand includes palm/fingers/back of hand tizanidine 4 mg capsule 4 mg PO .COMPLEX PRN (Reason: muscle spasticity) Qty: 90 0RF Rx Instructions: 4 mg AM, 8 mg QHS Referrals: Peter Carrillo [Physician] - (Call to establish and follow up with an water rights specialist. ) Sung,Kenya Collazo MD [Primary Care Provider] - Print Language: Belarusian
== END 2023-09-12 14:02 | disposition home or self-care (01) ==
LOC: HO.ED 13:59
PROVIDERS: Emergency Provider Emergency Medicine Emergency Medical Services; PCP Internal Medicine
DX: H57.13 Ocular pain, bilateral (principal); Z79.899 Other long term (current) drug therapy
CPT/HCPCS: 99282; 99283

== ENCOUNTER 2023-09-19 12:55 | Outpatient (REF) | payer OTHER, SELFPAY ==
--- NOTE | ~2023-09-19 | US_ITS ---
EXAMINATION: US RETROPERITONEAL COMPLETE (RENAL) CLINICAL INFORMATION: Neuromuscular dysfunction of the bladder, unspecified. COMPARISON: Ultrasound kidneys and bladder 04/16/2023. TECHNIQUE: Real-time imaging of the kidneys and bladder. FINDINGS: RIGHT KIDNEY: 9.7 x 4.2 x 5.4 cm (SAG x AP x TRV). The kidney is normal in size, contour, and echogenicity. Renal cortical thickness is normal. No calculi or focal parenchymal lesions. Pelviectasis without leslie hydronephrosis, unchanged. LEFT KIDNEY: 9.8 x 4.6 x 5.1 cm (SAG x AP x TRV). The kidney is normal in size, contour, and echogenicity. Renal cortical thickness is normal. No calculi or focal parenchymal lesions. No hydronephrosis. BLADDER: Well distended and normal. Bilateral ureteral jets are demonstrated. Prevoid bladder volume is 624 mL. Postvoid bladder volume is 427 mL. US/US retroperitoneal comp IMPRESSION: 1. Right renal pelviectasis without leslie hydronephrosis, unchanged. 2. Large postvoid bladder residual of 427 mL.
== END 2023-09-19 12:56 | disposition home or self-care (01) ==
LOC: HO.US 12:55
PROVIDERS: PCP Internal Medicine; Visit Provider Urology
DX: N31.9 Neuromuscular dysfunction of bladder, unspecified (principal); R33.9 Retention of urine, unspecified
CPT/HCPCS: 76770

== ENCOUNTER 2023-10-16 12:58 | Outpatient (AMB) | payer OTHER, SELFPAY ==
--- NOTE | 2023-10-16 13:12 | A.OFFVIS_ITS ---
Intake Intake Visit Reasons: 5m/US Intake Note: Patient presents today for a follow-up on 5m/Neurogenic bladder/US, Completed on 09/19/2023: Meds- BETHANECHOL Patient stated that it not treat her condition therefore she stoped it. Allergies to Antibiotic- Bacitracin, Gramicidin, Cefazolin & Sulfa Blood Thinner- None PVR: 493 mL Rehab Manager Required: No Accompanied by: Self / Same As Patient Allergies bacitracin [From NEOSPORIN] Allergy (Severe, Verified 10/31/23 12:50) RASH gramicidin D [From NEOSPORIN] Allergy (Severe, Verified 10/31/23 12:50) RASH polymyxin B [From NEOSPORIN] Allergy (Severe, Verified 10/31/23 12:50) RASH adhesive tape [ADHESIVE TAPE] Allergy (Intermediate, Verified 10/31/23 12:50) RASH/BLISTERS polyester fibers Allergy (Intermediate, Verified 10/31/23 12:50) Itching Sulfa (Sulfonamide Antibiotics) [SULFA (SULFONAMIDE ANTIBIOTICS)] Allergy (Intermediate, Verified 10/31/23 12:50) ITCHY RASH chlorhexidine [From ChloraPrep Clear] Allergy (Mild, Verified 10/31/23 12:50) Rash cefazolin [CEFAZOLIN] Adverse Reaction (Intermediate, Verified 10/31/23 12:50) GI UPSET Medication List - Last Reconciled 10/16/23 by Mike Raphael MD acetaminophen ER 650 mg PO Q8H bethanechol chloride 50 mg PO BID Brace,wrist As directed calcium carbonate 600 mg PO BID cannabidiol 5,000 mg PO TID cholecalciferol (vitamin D3) 50 mcg PO DAILY diclofenac sodium 1% (Arthritis Pain (diclofenac)) 2 grams topical QID epinephrine (EpiPen 2-Hamilton) 0.3 mg (0.3 mL) IM Q4H PRN Lactobacillus rhamnosus GG (Culturelle) 1 cap PO BID loratadine (Allergy Relief (loratadine)) 10 mg PO DAILY [sanitary pads long, thin sanitary pads (without wings)] sertraline 100 mg PO DAILY tizanidine 4 mg AM, 8 mg QHS underpads (Bed Underpads) As directed witch lorraine 50% (Tucks (witch lorraine)) 1 pad topical BID-QID PRN HPI HPI Comments History of Present Illness Details 10/16/23--María is a 63-year-old female wh o presents today to the office for a follow-up. María is followed due to neurogenic and incomplete bladder emptying. She is prescribed bethanechol 50 mg twice a day. She states she has resumed taking the medication. She has been counseled regarding complications of incomplete bladder emptying may include kidney compromise. I have reviewed follow-up renal ultrasound with the patient, 09/19/2023- IMPRESSION: Right renal pelvie ctasis without leslie hydronephrosis, unchanged. Large postvoid bladder residual of 427 mL. Plan-continue bethanechol 50 mg twice a day. Continue to monitor kidneys. Review of charts: 06/16/23-- María is followed due to neurogenic and incomplete bladder emptying. She is followed today for US results. Discussed with the patient the concern that if she continues to retain large lovely unts of urine in the bladder it can cause pressure on the kidneys. She was last me on 02/20/2023 and had been compliant on bethanochol 50 mg bid. She states stopped taking blood pressure and cholesterol medications. She also stopped taking the bethanochol. She states that she has been eating a healthier diet include fruits, vegetables and herbal supplements. She does have a BP cuff that she monitors and states that is been 120/80. She has informed her PCP that she has stopped taking these meds. I have reviewed with the patient the renal US results which indicate some resolution of the hydronephrosis. 04/16/23-- Renal US--Right renal pelviecta sis without leslie hydronephrosis decreased from prior. She has a history of fibromyalgia. I previously discussed alternative therapies include neuromodulation Interstim therapy and clean catheterization which the patient declines. Trial of Alfuzosin was discontinued due to complaints of lightheadedness. Pt Refused recommendation to trial increase in the dose of bethanechol 3 times a day. Imagin04/16/23-- Renal US--Right renal pelviecta sis without leslie hydronephrosis decreased from prior. Renal US results reviewed?09/25/2022-- Mild bilateral hydronephrosis. Kidneys: WNL, no renal calculi visualized. CTAP results reviewed--11/06/22-- No hydronephrosis noted. The bladder is distended. Sacrum MRI results reviewed-- 12/03/22--normal appearance of sacral plexus. No sites of nerve impingement or stenoses. A dorsal defect in the dural sac at the L5 level is unchanged. An incidental 3.8 cm unilocular right adnexal cyst. No suspicious features is noted. bladder is distended with a trabeculated wall and that is unchanged. 10/16/23--PLAN: Plan-continue bethanechol 50 mg twice a day. Continue to monitor kidneys. [facility] Medical History (Updated 10/31/23 @ 13:33 by NARENDRA Reich-ELIZABETH) half-way (current) use of immunomodulator Back pain due to inflammatory process Osteopenia after menopause Hypovitaminosis D Bilateral thumb pain Lumbar back pain History of electroconvulsive therapy Spina bifida occulta S/P ECT (electroconvulsive therapy) History of cardiac murmur Incontinence of urine Tooth missing Needle stick, hypodermic, accidental Exposure to bloodborne pathogen Vitamin D deficiency Fatigue Left shoulder pain Fibromyalgia H. pylori duodenitis Obesity (BMI 30-39.9) Cholelithiasis Lumbar degenerative disc disease Anxiety and depression Hypercholesterolemia Osteopenia Restless leg syndrome Insomnia Tobacco abuse GERD (gastroesophageal reflux disease) Impaired glucose tolerance Hypertension Cervical radiculopathy due to degenerative joint disease of spine HLA B27 (HLA B27 positive) Surgical History History of incisional hernia repair (10/02/22) Hx of colonoscopy History of cervical discectomy H/O basal cell carcinoma excision History of shoulder surgery History of lumbar fusion H/O thumb surgery H/O right wrist surgery History of partial hysterectomy History of hernia repair H/O nasal septoplasty History of hemorrhoidectomy History of cholecystectomy History of tonsillectomy Family History Father Hypertension Past heart attack CVD (cardiovascular disease) Mother Hyperlipidemia Paternal Grandmother Lung cancer Son Substance abuse Brother Bipolar 1 disorder Other Mental health disorder Social History Housing: House Are you a primary medication care manager to a significant other at home: No Do you presently have visiting nurse or other home services: Yes (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) Alcohol intake: never Patient Tobacco Use Status: Current everyday Tobacco user Tobacco use type: Cigarette Cigarette Packs Per Day: 0.5 Cigarettes Per Day: 15 Years Smoked: 46 e-Cigarette/Vaping Use: Never Used Second Hand Smoke Exposure: Yes service: No Current occupational status: disabled Cognitive needs: No Hearing needs: No Vision needs: Yes (reading glasses) Review of Systems Const All systems reviewed & are unremarkable except as noted in HPI and below Reports no additional complaints Eyes Reports no additional complaints ENT Reports no additional complaints Card Denies dyspnea Resp Denies cough and Denies dyspnea GI Reports no additional complaints Reports no additional complaints Musc Reports no additional complaints Skin/Breast Denies rash and Denies unusual bruising Neuro Reports no additional complaints Psych Reports no additional complaints Endo Reports no additional complaints Adam/Lymph Reports no additional complaints Aller/Immun Reports no additional complaints Office Procedures Post Void Residual Post Residual Void Post Void Residual (PVR): [id number] Void Residual by ultrasound Results AMB Urinalysis, Automated UA Leukoctes 0 Walter/uL Last Edit by DAVID Kaplan on 10/16/23 13:25 UA Nitrite Negative Last Edit by DAVID Kaplan on 10/16/23 13:25 UA Urobilinogen 0.2 mg/dL Last Edit by DAVID Kaplan on 10/16/23 13:2 5 UA Protein 0 mg/dL Last Edit by DAVID Kaplan on 10/16/23 13:25 UA pH 6.0 Last Edit by DAVID Kaplan on 10/16/23 13:25 UA Blood 0 Dennis/uL Last Edit by DAVID Kaplan on 10/16/23 13:25 UA Specific [place] 1.010 Last Edit by DAVID Kaplan on 10/16/23 13: 25 UA Ketone Negative Last Edit by Susan Pemberton [facility] on 10/16/23 13:25 UA Bilirubin 0 mg/dL Last Edit by Susan Pemberton A on 10/16/23 13:25 UA Glucose 0 mg/dL Last Edit by Susan Pemberton, [facility] on 10/16/23 13:25 AMB Urinalysis, Automated UA Leukoctes 0 Walter/uL Last Edit by Susan Pemberton [facility] on 10/16/23 13:52 UA Nitrite Negative Last Edit by Susan Pemberton, [facility] on 10/16/23 13:52 UA Urobilinogen 0.2 mg/dL Last Edit by Susan Pemberton, [facility] on 10/16/23 13:5 2 UA Protein 0 mg/dL Last Edit by Susan Pmeberton [facility] on 10/16/23 13:52 UA pH 6.0 Last Edit by Susan Pemberton [facility] on 10/16/23 13:52 UA Blood 0 Dennis/uL Last Edit by Susan Pemberton [facility] on 10/16/23 13:52 UA Specific [place] 1.010 Last Edit by Susan Pemberton [facility] on 10/16/23 13: 52 UA Ketone Negative Last Edit by Susan Pemberton [facility] on 10/16/23 13:52 UA Bilirubin 0 mg/dL Last Edit by Susan Pemberton [facility] on 10/16/23 13:52 UA Glucose 0 mg/dL Last Edit by Susan Pemberton [facility] on 10/16/23 13:52 Results Reviewed Results Reviewed: Laboratory Last Values Urine pH (Auto) 6.0 10/16/23 13:49 Specific [place] (Auto) 1.010 10/16/23 13:49 Urine Protein (Auto) 0 mg/dL 10/16/23 13:49 Glucose (UA)(Auto) 0 mg/dL 10/16/23 13:49 Urine Ketones (Auto) Negative 10/16/23 13:49 Urine Blood (Auto) 0 Dennis/uL 10/16/23 13:49 Urine Nitrite (Auto) Negative 10/16/23 13:49 Urine Bilirubin (Auto) 0 mg/dL 10/16/23 13:49 Urine Urobilinogen (Auto) 0.2 mg/dL 10/16/23 13:49 Leukocyte Esterase (Auto) 0 Walter/uL 10/16/23 13:49 Date of Service: 09/19/23 EXAMINATION: US RETROPERITONEAL COMPLETE (RENAL) CLINICAL INFORMATION: Neuromuscular dysfunction of the bladder, unspecified. COMPARISON: Ultrasound kidneys and bladder 04/16/2023. TECHNIQUE: Real-time imaging of the kidneys and bladder. FINDINGS: RIGHT KIDNEY: 9.7 x 4.2 x 5.4 cm (SAG x AP x TRV). The kidney is normal in size, contour, and echogenicity. Renal cortical thickness is normal. No calculi or focal parenchymal lesions. Pelviectasis without leslie hydronephrosis, unchanged. LEFT KIDNEY: 9.8 x 4.6 x 5.1 cm (SAG x AP x TRV). The kidney is normal in size, contour, and echogenicity. Renal cortical thickness is normal. No calculi or focal parenchymal lesions. No hydronephrosis. BLADDER: Well distended and normal. Bilateral ureteral jets are demonstrated. Prevoid bladder volume is 624 mL. Postvoid bladder volume is 427 mL. IMPRESSION: 1. Right renal pelviectasis without leslie hydronephrosis, unchanged. 2. Large postvoid bladder residual of 427 mL. Assessment & Plan Assessment & Plan (1) Neurogenic bladder: Code(s): N31.9 - Neuromuscular dysfunction of bladder, unspecified (2) Urinary retention with incomplete bladder emptying: Code(s): R33.9 - Retention of urine, unspecified (3) Lumbar degenerative disc disease: Code(s): M51.36 - Other intervertebral disc degeneration, lumbar region Plan Plan-continue bethanechol 50 mg twice a day. Continue to monitor kidneys. Orders: Orders AMB Urinalysis Automated 10/16/23 Z13.9 - Encounter for screening, unspecified AMB Urinalysis Automated 10/16/23 Z13.9 - Encounter for screening, unspecified AMB Post Void Residual by ultrasound 10/16/23 N39.8 - Other specified disorders of urinary system Medications: Refilled bethanechol chloride 50 mg PO BID 60 tabs 5RF Patient Instructions: The patient had an opportunity to ask questions regarding treatment plan. All questions were answered. Imaging, Laboratory studies and physical exam results were discussed and reviewed in detail. No major barriers to understanding were identified. The patient expressed understanding and agreement with the above treatment plan. The patient is aware they should contact our office by phone for worsening of their current condition or the appearance of new symptoms. Compliance is encouraged with any medications and followup testing that is ordered. It is a privilege to be allowed the opportunity to participate in the urologic care of your patient. If you have any questions or concerns regarding treatment for the above conditions please do not hesitate to contact me. The office telephone contact is [phone]. This note is constructed in part using voice recognition software. While every effort has been made to ensure accuracy supervisor microbiology technologists errors may have been included. Yours sincerely, Mike Raphael MD Coding Level of Care Code Est Pt Level 4 (51145) Diagnoses Neurogenic bladder N31.9 Urinary retention with incomplete bladder emptying R33.9 Lumbar degenerative disc disease M51.36 CPT Codes Post Residual Void - PVR CPT Code: 95665-Vvsn Void Residual by ultrasound ([id number])
== END 2023-10-16 14:19 | disposition home or self-care (01) ==
PROVIDERS: PCP Internal Medicine; Visit Provider Urology
DX: N31.9 Neuromuscular dysfunction of bladder, unspecified (principal); R33.9 Retention of urine, unspecified; M51.36 Other intervertebral disc degeneration, lumbar region
CPT/HCPCS: 99214

== ENCOUNTER → 2023-10-16 12:58 | Outpatient (BNVA) | payer OTHER, SELFPAY | PROVIDERS: PCP Internal Medicine; Visit Provider Urology | DX: N31.9 Neuromuscular dysfunction of bladder, unspecified (principal); R33.9 Retention of urine, unspecified; M51.36 Other intervertebral disc degeneration, lumbar region | CPT/HCPCS: 51798; 81003; 99212 ==

== ENCOUNTER 2023-10-31 12:25 | Outpatient (AMB) | payer OTHER, SELFPAY ==
--- NOTE | 2023-10-31 12:42 | A.OFFVIS_ITS ---
Intake Vital Signs 10/31/23 12:49 Height 5 ft 4 in Weight 154 lb 15.759 oz BMI 26.6 BP 100/60 Blood Pressure Location Rt brachial Position Sitting Pulse 64 Pulse Source Pulse Oximeter Temp 97 F Temp Source Skin Pulse Oximetry (%) 97 Oxygen Delivery Method Room Air Intake Visit Reasons: Hip Bursitis Bilateral/LVM Intake Note: Patient last seen 09/11/23, presents today for follow up and test results. Pipe Insulator Helper Required: No Accompanied by: Self / Same As Patient Allergies bacitracin [From NEOSPORIN] Allergy (Severe, Verified 10/31/23 12:50) RASH gramicidin D [From NEOSPORIN] Allergy (Severe, Verified 10/31/23 12:50) RASH polymyxin B [From NEOSPORIN] Allergy (Severe, Verified 10/31/23 12:50) RASH adhesive tape [ADHESIVE TAPE] Allergy (Intermediate, Verified 10/31/23 12:50) RASH/BLISTERS polyester fibers Allergy (Intermediate, Verified 10/31/23 12:50) Itching Sulfa (Sulfonamide Antibiotics) [SULFA (SULFONAMIDE ANTIBIOTICS)] Allergy (Intermediate, Verified 10/31/23 12:50) ITCHY RASH chlorhexidine [From ChloraPrep Clear] Allergy (Mild, Verified 10/31/23 12:50) Rash cefazolin [CEFAZOLIN] Adverse Reaction (Intermediate, Verified 10/31/23 12:50) GI UPSET HPI HPI Comments History of Present Illness Details Ms. Daniel returns today to discuss lab results and possible treatment options for positive HLA B27 inflammatory back pain. She has had no illnesses or hospitalizations since last visit. Her concerns continues to be lower back, knee, foot pain. She did not get good relief from the corticosteroid injections to the bilateral trochanteric bursae that was given at last visit. 09/11/2023 visit Marianela 63yoF presents for follow-up of joint pain. Last seen in Aug 2022. 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 Patient reports head to to joint pain and she states that nothing makes her pain feel better. She reports she was diagnosed with fibromyaliga many years ago but is not too keen on taking pharmaceuticals. She has chronic back pain that started in her 30s. Pain is throughout her spine that is managed with rest, arthritis strength Tyelnol and tizanidine. She denies numbness or bladder involvement. She has a history of cervical and lumbar spine surgery. She states her left hip pain is stable and has received steroid injection for hip and back with [facility] under mild sedation. She is s/p bilateral rotator cuff surgery with metal hardware on the right. She follows with a psychiatrist and tried intranasal ketamine which she states was not helpful. Currently taking sertraline for depression. She also uses diclofenac 1% gel for joint pain. She reports bilateral hip pain that interupts sleep. She reports intermittent pain in the left great toe, previously fractured this site. Denies any joint swelling. Denies symmetric swelling and pain in her small joints. She states that overall her pain is greatly improved when she is exercising or keeps active. [facility] Medical History (Updated 10/31/23 @ 13:33 by NARENDRA Reich-) half-way (current) use of immunomodulator Back pain due to inflammatory process Osteopenia after menopause Hypovitaminosis D Bilateral thumb pain Lumbar back pain History of electroconvulsive therapy Spina bifida occulta S/P ECT (electroconvulsive therapy) History of cardiac murmur Incontinence of urine Tooth missing Needle stick, hypodermic, accidental Exposure to bloodborne pathogen Vitamin D deficiency Fatigue Left shoulder pain Fibromyalgia H. pylori duodenitis Obesity (BMI 30-39.9) Cholelithiasis Lumbar degenerative disc disease Anxiety and depression Hypercholesterolemia Osteopenia Restless leg syndrome Insomnia Tobacco abuse GERD (gastroesophageal reflux disease) Impaired glucose tolerance Hypertension Cervical radiculopathy due to degenerative joint disease of spine HLA B27 (HLA B27 positive) Surgical History History of incisional hernia repair (10/02/22) Hx of colonoscopy History of cervical discectomy H/O basal cell carcinoma excision History of shoulder surgery History of lumbar fusion H/O thumb surgery H/O right wrist surgery History of partial hysterectomy History of hernia repair H/O nasal septoplasty History of hemorrhoidectomy History of cholecystectomy History of tonsillectomy Family History Father Hypertension Past heart attack CVD (cardiovascular disease) Mother Hyperlipidemia Paternal Grandmother Lung cancer Son Substance abuse Brother Bipolar 1 disorder Other Mental health disorder Social History Housing: House Are you a primary ambulatory care nurse to a significant other at home: No Do you presently have visiting nurse or other home services: Yes (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) Alcohol intake: never Patient Tobacco Use Status: Current everyday Tobacco user Tobacco use type: Cigarette Cigarette Packs Per Day: 0.5 Cigarettes Per Day: 15 Years Smoked: 46 e-Cigarette/Vaping Use: Never Used Second Hand Smoke Exposure: Yes service: No Current occupational status: disabled Cognitive needs: No Hearing needs: No Vision needs: Yes (reading glasses) Review of Systems Const All systems reviewed & are unremarkable except as noted in HPI and below Physical Exam Vital Signs: Last Vital Signs Temp 97 F 10/31/23 12:49 Pulse 64 10/31/23 12:49 BP 100/60 10/31/23 12:49 Pulse Ox 97 10/31/23 12:49 Oxygen Delivery Method Room Air 10/31/23 12:49 BMI result Body Mass Index 26.6 Results Reviewed Results Reviewed: Laboratory Tests 09/11/23 14:12 WBC 7.8 RBC 4.42 Hgb 13.8 Hct 39.7 ESR 7 BUN 14 Creatinine 0.88 Estimated GFR > 60 AST 18 ALT 11 C-Reactive Protein 0.18 Rheumatoid Factor < 13.0 Cycl Citrul Peptide IgG <16 HLA-B27 Positive A Assessment & Plan Assessment & Plan (1) Lumbar degenerative disc disease: Code(s): M51.36 - Other intervertebral disc degeneration, lumbar region (2) Fibromyalgia: Code(s): M79.7 - Fibromyalgia (3) Bilateral hand pain: Code(s): M79.641 - Pain in right hand; M79.642 - Pain in left hand (4) Back pain due to inflammatory process: Code(s): M54.89 - Other dorsalgia Plan 62-year-old female patient with history of chronic back pain and fibromyalgia. Her workup for back pain in 2019 was positive for HLA B27, inflammatory markers were normal and have remained normal, no evidence of sacroiliitis on MRI of the pelvis. Given that she is HLA B27 positive with this chronic low back pain, I will start her on leflunomide and reassess. We discussed some of the side effects of leflunomide and patient knows to hold the medication if she encounters any of these. I also discussed that it is possible that she has a combination of cause that is responsible for her back pain which can include autoimmune inflammation and mechanical reasons. Leflunomide will only address the autoimmune cause if any exists. I will see her again in 12 weeks to reassess. I did discuss with the patient that it takes some time for leflunomide on board and feel effectiveness can start at approximately 12 weeks. Follow-up 8 weeks year sooner if needed. 30 minutes spent reviewing the chart, evaluating patient, and documenting. Orders: Orders Comprehensive Met. Panel 10/31/23 Z79.61 - half-way (current) use of immunomodulator Complete Blood Count Auto Diff 10/31/23 Z79.61 - half-way (current) use of immunomodulator Medications: New leflunomide take 1 tablet per day for 2 weeks then take two tablets per day. 90 tabs 0RF M54.89 - Other dorsalgia calcium carbonate-vitamin D3 600 mg-62.5 mcg (2,500 unit) 1 cap PO DAILY 90 caps 1RF E55.9 - Vitamin D deficiency, unspecified, M85.80 - Other specified disorders of bone density and structure, unspecified site, Z78.0 - Asymptomatic menopausal state Discontinued calcium carbonate Discontinued Reason: Doctor's Order 600 mg PO BID 180 tabs 3RF cholecalciferol (vitamin D3) Discontinued Reason: Doctor's Order 50 mcg PO DAILY 90 caps 1RF E55.9 - Vitamin D deficiency, unspecified Coding Level of Care Code Est Pt Level 3 (03520) Diagnoses Lumbar degenerative disc disease M51.36 Fibromyalgia M79.7 Bilateral hand pain M79.641; M79.642 Back pain due to inflammatory process M54.89
[2023-10-31 12:49] VITALS: BP 100/60; PULSE 64; TEMP 36.1; O2SAT 97; BMI 26.6
== END 2023-10-31 13:35 | disposition home or self-care (01) ==
PROVIDERS: PCP Internal Medicine; Visit Provider Nurse Practitioner Family
DX: M51.36 Other intervertebral disc degeneration, lumbar region (principal); M79.7 Fibromyalgia; M79.641 Pain in right hand; M79.642 Pain in left hand; M54.89 Other dorsalgia
CPT/HCPCS: 99213

== ENCOUNTER → 2023-10-31 12:25 | Outpatient (BNVA) | payer OTHER, SELFPAY | PROVIDERS: PCP Internal Medicine; Visit Provider Nurse Practitioner Family | DX: M51.36 Other intervertebral disc degeneration, lumbar region (principal); M79.7 Fibromyalgia; M79.641 Pain in right hand; M79.642 Pain in left hand; M54.89 Other dorsalgia; M85.80 Other specified disorders of bone density and structure, unspecified site; E55.9 Vitamin D deficiency, unspecified; Z78.0 Asymptomatic menopausal state; Z79.61 Long term (current) use of immunomodulator | CPT/HCPCS: 99212 ==

== ENCOUNTER 2023-12-09 09:23 | Outpatient (REF) | payer OTHER, SELFPAY ==
[2023-12-09 09:46] LABS: MANUAL DIFF FLAG NO
[2023-12-09 10:45] LABS: Basophils Absolute Auto 0.1 X10*3/uL (0.0-0.2); Eosinophils Absolute Auto 0.2 X10*3/uL (0.0-0.4); Eosinophils Percent Auto 3.1 % (0-4); Eosinophils Percent Auto 3.2 % (0-4); Hematocrit 41.4 % (37.0-47.0); Hematocrit 41.5 % (37.0-47.0); Hemoglobin 14.1 g/dl (12.0-16.0); Hemoglobin 14.2 g/dl (12.0-16.0); Imm Gran Abs Auto 0.04 X10*3/uL (0.00-0.03); Imm Gran Pct Auto 0.6 % (0.0-0.4); Imm Gran Pct Auto 0.7 % (0.0-0.4); Lymphocytes Absolute Auto 2.2 X10*3/uL (1.2-4.9); Lymphocytes Absolute Auto 2.3 X10*3/uL (1.2-4.9); Lymphocytes Percent Auto 36.1 % (20-40); Lymphocytes Percent Auto 37.3 % (20-40); Mean Corpuscular HGB Conc 34.3 g/dl (31.0-35.0); Mean Corpuscular Hemoglobin 31.3 pg (27.0-33.0); Mean Corpuscular Hemoglobin 31.9 pg (27.0-33.0); Mean Corpuscular Volume 92.2 fL (80.0-98.0); Mean Platelet Volume 9.2 fL (9.4-12.3); Monocytes Absolute Auto 0.6 X10*3/uL (0.1-1.2); Monocytes Percent Auto 8.9 % (2-11); Monocytes Percent Auto 9.1 % (2-11); Neutrophils Absolute Auto 3.1 x10*3/uL (2.0-8.3); Neutrophils Percent Auto 48.8 % (45-73); Neutrophils Percent Auto 50.2 % (45-73); Platelet Count 341 X10*3/uL (160-400); Platelet Count 344 X10*3/uL (160-400); Red Blood Count 4.45 X10*6/uL (4.20-5.50); Red Cell Distribution Width 12.1 % (11.0-16.0); White Blood Count 6.1 X10*3/uL (4.8-10.8); White Blood Count 6.2 X10*3/uL (4.8-10.8)
[2023-12-09 11:21] LABS: Alanine Aminotransferase 17 U/L (0-31); Albumin Level 4.3 g/dL (3.5-5.0); Alkaline Phosphatase 75 U/L (39-117); Anion Gap 12 (12-20); Aspartate Amino Transferase 16 U/L (5-31); Bilirubin Total 0.4 mg/dL (0.0-1.0); Blood Urea Nitrogen 14 mg/dL (9-16); Calcium 10.4 mg/dL (8.4-10.2); Carbon Dioxide 29 mmol/L (22-29); Chloride 103 mmol/L (96-108); Estimated Glomerular Filt Rate > 60; Glucose Random 99 mg/dL (60-115); Potassium 4.2 mmol/L (3.3-5.1); Sodium 140 mmol/L (135-145); Total Protein 7.3 g/dL (6.5-8.0)
[2023-12-09 11:28] LABS: Alanine Aminotransferase 16 U/L (0-31); Albumin Level 4.3 g/dL (3.5-5.0); Alkaline Phosphatase 75 U/L (39-117); Anion Gap 14 (12-20); Aspartate Amino Transferase 16 U/L (5-31); Bilirubin Total 0.4 mg/dL (0.0-1.0); Blood Urea Nitrogen 14 mg/dL (9-16); Calcium 10.4 mg/dL (8.4-10.2); Carbon Dioxide 27 mmol/L (22-29); Chloride 103 mmol/L (96-108); Cholesterol 268 mg/dL (<200); Estimated Glomerular Filt Rate > 60; Glucose Random 99 mg/dL (60-115); HDL Cholesterol 43 mg/dL (>40); LDL Cholesterol Calculated 159 mg/dL (<100); Magnesium 2.1 mg/dL (1.6-2.6); Phosphorus 3.6 mg/dL (2.7-4.5); Potassium 4.1 mmol/L (3.3-5.1); Sodium 140 mmol/L (135-145); Thyroid Stimulating Hormone 1.39 uIU/mL (0.32-4.0); Total Protein 7.3 g/dL (6.5-8.0); Triglycerides 332 mg/dL (<150)
[2023-12-09 11:31] LABS: Free T4 (Free Thyroxine) 0.73 ng/dL (0.71-1.85)
[2023-12-09 15:12] LABS: Estimated Average Glucose 103 mg/dL; Hemoglobin A1c % 5.2 % (<6.0)
[2023-12-09 16:40] LABS: Folate 9.9 ng/mL (> or = 4.0); Vitamin B12 609 pg/mL (200-900)
== END 2023-12-09 09:24 | disposition home or self-care (01) ==
LOC: HO.LAB 09:23
PROVIDERS: Nurse Practitioner Family; PCP Internal Medicine; Visit Provider Internal Medicine
DX: R73.02 Impaired glucose tolerance (oral) (principal); Z79.61 Long term (current) use of immunomodulator; E78.00 Pure hypercholesterolemia, unspecified
CPT/HCPCS: 36415; 80053; 80061; 82607; 82746; 83036; 83735; 84100; 84439; 84443; 85025

== ENCOUNTER 2023-12-17 16:34 | Outpatient (AMB) | payer OTHER, SELFPAY ==
[2023-12-17 16:37] VITALS: BP 110/62; PULSE 80; O2SAT 98; BMI 26.9
--- NOTE | 2023-12-17 16:37 | A.OFFPC_ITS ---
Vital Signs 12/17/23 16:37 Height 5 ft 4 in Weight 157 lb BMI 26.9 BP 110/62 Blood Pressure Location Lt brachial Position Sitting Pulse 80 Pulse Source Pulse Oximeter Pulse Oximetry (%) 98 Oxygen Delivery Method Room Air Intake Visit Reasons: PHY Nurse Intern Required: No Traffic Analyst: Not Required per policy Accompanied by: Self / Same As Patient Allergies bacitracin [From NEOSPORIN] Allergy (Severe, Verified 12/17/23 16:38) RASH gramicidin D [From NEOSPORIN] Allergy (Severe, Verified 12/17/23 16:38) RASH polymyxin B [From NEOSPORIN] Allergy (Severe, Verified 12/17/23 16:38) RASH adhesive tape [ADHESIVE TAPE] Allergy (Intermediate, Verified 12/17/23 16:38) RASH/BLISTERS polyester fibers Allergy (Intermediate, Verified 12/17/23 16:38) Itching Sulfa (Sulfonamide Antibiotics) [SULFA (SULFONAMIDE ANTIBIOTICS)] Allergy (Intermediate, Verified 12/17/23 16:38) ITCHY RASH chlorhexidine [From ChloraPrep Clear] Allergy (Mild, Verified 12/17/23 16:38) Rash cefazolin [CEFAZOLIN] Adverse Reaction (Intermediate, Verified 12/17/23 16:38) GI UPSET Medication List - Last Reconciled 12/17/23 by Kenya Almaraz MD acetaminophen ER 650 mg PO Q8H bethanechol chloride 50 mg PO BID Brace,wrist As directed calcium carbonate-vitamin D3 600 mg-25 mcg (1,000 unit) 2 caps PO DAILY cholecalciferol (vitamin D3) 50 mcg PO DAILY clonazepam 1 mg PO TID PRN diclofenac sodium 1% (Arthritis Pain (diclofenac)) 2 grams topical QID epinephrine (EpiPen 2-Hamilton) 0.3 mg (0.3 mL) IM Q4H PRN ibuprofen 800 mg PO TID PRN incontinence pad, liner, disp (Pads For Women) As directed- extra absorbent overnight pads per pt request leflunomide Orally Take 1 tablet daily x 2 weeks then 2 tablets per day. quetiapine (Seroquel) 100 mg PO TID sertraline 100 mg PO BID tizanidine 4 mg AM, 8 mg QHS underpads (Bed Underpads) As directed witch lorraine 50% (Tucks (witch lorraine)) 1 pad topical BID-QID PRN Tobacco use date assessed: 12/17/23 Dental Screening Dental Screen Date: 12/17/23 Did you have a dental visit in the last 12 months?: Yes Did you have a dental problem in the last 6 months where you did not have access to dental care?: No Was dental information given to patient?: Patient has dentist HPI JAMES HPI Details 63-year-old overweight female smoker wit h GERD impaired glucose tolerance hypertension hypercholesterolemia lumbar degenerative disc disease major depressive disorder in neurogenic bladder last seen in April 2023 patient is here for physical exam. Colonoscopy is up-to-date February 2022 5 years with a history of smoking patient is due for CT scan. Mammogram is up-to-date. Bone density is up-to-date. Review of the notes has seen Rheumatology in October 2023 for hip bursitis had a positive HLA B27 inflammatory markers were normal patient has been started on leflunomide patient also has seen Urology for neurogenic bladder placed on bethanechol with no relief. 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 pylori duodenitis Cholelithiasis Lumbar degenerative disc disease Anxiety and depression Hypercholesterolemia Osteopenia Restless leg syndrome Insomnia Tobacco abuse GERD (gastroesophageal reflux disease) Impaired glucose tolerance Hypertension Cervical radiculopathy due to degenerative joint disease of spine HLA B27 (HLA B27 positive) Surgical History History of incisional hernia repair (10/02/22) Hx of colonoscopy History of cervical discectomy H/O basal cell carcinoma excision History of shoulder surgery History of lumbar fusion H/O thumb surgery H/O right wrist surgery History of partial hysterectomy History of hernia repair H/O nasal septoplasty History of hemorrhoidectomy History of cholecystectomy History of tonsillectomy Family History Father Hypertension Past heart attack CVD (cardiovascular disease) Mother Hyperlipidemia Paternal Grandmother Lung cancer Son Substance abuse Brother Bipolar 1 disorder Other Mental health disorder Social History (Updated 12/17/23 @ 17:11 by Kenya Almaraz MD) Housing: House Are you a primary vp care management to a significant other at home: No Do you presently have visiting nurse or other home services: Yes (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 1. Little interest or pleasure in doing things: several days 2. Feeling down, depressed, or hopeless: several days 3. Trouble falling or staying asleep, or sleeping too much: several days 4. Feeling tired or having little energy: several days 5. Poor appetite or overeating: not at all 6. Feeling bad about yourself - or that you are a failure or have let yourself or your family down: not at all 7. Trouble concentrating on things, such as reading the newspaper or watching television: not at all 8. Moving or speaking so slowly that other people could have noticed. Or the opposite - being so fidgety or restless that you have been moving around a lot more than usual: not at all 9. Thoughts that you would be better off or of hurting yourself in some way: not at all Total score: 4 Depression Screening Interpretation: Positive Depression Screening Done: Yes Source: Developed by Drs. Vero Grove Kurt Kroenke and colleagues, with an educational swati from [employer]. Thrive Questionnaire Date Thrive assessed: 12/17/23 I am a: Patient What is your living situation today?: I have a steady place to live Within the past 12 months, did the food you bought not last and you didn't have the money to get more?: Never true Within the past 12 months, did you worry whether your food would run out before you got money to buy more?: Never true Do you have trouble paying for medicines?: No Do you have trouble getting transportation to medical appointments?: No Do you have trouble paying your heating and electricity bill?: No Do you have trouble taking care of your child, family member or friend?: No Do you have trouble with day-to-day activities such as bathing, preparing meals, shopping, managing finances, etc.?: No Are you currently unemployed and looking for a job?: No Are you interested in more education?: No Please select the resources that you would like help with: None THRIVE Score: 0 AUDIT C Alcohol Use Questionnaire (AUDIT-C) 1. How often do you have a drink containing alcohol?: 2-3 times a week 2. How many drinks containing alcohol do you have on a typical day when you are drinking?: 1 or 2 3. How often do you have six or more drinks on one occasion?: Never Total Score: 3 CARYN-7 AMB Questionnaire CARYN-7 Date CARYN - 7 assessed: 12/17/23 Feeling nervous, anxious, or on edge: 0 = Not at all Not being able to stop or control worryin = Not at all Worrying too much about different things: 0 = Not at all Trouble relaxin = Not at all Being so restless that it is hard to sit still: 0 = Not at all Becoming easily annoyed or irritable: 0 = Not at all Feeling afraid as if something awful might happen: 0 = Not at all Total CARYN-7 score (0-4 normal; 5-9 mild; 10-14 moderate; 15-21 severe): 0 Source: Developed by Vero Garrido Kurt Kroenke and colleagues, with an educational swati from [employer]. Review of Systems Const Denies poor appetite and Denies weakness Eyes Denies no additional complaints ENT Reports Normal hearing present, Denies dizziness, Denies nasal congestion, Denies tinnitus and Denies sore throat Card Denies chest pain, Denies syncope, Denies rapid heart rate and Denies dyspnea Resp Denies cough and Denies dyspnea GI Denies change in stool character, Reports constipation, Denies diarrhea, Denies nausea and Denies vomiting Denies urinary frequency, Denies difficulty voiding and Denies dysuria Neuro Reports Normal hearing present, Denies confusion, Denies dizziness, Denies syncope and Denies weakness Psych Denies confusion Physical exam (Primary Care) Vital Signs: Last Vital Signs Pulse 80 12/17/23 16:37 BP 110/62 12/17/23 16:37 Pulse Ox 98 12/17/23 16:37 Oxygen Delivery Method Room Air 12/17/23 16:37 BMI result Body Mass Index 26.9 Tobacco/Smoking Status: Tobacco use Status Tobacco use date assessed 12/17/23 12/17/23 16:39 Patient Tobacco Use Status Current everyday Tobacco 12/17/23 16:39 Tobacco use type Cigarette 12/17/23 16:39 e-Cigarette/Vaping Use Never Used 12/17/23 16:39 PHQ-9: PHQ-9 Score PHQ-9: Total score 4 12/17/23 16:40 Depression Screening Interpretation: Positive Thrive Assessment: Date of Thrive Assessment Date Thrive assessed 12/17/23 12/17/23 16:39 Const General: No confusion Orientation/consciousness: No confusion HENMT Other: L TM intact , R impacted cerumen Head: Yes normocephalic Ears: external ears normal Face and sinus: Yes normal facial exam Mouth: moist mucous membranes Throat: Yes tonsils normal Eyes Conjunctivae: conjunctivae normal Pupils: Equal, round and reactive pupils present and Pupil accommodation reflex normal Direct Ophthalmoscopy: normal light reflex Neck Neck: No lymphadenopathy Thyroid: Thyroid normal Chest Chest palpation & inspection: normal inspection of the chest Resp Effort & Inspection: normal respiratory effort and no audible wheezes Auscultation: clear to auscultation bilaterally, no crackles, no wheezes and lung sounds not diminished Cardio Rate: regular rate Rhythm: regular rhythm Peripheral pulses: radial pulses present and dorsalis pedis present GI Other: decline rectal Palpation (GI): no masses Auscultation: normal bowel sounds and normoactive bowel sounds Rectal Exam - Female: deferred Skin General skin exam: no rashes or lesions noted Rashes: no rashes Neuro General: No confusion Cranial nerves: Yes Equal, round and reactive pupils present and Yes Normal hearing present Cognition (Neuro): normal cognition Gait exam (Neuro): Normal gait present Motor exam (neuro): 5/5 motor strength present throughout Deep tendon reflexes (DTR's): Right brachioradialis reflex intensity grade: 2+, Left brachioradialis reflex intensity grade: 2+, Right patellar reflex intensity grade: 2+ and Left patellar reflex intensity grade: 2+ Extrem General: No edema Assessment and Plan Assessment & Plan (1) Annual physical exam: Code(s): Z00.00 - Encounter for general adult medical examination without abnormal findings (2) Inflammatory arthritis: Code(s): M19.90 - Unspecified osteoarthritis, unspecified site Plan: Patient has been seen by Rheumatology and advised starting leflunomide (3) Impaired glucose tolerance: Code(s): R73.02 - Impaired glucose tolerance (oral) Plan: Decrease the amount of carbohydrate intake, pasta, bread, rice and potatoes are all sugar and that is aside from all the sweet stuff, remember that fruits are good but they are Sweet also. (4) GERD (gastroesophageal reflux disease): Comment: poor historian- fleeting- non specific - vague- Code(s): K21.9 - Gastro-esophageal reflux disease without esophagitis Qualifiers: Esophagitis presence: without esophagitis Qualified Code(s): K21.9 - Gastro-esophageal reflux disease without esophagitis Plan: Avoid the foods that causes that usually spicy foods, tomato products, juices, coffee, soda and foods that your sensitive to. After eating do not lie down, allow 3-4 hours before in lie down. And keep the head of bed above 30 degrees to avoid the acid from going up. (5) Tobacco abuse: Comment: CT chest done September 2021, December 2022 Code(s): Z72.0 - Tobacco use Plan: Patient is strongly advised to stop smoking! (6) Hypercholesterolemia: Code(s): E78.00 - Pure hypercholesterolemia, unspecified Plan: Avoid fried foods, chicken skin, eggs, butter margarine, pastries and meat. Be it pork or beef they have a lot of cholesterol LDL goal of less than 130 and triglyceride of less than 150 (7) Generalized anxiety disorder: Comment: Dr. Torrie ojeda, Code(s): F41.1 - Generalized anxiety disorder Plan: Continue with counseling and therapy (8) Neurogenic bladder: Code(s): N31.9 - Neuromuscular dysfunction of bladder, unspecified Plan: Patient was seen by Urology and has been placed on bethanechol (9) Lumbar post-laminectomy syndrome: Code(s): M96.1 - Postlaminectomy syndrome, not elsewhere classified Plan: Patient follows up with pain management and planned intrathecal pump (10) Impacted cerumen of right ear: Code(s): H61.21 - Impacted cerumen, right ear Plan: will try own way to clean Orders: Orders Comprehensive Met. Panel 3 Months E78.00 - Pure hypercholesterolemia, unspecified CT lung screen follow up Today Z72.0 - Tobacco use Lipid Panel 3 Months E78.00 - Pure hypercholesterolemia, unspecified Medications: New fenofibrate 160 mg PO DAILY 30 tabs 4RF E78.00 - Pure hypercholesterolemia, unspecified Coding Level of Care Code Est Pt Prev Care 40-64y(41116) Diagnoses Annual physical exam Z00.00 Inflammatory arthritis M19.90 Impaired glucose tolerance R73.02 Gastroesophageal reflux disease without esophagitis K21.9 Esophagitis presence: without esophagitis Tobacco abuse Z72.0 Hypercholesterolemia E78.00 Generalized anxiety disorder F41.1 Neurogenic bladder N31.9 Lumbar post-laminectomy syndrome M96.1 Impacted cerumen of right ear H61.21
== END 2023-12-17 17:26 | disposition home or self-care (01) ==
PROVIDERS: PCP Internal Medicine; Visit Provider Internal Medicine
DX: Z00.00 Encounter for general adult medical examination without abnormal findings (principal); M19.90 Unspecified osteoarthritis, unspecified site; R73.02 Impaired glucose tolerance (oral); K21.9 Gastro-esophageal reflux disease without esophagitis; Z72.0 Tobacco use; E78.00 Pure hypercholesterolemia, unspecified; F41.1 Generalized anxiety disorder; N31.9 Neuromuscular dysfunction of bladder, unspecified; M96.1 Postlaminectomy syndrome, not elsewhere classified; H61.21 Impacted cerumen, right ear
CPT/HCPCS: 99396

== ENCOUNTER 2024-01-29 12:23 | Outpatient (REF) | payer OTHER, SELFPAY | END 2024-01-29 12:24 | disposition home or self-care (01) | LOC: HO.MAMMO 12:23 | PROVIDERS: Visit Provider Internal Medicine | DX: Z12.31 Encounter for screening mammogram for malignant neoplasm of breast (principal) | CPT/HCPCS: 77063; 77067 ==

== ENCOUNTER → 2024-01-29 13:00 | Outpatient (BNV) | payer OTHER, SELFPAY | PROVIDERS: Visit Provider Radiology Diagnostic Radiology | DX: Z12.31 Encounter for screening mammogram for malignant neoplasm of breast (principal) | CPT/HCPCS: 77063; 77067 ==

== ENCOUNTER 2024-03-24 14:22 | Outpatient (AMB) | payer OTHER, SELFPAY ==
[2024-03-24 14:29] VITALS: BP 108/72; PULSE 81; O2SAT 98; BMI 29.6
--- NOTE | 2024-03-24 14:29 | A.OFFVIS_ITS ---
Vital Signs 03/24/24 14:29 Height 5 ft 4 in Weight 172 lb 9.951 oz BMI 29.6 BP 108/72 Blood Pressure Location Lt brachial Position Sitting Pulse 81 Pulse Source Pulse Oximeter Pulse Oximetry (%) 98 Oxygen Delivery Method Room Air Intake Visit Reasons: +HlAB27/Start Leflunomide/CM Intake Note: Patient last seen 10/31/23 by Gladys, presents today for +H1AB27 follow up and test results. Patient would like refill of her Tylenol Arthritis today. Allergies bacitracin [From NEOSPORIN] Allergy (Severe, Verified 03/24/24 14:35) RASH gramicidin D [From NEOSPORIN] Allergy (Severe, Verified 03/24/24 14:35) RASH polymyxin B [From NEOSPORIN] Allergy (Severe, Verified 03/24/24 14:35) RASH adhesive tape [ADHESIVE TAPE] Allergy (Intermediate, Verified 03/24/24 14:35) RASH/BLISTERS polyester fibers Allergy (Intermediate, Verified 03/24/24 14:35) Itching Sulfa (Sulfonamide Antibiotics) [SULFA (SULFONAMIDE ANTIBIOTICS)] Allergy (Intermediate, Verified 03/24/24 14:35) ITCHY RASH chlorhexidine [From ChloraPrep Clear] Allergy (Mild, Verified 03/24/24 14:35) Rash leflunomide Adverse Reaction (Severe, Verified 03/24/24 14:44) gi upset cefazolin [CEFAZOLIN] Adverse Reaction (Intermediate, Verified 03/24/24 14:35) GI UPSET Medication List - Last Reconciled 03/24/24 by Lynette Torres MD acetaminophen ER 650 mg PO Q8H bethanechol chloride 50 mg PO BID Brace,wrist As directed calcium carbonate-vitamin D3 600 mg-25 mcg (1,000 unit) 2 caps PO DAILY cholecalciferol (vitamin D3) 50 mcg PO DAILY clonazepam 1 mg PO TID PRN diclofenac sodium 1% (Arthritis Pain (diclofenac)) 2 grams topical QID epinephrine (EpiPen 2-Hamilton) 0.3 mg (0.3 mL) IM Q4H PRN fenofibrate 160 mg PO DAILY ibuprofen 800 mg PO TID PRN incontinence pad, liner, disp (Pads For Women) As directed- extra absorbent overnight pads per pt request quetiapine (Seroquel) 100 mg PO TID sertraline 100 mg PO BID tizanidine 4 mg AM, 8 mg QHS underpads (Bed Underpads) As directed witch lorraine 50% (Tucks (witch lorraine)) 1 pad topical BID-QID PRN HPI Comments Details: This is a 64-year-old female who is being followed by Rheumatology for positive HLA B27 and chronic back pain. There was no evidence of inflammatory back pain on previous evaluation however when patient was last seen by Marianela Mead she suggested inflammatory back pain. She was prescribed leflunomide. Patient took leflunomide for 5 days and could not tolerate it due to significant GI upset. And nausea. She continues to have chronic back pain. An intrathecal pump was suggested by Pain Management last visit and patient states that she is not sure she would like to proceed with that. Had received multiple injections by Pain Management which I usually helpful. 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 pylori duodenitis Cholelithiasis Lumbar degenerative disc disease Anxiety and depression Hypercholesterolemia Osteopenia Restless leg syndrome Insomnia Tobacco abuse GERD (gastroesophageal reflux disease) Impaired glucose tolerance Hypertension Cervical radiculopathy due to degenerative joint disease of spine HLA B27 (HLA B27 positive) Surgical History History of incisional hernia repair (10/02/22) Hx of colonoscopy History of cervical discectomy H/O basal cell carcinoma excision History of shoulder surgery History of lumbar fusion H/O thumb surgery H/O right wrist surgery History of partial hysterectomy History of hernia repair H/O nasal septoplasty History of hemorrhoidectomy History of cholecystectomy History of tonsillectomy Family History Father Hypertension Past heart attack CVD (cardiovascular disease) Mother Hyperlipidemia Paternal Grandmother Lung cancer Son Substance abuse Brother Bipolar 1 disorder Other Mental health disorder Social History Housing: House Are you a primary healthcare interpreter to a significant other at home: No Do you presently have visiting nurse or other home services: Yes ([employer] ADJUSTER 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) Alcohol intake: current Alcohol intake frequency: holidays/special occasions o nly Alcohol type: beer Comment: 3x a year 1 glass Patient Tobacco Use Status: Current everyday Tobacco user Tobacco use type: Cigarette Cigarette Packs Per Day: 0.5 Cigarettes Per Day: 15 Years Smoked: 46 e-Cigarette/Vaping Use: Never Used Second Hand Smoke Exposure: Yes service: No Current occupational status: disabled Cognitive needs: No Hearing needs: No Vision needs: Yes (reading glasses) Female Reproductive History Menstrual Menopause type: surgical Total pregnancies: 0 Review of Systems Musc Reports back pain Physical Exam Vital Signs: Last Vital Signs Pulse 81 03/24/24 14:29 BP 108/72 03/24/24 14:29 Pulse Ox 98 03/24/24 14:29 Oxygen Delivery Method Room Air 03/24/24 14:29 BMI result Body Mass Index 29.6 Const General: cooperative, healthy appearing and comfortable Nutritional Appearance: overweight Orientation/consciousness: patient oriented x3 Limitations: no limitations HEENT Head: Yes normocephalic and Yes atraumatic Mouth: moist mucous membranes Resp Effort & Inspection: normal respiratory effort and able to speak in complete sentences Auscultation: clear to auscultation bilaterally Skin General skin exam: no rashes or lesions noted Neuro General: patient oriented x3 Extrem Other: No active synovitis Negative straight leg raise test Negative Fabere test Assessment & Plan Assessment & Plan (1) HLA B27 (HLA B27 positive): Code(s): Z15.89 - Genetic susceptibility to other disease Category: Medical Plan: This is a 64-year-old female who is being followed by Rheumatology for positive HLA B27 and chronic back pain. There was no evidence of inflammatory back pain on previous evaluation however when patient was last seen by Marianela Mead she suggested inflammatory back pain. She was prescribed leflunomide. Patient took leflunomide for 5 days and could not tolerate it due to significant GI upset. And nausea. Upon evaluation I do not see any evidence of inflammatory back pain. There is no history suggestive of uveitis. Patient's symptoms are ankle and degenerative in nature. Discussed symptoms and signs that are suggestive of an autoimmune rheumatic disease. Advised patient to return to clinic as needed. Today patient requested a refill of her Tylenol. I refilled it for 1 month. Advised patient to request further refills from her PCP or get it OTC Plan I spent 17 minutes reviewing patient's chart, evaluating patient, counseling patient and documenting in the chart Medications: Refilled acetaminophen ER 650 mg PO Q8H 90 tabs 0RF M79.7 - Fibromyalgia Coding Level of Care Code Est Pt Level 3 (38281) Diagnoses HLA B27 (HLA B27 positive) Z15.89
== END 2024-03-24 14:54 | disposition home or self-care (01) ==
PROVIDERS: Visit Provider Student in an Organized Health Care Education/Training Program
DX: Z15.89 Genetic susceptibility to other disease (principal)
CPT/HCPCS: 99213

== ENCOUNTER → 2024-03-24 14:22 | Outpatient (BNVA) | payer OTHER, SELFPAY | PROVIDERS: Visit Provider Student in an Organized Health Care Education/Training Program | DX: M79.7 Fibromyalgia (principal); Z15.89 Genetic susceptibility to other disease | CPT/HCPCS: 99212 ==

== ENCOUNTER 2024-04-19 12:46 | Outpatient (AMB) | payer OTHER, SELFPAY ==
--- NOTE | 2024-04-19 13:05 | A.OFFVIS_ITS ---
Intake Visit Reasons: 6m/pelic exam/PVR Intake Note: Patient is Present for PVR/Pelvic Exam Urology Med:Bethanechol Antibiotic Allergy:Sulfa antibiotics Blood Thinner: None Patient states she is still taking prescribed medication bethanechol. States that her symptoms of wetting herself without control has gotten a little better. She states she wets herself less than before but not a big improvement. Last PVR: 493 Todays PVR: 672 Patient states she does not feel any pain or pressure. Does not feel like her bladder is full. 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 Accompanied by: Self / Same As Patient Allergies bacitracin [From NEOSPORIN] Allergy (Severe, Verified 04/19/24 13:12) RASH gramicidin D [From NEOSPORIN] Allergy (Severe, Verified 04/19/24 13:12) RASH polymyxin B [From NEOSPORIN] Allergy (Severe, Verified 04/19/24 13:12) RASH adhesive tape [ADHESIVE TAPE] Allergy (Intermediate, Verified 04/19/24 13:12) RASH/BLISTERS polyester fibers Allergy (Intermediate, Verified 04/19/24 13:12) Itching Sulfa (Sulfonamide Antibiotics) [SULFA (SULFONAMIDE ANTIBIOTICS)] Allergy (Intermediate, Verified 04/19/24 13:12) ITCHY RASH chlorhexidine [From ChloraPrep Clear] Allergy (Mild, Verified 04/19/24 13:12) Rash leflunomide Adverse Reaction (Severe, Verified 04/19/24 13:12) gi upset cefazolin [CEFAZOLIN] Adverse Reaction (Intermediate, Verified 04/19/24 13:12) GI UPSET Medication List - Last Reconciled 04/19/24 by Mike Raphael MD acetaminophen ER 650 mg PO Q8H bethanechol chloride 50 mg PO BID Brace,wrist As directed calcium carbonate-vitamin D3 600 mg-25 mcg (1,000 unit) 2 caps PO DAILY cholecalciferol (vitamin D3) 50 mcg PO DAILY clonazepam 1 mg PO TID PRN diclofenac sodium 1% (Arthritis Pain (diclofenac)) 2 grams topical QID epinephrine (EpiPen 2-Hamilton) 0.3 mg (0.3 mL) IM Q4H PRN fenofibrate 160 mg PO DAILY ibuprofen 800 mg PO TID PRN incontinence pad, liner, disp (Pads For Women) As directed- extra absorbent overnight pads per pt request quetiapine (Seroquel) 100 mg PO TID sertraline 100 mg PO BID tizanidine 4 mg AM, 8 mg QHS underpads (Bed Underpads) As directed witch lorraine 50% (Tucks (witch lorraine)) 1 pad topical BID-QID PRN HPI Comments Details: 04/16/24--María is here for follow up, she has neurogenic bladder with LUTS- incomplete bladder emptying, the patient declines CIC. Pelvic exam, bladder neck well supported, nnegativ for vaginal prolapse. Catheterized PVR 660 mL. Plan will cont bethanochol, monitor kidneys, renal/bladder US. Review of charts: 10/16/23--María is a 63-year-old female who presents today to the office for a follow-up. María is followed due to neurogenic and incomplete bladder emptying. She is prescribed bethanechol 50 mg twice a day. She states she has resumed taking the medication. She has been counseled regarding complications of incomplete bladder emptying may include kidney compromise. I have reviewed follow-up renal ultrasound with the patient, Plan-continue bethanechol 50 mg twice a day. Continue to monitor kidneys. 09/19/2023- IMPRESSION: Right renal pelviectasis without leslie hydronephrosis, unchanged. Large postvoid bladder residual of 427 mL. 06/16/23-- María is followed due to neurogenic and incomplete bladder emptying. She is followed today for US results. Discussed with the patient the concern that if she continues to retain large amounts of urine in the bladder it can cause pressure on the kidneys. She was last me on 02/20/2023 and had been compliant on bethanochol 50 mg bid. She states stopped taking blood pressure and cholesterol medications. She also stopped taking the bethanochol. She states that she has been eating a healthier diet include fruits, vegetables and herbal supplements. She does have a BP cuff that she monitors and states that is been 120/80. She has informed her PCP that she has stopped taking these meds. I have reviewed with the patient the renal US results which indicate some resolution of the hydronephrosis. 04/16/23-- Renal US--Right renal pelviectasis without leslie hydronephrosis decreased from prior. She has a history of fibromyalgia. I previously discussed alternative therapies include neuromodulation Interstim therapy and clean catheterization which the patient declines. Trial of Alfuzosin was discontinued due to complaints of lightheadedness. Pt Refused recommendation to trial increase in the dose of bethanechol 3 times a day. Imagin04/16/23-- Renal US--Right renal pelviectasis without leslie hydronephrosis decreased from prior. Renal US results reviewed?09/25/2022-- Mild bilateral hydronephrosis. Kidneys: WNL, no renal calculi visualized. CTAP results reviewed--11/06/22-- No hydronephrosis noted. The bladder is distended. Sacrum MRI results reviewed-- 12/03/22--normal appearance of sacral plexus. No sites of nerve impingement or stenoses. A dorsal defect in the dural sac at the L5 level is unchanged. An incidental 3.8 cm unilocular right adnexal cyst. No suspicious features is noted. bladder is distended with a trabeculated wall and that is unchanged. [facility] Medical History Abnormal EKG Encounter for screening colonoscopy Colonoscopy refused Obesity (BMI 30-39.9) [facility] (current) use of immunomodulator Back pain due to inflammatory process Osteopenia after menopause Hypovitaminosis D Bilateral thumb pain Lumbar back pain History of electroconvulsive therapy Spina bifida occulta S/P ECT (electroconvulsive therapy) History of cardiac murmur Incontinence of urine Tooth missing Needle stick, hypodermic, accidental Exposure to bloodborne pathogen Vitamin D deficiency Fatigue Left shoulder pain Fibromyalgia H. pylori duodenitis Cholelithiasis Lumbar degenerative disc disease Anxiety and depression Hypercholesterolemia Osteopenia Restless leg syndrome Insomnia Tobacco abuse GERD (gastroesophageal reflux disease) Impaired glucose tolerance Hypertension Cervical radiculopathy due to degenerative joint disease of spine HLA B27 (HLA B27 positive) Surgical History History of incisional hernia repair (10/02/22) Hx of colonoscopy History of cervical discectomy H/O basal cell carcinoma excision History of shoulder surgery History of lumbar fusion H/O thumb surgery H/O right wrist surgery History of partial hysterectomy History of hernia repair H/O nasal septoplasty History of hemorrhoidectomy History of cholecystectomy History of tonsillectomy Family History Father Hypertension Past heart attack CVD (cardiovascular disease) Mother Hyperlipidemia Paternal Grandmother Lung cancer Son Substance abuse Brother Bipolar 1 disorder Other Mental health disorder Social History Housing: House Are you a primary family member caretaker to a significant other at home: No Do you presently have visiting nurse or other home services: Yes (MEDICAL STAFF SPECIALIST 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) Alcohol intake: current Alcohol intake frequency: holidays/special occasions only Alcohol type: beer Comment: 3x a year 1 glass Patient Tobacco Use Status: Current everyday Tobacco user Tobacco use type: Cigarette Cigarette Packs Per Day: 0.5 Cigarettes Per Day: 15 Years Smoked: 46 e-Cigarette/Vaping Use: Never Used Second Hand Smoke Exposure: Yes service: No Current occupational status: disabled Cognitive needs: No Hearing needs: No Vision needs: Yes (reading glasses) Review of Systems Const All systems reviewed & are unremarkable except as noted in HPI and below Reports no additional complaints Eyes Reports no additional complaints ENT Reports no additional complaints Card Reports no additional complaints Resp Reports no additional complaints GI Reports no additional complaints Reports as per HPI Musc Reports no additional complaints Skin/Breast Reports system reviewed and no additional complaints, except as documented Neuro Reports no additional complaints Psych Reports no additional complaints Endo Reports no additional complaints Adam/Lymph Reports no additional complaints Aller/Immun Reports no additional complaints Physical Exam Const General: cooperative, healthy appearing and no acute distress Orientation/consciousness: patient oriented x3 HEENT Head: Yes normal to inspection, Yes normocephalic and Yes atraumatic Eyes Conjunctivae: conjunctivae normal Neck Neck: Yes normal visual inspection and Yes trachea midline Chest Chest palpation & inspection: normal inspection of the chest Resp Effort & Inspection: normal respiratory effort GI Inspection: Yes normal to inspection Palpation (GI): Soft to palpation External Female Exam: normal external appearance Speculum Exam - Vagina: vagina atrophic Neuro General: patient oriented x3 Extrem General: No edema Psych Appearance: grossly normal Office Procedures Bladder/Catheter Procedure Details: Under sterile technique a 14 Khmer catheter was passed transurethrally, 660 mL urine drained [id number] Bladder Catheter Procedure code (CPT) selection complete Post Void Residual Post Residual Void Post Void Residual (PVR): 672 [id number] Void Residual by ultrasound Results AMB Urinalysis, Automated UA Leukoctes 0 Walter/uL Last Edit by Jordyn Parra [facility] on 04/19/24 13:22 UA Nitrite Negative Last Edit by Jordyn Parra, A on 04/19/24 13:22 UA Urobilinogen 0.2 mg/dL Last Edit by Jordyn Parra [facility] on 04/19/24 13:2 2 UA Protein 0 mg/dL Last Edit by Jordyn Parra, A on 04/19/24 13:22 UA pH 6.0 Last Edit by Jordyn Parra [facility] on 04/19/24 13:22 UA Blood 0 Dennis/uL Last Edit by Jordyn Parra [facility] on 04/19/24 13:22 UA Specific [place] 1.015 Last Edit by Jordyn Parra, [facility] on 04/19/24 13: 22 UA Ketone Negative Last Edit by Jordyn Parra [facility] on 04/19/24 13:22 UA Bilirubin 0 mg/dL Last Edit by Jordyn Parra A on 04/19/24 13:22 UA Glucose 0 mg/dL Last Edit by Jordyn Parra [facility] on 04/19/24 13:22 Results Reviewed Results Reviewed: Laboratory Last Values Urine pH (Auto) 6.0 04/19/24 13:13 Specific [place] (Auto) 1.015 04/19/24 13:13 Urine Protein (Auto) 0 mg/dL 04/19/24 13:13 Glucose (UA)(Auto) 0 mg/dL 04/19/24 13:13 Urine Ketones (Auto) Negative 04/19/24 13:13 Urine Blood (Auto) 0 Dennis/uL 04/19/24 13:13 Urine Nitrite (Auto) Negative 04/19/24 13:13 Urine Bilirubin (Auto) 0 mg/dL 04/19/24 13:13 Urine Urobilinogen (Auto) 0.2 mg/dL 04/19/24 13:13 Leukocyte Esterase (Auto) 0 Walter/uL 04/19/24 13:13 Date of Service: 09/19/23 EXAMINATION: US RETROPERITONEAL COMPLETE (RENAL) CLINICAL INFORMATION: Neuromuscular dysfunction of the bladder, unspecified. COMPARISON: Ultrasound kidneys and bladder 04/16/2023. TECHNIQUE: Real-time imaging of the kidneys and bladder. FINDINGS: RIGHT KIDNEY: 9.7 x 4.2 x 5.4 cm (SAG x AP x TRV). The kidney is normal in size, contour, and echogenicity. Renal cortical thickness is normal. No calculi or focal parenchymal lesions. Pelviectasis without leslie hydronephrosis, unchanged. LEFT KIDNEY: 9.8 x 4.6 x 5.1 cm (SAG x AP x TRV). The kidney is normal in size, contour, and echogenicity. Renal cortical thickness is normal. No calculi or focal parenchymal lesions. No hydronephrosis. BLADDER: Well distended and normal. Bilateral ureteral jets are demonstrated. Prevoid bladder volume is 624 mL. Postvoid bladder volume is 427 mL. IMPRESSION: 1. Right renal pelviectasis without leslie hydronephrosis, unchanged. 2. Large postvoid bladder residual of 427 mL. Assessment & Plan Assessment & Plan (1) Neurogenic bladder: Code(s): N31.9 - Neuromuscular dysfunction of bladder, unspecified Category: Medical (2) Urinary retention with incomplete bladder emptying: Code(s): R33.9 - Retention of urine, unspecified Category: Medical (3) Lumbar degenerative disc disease: Code(s): M51.36 - Other intervertebral disc degeneration, lumbar region Category: Medical Plan Plan-continue bethanechol 50 mg twice a day. Continue to monitor kidneys. renal bladder US Orders: Orders AMB Post Void Residual by ultrasound Today R33.9 - Retention of urine, unspecified AMB Urinalysis Automated Today Z13.9 - Encounter for screening, unspecified US retroperitoneal comp Today N31.9 - Neuromuscular dysfunction of bladder, unspecified, R33.9 - Retention of urine, unspecified AMB Bladder/Catheter Procedure Today N31.9 - Neuromuscular dysfunction of bladder, unspecified, R33.9 - Retention of urine, unspecified Medications: Refilled bethanechol chloride 50 mg PO BID 60 tabs 10RF Patient Instructions: The patient had an opportunity to ask questions regarding treatment plan. The patient expressed understanding and agreement with the above treatment plan. The patient is aware they should contact our office by phone for worsening of their current condition or the appearance of new symptoms. Compliance is encouraged with any medications and followup testing that is ordered. It is a privilege to be allowed the opportunity to participate in the urologic care of your patient. If you have any questions or concerns regarding treatment for the above conditions please do not hesitate to contact me. The office telephone contact is [phone]. This note is constructed in part using voice recognition software. While every effort has been made to ensure accuracy bindery operator errors may have been included. Yours sincerely, Mike Raphael MD Coding Level of Care Code Est Pt Level 4 (38962) Diagnoses Neurogenic bladder N31.9 Urinary retention with incomplete bladder emptying R33.9 Lumbar degenerative disc disease M51.36 CPT Codes Bladder/Catheter Procedure - CPT: 41637-Ymiphk Bladder Catheter ([id number]) Post Residual Void - PVR CPT Code: 30354-Rfqs Void Residual by ultrasound ([id number])
== END 2024-04-19 13:50 | disposition home or self-care (01) ==
PROVIDERS: PCP Internal Medicine; Visit Provider Urology
DX: N31.9 Neuromuscular dysfunction of bladder, unspecified (principal); R33.9 Retention of urine, unspecified; M51.36 Other intervertebral disc degeneration, lumbar region; Z13.9 Encounter for screening, unspecified
CPT/HCPCS: 51701; 99214

== ENCOUNTER → 2024-04-19 12:46 | Outpatient (BNVA) | payer OTHER, SELFPAY | PROVIDERS: PCP Internal Medicine; Visit Provider Urology | DX: R32 Unspecified urinary incontinence (principal); N31.9 Neuromuscular dysfunction of bladder, unspecified; R33.9 Retention of urine, unspecified; M51.36 Other intervertebral disc degeneration, lumbar region | CPT/HCPCS: 51701; 51798; 81003; 99212 ==

== ENCOUNTER 2024-04-29 12:49 | Outpatient (REF) | payer OTHER, SELFPAY ==
--- NOTE | ~2024-04-29 | CT_ITS ---
EXAMINATION: CT LOW-DOSE SCREENING CHEST WITHOUT CONTRAST CLINICAL INFORMATION: Nicotine dependence, cigarettes, uncomplicated. The patient is a current smoker with a 45 pack-year history of smoking. COMPARISON: CT chest December 18, 2022. X-ray chest April 17, 2018. TECHNIQUE: Multidetector volumetric CT imaging of the chest is performed on a Siemens SOMATOM Definition scanner without contrast using low dose technique. Additional 2D coronal and sagittal reformatted images and axial 3D maximum intensity projection (MIP) images are generated on the CT workstation. This CT examination was performed using dose optimization techniques as appropriate, variously including the following: *Automated exposure control *Adjustment of mA and/or kV according to patient size (this includes techniques or standardized protocols for targeted exams where dose is matched to indication/reason for exam; i.e. extremities or head) *Use of iterative reconstruction technique TOTAL EXAM DLP: 49 mGy-cm. CTDIvol: 1.50 mGy. FINDINGS: PULMONARY NODULES: Triangular 4 mm nodular density seen in the right middle lobe adjacent to the fissure, consistent with a fissural lymph node and unchanged (5:256 compare prior 5:278). There is no new, increasing-sized or suspicious pulmonary nodules seen. LUNGS: Lungs bilaterally symmetrically expanded. There is mild emphysema and bronchial thickening without bronchiectasis. No effusion or pneumothorax. Central airways patent. MEDIASTINUM: No mediastinal, hilar or axillary adenopathy or free fluid collection. CORONARY ARTERY CALCIFICATION: None visualized on this study. THYROID GLAND: Unremarkable to the extent seen. CARDIOVASCULAR STRUCTURES: Aortic and heart size normal. No pericardial effusion. CHEST WALL/AXILLA: Unremarkable. UPPER ABDOMEN: There is hepatic steatosis. Patient is status post cholecystectomy. OSSEOUS STRUCTURES: No suspicious focal findings. CT/CT lung screening IMPRESSION: No findings seen concerning for malignancy. ASSESSMENT: 1. Lung-RADS Category 1: Negative. There are no nodules or there are definitely benign nodules. N/A 2. Lung-RADS Category S: Negative. There are no clinically significant or potentially clinically significant findings not related to the lungs requiring urgent additional evaluation. RECOMMENDATION: Continued routine annual low-dose CT lung screening in 1 year is recommended. An order for CT CHEST LOW DOSE CANCER SCREENING ([id number]) can be placed. Electronically signed by: Osman Villeda MD 06/24/2024 04:08 PM [facility]
== END 2024-04-29 12:50 | disposition home or self-care (01) ==
LOC: HO.CT 12:49
PROVIDERS: Visit Provider Physician Assistant Medical
DX: Z12.2 Encounter for screening for malignant neoplasm of respiratory organs (principal); F17.210 Nicotine dependence, cigarettes, uncomplicated
CPT/HCPCS: 71271

== ENCOUNTER 2024-06-17 11:08 | Outpatient (REF) | payer OTHER, SELFPAY ==
--- NOTE | ~2024-06-17 | US_ITS ---
EXAMINATION: US RETROPERITONEAL COMPLETE (RENAL) CLINICAL INFORMATION: Neuromuscular dysfunction of the bladder, unspecified. COMPARISON: Ultrasound retroperitoneal 09/19/2023 and 04/16/2023. CT abdomen and pelvis 11/06/2022. TECHNIQUE: Real-time imaging of the kidneys and bladder. FINDINGS: RIGHT KIDNEY: 9.6 x 4.6 x 5.2 cm (SAG x AP x TRV). The kidney is normal in size, contour, and echogenicity. Renal cortical thickness is normal. No calculi or focal parenchymal lesions. No hydronephrosis. There is mild fullness of the renal pelvis. LEFT KIDNEY: 9.6 x 4.8 x 5.3 cm (SAG x AP x TRV). The kidney is normal in size, contour, and echogenicity. Renal cortical thickness is normal. No renal calculi or focal parenchymal lesions. There is mild left-sided hydronephrosis. BLADDER: Well distended and normal. Bilateral ureteral jets are demonstrated. Prevoid bladder volume is 1060 mL. Postvoid bladder volume is 629 mL. US/US retroperitoneal comp IMPRESSION: 1. Mild left-sided hydronephrosis. 2. Large postvoid residual. Electronically signed by: Osman Villeda MD 07/01/2024 02:58 PM EST
== END 2024-06-17 11:09 | disposition home or self-care (01) ==
LOC: HO.US 11:08
PROVIDERS: PCP Internal Medicine; Visit Provider Urology
DX: N31.9 Neuromuscular dysfunction of bladder, unspecified (principal); R33.9 Retention of urine, unspecified
CPT/HCPCS: 76770

== ENCOUNTER 2024-06-28 09:55 | Day surgery (SDC) | payer OTHER, SELFPAY ==
--- NOTE | 2024-06-25 09:49 | HO.ANESPROP2 ---
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) Back pain due to inflammatory process (Acute) Osteopenia after menopause (Acute) Hypovitaminosis D (Acute) Bilateral thumb pain (Acute) Lumbar back pain (Acute) Lumbar post-laminectomy syndrome (Acute) Chronic intractable pain (Acute) Hydronephrosis (Acute) Bilateral hand pain (Acute) Thoracic spondylosis (Acute) Bilateral thigh pain (Acute) Thoracic spine pain (Acute) Allergic reaction (Acute) Bilateral hip bursitis (Acute) Tendinitis of both quadricep tendons (Acute) Effusion of right knee joint (Acute) Degenerative arthritis of knee, bilateral (Acute) Bilateral anterior knee pain (Acute) Bilateral knee pain (Acute) Tendinitis of right rotator cuff (Acute) COVID-19 virus infection (Acute) Oral candidiasis (Acute) Hemorrhoid prolapse (Acute) Chronic diarrhea (Acute) Neurogenic bladder (Acute) Urinary retention with incomplete bladder emptying (Acute) Voiding dysfunction (Acute) Thoracic back pain (Acute) Dizziness (Acute) Incisional hernia (Acute) Major depressive disorder (Acute) Vaginal atrophy (Acute) Overflow incontinence (Acute) Needle stick injury (Acute) Tendinitis of left rotator cuff (Acute) Tubular adenoma of colon (Acute) Diverticulosis of colon (Acute) LFT elevation (Acute) Generalized anxiety disorder (Acute) Cloudy urine (Acute) Trochanteric bursitis, left hip (Acute) Ovarian cyst (Acute) Ventral hernia (Acute) Exposure to bloodborne pathogen (Acute) History of cervical discectomy (Acute) History of lumbar fusion (Acute) Vitamin D deficiency (Acute) Fibromyalgia (Acute) Fatigue (Acute) Left shoulder pain (Acute) Lumbar degenerative disc disease (Acute) Hypercholesterolemia (Acute) Osteopenia (Acute) Restless leg syndrome (Acute) Insomnia (Acute) Tobacco abuse (Acute) GERD (gastroesophageal reflux disease) (Acute) Impaired glucose tolerance (Acute) Hypertension (Acute) Past Medical History Medical History Abnormal EKG Encounter for screening colonoscopy Colonoscopy refused Obesity (BMI 30-39.9) 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 pylori duodenitis Cholelithiasis Lumbar degenerative disc disease Anxiety and depression Hypercholesterolemia Osteopenia Restless leg syndrome Insomnia Tobacco abuse GERD (gastroesophageal reflux disease) Impaired glucose tolerance Hypertension Cervical radiculopathy due to degenerative joint disease of spine HLA B27 (HLA B27 positive) Family History Family History Father Hypertension Past heart attack CVD (cardiovascular disease) Mother Hyperlipidemia Paternal Grandmother Lung cancer Son Substance abuse Brother Bipolar 1 disorder Other Mental health disorder Family history of problems with anesthesia: No Surgical History Surgical History History of incisional hernia repair (10/02/22) Hx of colonoscopy History of cervical discectomy H/O basal cell carcinoma excision History of shoulder surgery History of lumbar fusion H/O thumb surgery H/O right wrist surgery History of partial hysterectomy History of hernia repair H/O nasal septoplasty History of hemorrhoidectomy History of cholecystectomy History of tonsillectomy History of Problems with Anesthesia: No Social History Social History Housing: House Are you a primary director of managed care to a significant other at home: No Do you presently have visiting nurse or other home services: Yes (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 If so, by whom?: No Advance Directives: No Advance Directives Information Provided: Yes Recently lost weight without trying: No Nutrition Risks: No Nutritional Risk Patient : No service: No Current occupational status: disabled Cognitive needs: No Hearing needs: No Vision needs: Yes (reading glasses) Meds Allergies Allergy/AdvReac Type Severity Reaction Status Date / Time bacitracin [From NEOSPORIN] Allergy Severe RASH Verified 04/19/24 13:12 gramicidin D [From NEOSPORIN] Allergy Severe RASH Verified 04/19/24 13:12 polymyxin B [From NEOSPORIN] Allergy Severe RASH Verified 04/19/24 13:12 adhesive tape [ADHESIVE TAPE] Allergy Intermediate RASH/BLISTE Verified 04/19/24 13:12 RS polyester fibers Allergy Intermediate Itching Verified 04/19/24 13:12 Sulfa (Sulfonamide Allergy Intermediate ITCHY RASH Verified 04/19/24 13:12 Antibiotics) [SULFA (SULFONAMIDE ANTIBIOTICS)] chlorhexidine Allergy Mild Rash Verified 04/19/24 13:12 [From ChloraPrep Clear] leflunomide AdvReac Severe gi upset Verified 04/19/24 13:12 cefazolin [CEFAZOLIN] AdvReac Intermediate GI UPSET Verified 04/19/24 13:12 Home Medications ?Medication ?Instructions ?Recorded ?Confirmed ?Last Taken ?Type clonazepam 1 mg tablet 1 mg PO TID PRN 12/17/23 04/19/24 Unknown History quetiapine 100 mg tablet (Seroquel) 100 mg PO TID 12/17/23 04/19/24 Unknown History sertraline 100 mg tablet 100 mg PO BID 12/17/23 04/19/24 Unknown History Exam Pertinent Lab Results Pertinent Lab Results: Laboratory Tests 12/09/23 09:44 WBC 6.1 Hgb 14.2 Hct 41.4 Plt Count 344 Sodium 140 Potassium 4.1 Chloride 103 Carbon Dioxide 27 BUN 14 Creatinine 0.84 Narrative Narrative: EKG 08/2023 Vent. Rate : 084 BPM Atrial Rate : 084 BPM P-R Int : 134 ms QRS Dur : 078 ms QT Int : 354 ms P-R-T Axes : 017 031 051 degrees QTc Int : 418 ms Normal sinus rhythm Normal ECG When compared with ECG of 05-SEP-2022 14:35, T wave inversion no longer evident in Anterior leads Assessment and Plan Assessment Anesthesia Assessment: Chart Reviewed Final Anesthetic Review Family History of Problems with Anesthesia: No History of Problems with Anesthesia: No Documented by User: Vinay De La Cruz MD 06/28/24 11:48 PMFSH Past Medical History Medical History Abnormal EKG Encounter for screening colonoscopy Colonoscopy refused Obesity (BMI 30-39.9) 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 pylori duodenitis Cholelithiasis Lumbar degenerative disc disease Anxiety and depression Hypercholesterolemia Osteopenia Restless leg syndrome Insomnia Tobacco abuse GERD (gastroesophageal reflux disease) Impaired glucose tolerance Hypertension Cervical radiculopathy due to degenerative joint disease of spine HLA B27 (HLA B27 positive) Family History Family History Father Hypertension Past heart attack CVD (cardiovascular disease) Mother Hyperlipidemia Paternal Grandmother Lung cancer Son Substance abuse Brother Bipolar 1 disorder Other Mental health disorder Surgical History Surgical History History of incisional hernia repair (10/02/22) Hx of colonoscopy History of cervical discectomy H/O basal cell carcinoma excision History of shoulder surgery History of lumbar fusion H/O thumb surgery H/O right wrist surgery History of partial hysterectomy History of hernia repair H/O nasal septoplasty History of hemorrhoidectomy History of cholecystectomy History of tonsillectomy Social History Social History Housing: House Are you a primary director of managed care to a significant other at home: No Do you presently have visiting nurse or other home services: Yes (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 If so, by whom?: No Advance Directives: No Advance Directives Information Provided: Yes Recently lost weight without trying: No Nutrition Risks: No Nutritional Risk Patient : No service: No Current occupational status: disabled Cognitive needs: No Hearing needs: No Vision needs: Yes (reading glasses) Meds Allergies Allergy/AdvReac Type Severity Reaction Status Date / Time bacitracin [From NEOSPORIN] Allergy Severe RASH Verified 04/19/24 13:12 gramicidin D [From NEOSPORIN] Allergy Severe RASH Verified 04/19/24 13:12 polymyxin B [From NEOSPORIN] Allergy Severe RASH Verified 04/19/24 13:12 adhesive tape [ADHESIVE TAPE] Allergy Intermediate RASH/BLISTE Verified 04/19/24 13:12 RS polyester fibers Allergy Intermediate Itching Verified 04/19/24 13:12 Sulfa (Sulfonamide Allergy Intermediate ITCHY RASH Verified 04/19/24 13:12 Antibiotics) [SULFA (SULFONAMIDE ANTIBIOTICS)] chlorhexidine Allergy Mild Rash Verified 04/19/24 13:12 [From ChloraPrep Clear] leflunomide AdvReac Severe gi upset Verified 04/19/24 13:12 cefazolin [CEFAZOLIN] AdvReac Intermediate GI UPSET Verified 04/19/24 13:12 Home Medications ?Medication ?Instructions ?Recorded ?Confirmed ?Last Taken ?Type clonazepam 1 mg tablet 1 mg PO TID PRN 12/17/23 04/19/24 Unknown History quetiapine 100 mg tablet (Seroquel) 100 mg PO TID 12/17/23 04/19/24 Unknown History sertraline 100 mg tablet 100 mg PO BID 12/17/23 04/19/24 Unknown History Exam Airway Mallampati Class: III TM Dist: >3cm Neck ROM: Full Assessment and Plan Assessment Anesthesia Assessment: Anesthesia Plan Discussed Final Anesthetic Review NPO: Yes ASA Class: III Final Preanesthetic Review: No Changes in Pt Med Stat, Meds/Allgs Chart Reviewed, Consent Obtained/Reviewed and Anes Risks/Benef Reviewed Patient Risk: Intermediate Procedure Risk: Low Anesthetic Plan Anesthetic Plan: TIVA Disposition: Standard PACU
--- NOTE | 2024-06-28 10:43 | MHC.SHP ---
Pre-Procedural Eval Section A - 24 Hr Update-Section A only Date of Service: 06/28/24 The patient is an INPATIENT: No The patient has been examined within 24 hours of the surgical procedure. The History & Physical has been completed within 30 days and I have reviewed it.: No Section B - Complete if H&P > 30 days Chief Complaint: heatburn,gerd Relevant Family History (Specify if Yes): No Present Medications: see Short Stay Collaborative assessment Medical History: Significant History (Cervical radiculopathy due to degenerative joint disease of spine Cholelithiasis Exposure to bloodborne pathogen Fatigue Fibromyalgia GERD (gastroesophageal reflux disease) H. pylori duodenitis History of cardiac murmur HLA B27 (HLA B27 positive) Hypercholesterolemia Hypertension Impaired glucose to) History of Previous Operations: Relevant previous surgery/procedure and date(s) (H/O basal cell carcinoma excision H/O nasal septoplasty H/O right wrist surgery H/O thumb surgery History of cervical discectomy History of cholecystectomy History of hemorrhoidectomy History of hernia repair History of incisional hernia repair (10/02/22) History of lumbar fusion History of partial ) Allergies: Allergies Allergy/AdvReac Type Severity Reaction Status Date / Time bacitracin [From NEOSPORIN] Allergy Severe RASH Verified 04/19/24 13:12 gramicidin D [From NEOSPORIN] Allergy Severe RASH Verified 04/19/24 13:12 polymyxin B [From NEOSPORIN] Allergy Severe RASH Verified 04/19/24 13:12 adhesive tape [ADHESIVE TAPE] Allergy Intermediate RASH/BLISTE Verified 04/19/24 13:12 RS polyester fibers Allergy Intermediate Itching Verified 04/19/24 13:12 Sulfa (Sulfonamide Allergy Intermediate ITCHY RASH Verified 04/19/24 13:12 Antibiotics) [SULFA (SULFONAMIDE ANTIBIOTICS)] chlorhexidine Allergy Mild Rash Verified 04/19/24 13:12 [From ChloraPrep Clear] leflunomide AdvReac Severe gi upset Verified 04/19/24 13:12 cefazolin [CEFAZOLIN] AdvReac Intermediate GI UPSET Verified 04/19/24 13:12 Review of Systems Sugical H&P ROS: Negative: Constitution, Cardiovascular, Respiratory and Gastrointestinal Exam Surgical H&P Exam: Normal: Heart, Normal: Lungs, Normal: Extremities and Normal: Abdomen Plan Diagnosis/Plan: Unchanged I have reviewed the history and physical and performed a pertinent physical examination on my patient. No changes have occurred unless specified. Time Spent With Patient Time: Total time managing care of this patient today ____ minutes.
[2024-06-28 11:09] VITALS: BP 144/69; PULSE 85; RESP 18; TEMP 36.4; O2SAT 98; BMI 35.3
--- NOTE | 2024-06-28 11:51 | W.PM.OPN ---
Operative Note Operative Note Date of Service: 06/28/24 Narrative: FLEXIBLE TRANSORAL UPPER GASTROINTESTINAL ENDOSCOPY WITH BIOPSIES Pre-op diagnosis: GERD with worsening heartburn and regurgitation Post-op diagnosis: GERD, Gastritis, Endoscopist:? Cordell Goldberg MD Anesthesia:?MAC UPPER ENDOSCOPY Consent: Indications for the procedure and potential complications of bleeding, perforation, reaction to medications and missed diagnosis were discussed with the patient and informed consent was obtained. Instrument: Olympus GIF H 190 mid size upper endoscope Monitoring: Vital signs and clinical assessment, continuous EKG monitoring, Pulse oximetry, Carbon Dioxide monitoring and blood pressure monitoring were done throughout the procedure. Procedure: The patient was placed in the left lateral decubitis position and pre-procedure medications were administered and a bite block was placed. The endoscope was inserted into the mouth and advanced under direct vision to the third part of duodenum. A careful inspection was made as the upper endoscope was withdrawn including a retroflexed examination of the proximal stomach; Findings and interventions are described below. Findings: Larynx: Normal Esophagus: GE junction at 35 cms. A 1 cms tongue of possible Melgar's - biopsied. A single 1 cms superficial healing erosion in the distal esophagus Stomach: Moderate diffuse gastric erythema - biopsies were obtained from the gastric body and antrum. Grade 2 flap valve on retroflexed examination of the cardia. Duodenum: Mild duodenitis in the apex of the bulb and normal descending duodenum Intervention: Biopsies as noted above Impression and Post Procedure Diagnosis: Endoscopy Findings: ESOPHAGUS: A single 1 cms superficial healing erosion in the distal esophagus. Biopsied to check for Melgar's STOMACH: Moderate diffuse gastritis. DUODENUM: Mild duodenitis in the bulb Plan: Pt will be scheduled for a FU appointment to review biopsy results and FU on her symptoms Pt advised to continue taking Omeprazole 20 mg daily instead of prn Above findings were reviewed with the patient and relevant handouts were given and the discharge area. BIOPSIES SHOWED: A. Stomach, antrum, biopsy: Antral-type mucosa with moderate chronic inactive inflammation and regenerative changes; no Helicobacter organisms seen. B. Stomach, body, biopsy: Oxyntic mucosa with moderate chronic inactive inflammation; no Helicobacter organisms seen. C. Esophagus, distal, biopsy: - Cardiofundic-type mucosa with moderate chronic inactive inflammation; no intestinal metaplasia seen. - Squamous mucosa within normal limits
[2024-06-28 11:55] VITALS: BP 118/64; PULSE 80; RESP 18; TEMP 36.8
[2024-06-28 12:10] VITALS: BP 119/89; PULSE 72; RESP 20; TEMP 36.9; O2SAT 98
== END 2024-06-28 12:55 | disposition home or self-care (01) ==
PROVIDERS: PCP Internal Medicine; Visit Provider Internal Medicine Gastroenterology
PROC: 0DJ08ZZ Inspection of Upper Intestinal Tract, Via Natural or Artificial Opening Endoscopic (ICD-10-PCS; CPT 43235; principal; 2024-06-28 11:50)
DX: R10.32 Left lower quadrant pain (principal); K21.9 Gastro-esophageal reflux disease without esophagitis; K29.50 Unspecified chronic gastritis without bleeding; K29.80 Duodenitis without bleeding; I10 Essential (primary) hypertension; R73.02 Impaired glucose tolerance (oral); R53.83 Other fatigue; E78.00 Pure hypercholesterolemia, unspecified; M79.7 Fibromyalgia; F41.8 Other specified anxiety disorders; Z79.899 Other long term (current) drug therapy; Z98.890 Other specified postprocedural states; Z90.49 Acquired absence of other specified parts of digestive tract
CPT/HCPCS: 43239; 88305; 88313; 88342

== ENCOUNTER → 2024-06-28 09:55 | Outpatient (BNV) | payer OTHER, SELFPAY | PROVIDERS: PCP Internal Medicine; Visit Provider Internal Medicine Gastroenterology | DX: K21.9 Gastro-esophageal reflux disease without esophagitis (principal); K29.70 Gastritis, unspecified, without bleeding; K29.80 Duodenitis without bleeding | CPT/HCPCS: 43239 ==

== ENCOUNTER 2024-07-22 14:44 | Outpatient (AMB) | payer OTHER, SELFPAY ==
--- NOTE | 2024-07-22 15:03 | MHC.OFFVIS ---
Intake Visit Reasons: US follow up Intake Note: Patient is present for US follow up Urology Med: Tato Antibiotic Allergy: Sulfa Blood Thinner: None Patient Symptoms: Patient states she is emptying better than before Application Support Required: No Allergies bacitracin [From NEOSPORIN] Allergy (Severe, Verified 07/22/24 15:05) RASH gramicidin D [From NEOSPORIN] Allergy (Severe, Verified 07/22/24 15:05) RASH polymyxin B [From NEOSPORIN] Allergy (Severe, Verified 07/22/24 15:05) RASH adhesive tape [ADHESIVE TAPE] Allergy (Intermediate, Verified 07/22/24 15:05) RASH/BLISTERS polyester fibers Allergy (Intermediate, Verified 07/22/24 15:05) Itching Sulfa (Sulfonamide Antibiotics) [SULFA (SULFONAMIDE ANTIBIOTICS)] Allergy (Intermediate, Verified 07/22/24 15:05) ITCHY RASH chlorhexidine [From ChloraPrep Clear] Allergy (Mild, Verified 07/22/24 15:05) Rash leflunomide Adverse Reaction (Severe, Verified 07/22/24 15:05) gi upset cefazolin [CEFAZOLIN] Adverse Reaction (Intermediate, Verified 07/22/24 15:05) GI UPSET HPI Comments Details: 07/22/24- Telehealth - María is here for follow up, she has neurogenic bladder with LUTS-incomplete bladder emptying, the patient declines CIC. Discussed renal US results, left mild hydro, persistent large PVR - 629 mL. Discussed increase bethanochol to 50 mg tid. Cont to monitor kidneys, check BUN/creat. Review of chart: 04/16/24--María is here for follow up, she has neurogenic bladder with LUTS-incomplete bladder emptying, the patient declines CIC. Pelvic exam, bladder neck well supported, nnegativ for vaginal prolapse. Catheterized PVR 660 mL. Plan will cont bethanochol, monitor kidneys, renal/bladder US. 10/16/23--María is a 63-year-old female who presents today to the office for a follow-up. María is followed due to neurogenic and incomplete bladder emptying. She is prescribed bethanechol 50 mg twice a day. She states she has resumed taking the medication. She has been counseled regarding complications of incomplete bladder emptying may include kidney compromise. I have reviewed follow-up renal ultrasound with the patient, Plan-continue bethanechol 50 mg twice a day. Continue to monitor kidneys. 09/19/2023- IMPRESSION: Right renal pelviectasis without leslie hydronephrosis, unchanged. Large postvoid bladder residual of 427 mL. 06/16/23--María is followed due to neurogenic and incomplete bladder emptying. She is followed today for US results. Discussed with the patient the concern that if she continues to retain large amounts of urine in the bladder it can cause pressure on the kidneys. She was last me on 02/20/2023 and had been compliant on bethanochol 50 mg bid. She states stopped taking blood pressure and cholesterol medications. She also stopped taking the bethanochol. She states that she has been eating a healthier diet include fruits, vegetables and herbal supplements. She does have a BP cuff that she monitors and states that is been 120/80. She has informed her PCP that she has stopped taking these meds. I have reviewed with the patient the renal US results which indicate some resolution of the hydronephrosis. 04/16/23-- Renal US--Right renal pelviectasis without leslie hydronephrosis decreased from prior. She has a history of fibromyalgia. I previously discussed alternative therapies include neuromodulation Interstim therapy and clean catheterization which the patient declines. Trial of Alfuzosin was discontinued due to complaints of lightheadedness. Pt Refused recommendation to trial increase in the dose of bethanechol 3 times a day. Imagin04/16/23-- Renal US--Right renal pelviectasis without leslie hydronephrosis decreased from prior. Renal US results reviewed?09/25/2022-- Mild bilateral hydronephrosis. Kidneys: WNL, no renal calculi visualized. CTAP results reviewed--11/06/22-- No hydronephrosis noted. The bladder is distended. Sacrum MRI results reviewed-- 12/03/22--normal appearance of sacral plexus. No sites of nerve impingement or stenoses. A dorsal defect in the dural sac at the L5 level is unchanged. An incidental 3.8 cm unilocular right adnexal cyst. No suspicious features is noted. bladder is distended with a trabeculated wall and that is unchanged. FOR[facility]LY [facility], [facility] Medical History Abnormal EKG Encounter for screening colonoscopy Colonoscopy refused Obesity (BMI 30-39.9) correction (current) use of immunomodulator Back pain due to inflammatory process Osteopenia after menopause Hypovitaminosis D Bilateral thumb pain Lumbar back pain History of electroconvulsive therapy Spina bifida occulta S/P ECT (electroconvulsive therapy) History of cardiac murmur Incontinence of urine Tooth missing Needle stick, hypodermic, accidental Exposure to bloodborne pathogen Vitamin D deficiency Fatigue Left shoulder pain Fibromyalgia H. pylori duodenitis Cholelithiasis Lumbar degenerative disc disease Anxiety and depression Hypercholesterolemia Osteopenia Restless leg syndrome Insomnia Tobacco abuse GERD (gastroesophageal reflux disease) Impaired glucose tolerance Hypertension Cervical radiculopathy due to degenerative joint disease of spine HLA B27 (HLA B27 positive) Surgical History History of incisional hernia repair (10/02/22) Hx of colonoscopy History of cervical discectomy H/O basal cell carcinoma excision History of shoulder surgery History of lumbar fusion H/O thumb surgery H/O right wrist surgery History of partial hysterectomy History of hernia repair H/O nasal septoplasty History of hemorrhoidectomy History of cholecystectomy History of tonsillectomy Family History Father Hypertension Past heart attack CVD (cardiovascular disease) Mother Hyperlipidemia Paternal Grandmother Lung cancer Son Substance abuse Brother Bipolar 1 disorder Other Mental health disorder Social History Housing: House Are you a primary client care specialist to a significant other at home: No Do you presently have visiting nurse or other home services: Yes (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) Alcohol intake: current Alcohol intake frequency: holidays/special occasions only Alcohol type: beer Comment: 3x a year 1 glass Patient Tobacco Use Status: Current everyday Tobacco user Tobacco use type: Cigarette Cigarette Packs Per Day: 0.5 Cigarettes Per Day: 10 Years Smoked: 46 e-Cigarette/Vaping Use: Never Used Second Hand Smoke Exposure: Yes service: No Current occupational status: disabled Cognitive needs: No Hearing needs: No Vision needs: Yes (reading glasses) Review of Systems Const All systems reviewed & are unremarkable except as noted in HPI and below Reports no additional complaints Eyes Reports no additional complaints ENT Reports no additional complaints Card Reports no additional complaints Resp Reports no additional complaints GI Reports no additional complaints Reports as per HPI Musc Reports no additional complaints Skin/Breast Reports system reviewed and no additional complaints, except as documented Neuro Reports no additional complaints Psych Reports no additional complaints Endo Reports no additional complaints Adam/Lymph Reports no additional complaints Aller/Immun Reports no additional complaints Telehealth Telehealth Telehealth Platform: Unigo Location of provider rendering services: practice address Location of patient: address on file Patient Identification confirmed using: Name, : Yes Telehealth method: video Patient verbally consented to treatment: Yes Patient verbally consented to billing insurance company: Yes Patient informed of any privacy concerns related to visit: Yes Results Reviewed Results Reviewed: Date of Service: 06/17/24 US RETROPERITONEAL COMPLETE (RENAL) CLINICAL INFORMATION: Neuromuscular dysfunction of the bladder, unspecified. COMPARISON: Ultrasound retroperitoneal 09/19/2023 and 04/16/2023. CT abdomen and pelvis 11/06/2022. TECHNIQUE: Real-time imaging of the kidneys and bladder. FINDINGS: RIGHT KIDNEY: 9.6 x 4.6 x 5.2 cm (SAG x AP x TRV). The kidney is normal in size, contour, and echogenicity. Renal cortical thickness is normal. No calculi or focal parenchymal lesions. No hydronephrosis. There is mild fullness of the renal pelvis. LEFT KIDNEY: 9.6 x 4.8 x 5.3 cm (SAG x AP x TRV). The kidney is normal in size, contour, and echogenicity. Renal cortical thickness is normal. No renal calculi or focal parenchymal lesions. There is mild left-sided hydronephrosis. BLADDER: Well distended and normal. Bilateral ureteral jets are demonstrated. Prevoid bladder volume is 1060 mL. Postvoid bladder volume is 629 mL. IMPRESSION: 1. Mild left-sided hydronephrosis. 2. Large postvoid residual. Date of Service: 09/19/23 EXAMINATION: US RETROPERITONEAL COMPLETE (RENAL) CLINICAL INFORMATION: Neuromuscular dysfunction of the bladder, unspecified. COMPARISON: Ultrasound kidneys and bladder 04/16/2023. TECHNIQUE: Real-time imaging of the kidneys and bladder. FINDINGS: RIGHT KIDNEY: 9.7 x 4.2 x 5.4 cm (SAG x AP x TRV). The kidney is normal in size, contour, and echogenicity. Renal cortical thickness is normal. No calculi or focal parenchymal lesions. Pelviectasis without leslie hydronephrosis, unchanged. LEFT KIDNEY: 9.8 x 4.6 x 5.1 cm (SAG x AP x TRV). The kidney is normal in size, contour, and echogenicity. Renal cortical thickness is normal. No calculi or focal parenchymal lesions. No hydronephrosis. BLADDER: Well distended and normal. Bilateral ureteral jets are demonstrated. Prevoid bladder volume is 624 mL. Postvoid bladder volume is 427 mL. IMPRESSION: 1. Right renal pelviectasis without leslie hydronephrosis, unchanged. 2. Large postvoid bladder residual of 427 mL. Assessment & Plan Assessment & Plan (1) Urinary retention: Code(s): R33.9 - Retention of urine, unspecified Category: Medical (2) Hydronephrosis: Code(s): N13.30 - Unspecified hydronephrosis Category: Medical Plan Discussed renal US results, left mild hydro, persistent large PVR - 629 mL. Discussed increase bethanochol to 50 mg tid. Cont to monitor kidneys, check BUN/creat. Orders: Orders Blood Urea Nitrogen 07/22/24 R33.9 - Retention of urine, unspecified Creatinine 07/22/24 R33.9 - Retention of urine, unspecified Medications: Changed From bethanechol chloride 50 mg PO BID 60 tabs 10RF To bethanechol chloride take at 9 am 2 pm and 7 pm daily 50 mg PO TID 90 tabs 5RF Patient Instructions: The patient had an opportunity to ask questions regarding treatment plan. The patient expressed understanding and agreement with the above treatment plan. The patient is aware they should contact our office by phone for worsening of their current condition or the appearance of new symptoms. Compliance is encouraged with any medications and followup testing that is ordered. It is a privilege to be allowed the opportunity to participate in the urologic care of your patient. If you have any questions or concerns regarding treatment for the above conditions please do not hesitate to contact me. The office telephone contact is [phone]. This note is constructed in part using voice recognition software. While every effort has been made to ensure accuracy supervisor post wave errors may have been included. Yours sincerely, Mike Raphael MD Coding Level of Care Code Tele Est Pt Level 4 (65924) Diagnoses Urinary retention R33.9 Hydronephrosis N13.30
== END 2024-07-22 15:50 | disposition home or self-care (01) ==
LOC: HO.HUSH 14:44
PROVIDERS: PCP Internal Medicine; Visit Provider Urology
DX: R33.9 Retention of urine, unspecified (principal); N13.30 Unspecified hydronephrosis
CPT/HCPCS: 99214

== ENCOUNTER → 2024-07-22 14:44 | Outpatient (BNVA) | payer OTHER, SELFPAY | PROVIDERS: PCP Internal Medicine; Visit Provider Urology ==

== ENCOUNTER 2024-08-27 11:07 | Outpatient (REF) | payer OTHER, SELFPAY ==
--- NOTE | ~2024-08-27 | US_ITS ---
CLINICAL HISTORY: R33.9 - Retention of urine, unspecified US Renal Comparison: US/SR - US RETROPERITONEAL COMP - 06/17/24 11:44 EST Findings: Right kidney normal size and echotexture, 10.0 cm length. Left kidney normal size and echotexture, 10.4 cm length. No hydronephrosis of either kidney. Normal color Doppler. Distended bladder. Postvoid volume not performed. IMPRESSION: 1. Unremarkable kidneys without hydronephrosis. Distended bladder. This document has been electronically signed by: Estrella Ku MD on 08/28/2024 06:50:20
== END 2024-08-27 11:08 | disposition home or self-care (01) ==
LOC: HO.US 11:07
PROVIDERS: PCP Internal Medicine; Visit Provider Urology
DX: N13.30 Unspecified hydronephrosis (principal); N31.9 Neuromuscular dysfunction of bladder, unspecified; R33.9 Retention of urine, unspecified
CPT/HCPCS: 76775

== ENCOUNTER → 2024-08-27 11:10 | Outpatient (BNV) | payer OTHER, SELFPAY | PROVIDERS: PCP Internal Medicine; Visit Provider Radiology Diagnostic Radiology | DX: R33.9 Retention of urine, unspecified (principal) | CPT/HCPCS: 76775 ==

== ENCOUNTER 2024-11-26 11:23 | Outpatient (AMB) | payer OTHER, SELFPAY ==
--- NOTE | 2024-11-26 11:34 | A.OFFVIS_ITS ---
Vital Signs 11/26/24 11:37 Height 4 ft 11 in Weight 177 lb BMI 35.7 BP 151/79 H Blood Pressure Location Lt brachial Position Sitting Pulse 87 Pulse Source Pulse Oximeter Pulse Oximetry (%) 96 Oxygen Delivery Method Room Air Intake Visit Reasons: FU patient request/med rx refill Intake Note: RM 1 Interactive Media Marketing Specialist Required: No Allergies bacitracin [From NEOSPORIN] Allergy (Severe, Verified 11/26/24 11:37) RASH gramicidin D [From NEOSPORIN] Allergy (Severe, Verified 11/26/24 11:37) RASH polymyxin B [From NEOSPORIN] Allergy (Severe, Verified 11/26/24 11:37) RASH adhesive tape [ADHESIVE TAPE] Allergy (Intermediate, Verified 11/26/24 11:37) RASH/BLISTERS polyester fibers Allergy (Intermediate, Verified 11/26/24 11:37) Itching Sulfa (Sulfonamide Antibiotics) [SULFA (SULFONAMIDE ANTIBIOTICS)] Allergy (Intermediate, Verified 11/26/24 11:37) ITCHY RASH chlorhexidine [From ChloraPrep Clear] Allergy (Mild, Verified 11/26/24 11:37) Rash leflunomide Adverse Reaction (Severe, Verified 11/26/24 11:37) gi upset cefazolin [CEFAZOLIN] Adverse Reaction (Intermediate, Verified 11/26/24 11:37) GI UPSET Medication List - Last Reconciled 11/26/24 by Carmen Bravo, DIRECTOR [employer] acetaminophen ER 650 mg PO Q8H bethanechol chloride 50 mg PO TID Brace,wrist As directed calcium carbonate-vitamin D3 600 mg-25 mcg (1,000 unit) 2 caps PO DAILY cholecalciferol (vitamin D3) 50 mcg PO DAILY clonazepam 1 mg PO TID PRN diclofenac sodium 1% (Arthritis Pain (diclofenac)) 2 grams topical QID epinephrine (EpiPen 2-Hamilton) 0.3 mg (0.3 mL) IM Q4H PRN fenofibrate 160 mg PO DAILY ibuprofen 800 mg PO DAILY PRN incontinence pad, liner, disp (Pads For Women) As directed- extra absorbent overnight pads per pt request omeprazole 20 mg PO DAILY 30 days quetiapine (Seroquel) 100 mg PO TID sertraline 100 mg PO BID sucralfate (Carafate) 10 mL PO BID 30 days tizanidine 4 mg AM, 8 mg QHS tizanidine 4 mg PO BID PRN underpads (Bed Underpads) As directed witch lorraine 50% (Tucks (witch lorraine)) 1 pad topical BID-QID PRN HPI HPI FU patient request/med rx refill: Details: History of Present Illness The patient is a 64-year-old female presenting with a request for follow-up and management of her chronic pain syndrome. She describes a long-standing history of pain concentrated around her thoracic spine, initially alleviated by targeted injections. Post-cervical fusion surgeries, the patient experienced substantial relief, although pain under the left shoulder blade, relating more to cervical pathology, has recurred. Her gastrointestinal discomfort complicates the use of NSAIDs, necessitating a balance of pain management with alternatives like muscle relaxants and Tylenol. She has been scheduled to see a mandolin repair person due to concerns following an endoscopic evaluation. The patient's comprehensive pain management plan requires a tailored approach, considering both her significant pain history and reluctance towards further interventions like surgery or injections. Pain Description - Onset and Timing: Chronic, with recent recurrence under left shoulder blade. - Quality and Character: Dull, persistent, intensifying over time; radiates from neck. - Primary Location: Thoracic region, radiating pain under left shoulder blade. - Exacerbating Factors: Movement-related activities. - Relieving Factors: Previous cervical fusion, earlier thoracic injections. Physical Exam - Musculoskeletal- Range of motion in the left shoulder is intact, with external and internal rotation preserved. Pain Management - Affect: Patient reports chronic pain's impact on mood but maintains a positive demeanor. - Analgesia: Current use of muscle relaxant (Tizanidine 4 mg AM, 8 mg PM) and Tylenol, avoiding NSAIDs. - Adverse Effects: Reports gastrointestinal issues, refraining from NSAIDs. - Activities of Daily Living: Pain interferes with daily functioning and routine activities. - Aberrant Drug-Related Behaviors: No evidence of misuse or aberrant behaviors observed. FORMERLY [facility] Medical History (Updated 11/26/24 @ 13:34 by Valerio Betancourt MD) Abnormal EKG Encounter for screening colonoscopy Colonoscopy refused Obesity (BMI 30-39.9) prison (current) use of immunomodulator Back pain due to inflammatory process Osteopenia after menopause Hypovitaminosis D Bilateral thumb pain Lumbar back pain History of electroconvulsive therapy Spina bifida occulta S/P ECT (electroconvulsive therapy) History of cardiac murmur Incontinence of urine Tooth missing Needle stick, hypodermic, accidental Exposure to bloodborne pathogen Vitamin D deficiency Fatigue Left shoulder pain Fibromyalgia H. pylori duodenitis Cholelithiasis Lumbar degenerative disc disease Anxiety and depression Hypercholesterolemia Osteopenia Restless leg syndrome Insomnia Tobacco abuse GERD (gastroesophageal reflux disease) Impaired glucose tolerance Hypertension Cervical radiculopathy due to degenerative joint disease of spine HLA B27 (HLA B27 positive) Surgical History (Updated 10/29/24 @ 11:31 by Tiffanie Mtz) History of esophagogastroduodenoscopy (EGD) History of incisional hernia repair (10/02/22) Hx of colonoscopy History of cervical discectomy H/O basal cell carcinoma excision History of shoulder surgery History of lumbar fusion H/O thumb surgery H/O right wrist surgery History of partial hysterectomy History of hernia repair H/O nasal septoplasty History of hemorrhoidectomy History of cholecystectomy History of tonsillectomy Family History Father Hypertension Past heart attack CVD (cardiovascular disease) Mother Hyperlipidemia Paternal Grandmother Lung cancer Son Substance abuse Brother Bipolar 1 disorder Other Mental health disorder Social History Housing: House Are you a primary complex care nurse practitioner to a significant other at home: No Do you presently have visiting nurse 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 home services: 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) Alcohol intake: current Alcohol intake frequency: holidays/special occasions only Alcohol type: beer Comment: 3x a year 1 glass Patient Tobacco Use Status: Current everyday Tobacco user Tobacco use type: Cigarette Cigarette Packs Per Day: 0.5 Cigarettes Per Day: 10 Years Smoked: 46 e-Cigarette/Vaping Use: Never Used Second Hand Smoke Exposure: Yes service: No Current occupational status: disabled Cognitive needs: No Hearing needs: No Vision needs: Yes (reading glasses) Physical Exam Vital Signs: Last Vital Signs Pulse 87 11/26/24 11:37 BP 151/79 H 11/26/24 11:37 Pulse Ox 96 11/26/24 11:37 Oxygen Delivery Method Room Air 11/26/24 11:37 BMI result Body Mass Index 35.7 Assessment & Plan Assessment & Plan (1) Thoracic spine pain: Code(s): M54.6 - Pain in thoracic spine Category: Medical (2) Degenerative arthritis of knee, bilateral: Code(s): M17.0 - Bilateral primary osteoarthritis of knee Category: Medical Qualifiers: Osteoarthritis type: primary Qualified Code(s): M17.0 - Bilateral primary osteoarthritis of knee (3) Postlaminectomy syndrome: Code(s): M96.1 - Postlaminectomy syndrome, not elsewhere classified Category: Medical Plan Plan - Renew Tizanidine prescription; monitor for any adverse reactions. - Initiate trial of a TENS unit for managing cervical and thoracic pain. - Maintain Tylenol for additional pain control; restrict NSAIDs given GI issues. - Continue gastroenterology follow-up regarding previously identified GI complications. - Focus on non-invasive treatments due to patient's preferences and concerns. Patient was informed and verbally consented to the use of an ambient scribe for clinic note documentation during this visit. Discussion Notes During the visit, discussions focused on the recurrence of thoracic and cervical pain, its chronic nature, and the impact on the patient's daily activities and overall quality of life. The patient expressed significant concern over the use of invasive treatments such as additional injections due to anxiety and previous adverse experiences. I reviewed alternative pain management strategies including the introduction of a TENS unit, neurologic assessments, and modification of existing medications to manage her chronic pain more effectively. We agreed that acknowledging her discomfort with injections and surgery, and continuing non-pharmacological interventions, would be beneficial. The patient was advised to pursue her scheduled mandolin repair person consultation for ongoing gastrointestinal issues. Future appointments will allow us to reassess the effectiveness of these strategies and adjust as required. Patient Instructions - Continue taking Tizanidine as prescribed. - Use a TENS unit for neck and thoracic pain; follow pumper head instructions. - Take Tylenol for pain, avoid NSAIDs unless pain is severe. - Follow up with gastroenterology for any gastrointestinal concerns. - Avoid injections at present due to associated anxiety and discomfort. - Maintain regular follow-up appointments for monitoring and adjustments. - Seek immediate care if experiencing new or worsening symptoms. Medications: Refilled tizanidine 4 mg AM, 8 mg QHS 4 mg PO BID PRN 90 tabs 5RF muscle spasticity Coding Level of Care Code Est Pt Level 3 (89252) Diagnoses Thoracic spine pain M54.6 Primary osteoarthritis of both knees M17.0 Osteoarthritis type: primary Postlaminectomy syndrome M96.1
[2024-11-26 11:37] VITALS: BP 151/79; PULSE 87; O2SAT 96; BMI 35.7
--- OUTSIDE RECORDS SUMMARY | 2024-11-26 12:30 | XMS_ITS | Patient Health Record ---
[facility] Organization [facility] Address [address] [place] [address] Care Team Providers Care Needle Valve Operator Name Role Phone SungKenya Primary Care Provider Unavailabl e Black, Brynn Unavailable [phone] Allergies Allergen (clinical drug ingredient) Drug/Non Drug Allergy documented on EMR Reaction Allergy Type Onset Date Status bacitracin Bacitracin Unknown Drug Allergy Activ e Neosporin Unknown Drug Allergy Active Adhesive rash Allergy Active Substance with penicillin structure and antibacterial mechanism of action (substance) Penicillins stomach upset Drug Allergy Active Substance with sulfonamide structure and antibacterial mechanism of action (substance) Sulfa Antibiotics rash Drug Allergy Active Reason For Referral No Information Medications Medication SIG (Take, Route, Frequency, Duration) Notes Start Date End Date Status Tylenol 8 Hour 650 MG 2 tablets as neede d Orally every 8 hrs Active Vitamin D 50 MCG (1999) 1 tablet Oral ly Once a day Active Ciclopirox 8 % 1 application Fire Marshal ally Once a day for 30 10/30/2023 Active Ciclopirox Olamine 0.77 % 1 application Externally Twice a day for 30 days Active QUEtiapine Fumarate 100 MG 1 tablet at b edtime Orally Once a day Active Sertraline HCl 100 MG 1 tablet Orally On ce a day Active Cyclobenzaprine HCl 5 MG as directed Orally Active tiZANidine HCl 4 MG as directed Orally Active Motrin PRN Active Social History Tobacco Use: Social History Observation Description Date Details (start date - stop date) Current Smoker NA - NA Tobacco Use/Smoking Question Answer Notes Are you a: current smoker How often do you smoke cigarettes? every day How many cigarettes a day do you smoke? 11-20 How soon after you wake up d o you smoke your first cigarette? 6-30 minutes Are you interested in quitting? Thinking about q uitting Alcohol Screen Question Answer Notes Did you have a drink contain ing alcohol in the past year? Yes How often did you have a dri nk containing alcohol in the past year? 2 to 4 times a month (2 points) Points 2 Interpretation Negative Tobacco use other than smoking: Question Answer Notes Are you an other tobacco user? No Encounters Encounter Location Date Provider Diagnosis [facility] [place] [address] [place] [phone] 12/15/2023 Brynn Fabian Plan Of Treatment Pending Test Test Name Order Date [id number] NAIL, 6 OR MORE 10/30/2023 Insurance Providers Payer Name Payer Address Payer Phone Subscriber Number Group Number Insured Name Patient Relationship to Insured Coverage Start Date Coverage End Date [facility] SCO Claims [address] [place] [id number] [phone] [id number] María Eastman Self - patient is the insured Medical (General) History Medical History History ICD Code Anxiety Arthritis Back,Hip,and Knee pain CAD (Cholesterol) Depression Fibromyalgia Gall bladder problems Hiatal hernia High blood pressure Osteoporosis Psychiatric disorder Reflux ( GERD) Chicken pox Joint implants/screws Transfusions Degenerative Disc disease Diverticulitis Surgical History Surgery Date(Month/Year) lumbar fusion 08/14/2010 cervical fusion 2016 rotator cuff tear repair with hardware 0 02/06/2012 partial hysterectomy 2001 septoplasty 12/29/2017 Gall bladder removal 08/10/2019
--- OUTSIDE RECORDS SUMMARY | 2024-11-26 12:30 | XMS_ITS ---
Author Organization [facility] Address [address] [place] [address] Care Team Providers Care Safety Associate Name Role Phone Kenya Almaraz Primary Care Provider Brynn Philip [phone] Encounters Encounter Location Date Provider Diagnosis [facility] [address] [place] [address] 12/11/2023 Brynn Fabian Plan Of Treatment No Information Progress Notes * María EASTMANDOB: (64 yo F)Acc No.[id number]:12/11/2023 Progress Notes Patient:?María EASTMAN Provider:?Brynn Fabian DPM :1960???Age:63 Y???Sex:Female D ate:12/11/2023 Address:[address] [place], [place] [phone] Pcp:Kenya Almaraz Subjective: * Chief Complaints: * ??? * Medical History:? Objective: * Vitals:? Assessment: Plan: * Treatment: * Images: * The named appointment provid er may or may not be the originator of this progress note, and it is not deemed complete until electronically signed by the appointment provider. Sign off status: Pending * Provider:?Brynn Fabian DPM Date:?2023 Generated for Hirai stephen/Fajoselyng/eTransmitting on:?11/26/2024 12:30 PM EDT
--- OUTSIDE RECORDS SUMMARY | 2024-11-26 12:31 | XMS_ITS ---
Author Organization [facility] Address [address] [place] [address] Care Team Providers Care Material Preparation Worker Name Role Phone Kenya Almaraz Primary Care Provider Unavailabl e Black, Brynn Unavailable [phone] REASON FOR VISIT 12/18/23 appt Encounters Encounter Location Date [facility] [place] [address] [place] [phone] 12/15/2023 Brynn Black Plan Of Treatment No Information Progress Notes * JAREN, Donjose dDOB: (63 yo F)Acc No.[id number]:12/15/2023 Patient:?María Eastman :1960???Age:63 Y???Sex:Female Address:[address] [place] [address], [phone] * true * Date:? Generated for Hirai stephen/Deshaun/eTransmitting on:?11/26/2024 12:30 PM EDT
--- OUTSIDE RECORDS SUMMARY | 2024-11-26 12:31 | XMS_ITS ---
Author Organization [facility] Address [address] [place] [address] Care Team Providers Care Multineedle Shirrer Name Role Phone Kenya Almaraz Primary Care Provider Brynn Philip [phone] Encounters Encounter Location Date Provider Diagnosis [facility] [address] [place] [address] 12/18/2023 Brynn Fabian Plan Of Treatment No Information Progress Notes * María EASTMANDOB: (64 yo F)Acc No.[id number]:12/18/2023 Progress Notes Patient:?María EASTMAN Provider:?Brynn Fabian DPM :1960???Age:63 Y???Sex:Female D ate:12/18/2023 Address:[address] [place], [place] [phone] Pcp:Kenya Almaraz Subjective: * Chief Complaints: * [...]
== END 2024-11-26 12:22 | disposition home or self-care (01) ==
LOC: HO.PMC 11:24
PROVIDERS: PCP Internal Medicine; Visit Provider Internal Medicine
DX: M54.6 Pain in thoracic spine (principal); M17.0 Bilateral primary osteoarthritis of knee; M96.1 Postlaminectomy syndrome, not elsewhere classified
CPT/HCPCS: 99213

== ENCOUNTER → 2024-11-26 11:23 | Outpatient (BNVA) | payer OTHER, SELFPAY | PROVIDERS: PCP Internal Medicine; Visit Provider Internal Medicine | DX: G89.4 Chronic pain syndrome (principal); M54.6 Pain in thoracic spine; M17.0 Bilateral primary osteoarthritis of knee; M96.1 Postlaminectomy syndrome, not elsewhere classified | CPT/HCPCS: 99212 ==

== ENCOUNTER 2024-12-16 09:38 | Outpatient (REF) | payer OTHER, SELFPAY ==
--- OUTSIDE RECORDS SUMMARY | 2024-12-16 10:23 | XMS_ITS ---
Author Organization [facility] Address [address] [place] [address] Care Team Providers Care Rail Car Repairer Name Role Phone Kenya Almaraz Primary Care Provider Unavailabl e Black, Brynn Unavailable [phone] REASON FOR VISIT 12/18/23 appt Encounters Encounter Location Date [facility] [place] [address] [place] [phone] 12/15/2023 Brynn Black Plan Of Treatment No Information Progress Notes * JAREN, Donjose dDOB: (63 yo F)Acc No.[id number]:12/15/2023 Patient:?María Eastman :1960???Age:63 Y???Sex:Female Address:[address] [place] [address], [address] * true * Date:? Generated for Hirai stephen/Deshaun/eTransmitting on:?12/16/2024 10:23 AM EDT
--- OUTSIDE RECORDS SUMMARY | 2024-12-16 10:23 | XMS_ITS ---
Author Organization [facility] Address [address] [place] [address] Care Team Providers Care Confectionery Laboratory Manager Name Role Phone Kenya Almaraz Primary Care Provider Brynn Philip [phone] Encounters Encounter Location Date Provider Diagnosis [facility] [address] [place] [address] 12/11/2023 Brynn Fabian Plan Of Treatment No Information Progress Notes * María EASTMANDOB: (64 yo F)Acc No.[id number]:12/11/2023 Progress Notes Patient:?María EASTMAN Provider:?Brynn Fabian DPM :1960???Age:63 Y???Sex:Female D ate:12/11/2023 Address:[address] [place], [place] [phone] Pcp:Kenya Almaraz Subjective: * Chief Complaints: * ??? * Medical History:? Objective: * Vitals:? Assessment: Plan: * Treatment: * Images: * The named appointment provid er may or may not be the originator of this progress note, and it is not deemed complete until electronically signed by the appointment provider. Sign off status: Pending * Provider:?Brynn Fabian DPM Date:?2023 Generated for Hirai stephen/Deshaun/eTransmitting on:?12/16/2024 10:23 AM EDT
--- OUTSIDE RECORDS SUMMARY | 2024-12-16 10:23 | XMS_ITS | Patient Health Record ---
Author [facility] Address [address] [place] [address] Care Team Providers Care Underwater Roboticist Name Role Phone SungKenya Primary Care Provider Unavailabl e Black, Brynn Unavailable [phone] Allergies Allergen (clinical drug ingredient) Drug/Non Drug [...] day Active Ciclopirox 8 % 1 application Perinatal Educator ally Once a day for 30 10/30/2023 [...] Are you an other tobacco user? No Plan Of Treatment Pending Test Test Name Order Date [id number] NAIL, 6 OR MORE 10/30/2023 Insurance Providers Payer Name Payer Address Payer Phone Subscriber Number Group Number Insured Name Patient Relationship to Insured Coverage Start Date Coverage End Date [facility] SCO Claims [address] [place] [id number] María Eastman Self - patient is the [...]
--- OUTSIDE RECORDS SUMMARY | 2024-12-16 10:24 | XMS_ITS ---
Author Organization [facility] Address [address] [place] [address] Care Team Providers Care Splicing Machine Operator Automatic Name Role Phone Kenya Almaraz Primary Care Provider Brynn Philip [phone] Encounters Encounter Location Date Provider Diagnosis [facility] [address] [place] [address] 12/18/2023 Brynn Fabian Plan Of Treatment No Information Progress Notes * María EASTMANDOB: (64 yo F)Acc No.[id number]:12/18/2023 Progress Notes Patient:?María EASTMAN Provider:?Brynn Fabian DPM :1960???Age:63 Y???Sex:Female D ate:12/18/2023 Address:[address] [place], [place] [phone] Pcp:Kenya Almaraz Subjective: * Chief Complaints: * [...]
[2024-12-16 11:31] LABS: Alanine Aminotransferase 25 U/L (0-31); Albumin Level 4.6 g/dL (3.5-5.0); Alkaline Phosphatase 43 U/L (39-117); Anion Gap 13 (12-20); Aspartate Amino Transferase 30 U/L (5-31); Bilirubin Total 0.4 mg/dL (0.0-1.0); Blood Urea Nitrogen 15 mg/dL (9-16); Calcium 10.3 mg/dL (8.4-10.2); Carbon Dioxide 26 mmol/L (22-29); Chloride 104 mmol/L (96-108); Cholesterol 298 mg/dL (<200); Estimated Glomerular Filt Rate 50; Glucose Random 99 mg/dL (60-115); HDL Cholesterol 29 mg/dL (>40); LDL Cholesterol Calculated 202 mg/dL (<100); Potassium 4.1 mmol/L (3.3-5.1); Sodium 139 mmol/L (135-145); Total Protein 7.5 g/dL (6.5-8.0); Triglycerides 338 mg/dL (<150)
== END 2024-12-16 09:39 | disposition home or self-care (01) ==
LOC: HO.LAB 09:38
PROVIDERS: Urology; PCP Internal Medicine; Visit Provider Internal Medicine
DX: E78.00 Pure hypercholesterolemia, unspecified (principal)
CPT/HCPCS: 36415; 80053; 80061

== ENCOUNTER 2024-12-21 10:41 | Outpatient (AMB) | payer OTHER, SELFPAY ==
--- NOTE | 2024-12-21 10:49 | A.OFFPC_ITS ---
Vital Signs 12/21/24 10:50 Height 4 ft 11 in Weight 175 lb 2 oz BMI 35.4 BP 120/78 Blood Pressure Location Lt brachial Position Sitting Pulse 86 Pulse Source Pulse Oximeter Temp 97.1 F Temp Source Temporal Artery Scan Pulse Oximetry (%) 95 Oxygen Delivery Method Room Air Intake Visit Reasons: annual exam Intake Note: Patient is here today for a physical. Business Process Associate Required: No Polisher Numeral: Not Required per policy Accompanied by: Self / Same As Patient Allergies bacitracin [From NEOSPORIN] Allergy (Severe, Verified 12/21/24 10:50) RASH gramicidin D [From NEOSPORIN] Allergy (Severe, Verified 12/21/24 10:50) RASH polymyxin B [From NEOSPORIN] Allergy (Severe, Verified 12/21/24 10:50) RASH adhesive tape [ADHESIVE TAPE] Allergy (Intermediate, Verified 12/21/24 10:50) RASH/BLISTERS polyester fibers Allergy (Intermediate, Verified 12/21/24 10:50) Itching Sulfa (Sulfonamide Antibiotics) [SULFA (SULFONAMIDE ANTIBIOTICS)] Allergy (Intermediate, Verified 12/21/24 10:50) ITCHY RASH chlorhexidine [From ChloraPrep Clear] Allergy (Mild, Verified 12/21/24 10:50) Rash leflunomide Adverse Reaction (Severe, Verified 12/21/24 10:50) gi upset cefazolin [CEFAZOLIN] Adverse Reaction (Intermediate, Verified 12/21/24 10:50) GI UPSET Medication List - Last Reconciled 12/21/24 by Kenya Almaraz MD acetaminophen ER 650 mg PO Q8H bethanechol chloride 50 mg PO TID Brace,wrist As directed cholecalciferol (vitamin D3) 50 mcg PO DAILY clonazepam 1 mg PO TID PRN diclofenac sodium 1% (Arthritis Pain (diclofenac)) 2 grams topical QID epinephrine (EpiPen 2-Hamilton) 0.3 mg (0.3 mL) IM Q4H PRN fenofibrate 160 mg PO DAILY ibuprofen 800 mg PO DAILY PRN incontinence pad, liner, disp (Pads For Women) As directed- extra absorbent overnight pads per pt request quetiapine (Seroquel) 100 mg PO TID sertraline 100 mg PO BID sucralfate (Carafate) 10 mL PO BID 30 days tizanidine 4 mg PO BID PRN underpads (Bed Underpads) As directed witch lorraine 50% (Tucks (witch lorraine)) 1 pad topical BID-QID PRN Tobacco use date assessed: 12/21/24 Dental Screening Dental Screen Date: 12/21/24 Did you have a dental visit in the last 12 months?: No Did you have a dental problem in the last 6 months where you did not have access to dental care?: No Was dental information given to patient?: Patient has dentist [facility] Medical History (Updated 12/21/24 @ 11:25 by Kenya Almaraz MD) Abnormal EKG Encounter for screening colonoscopy Colonoscopy refused Obesity (BMI 30-39.9) half-way (current) use of immunomodulator Back pain due to inflammatory process Osteopenia after menopause Hypovitaminosis D Bilateral thumb pain Lumbar back pain History of electroconvulsive therapy Spina bifida occulta S/P ECT (electroconvulsive therapy) History of cardiac murmur Incontinence of urine Tooth missing Needle stick, hypodermic, accidental Exposure to bloodborne pathogen Vitamin D deficiency Fatigue Left shoulder pain Fibromyalgia H. pylori duodenitis Cholelithiasis Lumbar degenerative disc disease Anxiety and depression Hypercholesterolemia Osteopenia Restless leg syndrome Insomnia Tobacco abuse GERD (gastroesophageal reflux disease) Impaired glucose tolerance Hypertension Cervical radiculopathy due to degenerative joint disease of spine HLA B27 (HLA B27 positive) Surgical History History of esophagogastroduodenoscopy (EGD) History of incisional hernia repair (10/02/22) Hx of colonoscopy History of cervical discectomy H/O basal cell carcinoma excision History of shoulder surgery History of lumbar fusion H/O thumb surgery H/O right wrist surgery History of partial hysterectomy History of hernia repair H/O nasal septoplasty History of hemorrhoidectomy History of cholecystectomy History of tonsillectomy Family History Father Hypertension Past heart attack CVD (cardiovascular disease) Mother Hyperlipidemia Paternal Grandmother Lung cancer Son Substance abuse Brother Bipolar 1 disorder Other Mental health disorder Social History (Updated 12/21/24 @ 10:56 by DAVID Ram) Housing: House Are you a primary care attendant to a significant other at home: No Do you presently have visiting nurse or other home services: Yes (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 1. Little interest or pleasure in doing things: not at all 2. Feeling down, depressed, or hopeless: not at all 3. Trouble falling or staying asleep, or sleeping too much: several days 4. Feeling tired or having little energy: several days 5. Poor appetite or overeating: not at all 6. Feeling bad about yourself - or that you are a failure or have let yourself or your family down: several days 7. Trouble concentrating on things, such as reading the newspaper or watching television: not at all 8. Moving or speaking so slowly that other people could have noticed. Or the opposite - being so fidgety or restless that you have been moving around a lot more than usual: not at all 9. Thoughts that you would be better off or of hurting yourself in some way: not at all Total score: 3 Depression Screening Interpretation: Positive Depression Screening Done: Yes Source: Developed by Drs. Sai Monte, Vero Wolf, Ishan Amezcua and colleagues, with an educational swati from [employer]. Thrive Questionnaire Date Thrive assessed: 12/21/24 I am a: Patient AUDIT C Alcohol Use Questionnaire (AUDIT-C) 1. How often do you have a drink containing alcohol?: 2-3 times a week 2. How many drinks containing alcohol do you have on a typical day when you are drinking?: 1 or 2 Total Score: 3 CARYN-7 AMB Questionnaire CARYN-7 Date CARYN - 7 assessed: 12/21/24 Feeling nervous, anxious, or on edge: 0 = Not at all Not being able to stop or control worryin = Not at all Worrying too much about different things: 0 = Not at all Trouble relaxin = Not at all Being so restless that it is hard to sit still: 0 = Not at all Becoming easily annoyed or irritable: 0 = Not at all Feeling afraid as if something awful might happen: 0 = Not at all Total CARYN-7 score (0-4 normal; 5-9 mild; 10-14 moderate; 15-21 severe): 0 Source: Developed by Drs. Sai Monte, Vero Wolf, Ishan Amezcua and colleagues, with an educational swati from [employer]. Review of Systems Const Denies poor appetite and Denies weakness Eyes Denies no additional complaints ENT Reports Normal hearing present, Denies dizziness, Denies nasal congestion, Denies tinnitus and Denies sore throat Card Denies chest pain, Denies syncope, Denies rapid heart rate and Denies dyspnea Resp Denies cough and Denies dyspnea GI Denies change in stool character, Reports constipation, Denies diarrhea, Denies nausea and Denies vomiting Denies urinary frequency, Denies difficulty voiding and Denies dysuria Neuro Reports Normal hearing present, Denies confusion, Denies dizziness, Denies syncope and Denies weakness Psych Denies confusion Physical exam (Primary Care) Vital Signs: Last Vital Signs Temp 97.1 F 12/21/24 10:50 Pulse 86 12/21/24 10:50 BP 120/78 12/21/24 10:50 Pulse Ox 95 12/21/24 10:50 Oxygen Delivery Method Room Air 12/21/24 10:50 BMI result Body Mass Index 35.4 Tobacco/Smoking Status: Tobacco use Status Tobacco use date assessed 12/21/24 12/21/24 10:54 Patient Tobacco Use Status Current everyday Tobacco 12/21/24 10:56 Tobacco use type Cigarette 12/21/24 10:56 e-Cigarette/Vaping Use Never Used 12/21/24 10:56 PHQ-9: PHQ-9 Score PHQ-9: Total score 3 12/21/24 11:31 Depression Screening Interpretation: Positive Thrive Assessment: Date of Thrive Assessment Date Thrive assessed 12/21/24 12/21/24 10:54 Const General: No confusion Orientation/consciousness: No confusion HENMT Head: Yes normocephalic Ears: external ears normal and TM's normal bilaterally Face and sinus: Yes normal facial exam Mouth: moist mucous membranes Throat: Yes tonsils normal Eyes Conjunctivae: conjunctivae normal Pupils: Equal, round and reactive pupils present and Pupil accommodation reflex normal Direct Ophthalmoscopy: normal light reflex Neck Neck: No lymphadenopathy Thyroid: Thyroid normal Chest Chest palpation & inspection: normal inspection of the chest Resp Effort & Inspection: normal respiratory effort and no audible wheezes Auscultation: clear to auscultation bilaterally, no crackles, no wheezes and lung sounds not diminished Cardio Rate: regular rate Rhythm: regular rhythm Peripheral pulses: radial pulses present and dorsalis pedis present GI Palpation (GI): no masses Auscultation: normal bowel sounds and normoactive bowel sounds Rectal Exam - Female: deferred Skin General skin exam: no rashes or lesions noted Rashes: no rashes Neuro General: No confusion Cranial nerves: Yes Equal, round and reactive pupils present and Yes Normal hearing present Cognition (Neuro): normal cognition Gait exam (Neuro): Normal gait present Motor exam (neuro): 5/5 motor strength present throughout Deep tendon reflexes (DTR's): Right brachioradialis reflex intensity grade: 2+, Left brachioradialis reflex intensity grade: 2+, Right patellar reflex intensity grade: 2+ and Left patellar reflex intensity grade: 2+ Extrem General: No edema Coding Level of Care Code Est Pt Prev Care 40-64y(71982) Diagnoses Annual physical exam Z00.00 Impaired glucose tolerance R73.02 Gastroesophageal reflux disease without esophagitis K21.9 Esophagitis presence: without esophagitis Tobacco abuse Z72.0 Hypercholesterolemia E78.00 Lumbar degenerative disc disease M51.36 Generalized anxiety disorder F41.1 Urinary retention with incomplete bladder emptying R33.9 Nicotine dependence, cigarettes, uncomplicated F17.210 HLA B27 (HLA B27 positive) Z15.89 Assessment & Plan Assessment & Plan (1) Annual physical exam: Code(s): Z00.00 - Encounter for general adult medical examination without abnormal findings Category: Medical Plan: Patient is advised to eat healthy, keep well hydrated, keep active and have ad equate sleep. (2) Impaired glucose tolerance: Code(s): R73.02 - Impaired glucose tolerance (oral) Category: Medical Plan: Decrease the amount of carbohydrate intake, pasta, bread, rice and potatoes are all sugar and that is aside from all the sweet stuff, remember that fruits are good but they are Sweet also. (3) GERD (gastroesophageal reflux disease): Comment: poor historian- fleeting- non specific - vague- Code(s): K21.9 - Gastro-esophageal reflux disease without esophagitis Category: Medical Qualifiers: Esophagitis presence: without esophagitis Qualified Code(s): K21.9 - Ga stro-esophageal reflux disease without esophagitis Plan: Avoid the foods that causes that usually spicy foods, tomato products, juices, coffee, soda and foods that your sensitive to. After eating do not lie down, allow 3-4 hours before in lie down. And keep the head of bed above 30 degrees to avoid the acid from going up. (4) Tobacco abuse: Comment: CT chest done September 2021, December Code(s): Z72.0 - Tobacco use Category: Medical Plan: Patient is strongly advised to stop smoking. Patient enrolled in lung cancer s creening program (5) Hypercholesterolemia: Code(s): E78.00 - Pure hypercholesterolemia, unspecified Category: Medical Plan: Avoid fried foods, chicken skin, eggs, butter margarine, pastries and meat. Be it pork or beef they have a lot of cholesterol LDL goal of less than 130 and triglyceride of less than 150 (6) Lumbar degenerative disc disease: Code(s): M51.36 - Other intervertebral disc degeneration, lumbar region Category: Medical Plan: Patient follows up with pain management presently placed on muscle relaxants. (7) Generalized anxiety disorder: Comment: Dr. Torrie ojeda, Code(s): F41.1 - Generalized anxiety disorder Category: Medical Plan: Continue with counseling and therapy (8) Urinary retention with incomplete bladder emptying: Code(s): R33.9 - Retention of urine, unspecified Category: Medical Plan: Patient follows up with urology (9) Nicotine dependence, cigarettes, uncomplicated: Comment: (current smoker 30pyh) Code(s): F17.210 - Nicotine dependence, cigarettes, uncomplicated Category: Medical Plan: Patient in the lung cancer screening program. (10) HLA B27 (HLA B27 positive): Code(s): Z15.89 - Genetic susceptibility to other disease Category: Medical Plan: Patient has seen Rheumatology and no inflammatory arthritis noted. Plan History of Present Illness The patient is a 64-year-old female presenting for a physical examination. She has a significant medical history, including obesity, essential hypertension, impaired glucose tolerance, and chronic back pain. She smokes approximately 15 cigarettes a day and has a history of lumbar degenerative disc disease with previous surgical interventions, including lumbar fusion in 2011 and cervical disc surgery in 2016. Her management for thoracic spine pain and bilateral degenerative arthritis of the knees is guided by pain management specialists, and she has been advised against the use of NSAIDs due to renal concerns. Instead, she is on tizanidine and utilizes a TENS unit. Her GERD is managed with omeprazole, alongside lifestyle modifications to minimize symptoms. The patient recently underwent an EGD, which showed chronic inactive infla mmation and is under regular allopathic management. Her high cholesterol is a concern with significantly elevated levels, and there are plans to initiate treatment with a statin. She also deals with postvoid residual urine volumes, managed by bethanechol, and partakes in a lung cancer screening program due to mild emphysema. Allergies to several commonly used antibiotics and topical medications have been noted. Health Maintenance - Lung cancer screening program enrollment due to smoking history. - Blood work completed in December 2024 showing cholesterol levels. - Colonoscopy done in 2021 with follow-up scheduled for 2026. - Mammogram up to date as of January 2024. - Bone density assessed in May 2023. - CT chest done in April 2024, showing mild emphysema. - Blood pressure maintained within normal ranges. - Regular follow-ups with pain management for arthritis and spine issues. - Review and update of allergies to medications. - Cholesterol management discussions held, initiating statin therapy. - Nutritional counseling: emphasis on reducing fat intake and substituting butter with olive oil. - Smoking cessation discussed, implementation of nicotine patch therapy and gum. - Review of vaccinations: patient up to date with pneumonia vaccine, discussion of shingles vaccine. Social History - Smoking: Patient smokes approximately 15 cigarettes per day. - Weight management: Patient reports gaining considerable weight, attributing this to depression and lack of exercise. - Dietary habits: Includes yogurt, minimal fast foods, some butter, uses olive oil, avoids fried foods due to rapid gastrointestinal effects. - Allergies: Includes cefazolin, leflunomide, lorhexidine, sulfa, garamicin, bacitracin, polymyxin, and Neosporin. - Occupational details: Not discussed. - Alcohol consumption: Very limited, avoidance due to GERD. - Familial health issues: History of heart attacks and high cholesterol in family members. Review of Systems - Cardiovascular: Denies chest pain, heaviness, or dizziness. - Respiratory: Reports mild emphysema as noted in April 2024. - Gastrointestinal: Reports GERD symptoms, denies nausea or vomiting. Denies issues with bowel movements. - Genitourinary: Denies nighttime urination issues; uses pads preventatively. - Neurologic: Denies syncope or dizziness. - Musculoskeletal: Reports chronic thoracic spine pain and bilateral knee arthritis. - Dermatological: Reports past hemorrhoid surgery. - Metabolic: Reports high cholesterol levels. - Psychiatric: Reports anxiety issues. Physical Exam General: Cooperative, healthy appearing, comfortable, no acute distress and well developed Orientation: Patient oriented x3 Limitations: No limitations Head: Normal to inspection Ears: Hearing grossly normal bilaterally, but ear wax present, eardrum not visible Nose: Normal external nose present Face and sinus: Normal facial exam Eyes: Appearance normal, both eyes and all related structures Neck: Normal visual inspection and Yes full ROM Respiratory: Normal respiratory effort and able to speak in complete sentences. Clear to auscultation bilaterally Cardiovascular: Regular rate and rhythm. Normal S1 and S2 GI: Normal to inspection. Soft to palpation and nontender Skin: No rashes or lesions noted Neuro: Patient oriented x3 Extremities: Normal to inspection Results - Labs: Blood work from December 2024 indicating normal blood count, stable renal function, elevated cholesterol levels (LDL 202, triglycerides 338). - Tests and Diagnostics: Colonoscopy (2021), CT chest showing mild emphysema (April 2024), Bone density scan (May 2023). Plan I will address the patient?s elevated cholesterol by initiating rosuvastatin 5 mg daily, addressing hyperlipidemia while discussing the benefits of managing her cardiovascular risk. I instructed the patient to use a nicotine patch to decrease smoking, supplemented with gum when required, to manage mild emphysema discovered in previous screenings. Pain management will continue with current me dications, ensuring avoidance of NSAIDs due to minor kidney issues noted in lab results. The patient will continue bethanechol therapy for urinary retention. Nutritional counseling was given, recommending olive oil over butter and decreased fat intake, alongside encouragement for physical activity to facilitate weight management. Regular monitoring and a follow-up in three months are scheduled to evaluate the effectiveness of implemented interventions and manage ongoing concerns. Patient was informed and verbally consented to the use of an ambient scribe for clinic note documentation during this visit. Discussion Notes I discussed with the patient the new prescription for rosuvastatin, emphasizing the urgency of lowering her cholesterol levels, and provided the rationale for using a low dose to ease concerns about side effects. I explained that managing her triglycerides and LDL is crucial for reducing her future cardiovascular risk. For smoking cessation, I reviewed the use of the nicotine patch and gum, stressing that cessation is imperative given her existing mild emphysema, as identified on CT. I reiterated the importance of following dietary guidelines and initiating regular exercise to aid weight loss and discussed the ongoing need for pain management adjustments, avoiding NSAIDs to preserve renal health. The patient was educated on the possible side effects and what to monitor for regarding medication changes. Consent for proposed management strategies was obtained, and the potential need for future adjustments was acknowledged. Follow-up was advised in three months. Patient Instructions - Take rosuvastatin 5 mg once daily as prescribed. - Use nicotine patch daily and the gum as needed to help quit smoking. - Avoid NSAIDs to prevent further kidney issues. - Follow a heart-healthy diet; use olive oil instead of butter, and limit high- fat foods. - Engage in regular physical activity to support weight loss and overall health. - Continue bethanechol three times a day for urinary problems. - Schedule follow-up in 3 months to reassess treatment plan and health progress. - Report any side effects of new medications as instructed. - Ensure all vaccinations are up to date; consider the shingles vaccine. Orders: Orders Comprehensive Met. Panel 3 Months E78.00 - Pure hypercholesterolemia, unspecified Lipid Panel 3 Months E78.00 - Pure hypercholesterolemia, unspecified Medications: New rosuvastatin 5 mg PO DAILY 30 tabs 5RF E78.00 - Pure hypercholesterolemia, unspecified nicotine 1 patch transdermal DAILY 28 ea 0RF Z72.0 - Tobacco use tizanidine 4 mg PO BID PRN 60 caps 0RF muscle spasticity M96.1 - Postlaminectomy syndrome, not elsewhere classified nicotine 1 patch transdermal DAILY 28 ea 0RF Z72.0 - Tobacco use nicotine (polacrilex) 2 mg buccal Q2H 120 ea 0RF Z72.0 - Tobacco use Discontinued tizanidine 4 mg AM, 8 mg QHS Discontinued Reason: Doctor's Order 4 mg PO BID PRN 90 tabs 5RF muscle spasticity
[2024-12-21 10:50] VITALS: BP 120/78; PULSE 86; TEMP 36.2; O2SAT 95; BMI 35.4
--- OUTSIDE RECORDS SUMMARY | 2024-12-21 11:52 | XMS_ITS | Patient Health Record ---
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
--- OUTSIDE RECORDS SUMMARY | 2024-12-21 11:52 | XMS_ITS ---
Author Organization [facility] Address [address] [place] [address] Care Team Providers Care Tester Rocket Engine Name Role Phone Kenya Almaraz Primary Care Provider Unavailabl e Black, Brynn Unavailable [phone] REASON FOR VISIT 12/18/23 appt Encounters Encounter Location Date [facility] [place] [address] [place] [id number] 12/15/2023 Brynn Black Plan Of Treatment No Information Progress Notes * JAREN, Donjose dDOB: (63 yo F)Acc No.[id number]:12/15/2023 Patient:?María Eastman :1960???Age:63 Y???Sex:Female Address:[address] [place] [address], [id number] * true * Date:? Generated for Hirai stephen/Deshaun/eTransmitting on:?12/21/2024 11:52 AM EDT
--- OUTSIDE RECORDS SUMMARY | 2024-12-21 11:52 | XMS_ITS ---
Author Organization [facility] Address [address] [place] [address] Care Team Providers Care Embroidery Machine Operator Name Role Phone Kenya Almaraz Primary Care Provider Brynn Philip [phone] Encounters Encounter Location Date Provider Diagnosis [facility] [address] [place] [address] 12/11/2023 Brynn Fabian Plan Of Treatment No Information Progress Notes * María EASTMANDOB: (64 yo F)Acc No.[id number]:12/11/2023 Progress Notes Patient:?María EASTMAN Provider:?Brynn Fabian DPM :1960???Age:63 Y???Sex:Female D ate:12/11/2023 Address:[address] [place], [place] [id number] Pcp:Kenya Almaraz Subjective: * Chief Complaints: * ??? * Medical History:? Objective: * Vitals:? Assessment: Plan: * Treatment: * Images: * The named appointment provid er may or may not be the originator of this progress note, and it is not deemed complete until electronically signed by the appointment provider. Sign off status: Pending * Provider:?Brynn Fabian DPM Date:?2023 Generated for Hirai setphen/Fagold/eTransmitting on:?12/21/2024 11:52 AM EDT
--- OUTSIDE RECORDS SUMMARY | 2024-12-21 11:53 | XMS_ITS ---
Author Organization [facility] Address [address] [place] [address] Care Team Providers Care Lube Man Name Role Phone Kenya Almaraz Primary Care Provider Brynn Philip [phone] Encounters Encounter Location Date Provider Diagnosis [facility] [address] [place] [address] 12/18/2023 Brynn Fabian Plan Of Treatment No Information Progress Notes * María EASTMANDOB: (64 yo F)Acc No.[id number]:12/18/2023 Progress Notes Patient:?María EASTMAN Provider:?Brynn Fabian DPM :1960???Age:63 Y???Sex:Female D ate:12/18/2023 Address:[address] [place], [place] [id number] Pcp:Kenya Almaraz Subjective: * Chief Complaints: * ??? * Medical History:? Objective: * Vitals:? Assessment: Plan: * Treatment: * Images: * The named appointment provid er may or may not be the originator of this progress note, and it is not deemed complete until electronically signed by the appointment provider. Sign off status: Pending * Provider:?Brynn Fabian DPM Date:?2023 Generated for Hirai stephen/Fagold/eTransmitting on:?12/21/2024 11:52 AM EDT
== END 2024-12-21 11:53 | disposition home or self-care (01) ==
LOC: HO.HMCH 10:41
PROVIDERS: PCP Internal Medicine; Visit Provider Internal Medicine
DX: Z00.00 Encounter for general adult medical examination without abnormal findings (principal); R73.02 Impaired glucose tolerance (oral); K21.9 Gastro-esophageal reflux disease without esophagitis; Z72.0 Tobacco use; E78.00 Pure hypercholesterolemia, unspecified; M51.369 Other intervertebral disc degeneration, lumbar region without mention of lumbar back pain or lower extremity pain; F41.1 Generalized anxiety disorder; R33.9 Retention of urine, unspecified; F17.210 Nicotine dependence, cigarettes, uncomplicated; Z15.89 Genetic susceptibility to other disease

== ENCOUNTER → 2024-12-21 10:41 | Outpatient (BNVA) | payer OTHER, SELFPAY | PROVIDERS: PCP Internal Medicine; Visit Provider Internal Medicine | DX: Z00.00 Encounter for general adult medical examination without abnormal findings (principal); R73.02 Impaired glucose tolerance (oral); K21.9 Gastro-esophageal reflux disease without esophagitis; E78.00 Pure hypercholesterolemia, unspecified; M51.369 Other intervertebral disc degeneration, lumbar region without mention of lumbar back pain or lower extremity pain; F41.1 Generalized anxiety disorder; R33.9 Retention of urine, unspecified; I10 Essential (primary) hypertension; F17.210 Nicotine dependence, cigarettes, uncomplicated; Z15.89 Genetic susceptibility to other disease | CPT/HCPCS: 96127; 99396 ==

== ENCOUNTER 2024-12-27 13:11 | Outpatient (AMB) | payer OTHER, SELFPAY ==
--- OUTSIDE RECORDS SUMMARY | 2024-12-27 13:14 | XMS_ITS | Patient Health Record ---
Author Organization [facility] Address [address] [place] [address] Care Team Providers Care Operational Intelligence Officer Name Role Phone SungKenya Primary Care Provider Unavailabl e Black, Brynn Unavailable [phone] Allergies Allergen (clinical drug ingredient) Drug/Non Drug [...] day Active Ciclopirox 8 % 1 application Unit Aide ally Once a day for 30 10/30/2023 [...] Treatment Pending Test Test Name Order Date [id number] NAIL, 6 OR MORE 10/30/2023 Insurance Providers Payer Name Payer Address Payer Phone Subscriber Number Group Number Insured Name Patient Relationship to Insured Coverage Start Date Coverage End Date [facility] SCO Claims [address] [place] [id number] María Eastman Self - patient is the [...]
--- OUTSIDE RECORDS SUMMARY | 2024-12-27 13:14 | XMS_ITS ---
Author Organization [facility] Address [address] [place] [address] Care Team Providers Care Workers Compensation Defense Attorney Name Role Phone Kenya Almaraz Primary Care Provider Brynn Philip [phone] Encounters Encounter Location Date Provider Diagnosis [facility] [address] [place] [address] 12/18/2023 Brynn Fabian Plan Of Treatment No Information Progress Notes * María EASTMANDOB: (64 yo F)Acc No.[id number]:12/18/2023 Progress Notes Patient:?María EASTMAN Provider:?Brynn Fabian DPM :1960???Age:63 Y???Sex:Female D ate:12/18/2023 Address:[address] [place], [place] [address] Pcp:Kenya Almaraz Subjective: * Chief Complaints: * ??? * Medical History:? Objective: * Vitals:? Assessment: Plan: * Treatment: * Images: * The named appointment provid er may or may not be the originator of this progress note, and it is not deemed complete until electronically signed by the appointment provider. Sign off status: Pending * Provider:?Brynn Fabian DPM Date:?2023 Generated for Hirai stephen/Fagold/eTransmitting on:?12/27/2024 01:14 PM EDT
--- OUTSIDE RECORDS SUMMARY | 2024-12-27 13:14 | XMS_ITS ---
Author Organization [facility] Address [address] [place] [address] Care Team Providers Care Advanced Seal Delivery System Name Role Phone Kenya Almaarz Primary Care Provider Brynn Philip [phone] Encounters Encounter Location Date Provider Diagnosis [facility] [address] [place] [address] 12/11/2023 Brynn Fabian Plan Of Treatment No Information Progress Notes * María EASTMANDOB: (64 yo F)Acc No.[id number]:12/11/2023 Progress Notes Patient:?María EASTMAN Provider:?Brynn Fabian DPM :1960???Age:63 Y???Sex:Female D ate:12/11/2023 Address:[address] [place], [place] [address] Pcp:Kenya Almaraz Subjective: * Chief Complaints: * [...]
--- OUTSIDE RECORDS SUMMARY | 2024-12-27 13:14 | XMS_ITS ---
Author Organization [facility] Address [address] [place] [address] Care Team Providers Care Spindle Sander Name Role Phone Kenya Almaraz Primary Care Provider Unavailabl e Black, Brynn Unavailable [phone] REASON FOR VISIT 12/18/23 appt Encounters Encounter Location Date [facility] [place] [address] [place] [address] 12/15/2023 Brynn Black Plan Of Treatment No Information Progress Notes * JARENTitijose dDOB: (63 yo F)Acc No.[id number]:12/15/2023 Patient:?María Eastman :1960???Age:63 Y???Sex:Female Address:[address] [place] [address], [address] * true * Date:? Generated for Hirai stephen/Deshaun/eTransmitting on:?12/27/2024 01:14 PM EDT
--- NOTE | 2024-12-27 13:54 | AM.OFFWIN_ITS ---
Intake Vital Signs 12/27/24 14:03 Weight 174 lb BP 120/88 Blood Pressure Location Rt brachial Position Sitting Pulse 68 Pulse Source Pulse Oximeter Pulse Oximetry (%) 97 Oxygen Delivery Method Room Air Intake Visit Reasons: EP Nausea since , rt abdominal pain Intake Note: Patient here for nausea and pain on right abd that started . Patient Tobacco Use Status: Current everyday Tobacco user Allergies bacitracin [From NEOSPORIN] Allergy (Severe, Verified 12/27/24 14:06) RASH gramicidin D [From NEOSPORIN] Allergy (Severe, Verified 12/27/24 14:06) RASH polymyxin B [From NEOSPORIN] Allergy (Severe, Verified 12/27/24 14:06) RASH adhesive tape [ADHESIVE TAPE] Allergy (Intermediate, Verified 12/27/24 14:06) RASH/BLISTERS polyester fibers Allergy (Intermediate, Verified 12/27/24 14:06) Itching Sulfa (Sulfonamide Antibiotics) [SULFA (SULFONAMIDE ANTIBIOTICS)] Allergy (Intermediate, Verified 12/27/24 14:06) ITCHY RASH chlorhexidine [From ChloraPrep Clear] Allergy (Mild, Verified 12/27/24 14:06) Rash leflunomide Adverse Reaction (Severe, Verified 12/27/24 14:06) gi upset cefazolin [CEFAZOLIN] Adverse Reaction (Intermediate, Verified 12/27/24 14:06) GI UPSET Do you need a note to return to daycare/school/sports/work: No HPI HPI Comments History of Present Illness Details 64 y/o Female patient who presents to [facility] walk in clinic with c/o Right Upper Qudrant abdominal pain associated with nausea since . Describes the pain as Dull and triggered by movement or palpation. Pt LFT's abnormal on recent Labs (12/2024) - Malgorzata 298, LDL 202, HDL 29 and Trig 338. Her PCP prescribed Rosuvastatin 5 mg nightly 1 week ago - Pt believes this medication is causing her pain and Patient stopped taking it. Pt does follow with GI for EGRD problems - she has an upcoming appointment Friday. 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 pylori duodenitis Cholelithiasis Lumbar degenerative disc disease Anxiety and depression Hypercholesterolemia Osteopenia Restless leg syndrome Insomnia Tobacco abuse GERD (gastroesophageal reflux disease) Impaired glucose tolerance Hypertension Cervical radiculopathy due to degenerative joint disease of spine HLA B27 (HLA B27 positive) Surgical History History of esophagogastroduodenoscopy (EGD) History of incisional hernia repair (10/02/22) Hx of colonoscopy History of cervical discectomy H/O basal cell carcinoma excision History of shoulder surgery History of lumbar fusion H/O thumb surgery H/O right wrist surgery History of partial hysterectomy History of hernia repair H/O nasal septoplasty History of hemorrhoidectomy History of cholecystectomy History of tonsillectomy Family History Father Hypertension Past heart attack CVD (cardiovascular disease) Mother Hyperlipidemia Paternal Grandmother Lung cancer Son Substance abuse Brother Bipolar 1 disorder Other Mental health disorder Social History (Updated 12/21/24 @ 10:56 by DAVID Ram) Housing: House Are you a primary animal care taker to a significant other at home: No Do you presently have visiting nurse or other home services: Yes (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) Alcohol intake: current Alcohol intake frequency: holidays/special occasions only Alcohol type: beer Comment: 3x a year 1 glass Patient Tobacco Use Status: Current everyday Tobacco user Tobacco use type: Cigarette Cigarette Packs Per Day: 1 Cigarettes Per Day: 15 Years Smoked: 46 e-Cigarette/Vaping Use: Never Used Second Hand Smoke Exposure: Yes service: No Current occupational status: disabled Cognitive needs: No Hearing needs: No Vision needs: Yes (reading glasses) Review of Systems Const All systems reviewed & are unremarkable except as noted in HPI and below Physical Exam Vital Signs: Last Vital Signs Pulse 68 12/27/24 14:03 BP 120/88 12/27/24 14:03 Pulse Ox 97 12/27/24 14:03 Oxygen Delivery Method Room Air 12/27/24 14:03 Const General: no acute distress Nutritional Appearance: obese Orientation/consciousness: patient oriented x3 Resp Effort & Inspection: normal respiratory effort Auscultation: clear to auscultation bilaterally Cardio Heart sounds: S1 normal heart sound present and S2 normal heart sound present GI Palpation (GI): Soft to palpation, not firm, Tenderness to palpation present (GI) in the RUQ, no guarding and not rigid Auscultation: normal bowel sounds Neuro General: patient oriented x3 Assessment & Plan Assessment & Plan (1) Acute abdominal pain in right upper quadrant: Code(s): R10.11 - Right upper quadrant pain Plan: Pain most likely due to Elevated LFT's. Advised to continue taking her medications as prescribed. Advised Weight loss, healthy eating and daily exercise. F/U with GI as scheduled F/U with PCP PRN. Coding Level of Care Code Est Pt Level 4 (11455) Diagnoses Acute abdominal pain in right upper quadrant R10.11 Time Spent (min) 20
[2024-12-27 14:03] VITALS: BP 120/88; PULSE 68; O2SAT 97
== END 2024-12-27 16:04 | disposition home or self-care (01) ==
PROVIDERS: PCP Internal Medicine; Visit Provider Nurse Practitioner Family
DX: R10.11 Right upper quadrant pain (principal)

== ENCOUNTER → 2024-12-27 13:11 | Outpatient (BNVA) | payer OTHER, SELFPAY | PROVIDERS: PCP Internal Medicine; Visit Provider Nurse Practitioner Family | DX: R10.11 Right upper quadrant pain (principal) | CPT/HCPCS: 99212 ==

== ENCOUNTER 2025-01-06 11:47 | Outpatient (AMB) | payer OTHER, SELFPAY ==
--- NOTE | 2025-01-06 11:48 | MHC.OFFVIS ---
Vital Signs 01/06/25 11:50 Height 4 ft 11 in Weight 174 lb 2.643 oz BMI 35.2 BP 136/63 Blood Pressure Location Lt brachial Position Sitting Pulse 81 Intake Visit Reasons: f/u edg in 07/04 Intake Note: María presents in the office as a follow up EGD. CC: Nausea and severe heartburn she states she gets a painful burning in her throat. She states the only thing that helps is drinking milk. Pitch Gatherer Required: No Allergies bacitracin (From NEOSPORIN) Allergy (Severe, Verified 08/01/25 10:28) RASH gramicidin D (From NEOSPORIN) Allergy (Severe, Verified 08/01/25 10:28) RASH polymyxin B (From NEOSPORIN) Allergy (Severe, Verified 08/01/25 10:28) RASH adhesive tape (ADHESIVE TAPE) Allergy (Intermediate, Verified 08/01/25 10:28) RASH/BLISTERS polyester fibers Allergy (Intermediate, Verified 08/01/25 10:28) Itching Sulfa (Sulfonamide Antibiotics) (SULFA (SULFONAMIDE ANTIBIOTICS)) Allergy (Intermediate, Verified 08/01/25 10:28) ITCHY RASH chlorhexidine (From ChloraPrep Clear) Allergy (Mild, Verified 08/01/25 10:28) Rash leflunomide Adverse Reaction (Severe, Verified 08/01/25 10:28) gi upset cefazolin (CEFAZOLIN) Adverse Reaction (Intermediate, Verified 08/01/25 10:28) GI UPSET amoxicillin Adverse Reaction (Verified 08/01/25 10:28) throat Medication List - Last Reconciled 01/06/25 by Cordell Goldberg MD acetaminophen ER 650 mg PO Q8H bethanechol chloride 50 mg PO TID Brace,wrist As directed bupropion HCl XL 150 mg PO DAILY cholecalciferol (vitamin D3) 50 mcg PO DAILY clonazepam 2 mg PO BID PRN diclofenac sodium 1% (Arthritis Pain (diclofenac)) 2 grams topical QID epinephrine (EpiPen 2-Hamilton) 0.3 mg (0.3 mL) IM Q4H PRN fenofibrate 160 mg PO DAILY ibuprofen 800 mg PO DAILY PRN incontinence pad, liner, disp (Pads For Women) As directed- extra absorbent overnight pads per pt request nicotine 1 patch transdermal DAILY nicotine 1 patch transdermal DAILY nicotine (polacrilex) 2 mg buccal Q2H quetiapine (Seroquel) 100 mg PO TID rosuvastatin 5 mg PO DAILY sertraline 100 mg PO BID sucralfate (Carafate) 10 mL PO BID 30 days tizanidine 4 mg PO BID PRN underpads (Bed Underpads) As directed HPI HPI f/u edg in 07/04: Details: GI clinic visit for this 64 YF for FU of GERD, dyspepsia and abdominal bloating. TODAY'S VISIT: CC: Nausea and severe heartburn she states she gets a painful burning in her throat. She states the only thing that helps is drinking milk. GERD symptoms for > 1 year. Notes nausea and heartburn during the day and night. Uses 2 pillows and does not eat after 6:30 pm, goes to bed at 10 pm Can have nausea without the heartburn. Patient denies symptoms of dysphagia, vomiting, change in appetite or weight. Notes drooling at night. Denies recent change in bowel habits, constipation, diarrhea, black stools or rectal bleeding. Smokes 1/2 PPD since age 16 yrs, occasional beer. Patient denies major cardiac or pulmonary problems, loud snoring or sleep apnea Denies problems with anesthesia in the past. Denies being on chronic anticoagulation. Patient denies known family history of colon polyps, colon cancer or other GI malignancies. PAST EGD/COLONOSCOPY LABS IN [facility] : Reviewed ENDOSCOPIC STUDIES: 06/2024 EGD SHOWED: Endoscopy Findings: ESOPHAGUS: A single 1 cms superficial healing erosion in the distal esophagus. Biopsied to check for Melgar's STOMACH: Moderate diffuse gastritis. DUODENUM: Mild duodenitis in the bulb Plan: Pt advised to continue taking Omeprazole 20 mg daily instead of prn Above findings were reviewed with the patient and relevant handouts were given and the discharge area. BIOPSIES SHOWED: A. Stomach, antrum, biopsy: Antral-type mucosa with moderate chronic inactive inflammation and regenerative changes; no Helicobacter organisms seen. B. Stomach, body, biopsy: Oxyntic mucosa with moderate chronic inactive inflammation; no Helicobacter organisms seen. C. Esophagus, distal, biopsy: - Cardiofundic-type mucosa with moderate chronic inactive inflammation; no intestinal metaplasia seen. - Squamous mucosa within normal limits PAST GI HISTORY BY REVIEW OF MEDICAL RECORDS: 10/2022 Last seen by MOSHE Montero: A 62 y/o female off and on stomach bugs-using pearl teas seem to have helped- no fevers Acid reflux- , bloating, complains of increased indigestion after eating- tums work well- omeprazole in the past did not work- she refuses ppi-and does not want to take medications. EGD-08/2019-gastritis, H pylori treated- Colonoscopy 2021--2 adenomas repeat 3-5 years-Dr. 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 pylori duodenitis Cholelithiasis Lumbar degenerative disc disease Anxiety and depression Hypercholesterolemia Osteopenia Restless leg syndrome Insomnia GERD (gastroesophageal reflux disease) Impaired glucose tolerance Hypertension Cervical radiculopathy due to degenerative joint disease of spine HLA B27 (HLA B27 positive) Surgical History History of esophagogastroduodenoscopy (EGD) History of incisional hernia repair (10/02/22) Hx of colonoscopy History of cervical discectomy H/O basal cell carcinoma excision History of shoulder surgery History of lumbar fusion H/O thumb surgery H/O right wrist surgery History of partial hysterectomy History of hernia repair H/O nasal septoplasty History of hemorrhoidectomy History of cholecystectomy History of tonsillectomy Family History Father Hypertension Past heart attack CVD (cardiovascular disease) Mother Hyperlipidemia Paternal Grandmother Lung cancer Son Substance abuse Brother Bipolar 1 disorder Other Mental health disorder Social History Housing: House Are you a primary transitional care liaison to a significant other at home: No Do you presently have visiting nurse or other home services: Yes (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) Alcohol intake: current Alcohol intake frequency: holidays/special occasions only Alcohol type: beer Comment: 3x a year 1 glass Patient Tobacco Use Status: Current everyday Tobacco user Tobacco use type: Cigarette Cigarette Packs Per Day: 1 Cigarettes Per Day: 15 Years Smoked: 46 e-Cigarette/Vaping Use: Never Used Second Hand Smoke Exposure: Yes service: No Current occupational status: disabled Cognitive needs: No Hearing needs: No Vision needs: Yes (reading glasses) Review of Systems Const All systems reviewed & are unremarkable except as noted in HPI and below Physical Exam Vital Signs: Last Vital Signs Pulse 81 01/06/25 11:50 BP 136/63 01/06/25 11:50 BMI result Body Mass Index 35.2 Const General: cooperative and no acute distress Nutritional Appearance: obese Orientation/consciousness: patient oriented x3 Limitations: no limitations HEENT Head: Yes normal to inspection Ears: hearing grossly normal bilaterally Eyes Sclerae: sclerae normal Pupils: Equal, round and reactive pupils present Neck Neck: Yes normal visual inspection Chest Chest palpation & inspection: normal inspection of the chest Resp Effort & Inspection: normal respiratory effort Auscultation: clear to auscultation bilaterally Cardio Palpation: normal PMI Rate: regular rate Rhythm: regular rhythm Heart sounds: S1 normal heart sound present, S2 normal heart sound present and no murmurs GI Palpation (GI): Soft to palpation, nontender and No hepatosplenomegaly present Auscultation: normal bowel sounds Rectal Exam - Female: deferred Skin General skin exam: no rashes or lesions noted Neuro General: patient oriented x3, gait normal and moves all extremities Cranial nerves: Yes Equal, round and reactive pupils present Psych Appearance: grossly normal Mental Status: mental status grossly normal Assessment & Plan Assessment & Plan (1) GERD (gastroesophageal reflux disease): Comment: poor historian- fleeting- non specific - vague- Code(s): K21.9 - Gastro-esophageal reflux disease without esophagitis Category: Medical Qualifiers: Esophagitis presence: without esophagitis Qualified Code(s): K21.9 - Gastro-esophageal reflux disease without esophagitis (2) Tubular adenoma of colon: Comment: Pleasant 62-year-old female-tubular adenoma-2, Talked a lot about ECT-treatment that she has just begun she is very optimistic Planned colonoscopy 2024 Code(s): D12.6 - Benign neoplasm of colon, unspecified Category: Medical Plan 64 YF followed in GI for GERD, dyspepsia and abdominal bloating and history of colon polyps. GERD symptoms for > 1 year. Notes nausea and heartburn during the day and night. 2023 EGD showed a superficial healing erosion at the GE junction. Biopsies obtained from distal esophagus were negati Smokes 1/2 PPD since age 16 yrs, occasional beer. Patient denies major cardiac or pulmonary problems, loud snoring or sleep apnea Pt was advised to schedule a barium swallow for evaluation of persistent heartburn She was advised to take Pantoprazole 40 mg daily for GERD She is due for a colonoscopy in 2024 for FU of colon polyps Orders: Orders [place] barium swallow 01/06/25 K21.9 - Gastro-esophageal reflux disease without esophagitis Medications: New pantoprazole 40 mg PO DAILY 30 tabs 3RF 30 days K21.9 - Gastro-esophageal reflux disease without esophagitis Coding Level of Care Code Est Pt Level 4 (97069) Diagnoses Gastroesophageal reflux disease without esophagitis K21.9 Esophagitis presence: without esophagitis Tubular adenoma of colon D12.6
[2025-01-06 11:50] VITALS: BP 136/63; PULSE 81; BMI 35.2
--- OUTSIDE RECORDS SUMMARY | 2025-01-06 12:01 | XMS_ITS | Patient Health Record ---
Author Organization [facility] Address [address] [place] [address] Care Team Providers Care Commission Agent Livestock Name Role Phone SungKenya Primary Care Provider Unavailabl e Black, Brynn Unavailable [phone] Allergies Allergen (clinical drug ingredient) Drug/Non Drug [...] day Active Ciclopirox 8 % 1 application Strap Buckler Machine ally Once a day for 30 10/30/2023 [...] Treatment Pending Test Test Name Order Date [id number] NAIL, 6 OR MORE 10/30/2023 Insurance Providers Payer Name Payer Address Payer Phone Subscriber Number Group Number Insured Name Patient Relationship to Insured Coverage Start Date Coverage End Date [facility] SCO Claims [address] [place] [id number] María Eastman Self - patient is the [...]
== END 2025-01-06 13:06 | disposition home or self-care (01) ==
LOC: HO.HGI 11:47
PROVIDERS: PCP Internal Medicine; Visit Provider Internal Medicine Gastroenterology
DX: K21.9 Gastro-esophageal reflux disease without esophagitis (principal); D12.6 Benign neoplasm of colon, unspecified
CPT/HCPCS: 99499

== ENCOUNTER 2025-04-27 09:03 | Outpatient (REF) | payer OTHER, SELFPAY ==
--- OUTSIDE RECORDS SUMMARY | 2023-12-11 11:15 | XMS_ITS ---
Author Organization [facility] Address [address] [place] [address] Care Team Providers Care Engine Service Repairer Name Role Phone Kenya Almaraz Primary Care Provider UnavailBrynn Antony [phone] Encounters Encounter Location Date Provider Diagnosis [facility] [address] [place] [address] 12/11/2023 Brynn Fabian Plan Of Treatment No Information Progress Notes * María EASTMANDOB: (65 yo F)Acc No.[id number]:12/11/2023 Progress Notes Patient: María VARGAS Provider: Noy Fabian DPM :1960 A ge:63 Y S ex:Female Date:12/11/2023 Address:[address] [place], [place] [id number] Pcp:Kenya Almaraz Subjective: * Chief Complaints: * * Medical History: Objective: * Vitals: Assessment: Plan: * Treatment: * Images: * The named appointment provid er may or may not be the originator of this progress note, and it is not deemed complete until electronically signed by the appointment provider. Sign off status: Pending * Provider: Noy Fabian DPM Date: 12/11/2023 Generated for Printi ng/Faxing/eTransmitting on: 04/27/2025 10:37 AM EDT
--- OUTSIDE RECORDS SUMMARY | 2023-12-18 05:30 | XMS_ITS ---
Author Organization [facility] Address [address] [place] [address] Care Team Providers Care Internal Medicine Doctor Name Role Phone Kenya Almaraz Primary Care Provider UnavailBrynn Antony [phone] Encounters Encounter Location Date Provider Diagnosis [facility] [address] [place] [address] 12/18/2023 Brynn Fabian Plan Of Treatment No Information Progress Notes * María EASTMANDOB: (65 yo F)Acc No.[id number]:12/18/2023 Progress Notes Patient: María VARGAS Provider: Noy Fabian DPM :1960 A ge:63 Y S ex:Female Date:12/18/2023 Address:[address] [place], [place] [id number] Pcp:Kenya Almaraz Subjective: * Chief Complaints: * * Medical History: Objective: * Vitals: Assessment: Plan: * Treatment: * Images: * The named appointment provid er may or may not be the originator of this progress note, and it is not deemed complete until electronically signed by the appointment provider. Sign off status: Pending * Provider: Noy Fabian DPM Date: 0 12/18/2023 Generated for Printi ng/Faxing/eTransmitting on: 04/27/2025 10:37 AM EDT
--- NOTE | ~2025-04-27 | FL_ITS ---
EXAMINATION: XR FLUOROSCOPY BARIUM SWALLOW CLINICAL INFORMATION: Worsening heartburn; Reflux with nocturnal regurgitation. COMPARISON: None available. TECHNIQUE: Fluoroscopic air contrast barium swallow examination was performed utilizing standard techniques with thin and thick barium and effervescent granules. Numerous spot images were obtained. Several fluoroscopic image hold cine sequences were also obtained. FINDINGS: BARIUM SWALLOW: Lateral cine images of the oropharynx and hypopharynx demonstrate normal swallow mechanism with normal epiglottic inversion and soft palate elevation. No laryngeal penetration, glottic or subglottic aspiration identified. No nasopharyngeal reflux present. Hypopharyngeal structures appear normal without evidence of mass or diverticulum. There was no significant cricopharyngeal achalasia. Cervical anterior fusion C5-C7 incidentally noted with plate and screw fixation. Dual and single contrast images of the esophagus demonstrate normal caliber, contour, and mucosal pattern. No evidence of stricture, mass, or ulcerations identified. Esophageal peristalsis was mildly disordered. Small type I hiatus hernia present. There was gastroesophageal reflux noted during the examination to the level of the thoracic inlet. Dual contrast and single contrast images of the stomach demonstrated normal contour and mucosal pattern without evidence of mass, ulceration, or other abnormality. There was mild thickening of the gastric rugal folds. Contrast freely passed into the gastric antrum and duodenal bulb without delay. Cholecystectomy clips noted. FLUOROSCOPY TIME: 2 minutes, 34 seconds Number of Spot Images:9 Number of cines obtained: 7 DOSE AREA PRODUCT: 2834 uGy-m2 (microgray-meter squared) FL/FL barium swallow with air IMPRESSION: 1. Mildly disordered esophageal peristalsis. 2. Small type I hiatus hernia. 3. Episodic gastroesophageal reflux noted during the exam to the level of the thoracic inlet. 4. Mild thickening of the gastric rugal folds suggesting mild gastritis. Electronically signed by: Arpit Veliz MD 04/27/2025 10:29 AM EDT
--- OUTSIDE RECORDS SUMMARY | 2025-04-27 10:38 | XMS_ITS | Patient Health Record ---
Author Organization [facility] Address [address] [place] [address] Care Team Providers Care Moving Picture Producer Name Role Phone Ramirez Mackey Jr Reason For Referral No Information Plan Of Treatment No Information
--- OUTSIDE RECORDS SUMMARY | 2025-04-27 10:38 | XMS_ITS | Patient Health Record ---
Author Organization [facility] Address [address] [place] [address] Care Team Providers Care Box Worker Name Role Phone Kenya Almaraz Primary Care Provider Unavailabl e Black, Brynn Unavailable [phone] Allergies Allergen (clinical drug ingredient) Drug/Non Drug [...] day Active Ciclopirox 8 % 1 application Weigher Alloy ally Once a day; Duration: 30 10/30/2023 Active Ciclopirox Olamine 0.77 % 1 application Externally Twice a day; Duration: 30 days Active QUEtiapine Fumarate 100 MG [...] Treatment Pending Test Test Name Order Date [id number] NAIL, 6 OR MORE 10/30/2023 Insurance Providers Payer Name Payer Address Payer Phone Subscriber Number Group Number Insured Name Patient Relationship to Insured Coverage Start Date Coverage End Date [facility] SCO Claims [address] [place] [id number] [phone] [id number] María Eastman Self - patient is the [...]
== END 2025-04-27 09:04 | disposition home or self-care (01) ==
LOC: HO.XRAY 09:03
PROVIDERS: PCP Internal Medicine; Visit Provider Internal Medicine Gastroenterology
DX: K21.9 Gastro-esophageal reflux disease without esophagitis (principal)
CPT/HCPCS: 74221

== ENCOUNTER → 2025-04-27 09:05 | Outpatient (BNV) | payer OTHER, SELFPAY | PROVIDERS: PCP Internal Medicine; Visit Provider Radiology Diagnostic Radiology | DX: K21.9 Gastro-esophageal reflux disease without esophagitis (principal) | CPT/HCPCS: 74221 ==

== ENCOUNTER 2025-05-26 12:47 | Outpatient (REF) | payer OTHER, SELFPAY ==
--- NOTE | ~2025-05-26 | CT_ITS ---
EXAMINATION: CT LOW-DOSE SCREENING CHEST WITHOUT CONTRAST CLINICAL INFORMATION: 65-year-old female, history of smoking, current smoker with 46 pack year history. Lung cancer screening. COMPARISON: 05/09/2024. TECHNIQUE: Multidetector volumetric CT imaging of the chest is performed on a Siemens SOMATOM Definition scanner without contrast using low dose technique. Additional 2D coronal and sagittal reformatted images and axial 3D maximum intensity projection (MIP) images are generated on the CT workstation. This CT examination was performed using dose optimization techniques as appropriate, variously including the following: *Automated exposure control *Adjustment of mA and/or kV according to patient size (this includes techniques or standardized protocols for targeted exams where dose is matched to indication/reason for exam; i.e. extremities or head) *Use of iterative reconstruction technique FINDINGS: PULMONARY NODULES: Triangular 4 mm nodule within the minor fissure, (series 5, image 87), unchanged and most consistent with an intrapulmonary lymph node. No new or enlarging pulmonary nodule. LUNGS: Mild centrilobular emphysema. Minimal scarring in the right middle lobe and lingula, unchanged. Lungs otherwise clear without abnormal opacity or consolidation. Small airways image normally. No effusion or pneumothorax. Central airways are patent. MEDIASTINUM: Normal thyroid gland. No abnormal masses or lymph nodes. Normal caliber aorta without significant atheromatous change. Normal great vessels. Heart size is normal. There is no pericardial effusion. Normal esophagus. CORONARY ARTERY CALCIFICATION: None visualized on this study. CHEST WALL/AXILLA: Unremarkable. UPPER ABDOMEN: There is diffuse fatty infiltration of the liver. There has been a cholecystectomy. Remainder of the imaged upper abdominal contents appear normal within confines of low dose noncontrast technique. OSSEOUS STRUCTURES: No suspicious lytic or blastic bone lesions. Inferior cervical fusion with plate and screws. Mild degenerative changes of the spine. Surgical anchor noted in the right humeral head. CT/CT lung screening IMPRESSION: 1. No suspicious or enlarging pulmonary nodules. 2. Mild emphysema. No active lung disease. 3. Hepatic steatosis. Cholecystectomy. ASSESSMENT: 1. Lung-RADS Category 2: Benign appearance or behavior of nodules. 2. Lung-RADS Category S: None. RECOMMENDATION: Continued routine annual low-dose CT lung screening in 1 year is recommended. An order for CT CHEST LOW DOSE CANCER SCREENING ([id number]) can be placed. Electronically signed by: Arpit Veliz MD 05/26/2025 01:29 PM EDT
== END 2025-05-26 12:48 | disposition home or self-care (01) ==
LOC: HO.CT 12:47
PROVIDERS: PCP Internal Medicine; Visit Provider Physician Assistant Medical
DX: Z12.2 Encounter for screening for malignant neoplasm of respiratory organs (principal); F17.210 Nicotine dependence, cigarettes, uncomplicated
CPT/HCPCS: 71271

== ENCOUNTER → 2025-05-26 12:49 | Outpatient (BNV) | payer OTHER, SELFPAY | PROVIDERS: PCP Internal Medicine; Visit Provider Radiology Diagnostic Radiology | DX: F17.210 Nicotine dependence, cigarettes, uncomplicated (principal) | CPT/HCPCS: 71271 ==

== ENCOUNTER 2025-07-01 13:41 | Outpatient (REF) | payer OTHER, SELFPAY ==
[2025-07-01 22:55] LABS: Bacterial Vaginosis PCR NEGATIVE (Negative); Candida Group PCR NOT DETECTED (Not Detect); Candida glab krusei PCR NOT DETECTED (Not Detect); Trichomonas vaginalis PCR NOT DETECTED (Not Detect)
== END 2025-07-01 13:42 | disposition home or self-care (01) ==
LOC: HO.LNP 13:41
PROVIDERS: PCP Internal Medicine; Visit Provider Advanced Practice Midwife
DX: N89.8 Other specified noninflammatory disorders of vagina (principal); Z78.0 Asymptomatic menopausal state
CPT/HCPCS: 81515

== ENCOUNTER 2025-07-01 13:41 | Outpatient (AMB) | payer OTHER, SELFPAY ==
--- NOTE | 2025-07-01 13:52 | MHC.OFFVIS ---
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 concerned she has BV Casing Finisher And Stuffer Required: No Information Interpreted: non-clinical & clinical Machine Washer: Machine Washer Present (Leatha Casey LPN) Accompanied by: Self / Same As Patient Allergies bacitracin (From NEOSPORIN) Allergy (Severe, Verified 01/06/25 11:51) RASH gramicidin D (From NEOSPORIN) Allergy (Severe, Verified 01/06/25 11:51) RASH polymyxin B (From NEOSPORIN) Allergy (Severe, Verified 01/06/25 11:51) RASH adhesive tape (ADHESIVE TAPE) Allergy (Intermediate, Verified 01/06/25 11:51) RASH/BLISTERS polyester fibers Allergy (Intermediate, Verified 01/06/25 11:51) Itching Sulfa (Sulfonamide Antibiotics) (SULFA (SULFONAMIDE ANTIBIOTICS)) Allergy (Intermediate, Verified 01/06/25 11:51) ITCHY RASH chlorhexidine (From ChloraPrep Clear) Allergy (Mild, Verified 01/06/25 11:51) Rash leflunomide Adverse Reaction (Severe, Verified 01/06/25 11:51) gi upset cefazolin (CEFAZOLIN) Adverse Reaction (Intermediate, Verified 01/06/25 11:51) GI UPSET amoxicillin Adverse Reaction (Verified 07/01/25 13:55) throat Medication List - Last Reconciled 07/01/25 by Leatha Casey LPN acetaminophen ER 650 mg PO Q8H bethanechol chloride 50 mg PO TID Brace,wrist As directed bupropion HCl XL 150 mg PO DAILY cholecalciferol (vitamin D3) 50 mcg PO DAILY clonazepam 2 mg PO BID PRN diclofenac sodium 1% (Arthritis Pain (diclofenac)) 2 grams topical QID epinephrine (EpiPen 2-Hamilton) 0.3 mg (0.3 mL) IM Q4H PRN fenofibrate 160 mg PO DAILY ibuprofen 800 mg PO DAILY PRN incontinence pad, liner, disp (Pads For Women) As directed- extra absorbent overnight pads per pt request nicotine 1 patch transdermal DAILY nicotine 1 patch transdermal DAILY nicotine (polacrilex) 2 mg buccal Q2H pantoprazole 40 mg PO DAILY quetiapine (Seroquel) 100 mg PO TID rosuvastatin 5 mg PO DAILY sertraline 100 mg PO BID sucralfate 10 mL PO BID tizanidine 4 mg PO BID PRN underpads (Bed Underpads) As directed Do you need a note to return to daycare/school/sports/work: No HPI Comments Details: Pt presents today for ANNUAL exam . 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 She has the following concerns: intermittent vag odor; she has taken probiotics in the past and is requesting script She is not currently in a relationship, is for several years and not sexually active Exercise: daily walks Nutrition/calcium: adequate with Vit supplements Contraception: s/p hysterectomy ( d/t fibroids/menorrhagia) Last Pap: n/a , Last mammo: 01/2024, Results Neg Colonscopy UTD [facility] Medical History Nicotine dependence, cigarettes, uncomplicated Acute abdominal pain in right upper quadrant Abnormal EKG Encounter for screening colonoscopy Colonoscopy refused Obesity (BMI 30-39.9) 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 pylori duodenitis Cholelithiasis Lumbar degenerative disc disease Anxiety and depression Hypercholesterolemia Osteopenia Restless leg syndrome Insomnia GERD (gastroesophageal reflux disease) Impaired glucose tolerance Hypertension Cervical radiculopathy due to degenerative joint disease of spine HLA B27 (HLA B27 positive) Surgical History History of esophagogastroduodenoscopy (EGD) History of incisional hernia repair (10/02/22) Hx of colonoscopy History of cervical discectomy H/O basal cell carcinoma excision History of shoulder surgery History of lumbar fusion H/O thumb surgery H/O right wrist surgery History of partial hysterectomy History of hernia repair H/O nasal septoplasty History of hemorrhoidectomy History of cholecystectomy History of tonsillectomy Family History Father Hypertension Past heart attack CVD (cardiovascular disease) Mother Hyperlipidemia Paternal Grandmother Lung cancer Son Substance abuse Brother Bipolar 1 disorder Other Mental health disorder Social History Housing: House Are you a primary healthcare manager to a significant other at home: No Do you presently have visiting nurse or other home services: Yes (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) Alcohol intake: current Alcohol intake frequency: holidays/special occasions only Alcohol type: beer Comment: 3x a year 1 glass Patient Tobacco Use Status: Current everyday Tobacco user Tobacco use type: Cigarette Cigarette Packs Per Day: 1 Cigarettes Per Day: 15 Years Smoked: 46 e-Cigarette/Vaping Use: Never Used Second Hand Smoke Exposure: Yes service: No Current occupational status: disabled Cognitive needs: No Hearing needs: No Vision needs: Yes (reading glasses) Female Reproductive History Menstrual Age of Menarche: 14 Menopause type: surgical Total pregnancies: 2 Number of Living Children: 2 Date of Mammogram: 01/29/24 History of abnormal mammogram: No Review of Systems Const Reports no additional complaints Eyes Reports no additional complaints ENT Reports no additional complaints Card Reports no additional complaints Resp Reports no additional complaints GI Reports no additional complaints Reports as per [facility] Skin/Breast Reports system reviewed and no additional complaints, except as documented Physical Exam Vital Signs: Last Vital Signs BP 132/78 07/01/25 14:01 BMI result Body Mass Index 35.5 Const General: cooperative, healthy appearing and no acute distress Orientation/consciousness: patient oriented x3 HEENT Head: Yes normocephalic Ears: external ears normal General nose exam: Normal external nose present Neck Neck: Yes normal visual inspection Chest Breast/axilla inspection: normal inspection of the breasts, normal inspection of the axillae and Other (no rashes or pea d orange skin changes noted) Breast/axilla palpation: normal palpation of the breasts, normal palpation of the axillae and axillary lymphadenopathy noted Resp Effort & Inspection: normal respiratory effort and able to speak in complete sentences GI Inspection: No distended Palpation (GI): Soft to palpation and nontender Percussion: Yes normal to percussion Rectal Exam - Female: visual inspection normal External Female Exam: normal external appearance and normal appearance of the urethra Speculum Exam - Vagina: normal appearance of the vagina Speculum Exam - Cervix: Cervix absent (Vaginal cuff w/o lesions) Bimanual exam- vagina & uterus: uterus absent Skin General skin exam: no rashes or lesions noted Neuro General: patient oriented x3 Extrem General: Yes normal to inspection Psych Affect: normal affect Attitude: cooperative Assessment & Plan Assessment & Plan (1) Vaginal odor: Code(s): N89.8 - Other specified noninflammatory disorders of vagina (2) Postmenopausal status: Code(s): Z78.0 - Asymptomatic menopausal state Plan During the visit, the following areas of concern were addressed: Regular exercise Healthy lifestyle Smoking cessation Health Maintenance and Screening -Reviewed ASCCP guidelines for Paps and yearly (bi-yearly ) pelvic exam. -Reviewed and encouraged diet and exercise for cardiovascular and bone health -Reviewed breast self-awareness. Importance of yearly mammogram after age 40 (earlier if first-degree relative with breast cancer at a younger age ) Discuss use of 3 times per week weight-bearing exercise, vitamin D3 and servings of dietary calcium daily for bone health. -continue to follow with PCP for general medical care, immunizations. Screening strategies for colon cancer after age 50. Discussion of Kegel exercises for urinary incontinence Family and personal history of cancer reviewed. Genetic screening- not indicated The patient has BMI: 35 The patient is overweight. Approaches towards weight loss are discussed including burning more calories than one takes in by frequent, small meals, portion control, avoiding eating before bedtime, regular exercise with an emphasis on duration rather than intensity, strength training exercise, RTO one year or sooner prnupur Ny CNM Note about provider documentation : If you or the patient named in this chart and are reviewing your medical notes, please note that medical documentation is often written with abbreviations and medical terminology, and directed for other providers who may be involved in your care as well. Documentation is critical to record what has happened, what tests were ordered, and so they are interpreted with the resulting diagnoses. These nodes have been made available for patient review but not specifically written for the patient. Important health information is always given to my patients in clinical instructions. Please review your after visit summary and our contact our clinical staff if you have any questions. Orders: Orders Bacterial Vaginosis Panel Today N89.8 - Other specified noninflammatory disorders of vagina XR DEXA axial skeleton 1 Month Z78.0 - Asymptomatic menopausal state Medications: New Lactobacillus rhamnosus GG (Culturelle) 1 cap PO DAILY 90 caps 3RF Coding Level of Care Code New Pt Prev Care 40-64y(28383) Diagnoses Vaginal odor N89.8 Postmenopausal status Z78.0
[2025-07-01 14:01] VITALS: BP 132/78; BMI 35.5
--- OUTSIDE RECORDS SUMMARY | 2025-07-01 14:11 | XMS_ITS | Patient Health Record ---
[facility] Address [address] [place] [address] Care Team Providers Care Social Organization Professor Name Role Phone Kenya Almaraz Primary Care Provider Unavailabl e Black, Brynn Unavailable [phone] Allergies Allergen (clinical drug ingredient) Drug/Non Drug [...] day Active Ciclopirox 8 % 1 application Case Operator ally Once a day; Duration: 30 10/30/2023 [...] Treatment Pending Test Test Name Order Date [id number] NAIL, 6 OR MORE 10/30/2023 Insurance Providers Payer Name Payer Address Payer Phone Subscriber Number Group Number Insured Name Patient Relationship to Insured Coverage Start Date Coverage End Date [facility] [employer] Claims [address] [place] [id number] María Eastman Self - patient is the [...]
--- OUTSIDE RECORDS SUMMARY | 2025-07-01 14:11 | XMS_ITS | Patient Health Record ---
Author Organization [facility] Address [address] [place] [id number] Care Team Providers Care Founder President And Ceo Name Role Phone Ramirez Mackey Jr Reason For Referral No Information Plan Of Treatment No Information
== END 2025-07-01 14:55 | disposition home or self-care (01) ==
PROVIDERS: PCP Internal Medicine; Visit Provider Advanced Practice Midwife
DX: Z01.419 Encounter for gynecological examination (general) (routine) without abnormal findings (principal); N89.8 Other specified noninflammatory disorders of vagina; Z78.0 Asymptomatic menopausal state
CPT/HCPCS: 99386; 99459

== ENCOUNTER 2025-07-18 12:21 | Outpatient (REF) | payer OTHER, SELFPAY ==
--- NOTE | ~2025-07-18 | XR_ITS ---
EXAMINATION: X-ray bilateral knees CLINICAL INFORMATION: M17.0 - Bilateral primary osteoarthritis of knee COMPARISON: X-ray 01/18/2023 TECHNIQUE: AP bilateral standing view of the knees was obtained. Right knee 2 views. Left knee 2 views. FINDINGS: Right knee: No acute fracture or malalignment. Mild patellofemoral arthritis. No acute fracture or dislocation. No significant effusion. Superior patellar enthesopathy. Left knee: No acute fracture or malalignment. Mild patellofemoral arthritis. Small effusion. No abnormal soft tissue calcification XR/XR knee standing BI IMPRESSION: Right knee: Mild patellofemoral arthritis Left knee: Mild patellofemoral arthritis. Small effusion Electronically signed by: Gil Munguia MD 07/19/2025 01:55 PM [facility]
--- NOTE | ~2025-07-18 | XR_ITS ---
EXAMINATION: XR SHOULDER, LEFT CLINICAL INFORMATION: M25.512 - Pain in left shoulder COMPARISON: None available. TECHNIQUE: AP external rotation, Grashey, scapular Y, and axillary views of the left shoulder. FINDINGS: Normal bone mineralization. No fracture, dislocation, or suspicious bone lesion. Normal alignment. The glenohumeral joint is normal. There is a curvilinear calcification of the superior labrum, suggesting CPPD. The AC joint demonstrates minimal undersurface spurring. There is a type III acromion. No undersurface spurring. The subacromial space is preserved. Remainder of the soft tissue and bony structures appear normal. XR/XR shoulder LT min 2V IMPRESSION: 1. No fracture or dislocation. No acute bony or soft tissue abnormality. 2. Small amount of ossification of the superior labrum is suspected, suggesting chondrocalcinosis/CPPD. 3. Mild undersurface spurring of the AC joint. Electronically signed by: Arpit Veliz MD 07/18/2025 01:54 PM EST
--- OUTSIDE RECORDS SUMMARY | 2025-07-18 21:50 | XMS_ITS | Patient Health Record ---
[facility] Address [address] [place] [address] Care Team Providers Care Material Handling Warehouse Supervisor Name Role Phone Kenya Almaraz Primary Care Provider Unavailabl e Black, Brynn Unavailable [phone] Allergies Allergen (clinical drug ingredient) Drug/Non Drug [...] day Active Ciclopirox 8 % 1 application Application Support Manager ally Once a day; Duration: 30 10/30/2023 [...] Treatment Pending Test Test Name Order Date [id number] NAIL, 6 OR MORE 10/30/2023 Insurance Providers Payer Name Payer Address Payer Phone Subscriber Number Group Number Insured Name Patient Relationship to Insured Coverage Start Date Coverage End Date [facility] SCO Claims [address] [place] [id number] María Eastman Self - patient is the [...]
--- OUTSIDE RECORDS SUMMARY | 2025-07-18 21:50 | XMS_ITS | Patient Health Record ---
Author Organization [facility] Address [address] [place] [id number] Care Team Providers Care Laboratory Assistant Name Role Phone Ramirez Mackey Jr Reason For Referral No Information Plan Of Treatment No Information
== END 2025-07-18 12:22 | disposition home or self-care (01) ==
LOC: HO.XRAY 12:21
PROVIDERS: PCP Internal Medicine; Visit Provider Internal Medicine
DX: M17.0 Bilateral primary osteoarthritis of knee (principal); G89.4 Chronic pain syndrome; M25.512 Pain in left shoulder; M70.62 Trochanteric bursitis, left hip; M70.61 Trochanteric bursitis, right hip
CPT/HCPCS: 73030; 73565

== ENCOUNTER 2025-07-18 12:21 | Outpatient (AMB) | payer OTHER, SELFPAY ==
--- NOTE | 2025-07-18 12:22 | MHC.OFFVIS ---
Vital Signs 07/18/25 12:24 Height 4 ft 11 in Weight 174 lb BMI 35.1 BP 139/69 Blood Pressure Location Lt brachial Position Sitting Respiration 16 Pulse 96 Pulse Source Pulse Oximeter Pulse Oximetry (%) 98 Oxygen Delivery Method Room Air Intake Visit Reasons: Medication Follow Up Event Mgr Required: No Allergies bacitracin (From NEOSPORIN) Allergy (Severe, Verified 07/18/25 12:25) RASH gramicidin D (From NEOSPORIN) Allergy (Severe, Verified 07/18/25 12:25) RASH polymyxin B (From NEOSPORIN) Allergy (Severe, Verified 07/18/25 12:25) RASH adhesive tape (ADHESIVE TAPE) Allergy (Intermediate, Verified 07/18/25 12:25) RASH/BLISTERS polyester fibers Allergy (Intermediate, Verified 07/18/25 12:25) Itching Sulfa (Sulfonamide Antibiotics) (SULFA (SULFONAMIDE ANTIBIOTICS)) Allergy (Intermediate, Verified 07/18/25 12:25) ITCHY RASH chlorhexidine (From ChloraPrep Clear) Allergy (Mild, Verified 07/18/25 12:25) Rash leflunomide Adverse Reaction (Severe, Verified 07/18/25 12:25) gi upset cefazolin (CEFAZOLIN) Adverse Reaction (Intermediate, Verified 07/18/25 12:25) GI UPSET amoxicillin Adverse Reaction (Verified 07/18/25 12:25) throat Medication List - Last Reconciled 07/18/25 by Madison Burt LPN acetaminophen ER 650 mg PO Q8H bethanechol chloride 50 mg PO TID bisacodyl (Dulcolax (bisacodyl)) 20 mg (4 x 5 mg) PO ONCE 1 day Brace,wrist As directed bupropion HCl XL 150 mg PO DAILY cholecalciferol (vitamin D3) 50 mcg PO DAILY clonazepam 2 mg PO BID PRN diclofenac sodium 1% (Arthritis Pain (diclofenac)) 2 grams topical QID epinephrine (EpiPen 2-Hamilton) 0.3 mg (0.3 mL) IM Q4H PRN fenofibrate 160 mg PO DAILY ibuprofen 800 mg PO DAILY PRN incontinence pad, liner, disp (Pads For Women) As directed- extra absorbent overnight pads per pt request Lactobacillus rhamnosus GG (Culturelle) 1 cap PO DAILY nicotine 1 patch transdermal DAILY nicotine (polacrilex) 2 mg buccal Q2H pantoprazole 40 mg PO DAILY polyethylene glycol 3350 (Miralax) 238 grams PO ONCE 1 day quetiapine (Seroquel) 100 mg PO TID rosuvastatin 5 mg PO DAILY sertraline 100 mg PO BID sucralfate 10 mL PO BID tizanidine 4 mg orally QAM; 8mg orally QHS 30 days underpads (Bed Underpads) As directed HPI HPI Medication Follow Up: Details: History of Present Illness The patient is a 65 year old female presenting for a follow-up for chronic low back and thoracic spine pain. She reports that her tizanidine 4 mg is not as effective as it used to be and inquired about increasing the dosage. Her current pain medications include Tylenol 650 mg and she has 800 mg Motrin, which she avoids taking due to a history of stomach problems. The patient describes diffuse pain from head to toe, affecting her neck, back, hips, feet, ankles, and hands, particularly her thumbs. She reports new left shoulder pain, described as a pinching sensation elicited by movements such as getting in or out of a car. She also notes that her right knee feels like it is going to give up, especially when using stairs. The patient has severe bursitis in both hips, which is worse on the left side, preventing her from lying on that side and forcing her to sleep only on her right side. She reports using Voltaren gel frequently for pain at the base of her thumbs. The patient inquired about a full-body bone scan to investigate her pain, having had a bone density scan in the past. She previously used CBD oil, which she found effective but is unable to afford as it costs $80 for two ounces. Pain Description - Location: The patient reports chronic pain in her low back and thoracic spine, in addition to diffuse pain from head to toe, including her neck, back, hips, feet, ankles, and thumbs. - Character: She describes the pain in her left shoulder as a pinching sensation. - Exacerbating Factors: Pain in the left shoulder is worsened by reaching or getting in and out of a car. - Her right knee feels unstable, particularly when using stairs. - Pain in her left hip is aggravated by lying on that side. - Interference with Activities: Her pain interferes with her sleep, as she can only sleep on her right side. Physical Exam - Appears afebrile. - Alert and oriented. - Mood and affect appropriate. - Follows and participates in conversation appropriately. - Respiratory effort is unlabored. Pain Management - Analgesia: The patient is currently taking tizanidine 4 mg but reports it is no longer as effective. - She also takes Tylenol 650 mg and uses topical Voltaren. - Activities of Daily Living: Her pain interferes with her sleep, as she can only lie on her right side. - She experiences difficulty with stairs due to knee pain and instability. - Shoulder pain is triggered when getting in and out of a car. - Adverse Effects: She avoids taking Motrin 800 mg due to a history of stomach problems. - Affect: The patient reports feeling that she is hurting from head to toe. - Aberrant Drug-Related Behaviors: The patient inquired if she could increase her tizanidine dosage. [facility] Medical History Nicotine dependence, cigarettes, uncomplicated Acute abdominal pain in right upper quadrant Abnormal EKG Encounter for screening colonoscopy Colonoscopy refused Obesity (BMI 30-39.9) FDC (current) use of immunomodulator Back pain due to inflammatory process Osteopenia after menopause Hypovitaminosis D Bilateral thumb pain Lumbar back pain History of electroconvulsive therapy Spina bifida occulta S/P ECT (electroconvulsive therapy) History of cardiac murmur Incontinence of urine Tooth missing Needle stick, hypodermic, accidental Exposure to bloodborne pathogen Vitamin D deficiency Fatigue Left shoulder pain Fibromyalgia H. pylori duodenitis Cholelithiasis Lumbar degenerative disc disease Anxiety and depression Hypercholesterolemia Osteopenia Restless leg syndrome Insomnia GERD (gastroesophageal reflux disease) Impaired glucose tolerance Hypertension Cervical radiculopathy due to degenerative joint disease of spine HLA B27 (HLA B27 positive) Surgical History History of esophagogastroduodenoscopy (EGD) History of incisional hernia repair (10/02/22) Hx of colonoscopy History of cervical discectomy H/O basal cell carcinoma excision History of shoulder surgery History of lumbar fusion H/O thumb surgery H/O right wrist surgery History of partial hysterectomy History of hernia repair H/O nasal septoplasty History of hemorrhoidectomy History of cholecystectomy History of tonsillectomy Family History Father Hypertension Past heart attack CVD (cardiovascular disease) Mother Hyperlipidemia Paternal Grandmother Lung cancer Son Substance abuse Brother Bipolar 1 disorder Other Mental health disorder Social History Housing: House Are you a primary healthcare administration intern to a significant other at home: No Do you presently have visiting nurse or other home services: Yes (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) Alcohol intake: current Alcohol intake frequency: holidays/special occasions only Alcohol type: beer Comment: 3x a year 1 glass Patient Tobacco Use Status: Current everyday Tobacco user Tobacco use type: Cigarette Cigarette Packs Per Day: 1 Cigarettes Per Day: 15 Years Smoked: 46 e-Cigarette/Vaping Use: Never Used Second Hand Smoke Exposure: Yes service: No Current occupational status: disabled Cognitive needs: No Hearing needs: No Vision needs: Yes (reading glasses) Female Reproductive History Menstrual Age of Menarche: 14 Physical Exam Vital Signs: Last Vital Signs Pulse 96 07/18/25 12:24 Resp 16 07/18/25 12:24 BP 139/69 07/18/25 12:24 Pulse Ox 98 07/18/25 12:24 Oxygen Delivery Method Room Air 07/18/25 12:24 BMI result Body Mass Index 35.1 Assessment & Plan Assessment & Plan (1) Left shoulder pain: Code(s): M25.512 - Pain in left shoulder Category: Medical (2) Degenerative arthritis of knee, bilateral: Code(s): M17.0 - Bilateral primary osteoarthritis of knee Category: Medical Qualifiers: Osteoarthritis type: primary Qualified Code(s): M17.0 - Bilateral primary osteoarthritis of knee (3) Greater trochanteric pain syndrome: Code(s): M25.559 - Pain in unspecified hip Category: Medical Plan Plan Patient was informed and verbally consented to the use of an ambient scribe for clinic note documentation during this visit. 1. Chronic Pain Syndrome - The patient's tizanidine 4 mg is reportedly less effective. - The plan is to increase her tizanidine dose to 8 mg twice daily. - She was advised against taking 12 mg at night. - She will continue to use the 4 mg capsules, taking two at a time. - A new prescription will be provided if she runs out before her next refill is due. 2. Left Shoulder Pain - An X-ray of the left shoulder was ordered. - The patient declined an injection for her shoulder pain. - The results of the X-ray will be reviewed at her next appointment. 3. Right Knee Pain - An X-ray of the right knee was ordered. - The patient declined an injection for her knee pain. - The results of the X-ray will be reviewed at her next visit. 4. Greater Trochanteric Pain Syndrome Of Left Hip - The patient has severe bursitis in both hips, with the left being worse. - She consented to a steroid injection in her left hip. - A follow-up appointment will be scheduled for a left greater trochanteric bursa injection under ultrasound guidance. Discussion Notes I discussed the patient's inquiry about a full-body bone scan for her diffuse pain. I explained that a bone scan is primarily used to detect issues like cancer, infection, or severe focused arthritis and is not the ideal test for her generalized symptoms, also noting the exposure to radiation and radioactive dye. We discussed her tizanidine medication, and I approved an increase to 8 mg twice daily, advising that this is the maximum recommended dose and that she should not exceed it. I ordered X-rays for her left shoulder and right knee, and we will review the results at the next visit. The patient declined injections for her knee and shoulder at this time. For her left hip pain secondary to bursitis, the patient agreed to proceed with a corticosteroid injection. An appointment will be made for her to return for a left greater trochanteric bursa injection. Patient Instructions - You can increase your tizanidine dose to 8 mg in the morning and 8 mg at night. - Do not take more than 8 mg at one time. - Please go to the radiology department today to get X-rays of your left shoulder and right knee. - We will review these results at your next visit. - We have scheduled a follow-up appointment for you to receive an injection in your left hip for bursitis. - Continue to use Voltaren gel as needed for pain. - If you run out of your tizanidine before your next refill is due, please call our office. Orders: Orders XR knee standing BI 07/18/25 M17.0 - Bilateral primary osteoarthritis of knee XR shoulder LT min 2V 07/18/25 M25.512 - Pain in left shoulder Medications: Changed From tizanidine 4 mg orally QAM; 8mg orally QHS 30 days 90 caps 6RF muscle spasticity M96.1 - Postlaminectomy syndrome, not elsewhere classified To tizanidine 8 mg (2 x 4 mg) PO BID PRN 90 caps 6RF muscle spasticity 30 days M96.1 - Postlaminectomy syndrome, not elsewhere classified Coding Level of Care Code Est Pt Level 4 (99939) Diagnoses Left shoulder pain M25.512 Primary osteoarthritis of both knees M17.0 Osteoarthritis type: primary Greater trochanteric pain syndrome M25.559
[2025-07-18 12:24] VITALS: BP 139/69; PULSE 96; RESP 16; O2SAT 98; BMI 35.1
== END 2025-07-18 12:47 | disposition home or self-care (01) ==
LOC: HO.PMC 12:21
PROVIDERS: PCP Internal Medicine; Visit Provider Internal Medicine
DX: M25.512 Pain in left shoulder (principal); M17.0 Bilateral primary osteoarthritis of knee; M25.552 Pain in left hip
CPT/HCPCS: 99214

== ENCOUNTER → 2025-07-18 13:09 | Outpatient (BNV) | payer OTHER, SELFPAY | PROVIDERS: PCP Internal Medicine; Visit Provider Radiology Diagnostic Radiology | DX: M17.0 Bilateral primary osteoarthritis of knee (principal); M25.562 Pain in left knee | CPT/HCPCS: 73030; 73565 ==

== ENCOUNTER 2025-07-27 13:12 | Outpatient (REF) | payer OTHER, SELFPAY ==
--- OUTSIDE RECORDS SUMMARY | 2025-07-27 17:24 | XMS_ITS | Patient Health Record ---
Author Organization [facility] Address [address] [place] [id number] Care Team Providers Care Copyright Clerk Name Role Phone Ramirez Mackey Jr Reason For Referral No Information Plan Of Treatment No Information
--- OUTSIDE RECORDS SUMMARY | 2025-07-27 17:24 | XMS_ITS | Patient Health Record ---
[facility] Address [address] [place] [address] Care Team Providers Care Supervisor Dry Paste Name Role Phone Kenya Almaraz Primary Care Provider Unavailabl e Black, Brynn Unavailable [phone] Allergies Allergen (clinical drug ingredient) Drug/Non Drug [...] day Active Ciclopirox 8 % 1 application Fabrication Mig Welder ally Once a day; Duration: 30 10/30/2023 [...] Treatment Pending Test Test Name Order Date [id number] NAIL, 6 OR MORE 10/30/2023 Insurance Providers Payer Name Payer Address Payer Phone Subscriber Number Group Number Insured Name Patient Relationship to Insured Coverage Start Date Coverage End Date [facility] SCO Claims [address] [place] [id number] María Eastman Self - patient is the [...]
== END 2025-07-27 13:13 | disposition home or self-care (01) ==
LOC: HO.MAMMO 13:12
PROVIDERS: PCP Internal Medicine; Visit Provider Internal Medicine
DX: Z12.31 Encounter for screening mammogram for malignant neoplasm of breast (principal)
CPT/HCPCS: 77063; 77067

== ENCOUNTER → 2025-07-27 13:30 | Outpatient (BNV) | payer OTHER, SELFPAY | PROVIDERS: PCP Internal Medicine; Visit Provider Radiology Body Imaging | DX: Z12.31 Encounter for screening mammogram for malignant neoplasm of breast (principal) | CPT/HCPCS: 77063; 77067 ==

== ENCOUNTER 2025-08-01 10:19 | Outpatient (AMB) | payer OTHER, SELFPAY ==
--- NOTE | 2025-08-01 10:25 | A.OFFVIS_ITS ---
Vital Signs 08/01/25 10:26 Height 4 ft 11 in Weight 173 lb BMI 34.9 BP 152/71 H Blood Pressure Location Lt brachial Position Sitting Respiration 16 Pulse 107 H Pulse Source Pulse Oximeter Pulse Oximetry (%) 96 Oxygen Delivery Method Room Air Intake Visit Reasons: LEFT GTB INJECTION Mail Handler Sorter Required: No Lockstitch Lining Maker: Lockstitch Lining Maker Present Accompanied by: Darci Villafuerte Allergies bacitracin (From NEOSPORIN) Allergy (Severe, Verified 08/01/25 10:28) RASH gramicidin D (From NEOSPORIN) Allergy (Severe, Verified 08/01/25 10:28) RASH polymyxin B (From NEOSPORIN) Allergy (Severe, Verified 08/01/25 10:28) RASH adhesive tape (ADHESIVE TAPE) Allergy (Intermediate, Verified 08/01/25 10:28) RASH/BLISTERS polyester fibers Allergy (Intermediate, Verified 08/01/25 10:28) Itching Sulfa (Sulfonamide Antibiotics) (SULFA (SULFONAMIDE ANTIBIOTICS)) Allergy (Intermediate, Verified 08/01/25 10:28) ITCHY RASH chlorhexidine (From ChloraPrep Clear) Allergy (Mild, Verified 08/01/25 10:28) Rash leflunomide Adverse Reaction (Severe, Verified 08/01/25 10:28) gi upset cefazolin (CEFAZOLIN) Adverse Reaction (Intermediate, Verified 08/01/25 10:28) GI UPSET amoxicillin Adverse Reaction (Verified 08/01/25 10:28) throat Medication List - Last Reconciled 08/01/25 by Madison Burt LPN acetaminophen ER 650 mg PO Q8H bethanechol chloride 50 mg PO TID bisacodyl (Dulcolax (bisacodyl)) 20 mg (4 x 5 mg) PO ONCE 1 day Brace,wrist As directed bupropion HCl XL 150 mg PO DAILY cholecalciferol (vitamin D3) 50 mcg PO DAILY clonazepam 2 mg PO BID PRN diclofenac sodium 1% (Arthritis Pain (diclofenac)) 2 grams topical QID epinephrine (EpiPen 2-Hamilton) 0.3 mg (0.3 mL) IM Q4H PRN fenofibrate 160 mg PO DAILY ibuprofen 800 mg PO DAILY PRN incontinence pad, liner, disp (Pads For Women) As directed- extra absorbent overnight pads per pt request Lactobacillus rhamnosus GG (Culturelle) 1 cap PO DAILY nicotine 1 patch transdermal DAILY nicotine (polacrilex) 2 mg buccal Q2H pantoprazole 40 mg PO DAILY polyethylene glycol 3350 (Miralax) 238 grams PO ONCE 1 day quetiapine (Seroquel) 100 mg PO TID rosuvastatin 5 mg PO DAILY sertraline 100 mg PO BID sucralfate 10 mL PO BID tizanidine 8 mg (2 x 4 mg) PO BID PRN 30 days underpads (Bed Underpads) As directed HPI HPI LEFT GTB INJECTION: Details: History of Present Illness The patient is a 65-year-old female presenting for management of shoulder and right knee pain. She also reports issues with insomnia and anxiety. Pain Description - The patient reports pain in her shoulder and right knee. - Pain is described in a sore area of the joint upon getting up. - The back and side of the knee were also mentioned as areas of concern. Physical Exam - Procedure-specific: Patient was positioned for a procedure. - Skin: Antiseptic spray was applied to the procedure site. Results - XR Shoulder: Mild cortical irregularity at the GT Greater Trochanteric Bursa Injection, Left, Ultrasound Guided Informed consent was obtained and time out was performed. The site was prepped with Chloraprep. With the patient in lateral position and the use of ultrasound the greater trochanter was identified. A 21-gauge 3 in needle was then advanced toward the trochanteric bursa using an inplane technique. Once in position, and after negative aspiration, 40mg triamcinilone mixed with 0.5% ropivcaine (3mL total) was injected. There was no evidence of paresthesias throughout needle placement. The needle was withdrawn. An image of the US guided needle placement was saved to the record. The patient tolerated the procedure well and there was no evidence of procedural complications. The patient was observed in the procedure room for 20 minutes, vitals were stable, and discharged in stable condition. 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 pylori duodenitis Cholelithiasis Lumbar degenerative disc disease Anxiety and depression Hypercholesterolemia Osteopenia Restless leg syndrome Insomnia GERD (gastroesophageal reflux disease) Impaired glucose tolerance Hypertension Cervical radiculopathy due to degenerative joint disease of spine HLA B27 (HLA B27 positive) Surgical History History of esophagogastroduodenoscopy (EGD) History of incisional hernia repair (10/02/22) Hx of colonoscopy History of cervical discectomy H/O basal cell carcinoma excision History of shoulder surgery History of lumbar fusion H/O thumb surgery H/O right wrist surgery History of partial hysterectomy History of hernia repair H/O nasal septoplasty History of hemorrhoidectomy History of cholecystectomy History of tonsillectomy Family History Father Hypertension Past heart attack CVD (cardiovascular disease) Mother Hyperlipidemia Paternal Grandmother Lung cancer Son Substance abuse Brother Bipolar 1 disorder Other Mental health disorder Social History Housing: House Are you a primary patient care coordinator to a significant other at home: No Do you presently have visiting nurse or other home services: Yes (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 DEVULCANIZER 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) Alcohol intake: current Alcohol intake frequency: holidays/special occasions only Alcohol type: beer Comment: 3x a year 1 glass Patient Tobacco Use Status: Current everyday Tobacco user Tobacco use type: Cigarette Cigarette Packs Per Day: 1 Cigarettes Per Day: 15 Years Smoked: 46 e-Cigarette/Vaping Use: Never Used Second Hand Smoke Exposure: Yes service: No Current occupational status: disabled Cognitive needs: No Hearing needs: No Vision needs: Yes (reading glasses) Female Reproductive History Menstrual Age of Menarche: 14 Physical Exam Vital Signs: Last Vital Signs Pulse 107 H 08/01/25 10:26 Resp 16 08/01/25 10:26 BP 152/71 H 08/01/25 10:26 Pulse Ox 96 08/01/25 10:26 Oxygen Delivery Method Room Air 08/01/25 10:26 BMI result Body Mass Index 34.9 Assessment & Plan Assessment & Plan (1) Trochanteric bursitis, left hip: Code(s): M70.62 - Trochanteric bursitis, left hip Category: Medical Plan Patient is status post L GTB injection. Patient tolerated procedure well and was discharged home in stable condition with discharge instructions. All questions were answered. We will follow-up via telephone or in clinic to assess response to therapy. A follow-up appointment was made during today's visit. Coding Level of Care Code Procedure Only Diagnoses Trochanteric bursitis, left hip M70.62
[2025-08-01 10:26] VITALS: BP 152/71; PULSE 107; RESP 16; O2SAT 96; BMI 34.9
--- OUTSIDE RECORDS SUMMARY | 2025-08-01 12:32 | XMS_ITS | Patient Health Record ---
Author Organization [facility] Address [address] [place] [id number] Care Team Providers Care Medicaid Nurse Name Role Phone Ramirez Mackey Jr Reason For Referral No Information Plan Of Treatment No Information
== END 2025-08-01 11:05 | disposition home or self-care (01) ==
LOC: HO.PMC 10:19
PROVIDERS: PCP Internal Medicine; Visit Provider Internal Medicine
DX: M70.62 Trochanteric bursitis, left hip (principal)
CPT/HCPCS: 20611

== ENCOUNTER → 2025-08-01 10:19 | Outpatient (BNVA) | payer OTHER, SELFPAY | PROVIDERS: PCP Internal Medicine; Visit Provider Internal Medicine | DX: M70.62 Trochanteric bursitis, left hip (principal) | CPT/HCPCS: 20611 ==

== ENCOUNTER 2025-08-08 10:10 | Day surgery (SDC) | payer OTHER, SELFPAY ==
--- NOTE | 2025-08-02 13:11 | P.CONAN_ITS ---
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 (Acute) Back pain due to inflammatory process (Acute) Osteopenia after menopause (Acute) Hypovitaminosis D (Acute) Bilateral thumb pain (Acute) Lumbar back pain (Acute) Lumbar post-laminectomy syndrome (Acute) Chronic intractable pain (Acute) Hydronephrosis (Acute) Bilateral hand pain (Acute) Thoracic spondylosis (Acute) Bilateral thigh pain (Acute) Thoracic spine pain (Acute) Allergic reaction (Acute) Bilateral hip bursitis (Acute) Tendinitis of both quadricep tendons (Acute) Effusion of right knee joint (Acute) Degenerative arthritis of knee, bilateral (Acute) Bilateral anterior knee pain (Acute) Bilateral knee pain (Acute) Tendinitis of right rotator cuff (Acute) COVID-19 virus infection (Acute) Oral candidiasis (Acute) Hemorrhoid prolapse (Acute) Chronic diarrhea (Acute) Neurogenic bladder (Acute) Urinary retention with incomplete bladder emptying (Acute) Voiding dysfunction (Acute) Thoracic back pain (Acute) Dizziness (Acute) Incisional hernia (Acute) Major depressive disorder (Acute) Vaginal atrophy (Acute) Overflow incontinence (Acute) Needle stick injury (Acute) Tendinitis of left rotator cuff (Acute) Tubular adenoma of colon (Acute) Diverticulosis of colon (Acute) LFT elevation (Acute) Generalized anxiety disorder (Acute) Cloudy urine (Acute) Trochanteric bursitis, left hip (Acute) Ovarian cyst (Acute) Ventral hernia (Acute) Exposure to bloodborne pathogen (Acute) History of cervical discectomy (Acute) History of lumbar fusion (Acute) Vitamin D deficiency (Acute) Fibromyalgia (Acute) Fatigue (Acute) Left shoulder pain (Acute) Lumbar degenerative disc disease (Acute) Hypercholesterolemia (Acute) Osteopenia (Acute) Restless leg syndrome (Acute) Insomnia (Acute) GERD (gastroesophageal reflux disease) (Acute) Impaired glucose tolerance (Acute) Hypertension (Acute) Past Medical History Medical History Nicotine dependence, cigarettes, uncomplicated Acute abdominal pain in right upper quadrant Abnormal EKG Encounter for screening colonoscopy Colonoscopy refused Obesity (BMI 30-39.9) 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 pylori duodenitis Cholelithiasis Lumbar degenerative disc disease Anxiety and depression Hypercholesterolemia Osteopenia Restless leg syndrome Insomnia GERD (gastroesophageal reflux disease) Impaired glucose tolerance Hypertension Cervical radiculopathy due to degenerative joint disease of spine HLA B27 (HLA B27 positive) Family History Family History Father Hypertension Past heart attack CVD (cardiovascular disease) Mother Hyperlipidemia Paternal Grandmother Lung cancer Son Substance abuse Brother Bipolar 1 disorder Other Mental health disorder Family history of problems with anesthesia: No Surgical History Surgical History History of esophagogastroduodenoscopy (EGD) History of incisional hernia repair (10/02/22) Hx of colonoscopy History of cervical discectomy H/O basal cell carcinoma excision History of shoulder surgery History of lumbar fusion H/O thumb surgery H/O right wrist surgery History of partial hysterectomy History of hernia repair H/O nasal septoplasty History of hemorrhoidectomy History of cholecystectomy History of tonsillectomy History of Problems with Anesthesia: No Social History Social History Housing: House Are you a primary personal caregiver to a significant other at home: No Do you presently have visiting nurse or other home services: Yes (ANSWERER 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) Alcohol intake: current Alcohol intake frequency: holidays/special occasions only Alcohol type: beer Comment: 3x a year 1 glass Patient Tobacco Use Status: Current everyday Tobacco user Tobacco use type: Cigarette Cigarette Packs Per Day: 1 Cigarettes Per Day: 15 Years Smoked: 46 e-Cigarette/Vaping Use: Never Used Second Hand Smoke Exposure: Yes Use of substances other than those prescribed or required for medical reasons: No Advance Directives: No Advance Directives Information Provided: Yes service: No Current occupational status: disabled Cognitive needs: No Hearing needs: No Vision needs: Yes (reading glasses) Meds Allergies Allergy/AdvReac Type Severity Reaction Status Date / Time bacitracin (From NEOSPORIN) Allergy Severe RASH Verified 08/01/25 10:28 gramicidin D (From NEOSPORIN) Allergy Severe RASH Verified 08/01/25 10:28 polymyxin B (From NEOSPORIN) Allergy Severe RASH Verified 08/01/25 10:28 adhesive tape (ADHESIVE TAPE) Allergy Intermediate RASH/BLISTE Verified 08/01/25 10:28 RS polyester fibers Allergy Intermediate Itching Verified 08/01/25 10:28 Sulfa (Sulfonamide Allergy Intermediate ITCHY RASH Verified 08/01/25 10:28 Antibiotics) (SULFA (SULFONAMIDE ANTIBIOTICS)) chlorhexidine (From Allergy Mild Rash Verified 08/01/25 10:28 ChloraPrep Clear) leflunomide AdvReac Severe gi upset Verified 08/01/25 10:28 cefazolin (CEFAZOLIN) AdvReac Intermediate GI UPSET Verified 08/01/25 10:28 amoxicillin AdvReac throat Verified 08/01/25 10:28 Home Medications ?Medication ?Instructions ?Recorded ?Confirmed ?Last Taken ?Type quetiapine 100 mg tablet (Seroquel) 100 mg PO TID 04/0308/03/25 Unknown History sertraline 100 mg tablet 100 mg PO BID 12/17/2308/03 Unknown History bupropion HCl 150 mg 24 hr tablet, 150 mg PO DAILY 08/03/25 Unknown History extended release clonazepam 2 mg tablet 2 mg PO BID PRN Anxiety 12/1008/03/25 Unknown History Assessment and Plan Assessment Anesthesia Assessment: Chart Reviewed Final Anesthetic Review Family History of Problems with Anesthesia: No History of Problems with Anesthesia: No Documented by User: Jose Gómez MD 08/08/25 11:24 [facility] Past Medical History Medical History Nicotine dependence, cigarettes, uncomplicated Acute abdominal pain in right upper quadrant Abnormal EKG Encounter for screening colonoscopy Colonoscopy refused Obesity (BMI 30-39.9) 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 pylori duodenitis Cholelithiasis Lumbar degenerative disc disease Anxiety and depression Hypercholesterolemia Osteopenia Restless leg syndrome Insomnia GERD (gastroesophageal reflux disease) Impaired glucose tolerance Hypertension Cervical radiculopathy due to degenerative joint disease of spine HLA B27 (HLA B27 positive) Cognitive capacity: normal Functional capacity: independent ambulation Family History Family History Father Hypertension Past heart attack CVD (cardiovascular disease) Mother Hyperlipidemia Paternal Grandmother Lung cancer Son Substance abuse Brother Bipolar 1 disorder Other Mental health disorder Surgical History Surgical History History of esophagogastroduodenoscopy (EGD) History of incisional hernia repair (10/02/22) Hx of colonoscopy History of cervical discectomy H/O basal cell carcinoma excision History of shoulder surgery History of lumbar fusion H/O thumb surgery H/O right wrist surgery History of partial hysterectomy History of hernia repair H/O nasal septoplasty History of hemorrhoidectomy History of cholecystectomy History of tonsillectomy Social History Social History Housing: House Are you a primary personal caregiver to a significant other at home: No Do you presently have visiting nurse or other home services: Yes (ANSWERER 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) Alcohol intake: current Alcohol intake frequency: holidays/special occasions only Alcohol type: beer Comment: 3x a year 1 glass Patient Tobacco Use Status: Current everyday Tobacco user Tobacco use type: Cigarette Cigarette Packs Per Day: 1 Cigarettes Per Day: 15 Years Smoked: 46 e-Cigarette/Vaping Use: Never Used Second Hand Smoke Exposure: Yes Use of substances other than those prescribed or required for medical reasons: No Advance Directives: No Advance Directives Information Provided: Yes service: No Current occupational status: disabled Cognitive needs: No Hearing needs: No Vision needs: Yes (reading glasses) Meds Allergies Allergy/AdvReac Type Severity Reaction Status Date / Time bacitracin (From NEOSPORIN) Allergy Severe RASH Verified 08/01/25 10:28 gramicidin D (From NEOSPORIN) Allergy Severe RASH Verified 08/01/25 10:28 polymyxin B (From NEOSPORIN) Allergy Severe RASH Verified 08/01/25 10:28 adhesive tape (ADHESIVE TAPE) Allergy Intermediate RASH/BLISTE Verified 08/01/25 10:28 RS polyester fibers Allergy Intermediate Itching Verified 08/01/25 10:28 Sulfa (Sulfonamide Allergy Intermediate ITCHY RASH Verified 08/01/25 10:28 Antibiotics) (SULFA (SULFONAMIDE ANTIBIOTICS)) chlorhexidine (From Allergy Mild Rash Verified 08/01/25 10:28 ChloraPrep Clear) leflunomide AdvReac Severe gi upset Verified 08/01/25 10:28 cefazolin (CEFAZOLIN) AdvReac Intermediate GI UPSET Verified 08/01/25 10:28 amoxicillin AdvReac throat Verified 08/01/25 10:28 Home Medications ?Medication ?Instructions ?Recorded ?Confirmed ?Last Taken ?Type quetiapine 100 mg tablet (Seroquel) 100 mg PO TID 04/0308/03/25 Unknown History sertraline 100 mg tablet 100 mg PO BID 12/17/2308/03 Unknown History bupropion HCl 150 mg 24 hr tablet, 150 mg PO DAILY 08/03/25 Unknown History extended release clonazepam 2 mg tablet 2 mg PO BID PRN Anxiety 12/1008/03/25 Unknown History Exam Airway Mallampati Class: II TM Dist: >3cm Neck ROM: Full Heart: ok Lungs: ok Other: ok Assessment and Plan Assessment Anesthesia Assessment: Anesthesia Plan Discussed and Smoking Cess. Discussed Final Anesthetic Review NPO: Yes Final Preanesthetic Review: No Changes in Pt Med Stat, Meds/Allgs Chart Reviewed, Consent Obtained/Reviewed and Anes Risks/Benef Reviewed Patient Risk: Low Procedure Risk: Low Anesthetic Plan Anesthetic Plan: MAC: Disposition: Standard PACU
[2025-08-03 09:15] VITALS: BMI 35.1
[2025-08-08 10:41] VITALS: BP 144/83; PULSE 89; RESP 16; TEMP 36.4; O2SAT 96
--- NOTE | 2025-08-08 10:41 | P.HPSUR_ITS ---
Pre-Procedural Eval Section A - 24 Hr Update-Section A only Date of Service: 08/08/25 The patient is an INPATIENT: No The patient has been examined within 24 hours of the surgical procedure. The History & Physical has been completed within 30 days and I have reviewed it.: No Section B - Complete if H&P > 30 days Chief Complaint: Surveillance for colon polyps Relevant Family History (Specify if Yes): No Relevant Social History: Tobacco Use Present Medications: see Short Stay Collaborative assessment Medical History: Significant History (Back pain due to inflammatory process Osteopenia after menopause Hypovitaminosis D Bilateral thumb pain Lumbar back pain History of electroconvulsive therapy Spina bifida occulta S/P ECT (electroconvulsive therapy) History of cardiac murmur Incontinence of urine Tooth missing Needle stick, hypodermi) History of Previous Operations: Relevant previous surgery/procedure and date(s) (History of esophagogastroduodenoscopy (EGD) History of incisional hernia repair (10/02/22) Hx of colonoscopy History of cervical discectomy H/O basal cell carcinoma excision History of shoulder surgery History of lumbar fusion H/O thumb surgery H/O right wrist surgery History of partial hysterectomy) Allergies: Allergies Allergy/AdvReac Type Severity Reaction Status Date / Time bacitracin (From NEOSPORIN) Allergy Severe RASH Verified 08/01/25 10:28 gramicidin D (From NEOSPORIN) Allergy Severe RASH Verified 08/01/25 10:28 polymyxin B (From NEOSPORIN) Allergy Severe RASH Verified 08/01/25 10:28 adhesive tape (ADHESIVE TAPE) Allergy Intermediate RASH/BLISTE Verified 08/01/25 10:28 RS polyester fibers Allergy Intermediate Itching Verified 08/01/25 10:28 Sulfa (Sulfonamide Allergy Intermediate ITCHY RASH Verified 08/01/25 10:28 Antibiotics) (SULFA (SULFONAMIDE ANTIBIOTICS)) chlorhexidine (From Allergy Mild Rash Verified 08/01/25 10:28 ChloraPrep Clear) leflunomide AdvReac Severe gi upset Verified 08/01/25 10:28 cefazolin (CEFAZOLIN) AdvReac Intermediate GI UPSET Verified 08/01/25 10:28 amoxicillin AdvReac throat Verified 08/01/25 10:28 Review of Systems Sugical H&P ROS: Negative: Constitution, Cardiovascular, Respiratory and Gastr ointestinal Exam Surgical H&P Exam: Normal: Heart, Normal: Lungs, Normal: Extremities and Normal: Abdomen Plan Diagnosis/Plan: Change (Proceed with colonoscopy for follow-up of colon polyps) I have reviewed the history and physical and performed a pertinent physical examination on my patient. No changes have occurred unless specified. Time Spent With Patient Time: Total time managing care of this patient today ____ minutes.
[2025-08-08] MEDS: Lactated Ringers 1,000 ML 100 ML IVCONT (10:42)
--- NOTE | 2025-08-08 12:31 | P.OPN-COLO_ITS ---
Colonoscopy Operative Note Operative Note Date of Service: 08/08/25 Narrative: COLONOSCOPY TILL CECUM WITH SNARE POLYPECTOMY Pre-op diagnosis: Surveillance for colon polyps. Post-op diagnosis:? Colon polyp, Diverticulosis Endoscopist:? Cordell Goldberg MD Anesthesia:?MAC Consent: Indications for the procedure and potential complications of bleeding, perforation, reaction to medications and missed diagnosis were discussed with the patient and informed consent was obtained. Instrument: Olympus PCF H 190 L variable stiffness pediatric colonoscope Monitoring: Vital signs and clinical assessment, intermittent blood pressure monitoring, continuous EKG monitoring, Pulse oximetry and Carbon Dioxide monitoring were done throughout the procedure. Please see anesthesia flowsheet. Colon withdrawl time was 19 minutes. Procedure: The patient was placed in the left lateral decubitis position and pre-procedure medications were administered. After a digital rectal examination of the ano-rectum, the video colonoscope was inserted into the rectum and advanced through the colon to the cecum. The colonoscope was slowly withdrawn in a retrograde panoramic fashion and the colon mucosa was carefully examined including a retroflexed view of the rectum. Findings and interventions are described below. Procedure Difficulty: without difficulty Findings: Terminal Ileum: Not evaluated Cecum: Normal Ascending Colon: Moderate diverticulosis throughout the entire colon Transverse Colon: Moderate diverticulosis throughout the entire colon Descending Colon: Moderate diverticulosis throughout the entire colon Sigmoid Colon: A 4-5 mm sessile polyp - removed with a cold snare. Severe diverticulosis with luminal narrowing Rectum: Normal Ano-rectum: Normal Colon preparation: Good after some irrigation. Hatch Bowel Preparation Scale Right colon; 2 Transverse colon: 2 Left colon; 2 (0 = Unprepared colon segment with mucosa not seen due to solid stool that cannot be cleared. 1 = Portion of mucosa of the colon segment seen, but other areas of the colon segment not well seen due to staining, residual stool and/or opaque liquid. 2 = Minor amount of residual staining, small fragments of stool and/or opaque liquid, but mucosa of colon segment seen well. 3 = Entire mucosa of colon segment seen well with no residual staining, small fragments of stool or opaque liquid) Impression and Post Procedure Diagnosis: Colonoscopy Findings: One small polyp was removed Moderate to severe diverticulosis seen in the entire colon Plan: I will send a letter with biopsy results. Repeat Colonoscopy in 5 years if polyps are adenomatous and due to history of adenomatous colon polyps. Above findings were reviewed with the patient and relevant handouts were given and the discharge area. BIOPSIES SHOWED: Colon, sigmoid, polyp: Tubular adenoma, likely excised; negative for high-grade dysplasia and carcinoma. Letter sent to the patient with biopsy results. Patient was placed on the colonoscopy recall list for repeat colonoscopy in 5 years.
[2025-08-08 12:35] VITALS: BP 106/70; PULSE 73; RESP 15; TEMP 36.3; O2SAT 96
[2025-08-08 12:50] VITALS: BP 151/76; PULSE 80; RESP 16; TEMP 36.2; O2SAT 98
== END 2025-08-08 13:06 | disposition home or self-care (01) ==
PROVIDERS: PCP Internal Medicine; Visit Provider Internal Medicine Gastroenterology
PROC: 0DJD8ZZ Inspection of Lower Intestinal Tract, Via Natural or Artificial Opening Endoscopic (ICD-10-PCS; CPT 45378; principal; 2025-08-08 11:50)
DX: Z12.11 Encounter for screening for malignant neoplasm of colon (principal); K21.9 Gastro-esophageal reflux disease without esophagitis; K57.30 Diverticulosis of large intestine without perforation or abscess without bleeding; D12.5 Benign neoplasm of sigmoid colon
CPT/HCPCS: 45385; 88305; J2003; J2704; J3010

== ENCOUNTER → 2025-08-08 10:10 | Outpatient (BNV) | payer OTHER, SELFPAY | PROVIDERS: PCP Internal Medicine; Visit Provider Internal Medicine Gastroenterology | DX: Z12.11 Encounter for screening for malignant neoplasm of colon (principal); K63.5 Polyp of colon; K57.90 Diverticulosis of intestine, part unspecified, without perforation or abscess without bleeding | CPT/HCPCS: 45385 ==